=== PATIENT | female | born 1985 | race Caucasian/White ===

== ENCOUNTER 2018-09-11 16:56 | Emergency (ER) | payer SELFPAY ==
[2018-09-11] MEDS ORDERED: MORPHINE 4 MG/ML SYR ONE (17:25)
[2018-09-11] MEDS ORDERED: ONDANSETRON 4 MG/2 ML VIAL ONE (17:25)
[2018-09-11] MEDS ORDERED: NA CHLORIDE 0.9% 1,000 ML ONE (17:26)
[2018-09-11] MEDS ORDERED: MEPERIDINE HCL 50 MG/ML AMP ONE (17:51)
[2018-09-11] MEDS ORDERED: PROMETHAZINE 25 MG/ML VIAL ONE (17:52)
[2018-09-11 18:05] LABS: Absolute Lymphocytes (CBC) 0.9 K/uL (0.7-4.9); Absolute Monocytes 0.3 K/uL (0.1-1.3); Absolute Neutrophil 9.6 K/uL (1.8-8.0); Basophils % 0.1 % (0-1.3); Hematocrit 37.5 % (36.0-45.0); Lymphocytes % 8.5 % (15.3-44.8); MCH 30.1 pg (27.0-35.0); MCV 86.7 fL (80-100); MPV 9.5 fL (7.6-11.3); Monocytes % 2.7 % (3.3-12.3); RBC Red Blood Cell Count 4.32 M/uL (3.86-4.86)
[2018-09-11 18:06] LABS: Albumin 4.3 g/dL (3.4-5.0); Bilirubin Direct 0.1 mg/dL (0-0.2); Bilirubin Total 0.4 mg/dL (0.2-1.0); Potassium 3.2 mmol/L (3.5-5.1); Protein, Total 8.1 g/dL (6.4-8.2)
--- NOTE | 2018-09-11 19:09 | RAD REPORT ---
EXAM DESCRIPTION: CTAbdomen Pelvis W Contrast - 09/11/2018 6:56 pm CLINICAL HISTORY: Abdominal pain. iv only;Abd pain COMPARISON: No comparisons TECHNIQUE: Biphasic CT imaging of the abdomen and pelvis was performed with 100 ml non-ionic IV cont rast. All CT scans are performed using dose optimization technique as appropriate and may include automated exposure control or mA/KV adjustment according to patient size. FINDINGS: The lung bases are clear. The liver, spleen, pancreas, adrenal glands and kidneys are within normal limits. No bowel obstruction, free air, free fluid or abscess. The appendix is normal. The terminal ileum a ppears mildly thickened with a few surrounding right lower quadrant lymph nodes seen. The cervix appears bulky and there is trace pelvic free fluid. No suspicious bony findings. IMPRESSION: Terminal ileum thickening is seen with mild surrounding lymph nodes could indicate infla mmatory bowel disease/Crohn's disease. Bulky cervix is seen with trace pelvic free fluid. Advise correlation with Pap smear if not recently performed.
[2018-09-11 19:30] LABS: Urine White Blood Cell Casts OK
[2018-09-11 19:31] LABS: Blood Morphology Comment NOT SEEN (NOT SEEN); Platelet Estimate ADEQ
[2018-09-11] MEDS ORDERED: predniSONE 20 MG TAB ONE (20:10)
--- NOTE | 2018-09-11 20:31 | ER ---
Nurse's Notes [facility] Name: Shyanne Pardo Age: 33 yrs Sex: Female : 1985 Arrival Date: 09/11/2018 Time: 16:58 Bed 8 Private MD: Diagnosis: Abdominal and pelvic pain;Crohn's disease [regional enteritis] Presentation: 09/11 17:04 Presenting complaint: Patient states: She is suppose to have a colonoscopy in the aj1 morning, but she's having so much stomach pain she isn't able to hold any of the medications down. Reports vomiting for the past 2 days. Denies fever, diarrhea. Reports constipation. Patient is restless, reports abdominal pain in the umbilical area. Transition of care: patient was not received from another setting of care. Onset of symptoms was September 11, 2018. Risk Assessment: Do you want to hurt yourself or someone else? Patient reports no desire to harm self or others. 17:04 Method Of Arrival: [facility] 17:04 Acuity: [place] 3 aj1 17:12 Care prior to arrival: None. aj1 17:12 Note Unable to take patient's blood pressure at this time, patient is restless and aj1 unable to keep her arm still to get blood pressure. 19:29 Initial Sepsis Screen: Does the patient meet any 2 criteria? No. Patient's initial ao sepsis screen is negative. Does the patient have a suspected source of infection? No. Patient's initial sepsis screen is negative. Triage Assessment: 17:14 General: Appears uncomfortable, Behavior is crying, restless, uncooperative. Pain: aj1 Complains of pain in umbilical area Pain currently is 10 out of 10 on a pain scale. Neuro: Level of Consciousness is awake, alert. Cardiovascular: Denies chest pain. Respiratory: Airway is patent Respiratory effort is even, unlabored, Respiratory pattern is regular, symmetrical. GI: Reports upper abdominal pain, constipation, gaseousness, nausea, vomiting, Patient currently denies diarrhea. Historical: - Allergies: 17:07 PENICILLINS; aj1 17:07 azithromycin; aj1 - PMHx: 17:14 None; aj1 - PSHx: 17:14 "emergency surgery when her IUD went through her Cervix and started going to her bowel";aj1 - Immunization history:: Adult Immunizations unknown. - Social history:: Smoking status: Patient uses tobacco products. - Ebola Screening: : Patient negative for fever greater than or equal to 101.5 degrees Fahrenheit, and additional compatible Ebola Virus Disease symptoms Patient denies exposure to infectious person Patient denies travel to an Ebola-affected area in the 21 days before illness onset. Screenin:29 Abuse screen: Denies threats or abuse. Denies injuries from another. Nutritional la1 screening: No deficits noted. Tuberculosis screening: No symptoms or risk factors identified. Fall Risk None identified. Assessment: 17:20 General: Appears uncomfortable, ill, slender, well developed, well nourished, Behavior sg is agitated, anxious, restless. Pain: Complains of pain in umbilical area Quality of pain is described as aching, sharp, stabbing. Neuro: No deficits noted. Cardiovascular: Patient's skin is warm and dry. Chest pain is denied. Respiratory: Airway is patent Respiratory effort is even, unlabored, Respiratory pattern is regular, symmetrical. GI: Bowel sounds present X 4 quads. Abd is soft X 4 quads Abdomen is tender to palpation X 4 quads. : No signs and/or symptoms were reported regarding the genitourinary system. EENT: No signs and/or symptoms were reported regarding the EENT system. Derm: Skin is intact, is healthy with good turgor, Skin is clammy, Skin is pale, Skin temperature is cool. Musculoskeletal: No signs and/or symptoms reported regarding the musculoskeletal system. 19:22 General: Appears in no apparent distress. comfortable, Behavior is calm, cooperative, ao appropriate for age. Pain: Complains of pain in abdomen. Neuro: Level of Consciousness is awake, alert, obeys commands, Oriented to person, place, time, situation, Appropriate for age Moves all extremities. Full function Speech is normal, Facial symmetry appears normal. Cardiovascular: Capillary refill < 3 seconds Patient's skin is warm and dry. Respiratory: Airway is patent Respiratory effort is even, unlabored, Respiratory pattern is regular, symmetrical. GI: Abdomen is non-distended. : No signs and/or symptoms were reported regarding the genitourinary system. EENT: No signs and/or symptoms were reported regarding the EENT system. Derm: Skin is intact, is healthy with good turgor, Skin is clammy, Skin is pink, warm \\T\\ dry. normal, Skin temperature is warm. Musculoskeletal: Circulation, motion, and sensation intact. Range of motion:. 20:11 Reassessment: Patient appears in no apparent distress at this time. Patient and/or ao family updated on plan of care and expected duration. Pain level reassessed. 21:11 Reassessment: Patient is alert, oriented x 3, equal unlabored respirations, skin lp1 warm/dry/pink. Patient states feeling better. Vital Signs: 17:14 Pulse 92; Resp 24; Temp 97.7(O); Pulse Ox 100% on R/A; Pain 10/10; aj1 17:25 BP 142 / 88; sg 19:22 BP 125 / 75; Pulse 83; Resp 16; Pulse Ox 98% ; Pain 0/10; ao 20:11 BP 120 / 80; Pulse 78; Resp 14; Pulse Ox 99% ; ao 21:11 BP 111 / 82; Pulse 77; Resp 16; Pulse Ox 98% on R/A; lp1 ED Course: 16:58 Patient arrived in ED. as 17:06 Triage completed. aj1 17:07 Arm band placed on Patient placed in an exam room. aj1 17:28 Fito Rodrigues PA is PHCP. cp 17:28 Shar Prather MD is Attending Physician. cp 17:29 Inserted saline lock: 18 gauge in right antecubital area, using aseptic technique. la1 Blood collected. 17:35 Mariano Chakraborty PA is PHCP. jr8 17:35 Shar Prather MD is Attending Physician. jr8 17:59 Regulo Willis, ESTER is Primary Nurse. sg 18:56 CT Abd/Pelvis - W/Contrast In Process Unspecified. EDMS 19:29 Patient has correct armband on for positive identification. ao 20:30 Devan Gomes MD is Referral Physician. jr8 21:11 No provider procedures requiring assistance completed. IV discontinued, No lp1 redness/swelling at site. Pressure dressing applied. Administered Medications: 17:36 Drug: morphine 4 mg Route: IVP; Site: right antecubital; hb 18:00 Follow up: Response: No adverse reaction; No change in condition sg 17:36 Drug: Zofran 4 mg Route: IVP; Site: right antecubital; hb 18:00 Follow up: Response: No adverse reaction; No change in condition sg 17:37 Drug: NS 0.9% 1000 ml Route: IV; Rate: 1000 ml; Site: right antecubital; hb 21:12 Follow up: IV Status: Completed infusion; IV Intake: 1000ml lp1 18:04 Drug: Demerol 50 mg Route: IVP; Site: right antecubital; sg 18:30 Follow up: Response: No adverse reaction; Pain is decreased sg 18:04 Drug: Phenergan 25 mg Route: IVP; Site: right antecubital; sg 18:46 Follow up: Response: No adverse reaction; Nausea is decreased sg 20:11 Drug: predniSONE 40 mg Route: PO; ao 21:12 Follow up: Response: No adverse reaction lp1 Intake: 21:12 IV: 1000ml; Total: 1000ml. lp1 Outcome: 20:31 Discharge ordered by . rachel 21:11 Discharged to home ambulatory, with family. lp1 21:11 Condition: good 21:11 Discharge instructions given to patient, family, Instructed on discharge instructions, follow up and referral plans. medication usage, Demonstrated understanding of instructions, follow-up care, medications, Prescriptions given X x5 21:13 Patient left the ED. lp1 Signatures: Dispatcher [employer] EDMS Mariana Zuleta RN RN aj1 Regulo Willis RN RN sg Martinez, Amelia as Pena, Laura, RN RN lp1 Mariano Chakraborty PA PA jr8 Attema, Lee, RN RN la1 Fito Rodrigues PA PA cp Ortiz, Alex, RN RN ao Baxter, Heather, RN RN hb
--- NOTE | 2018-09-11 20:31 | EDPHYS ---
Physician Documentation [facility] Name: Shyanne Pardo Age: 33 yrs Sex: Female : 1985 Arrival Date: 09/11/2018 Time: 16:58 Bed 8 Private MD: ED Physician Shar Prather HPI: 09/11 18:44 This 33 yrs old Female presents to ER via Ambulatory with complaints of jr8 Abdominal Pain. 18:44 The patient presents with abdominal pain that is diffuse. Onset: The symptoms/episode jr8 began/occurred acutely, today. The symptoms do not radiate. Associated signs and symptoms: Pertinent positives: nausea and vomiting. The symptoms are described as stabbing. Modifying factors: The symptoms are alleviated by nothing, the symptoms are aggravated by nothing. Severity of pain: At its worst the pain was severe. The patient has not experienced similar symptoms in the past. The patient has been recently seen by a physician:. Patient's family stated that she has had abdominal pain for the past couple of years on/off. Thought it may be due to her endometriosis. Stated that over the past couple of months noted that it was not coinciding with her menstrual cycles any longer and getting more frequent. Had bad bout this past and saw [facility] ER. Had CT and US done showing mesenteric adenitis only. Came back today with even worse pain. Saw GI Dr. Gomes today and has colonoscopy and endoscopy scheduled . Historical: - Allergies: 17:07 PENICILLINS; aj1 17:07 azithromycin; aj1 - PMHx: 17:14 None; aj1 - PSHx: 17:14 "emergency surgery when her IUD went through her Cervix and started going to her bowel";aj1 - Immunization history:: Adult Immunizations unknown. - Social history:: Smoking status: Patient uses tobacco products. - Ebola Screening: : Patient negative for fever greater than or equal to 101.5 degrees Fahrenheit, and additional compatible Ebola Virus Disease symptoms Patient denies exposure to infectious person Patient denies travel to an Ebola-affected area in the 21 days before illness onset. ROS: 18:44 Eyes: Negative for injury, pain, redness, and discharge, ENT: Negative for injury, jr8 pain, and discharge, Neck: Negative for injury, pain, and swelling, Cardiovascular: Negative for chest pain, palpitations, and edema, Respiratory: Negative for shortness of breath, cough, wheezing, and pleuritic chest pain, Back: Negative for injury and pain, MS/Extremity: Negative for injury and deformity, Skin: Negative for injury, rash, and discoloration, Neuro: Negative for headache, weakness, numbness, tingling, and seizure. 18:44 Abdomen/GI: Positive for abdominal pain, nausea and vomiting, Negative for diarrhea, constipation, abdominal cramps, abdominal distension, anorexia, dysphagia, hematemesis, black/tarry stool, rectal pain, rectal bleeding, bowel incontinence, flatulence. Exam: 18:44 Eyes: Pupils equal round and reactive to light, extra-ocular motions intact. Lids and jr8 lashes normal. Conjunctiva and sclera are non-icteric and not injected. Cornea within normal limits. Periorbital areas with no swelling, redness, or edema. ENT: Nares patent. No nasal discharge, no septal abnormalities noted. Tympanic membranes are normal and external auditory canals are clear. Oropharynx with no redness, swelling, or masses, exudates, or evidence of obstruction, uvula midline. Mucous membranes moist. Neck: Trachea midline, no thyromegaly or masses palpated, and no cervical lymphadenopathy. Supple, full range of motion without nuchal rigidity, or vertebral point tenderness. No Meningismus. Cardiovascular: Regular rate and rhythm with a normal S1 and S2. No gallops, murmurs, or rubs. Normal PMI, no JVD. No pulse deficits. Respiratory: Lungs have equal breath sounds bilaterally, clear to auscultation and percussion. No rales, rhonchi or wheezes noted. No increased work of breathing, no retractions or nasal flaring. Back: No spinal tenderness. No costovertebral tenderness. Full range of motion. Skin: Warm, dry with normal turgor. Normal color with no rashes, no lesions, and no evidence of cellulitis. MS/ Extremity: Pulses equal, no cyanosis. Neurovascular intact. Full, normal range of motion. Neuro: Awake and alert, GCS 15, oriented to person, place, time, and situation. Cranial nerves II-XII grossly intact. Motor strength 5/5 in all extremities. Sensory grossly intact. Cerebellar exam normal. Normal gait. 18:44 Abdomen/GI: Inspection: abdomen appears normal, Bowel sounds: active, all quadrants, Palpation: soft, in all quadrants, moderate abdominal tenderness, in the abdomen diffusely, mass, is not appreciated, rebound tenderness, is not appreciated, voluntary guarding, is not appreciated, involuntary guarding, is not appreciated, no appreciated organomegaly, Indicators: McBurney's point is not tender, Palmer's sign is negative, Rovsing's sign is negative, Liver: no appreciated palpable abnormalities, tenderness. Vital Signs: 17:14 Pulse 92; Resp 24; Temp 97.7(O); Pulse Ox 100% on R/A; Pain 10/10; aj1 17:25 BP 142 / 88; sg 19:22 BP 125 / 75; Pulse 83; Resp 16; Pulse Ox 98% ; Pain 0/10; ao 20:11 BP 120 / 80; Pulse 78; Resp 14; Pulse Ox 99% ; ao 21:11 BP 111 / 82; Pulse 77; Resp 16; Pulse Ox 98% on R/A; lp1 MDM: 17:28 Patient medically screened. cp 20:29 Data reviewed: vital signs, nurses notes, lab test result(s), radiologic studies, CT jr8 scan. Data interpreted: Pulse oximetry: on room air is 99 %. Interpretation: normal. Counseling: I had a detailed discussion with the patient and/or guardian regarding: the historical points, exam findings, and any diagnostic results supporting the discharge/admit diagnosis, lab results, radiology results, the need for outpatient follow up, a facing grinder, to return to the emergency department if symptoms worsen or persist or if there are any questions or concerns that arise at home. ED course: Consulted Dr. Gomes. Patient was suppose to have endoscopy and colonoscopy tomorrow but will be postponed due to new findings. Patient is to call him in the AM if she were not to be admitted. Patient has been pain free for almost 4 hours now and without n/v. Feels good to go home and would come back if needed. Will send home on steroids and antibiotics . 09/11 17:36 Order name: Basic Metabolic Panel; Complete Time: 18:08 8 09/11 17:36 Order name: CBC with Diff; Complete Time: 19:34 jr8 09/11 17:36 Order name: Creatinine for Radiology; Complete Time: 18:8 09/11 17:36 Order name: Hepatic Function; Complete Time: 18:08 jr8 09/11 17:36 Order name: Lipase; Complete Time: 18:08 [facility] 09/11 19:31 Order name: CBC Smear Scan; Complete Time: 19:34 EDMS 09/11 18:32 Order name: CT Abd/Pelvis - W/Contrast; Complete Time: 19:15 [facility] 09/11 20:11 Order name: Urine Dipstick--Ancillary (enter results); Complete Time: 21:00 mt 09/11 20:11 Order name: Urine --Ancillary (enter results); Complete Time: 21:00 mt 09/11 17:36 Order name: IV Saline Lock; Complete Time: 17:37 [facility] 09/11 17:36 Order name: Labs collected and sent; Complete Time: 17:37 8 Administered Medications: 17:36 Drug: morphine 4 mg Route: IVP; Site: right antecubital; hb 18:00 Follow up: Response: No adverse reaction; No change in condition sg 17:36 Drug: Zofran 4 mg Route: IVP; Site: right antecubital; hb 18:00 Follow up: Response: No adverse reaction; No change in condition sg 17:37 Drug: NS 0.9% 1000 ml Route: IV; Rate: 1000 ml; Site: right antecubital; hb 21:12 Follow up: IV Status: Completed infusion; IV Intake: 1000ml lp1 18:04 Drug: Demerol 50 mg Route: IVP; Site: right antecubital; sg 18:30 Follow up: Response: No adverse reaction; Pain is decreased sg 18:04 Drug: Phenergan 25 mg Route: IVP; Site: right antecubital; sg 18:46 Follow up: Response: No adverse reaction; Nausea is decreased sg 20:11 Drug: predniSONE 40 mg Route: PO; ao 21:12 Follow up: Response: No adverse reaction lp1 Disposition: 09/11/18 20:31 Discharged to Home. Impression: Abdominal and pelvic pain, Crohn's disease [regional enteritis]. - Condition is Stable. - Discharge Instructions: Abdominal Pain, Adult. - Prescriptions for promethazine 25 mg Rectal suppository - insert 1 suppository by RECTAL route every 6 hours; 12 suppository. Cipro 500 mg Oral Tablet - take 1 tablet by ORAL route every 12 hours for 10 days; 20 tablet. Flagyl 500 mg Oral Tablet - take 1 tablet by ORAL route every 6 hours for 10 days; 40 tablet. Prednisone 20 mg Oral Tablet - take 1 tablet by ORAL route 2 times per day for 7 days; 14 tablet. Tramadol 50 mg Oral Tablet - take 1 tablet by ORAL route every 8 hours as needed; 12 tablet. - Medication Reconciliation Form, Thank You Letter, Antibiotic Education, Prescription Opioid Use form. - Follow up: Devan Gomes MD; When: Tomorrow; Reason: Recheck today's complaints, Continuance of care, Re-evaluation by your physician. - Problem is new. - Symptoms have improved. Signatures: Dispatcher [employer] EDMS Mariana Zuleta RN RN aj1 Regulo Willis RN RN sg Paulina Barrera RN RN lp1 Mariano Chakraborty PA PA jr8 Fito Rodrigues PA PA cp Ortiz, Alex, RN RN ao Aurea Bonilla RN RN Corrections: (The following items were deleted from the chart) 21:13 20:31 09/11/2018 20:31 Discharged to Home. Impression: Abdominal and pelvic pain; lp1 Crohn's disease [regional enteritis]. Condition is Stable. Forms are Medication Reconciliation Form, Thank You Letter, Antibiotic Education, Prescription Opioid Use. Follow up: Devan Gomes; When: Tomorrow; Reason: Recheck today's complaints, Continuance of care, Re-evaluation by your physician. Problem is new. Symptoms have improved. jr8
[2018-09-11 20:41] LABS: Urine Blood 1+ (NEG); Urine Glucose NEGATIVE (NEG); Urine Protein NEGATIVE (NEG)
== END 2018-09-11 21:13 | disposition home or self-care (01) ==
LOC: ER 16:56
DX: K50.919 Crohn's disease, unspecified, with unspecified complications (principal); Z72.0 Tobacco use; Z88.0 Allergy status to penicillin; Z88.1 Allergy status to other antibiotic agents
CPT/HCPCS: 36415; 74177; 80048; 80076; 81003; 81025; 83690; 85025; J2175; J2405; J2550; J7030; J7512; Q9967

== ENCOUNTER 2018-12-20 09:43 | Emergency (ER) | payer BC, SELFPAY ==
--- OUTSIDE RECORDS SUMMARY | 2018-12-20 09:48 | XMS REPORT | Continuity of Care Document ---
:1985 Author Organization [facility] Address [address] [place] [address] Phone Unavailable Care Team Providers Name Role Phone PHYSICIAN, NO Primary Care Physician Unavailable Insurance Providers Guarantor James Griffin Address [address] [place] [address] Email NONE Payer Self Pay Insurance Subscriber's Name James Griffin Relationship Self / Same As Patient Group Number NA Group Name NA Advance Directives Directive Response Recorded Date/Time Patient/Family Given Education Material R/T Y - 09/05/18..AW 09/05/18 2: 23pm Directives? Chief Complaint and Reason for Visit Chief Complaint Abdominal/GI/Nausea/Vomiting Reason for Visit Mesenteric adenitis [id number] Nausea Problems Active ProblemsNo active problem information available. Past Problems Medical Problem Onset Date Status Diverticula, intestine Unknown Acute Mesenteric adenitis Unknown Acute Nausea Unknown Acute Medications No medication information available. Social History Smoking Status Start Date Stop Date Never smoker Hospital Discharge Instructions No hospital discharge instruction information available. Plan of Care Discharge Date 09/05/18 6:47pm Instructions/Education Provided Mesenteric Adenitis, Adult Diverticulosis Forms Provided Portal Welcome Letter Prescriptions See Medication Section Referrals NO PHYSICIAN Additional Instructions/Education CIPRO 500MG TAB 1 BY MOUTH EVERY 12 HOURS X 7 DAYS. ZOFRAN 4MG TAB 1 BY MOUTH EVERY 4-6 HOURS NEEDED FOR NAUSEA #15. TRAMADOL 50MG TAB 1 [facility] MOUTH EVERY 4-6 HOURS NEEDED FOR PAIN#20. FOLLOW UP WITH YOUR GI SPECIALIST IN AM FOLLOW UP WITH YOUR PRIMARY CARE PROVIDER IN 2-3 DAY RETURN TO THE ER IF YOUR SYMPTOMS WORSEN Functional Status No functional status information available. Allergies, Adverse Reactions, Alerts Allergen Type Severity Reaction Status Last Updated Ampicillin ([id number]) Allergy Severe Active 09/05/18 Cefazolin Allergy Severe Active 09/05/18 Erythromycin ([id number]) Allergy Severe Active 09/12/11 Sulfacetamide ([id number]) Allergy Severe Active 09/05/18 Immunizations No immunization information available. Vital Signs Acute Vital Signs Vital Response Date/Time Blood Pressure 116/64 mm Hg 09/05/2018 6:47pm Pulse Pulse Rate (adult) 83 beats per minute (60 - 100) 09/05/2018 6:47pm Respiratory Rate 18 breaths per minute (10 - 24) 09/05/2018 6:47pm Temperature Source Oral 09/05/2018 6:47pm Height 5 ft 7 in 09/05/2018 2:23pm Weight 150 lb 09/05/2018 2:23pm Body Mass Index 23.5 kg/m^2 09/05/2018 2:23pm Results Laboratory Results Test Name Result Units Flags Reference Collection Result Comments Date/Time Date/Time White Blood Count 9.0 K/ul 4.0-11.5 09/05/2018 09/05/2018 2:31pm 2:56pm Red Blood Count 4.56 M/ul 3.80-5.20 09/05/2018 09/05/2018 2:31pm 2:56pm Hemoglobin 14.0 g/dl 10.5-15.7 09/05/2018 09/05/2018 2:31pm 2:56pm Hematocrit 40.1 % 34.0-50.0 09/05/2018 09/05/2018 2:31pm 2:56pm Mean Corpuscular 87.9 fl 78-98 09/05/2018 09/05/2018 Volume 2:31pm 2:56pm Mean Corpuscular 30.6 pg 26.2-33.4 09/05/2018 09/05/2018 Hemoglobin 2:31pm 2:56pm Mean Corpuscular 34.8 g/dl 31.5-36.2 09/05/2018 09/05/2018 Hemoglobin Concent 2:31pm 2:56pm Red Cell 11.6 % 11.5-15.5 09/05/2018 09/05/2018 Distribution Width 2:31pm 2:56pm Platelet Count 275 K/ul 137-338 09/05/2018 09/05/2018 2:31pm 2:56pm Mean Platelet 8.3 fl L 8.4-11.8 09/05/2018 09/05/2018 Volume 2:31pm 2:56pm Neutrophils (%) 77.9 % 44.4-80.1 09/05/2018 09/05/2018 (Auto) 2:31pm 2:56pm Lymphocytes (%) 16.8 % 10.0-50.0 09/05/2018 09/05/2018 (Auto) 2:31pm 2:56pm Monocytes (%) 4.3 % 3.6-12.04 09/05/2018 09/05/2018 (Auto) 2:31pm 2:56pm Eosinophils (%) 0.1 % 0.0-5.41 09/05/2018 09/05/2018 (Auto) 2:31pm 2:56pm Basophils (%) 0.9 % H 0.0-0.79 09/05/2018 09/05/2018 (Auto) 2:31pm 2:56pm Urine Color YELLOW 09/05/2018 09/05/2018 2:31pm 3:00pm Urine Appearance CLEAR CLEAR 09/05/2018 09/05/2018 2:31pm 3:00pm Urine Glucose NEGATIVE NEGATIVE 09/05/2018 09/05/2018 2:31pm 3:00pm Urine Bilirubin NEGATIVE NEGATIVE 09/05/2018 09/05/2018 2:31pm 3:00pm Urine Ketones NEGATIVE NEGATIVE 09/05/2018 09/05/2018 2:31pm 3:00pm Urine Specific 1.015 1.003-1.030 09/05/2018 09/05/2018 Carbon 2:31pm 3:00pm Urine Blood MODERATE H NEGATIVE 09/05/2018 09/05/2018 2:31pm 3:00pm Urine pH 8.500 5-9 09/05/2018 09/05/2018 2:31pm 3:00pm Urine Protein NEGATIVE NEGATIVE 09/05/2018 09/05/2018 2:31pm 3:00pm Urine Urobilinogen 0.2 E.U./dL 0.2-1.0 09/05/2018 09/05/2018 2:31pm 3:00pm Urine Nitrate NEGATIVE NEGATIVE 09/05/2018 09/05/2018 2:31pm 3:00pm Urine Leukocyte NEGATIVE NEGATIVE 09/05/2018 09/05/2018 Esterase 2:31pm 3:00pm Urine RBC 11-14 /hpf H 0-5 09/05/2018 09/05/2018 2:31pm 3:00pm Urine WBC <1 /hpf 0-5 09/05/2018 09/05/2018 2:31pm 3:00pm Urine Epithelial 1-5 /hpf 0-5 09/05/2018 09/05/2018 Cells 2:31pm 3:00pm Urine Bacteria TRACE /hpf None Detect 09/05/2018 09/05/2018 2:31pm 3:00pm Urine Casts 2-5 /lpf None Detect 09/05/2018 09/05/2018 2:31pm 3:00pm Urine Culture NO 09/05/2018 09/05/2018 Reflexed 2:31pm 3:00pm Random Glucose 118 mg/dL H 74-106 09/05/2018 09/05/2018 2:31pm 3:06pm Blood Urea 11 mg/dL 6-20 09/05/2018 09/05/2018 Nitrogen 2:31pm 3:06pm Serum Osmolality 282 280-300 09/05/2018 09/05/2018 2:31pm 3:06pm Creatinine 0.6 mg/dL 0.50-0.90 09/05/2018 09/05/2018 2:31pm 3:06pm Glomerular > 60.00 09/05/2018 09/05/2018 GFR RESULTS ARE REPORTED IN mL/min/1.73m2. Filtration Rate 2:31pm 3:06pm Calc Normal GFR: >60mL/min Moderately decreased GFR: 30-59 mL/min Severely decreased GFR: 15-29 mL/min Kidney Failure (or Dialysis): <15 mL/min The calculated eGFR is not valid for patients younger than 18 years or older than 75 years. BUN/Creatinine 18.3 12-20 09/05/2018 09/05/2018 Ratio 2:31pm 3:06pm Sodium Level 141 mmol/L 135-145 09/05/2018 09/05/2018 2:31pm 3:06pm Potassium Level 4.0 mmol/L 3.5-5.2 09/05/2018 09/05/2018 2:31pm 3:06pm Chloride Level 100 mmol/L 98-108 09/05/2018 09/05/2018 2:31pm 3:06pm Carbon Dioxide 25 mmol/L 21-32 09/05/2018 09/05/2018 Level 2:31pm 3:06pm Anion Gap 20.0 mEq/L 12-20 09/05/2018 09/05/2018 2:31pm 3:06pm Calcium Level 10.1 mg/dL H 8.6-10.0 09/05/2018 09/05/2018 2:31pm 3:06pm Magnesium Level 1.7 mg/dL 1.6-2.6 09/05/2018 09/05/2018 2:31pm 3:06pm Total Protein 8.0 g/dL 6.6-8.7 09/05/2018 09/05/2018 2:31pm 3:06pm Albumin 5.3 g/dL H 3.5-5.2 09/05/2018 09/05/2018 2:31pm 3:06pm Globulin 2.7 gm/dL 09/05/2018 09/05/2018 2:31pm 3:06pm Albumin/Globulin 2.0 >1.0 09/05/2018 09/05/2018 Ratio 2:31pm 3:06pm Total Bilirubin 0.4 mg/dL 0.0-1.2 09/05/2018 09/05/2018 2:31pm 3:06pm Aspartate Amino 18 U/L 15-32 09/05/2018 09/05/2018 TEST RESULT Transf (AST/SGOT) 2:31pm 3:06pm INTERFERENCE DUE TO HEMOLYSIS. Alanine 12 U/L 0-33 09/05/2018 09/05/2018 Aminotransferase 2:31pm 3:06pm (ALT/SGPT) Amylase Level 51 U/L 28-100 09/05/2018 09/05/2018 2:31pm 3:06pm Lipase 30 U/L 13-60 09/05/2018 09/05/2018 2:31pm 3:06pm Total Alkaline 97 U/L 35-105 09/05/2018 09/05/2018 Phosphatase 2:31pm 3:06pm Procedures Procedure Status Date Provider(s) Computed tomography of abdomen and pelvis with Completed 09/05/18 ODILIA BRUNO [employer]LECTRONIC CONTR[employer]S REPAIRER SUPERVISOR contrast Non-obstetrical transvaginal ultrasound of pelvis Completed 09/05/18 ODILIA BRUNO ELECTRONIC [employer]S REPAIRER SUPERVISOR Encounters Encounter Location Arrival/Admit Date Discharge/Depart Date Attending Provider Departed Jn 09/05/18 2:16pm 09/05/18 6:47pm BERTIN DAY MD Emergency Room [facility] Recent Diagnosis
[2018-12-20] MEDS ORDERED: MORPHINE 4 MG/ML SYR ONE (10:48)
[2018-12-20] MEDS ORDERED: NA CHLORIDE 0.9% 1,000 ML ONE (10:48)
[2018-12-20] MEDS ORDERED: ONDANSETRON 4 MG/2 ML VIAL ONE ×2 (10:48→13:39)
[2018-12-20 11:09] LABS: Absolute Lymphocytes (CBC) 1.1 K/uL (0.7-4.9); Absolute Monocytes 0.3 K/uL (0.1-1.3); Absolute Neutrophil 4.6 K/uL (1.8-8.0); Basophils % 0.2 % (0-1.3); Eosinophils % 0.1 % (0-4.4); Hematocrit 38.8 % (36.0-45.0); Lymphocytes % 18.9 % (15.3-44.8); MPV 9.8 fL (7.6-11.3); Monocytes % 4.2 % (3.3-12.3); RBC Red Blood Cell Count 4.37 M/uL (3.86-4.86)
[2018-12-20 11:17] LABS: BUN Blood Urea Nitrogen 11 mg/dL (7-18); Bicarbonate 26 mmol/L (21-32); Glucose Level 94 mg/dL (74-106); Potassium 3.8 mmol/L (3.5-5.1); Sodium Level 141 mmol/L (136-145)
--- NOTE | 2018-12-20 12:31 | RAD REPORT ---
EXAM DESCRIPTION: CTAbdomen Pelvis W Contrast - 12/20/2018 12:21 pm CLINICAL HISTORY: Abdominal pain. epigastric - possible hernia;Abd pain COMPARISON: Abdomen Pelvis W Contrast dated 09/11/2018 TECHNIQUE: Biphasic CT imaging of the abdomen and pelvis was performed with 100 ml non-ionic IV cont rast. All CT scans are performed using dose optimization technique as appropriate and may include automated exposure control or mA/KV adjustment according to patient size. FINDINGS: The lung bases are clear. The liver, spleen, pancreas, adrenal glands and kidneys are within normal limits. No bowel obstruction, free air, free fluid or abscess. The appendix is not identified as a discrete structure, however, no secondary findings of appendicitis are identified. No evidence of significan t lymphadenopathy. No suspicious bony findings. IMPRESSION: No acute intra-abdominal or pelvic finding.
--- NOTE | 2018-12-20 13:19 | ER ---
Nurse's Notes [facility] Name: Shyanne Pardo Age: 33 yrs Sex: Female : 1985 Arrival Date: 12/20/2018 Time: 09:46 Bed 19 Private MD: Diagnosis: Abdominal wall pain, epigastirc area. Xiphoid pain Presentation: 12/20 09:58 Presenting complaint: Patient states: "Since about 5 this morning I've been throwing aj1 up." Reports epigastric pain that she woke up with this morning. states that she has a sliding hernia, and they called Dr. Gomes and he advised them to come to the ER. Patient also reports a history of Crohns. Transition of care: patient was not received from another setting of care. Onset of symptoms was December 20, 2018 at 05:00. Risk Assessment: Do you want to hurt yourself or someone else? Patient reports no desire to harm self or others. Initial Sepsis Screen: Does the patient meet any 2 criteria? HR > 90 bpm. No. Patient's initial sepsis screen is negative. Does the patient have a suspected source of infection? Yes: Acute abdominal pain. Care prior to arrival: None. 09:58 Method Of Arrival: Ambulatory aj1 09:58 Acuity: [place] 3 aj1 Triage Assessment: 10:03 General: Appears uncomfortable, Behavior is cooperative, restless. Pain: Complains of aj1 pain in epigastric area Pain currently is 4 out of 10 on a pain scale. Neuro: Level of Consciousness is awake, alert, obeys commands. Cardiovascular: Patient's skin is warm and dry. Respiratory: Airway is patent Respiratory effort is even, unlabored, Respiratory pattern is regular, symmetrical. GI: Reports upper abdominal pain, nausea, vomiting. 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 - Social history:: Smoking status: Patient/guardian denies using tobacco. - Ebola Screening: : Patient denies travel to an Ebola-affected area in the 21 days before illness onset. Screenin:35 Abuse screen: Denies threats or abuse. Nutritional screening: No deficits noted. em Tuberculosis screening: No symptoms or risk factors identified. Fall Risk None identified. Assessment: 10:35 General: Appears in no apparent distress. uncomfortable, Behavior is calm, cooperative, em Denies fever. Pain: Complains of pain in abdomen and epigastric area Pain currently is 5 out of 10 on a pain scale. Neuro: Level of Consciousness is awake, alert, obeys commands, Oriented to person, place, time, situation. Cardiovascular: Capillary refill < 3 seconds Patient's skin is warm and dry. Respiratory: Airway is patent Respiratory effort is even, unlabored, Respiratory pattern is regular, symmetrical, Breath sounds are clear bilaterally. GI: Abdomen is flat, Bowel sounds present X 4 quads. Abd is soft X 4 quads Abdomen is tender to palpation X 4 quads. Reports nausea, vomiting, Patient currently denies diarrhea. Derm: Skin is intact, is healthy with good turgor, Skin is pink, warm \\T\\ dry. Musculoskeletal: Range of motion: intact in all extremities. 10:45 Reassessment: I agree with previous assessment. hb 11:39 Reassessment: Patient appears in no apparent distress at this time. Patient and/or em family updated on plan of care and expected duration. Pain level reassessed. Patient is alert, oriented x 3, equal unlabored respirations, skin warm/dry/pink. rates pain 3/10, pending CT Patient states feeling better. Patient states symptoms have improved. 13:00 Reassessment: Patient appears in no apparent distress at this time. Patient and/or em family updated on plan of care and expected duration. Pain level reassessed. Patient is alert, oriented x 3, equal unlabored respirations, skin warm/dry/pink. 14:00 Reassessment: Patient appears in no apparent distress at this time. Patient and/or em family updated on plan of care and expected duration. Pain level reassessed. Patient is alert, oriented x 3, equal unlabored respirations, skin warm/dry/pink. Vital Signs: 10:03 BP 122 / 90; Pulse 91; Resp 20; Temp 97.9; Pulse Ox 98% on R/A; Weight 63.5 kg (R); aj1 Height 5 ft. 7 in. (170.18 cm) (R); Pain 4/10; 10:35 BP 117 / 78; Pulse 97; Resp 18; Pulse Ox 99% on R/A; Pain 6/10; em 12:20 BP 126 / 76; Pulse 80; Resp 17; Temp 98.0(O); Pulse Ox 99% on R/A; mh5 13:00 BP 114 / 72; Pulse 76; Resp 18; Pulse Ox 99% on R/A; em 14:00 BP 118 / 74; Pulse 69; Resp 16; Pulse Ox 99% on R/A; Pain 2/10; em 10:03 Body Mass Index 21.93 (63.50 kg, 170.18 cm) aj1 ED Course: 09:46 Patient arrived in ED. rg4 10:00 Triage completed. aj1 10:03 Arm band placed on Patient placed in an exam room. aj1 10:06 Shar Prather MD is Attending Physician. kdr 10:08 Elio Solis LVN is Primary Nurse. em 10:35 Patient has correct armband on for positive identification. Placed in gown. Bed in low em position. Call light in reach. Side rails up X2. Adult w/ patient. Pulse ox on. NIBP on. 10:50 Radiology exam delayed due to lab results not completed at this time. (BUN/Creatinine). vm2 11:24 Initial lab(s) drawn, by me, sent to lab. Inserted saline lock: 22 gauge in left mh5 antecubital area, using aseptic technique. Blood collected. 12:22 CT Abd/Pelvis - W/Contrast In Process Unspecified. EDMS 14:02 No provider procedures requiring assistance completed. IV discontinued, intact, em bleeding controlled, No redness/swelling at site. Pressure dressing applied. Administered Medications: 10:59 Drug: morphine 4 mg Route: IVP; Site: left antecubital; hb 11:21 Follow up: Response: No adverse reaction; Pain is decreased em 10:59 Drug: Zofran 4 mg Route: IVP; Site: left antecubital; hb 11:21 Follow up: Response: No adverse reaction; Nausea is decreased em 10:59 Drug: NS 0.9% 1000 ml Route: IV; Rate: 1 bolus; Site: left antecubital; hb 11:33 Follow up: IV Status: Completed infusion; IV Intake: 1000ml em 13:50 Drug: Zofran 4 mg Route: IVP; Site: left forearm; em 14:01 Follow up: Response: No adverse reaction; Medication administered at discharge. em Intake: 11:33 IV: 1000ml; Total: 1000ml. em Outcome: 13:17 Discharge ordered by . kdr 14:02 Discharged to home ambulatory, with family. em 14:02 Condition: good 14:02 Discharge instructions given to patient, family, Instructed on discharge instructions, follow up and referral plans. medication usage, Demonstrated understanding of instructions, follow-up care, medications, Prescriptions given X 2. 14:12 Patient left the ED. em Signatures: Dispatcher [employer] EDMariana Au RN RN aj1 Sahr Prather MD MD kdr Munoz, Edgar, JAIRO MIG WELDER em Aurea Bonilla RN RN hb Garcia, Rubi rg4 Martinez, [facility] Angelita Lino 2 Corrections: (The following items were deleted from the chart) 11:22 11:00 BP 101 / 51; Pulse 73bpm; Resp 16bpm; Pulse Ox 99% RA; Pain 0/10; em em 11:44 11:39 Reassessment: Patient appears in no apparent distress at this time. Patient em and/or family updated on plan of care and expected duration. Pain level reassessed. Patient is alert, oriented x 3, equal unlabored respirations, skin warm/dry/pink. rates pain 3/10 Patient states feeling better. em 14:09 14:00 BP 118 / 74; Pulse 19bpm; Resp 16bpm; Pulse Ox 99% RA; Pain 3/10; em em
--- NOTE | 2018-12-20 13:19 | EDPHYS ---
Physician Documentation [facility] Name: Shyanne Pardo Age: 33 yrs Sex: Female : 1985 Arrival Date: 12/20/2018 Time: 09:46 Bed 19 Private MD: ED Physician Shar Prather HPI: 12/20 10:32 This 33 yrs old Female presents to ER via Ambulatory with complaints of kdr Hernia. 10:32 The patient presents with abdominal pain in the epigastric area. Onset: The kdr symptoms/episode began/occurred suddenly, at 05:00. The symptoms do not radiate. Associated signs and symptoms: Pertinent positives: nausea, Pertinent negatives: nausea and vomiting, anorexia, blood in stools, chest pain, constipation, diarrhea, dysuria, fever, headache, hematuria, nausea, palpitations, shortness of breath, vaginal discharge, vomiting. The symptoms are described as achy, crampy, dull. Severity of pain: At its worst the pain was moderate in the emergency department the pain is unchanged. The patient has experienced similar episodes in the past, a few times. The patient has not recently seen a physician. 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 - Social history:: Smoking status: Patient/guardian denies using tobacco. - Ebola Screening: : Patient denies travel to an Ebola-affected area in the 21 days before illness onset. ROS: 10:32 Constitutional: Negative for fever, chills, and weight loss, Eyes: Negative for injury, kdr pain, redness, and discharge, ENT: Negative for injury, pain, and discharge, Neck: Negative for injury, pain, and swelling, Cardiovascular: Negative for chest pain, palpitations, and edema, Respiratory: Negative for shortness of breath, cough, wheezing, and pleuritic chest pain, Back: Negative for injury and pain, : Negative for injury, bleeding, discharge, and swelling, MS/Extremity: Negative for injury and deformity, Skin: Negative for injury, rash, and discoloration, Neuro: Negative for headache, weakness, numbness, tingling, and seizure activity. Psych: Negative for depression, anxiety, suicide ideation, homicidal ideation, and hallucinations, Allergy/Immunology: Negative for hives, rash, and allergies, Endocrine: Negative for neck swelling, polydipsia, polyuria, polyphagia, and marked weight changes, Hematologic/Lymphatic: Negative for swollen nodes, abnormal bleeding, and unusual bruising. 10:32 Abdomen/GI: Positive for abdominal pain, nausea, abdominal cramps, Negative for vomiting, diarrhea, constipation. Exam: 10:32 Constitutional: This is a well developed, well nourished patient who is awake, alert, kdr and in no acute distress. Head/Face: Normocephalic, atraumatic. Eyes: Pupils equal round and reactive to light, extra-ocular motions intact. Lids and lashes normal. Conjunctiva and sclera are non-icteric and not injected. Cornea within normal limits. Periorbital areas with no swelling, redness, or edema. Neck: Trachea midline, no thyromegaly or masses palpated, and no cervical lymphadenopathy. Supple, full range of motion without nuchal rigidity, or vertebral point tenderness. No Meningismus. Chest/axilla: Normal chest wall appearance and motion. Nontender with no deformity. No lesions are appreciated. Cardiovascular: Regular rate and rhythm with a normal S1 and S2. No gallops, murmurs, or rubs. Normal PMI, no JVD. No pulse deficits. Respiratory: Lungs have equal breath sounds bilaterally, clear to auscultation and percussion. No rales, rhonchi or wheezes noted. No increased work of breathing, no retractions or nasal flaring. Back: No spinal tenderness. No costovertebral tenderness. Full range of motion. Skin: Warm, dry with normal turgor. Normal color with no rashes, no lesions, and no evidence of cellulitis. MS/ Extremity: Pulses equal, no cyanosis. Neurovascular intact. Full, normal range of motion. Neuro: Awake and alert, GCS 15, oriented to person, place, time, and situation. Cranial nerves II-XII grossly intact. Motor strength 5/5 in all extremities. Sensory grossly intact. Cerebellar exam normal. Normal gait. Psych: Awake, alert, with orientation to person, place and time. Behavior, mood, and affect are within normal limits. 10:32 Abdomen/GI: Inspection: abdomen appears normal, Bowel sounds: active, diminished, in all quadrants. Vital Signs: 10:03 BP 122 / 90; Pulse 91; Resp 20; Temp 97.9; Pulse Ox 98% on R/A; Weight 63.5 kg (R); aj1 Height 5 ft. 7 in. (170.18 cm) (R); Pain 4/10; 10:35 BP 117 / 78; Pulse 97; Resp 18; Pulse Ox 99% on R/A; Pain 6/10; em 12:20 BP 126 / 76; Pulse 80; Resp 17; Temp 98.0(O); Pulse Ox 99% on R/A; mh5 13:00 BP 114 / 72; Pulse 76; Resp 18; Pulse Ox 99% on R/A; em 14:00 BP 118 / 74; Pulse 69; Resp 16; Pulse Ox 99% on R/A; Pain 2/10; em 10:03 Body Mass Index 21.93 (63.50 kg, 170.18 cm) aj1 MDM: 10:32 Data reviewed: vital signs, nurses notes, lab test result(s), radiologic studies. kdr 13:17 Patient medically screened. kdr 12/20 10:32 Order name: CBC with Diff; Complete Time: 12:22 kdr 02 10:32 Order name: Chem 7; Complete Time: 12:22 kdr 12/20 10:32 Order name: CT Abd/Pelvis - W/Contrast; Complete Time: 13:12 kdr Administered Medications: 10:59 Drug: morphine 4 mg Route: IVP; Site: left antecubital; hb 11:21 Follow up: Response: No adverse reaction; Pain is decreased em 10:59 Drug: Zofran 4 mg Route: IVP; Site: left antecubital; hb 11:21 Follow up: Response: No adverse reaction; Nausea is decreased em 10:59 Drug: NS 0.9% 1000 ml Route: IV; Rate: 1 bolus; Site: left antecubital; hb 11:33 Follow up: IV Status: Completed infusion; IV Intake: 1000ml em 13:50 Drug: Zofran 4 mg Route: IVP; Site: left forearm; em 14:01 Follow up: Response: No adverse reaction; Medication administered at discharge. em Disposition: 12/20/18 13:17 Discharged to Home. Impression: Abdominal wall pain, epigastirc area. Xiphoid pain. - Condition is Stable. - Discharge Instructions: Abdominal Pain, Adult, [id number]. - Prescriptions for Tramadol 50 mg Oral Tablet - take 1 tablet by ORAL route every 8 hours as needed; 12 tablet. promethazine 25 mg Oral Tablet - take 1 tablet by ORAL route every 6 hours As needed; 20 tablet. - Medication Reconciliation Form, Thank You Letter, Prescription Opioid Use form. - Follow up: Private Physician; When: 2 - 3 days; Reason: If symptoms return, Further diagnostic work-up, Recheck today's complaints, Continuance of care, Re-evaluation by your physician. - Problem is new. - Symptoms have improved. Signatures: Dispatcher [employer] EDMariana Au RN RN aj1 Shar Prather MD MD kdr Elio Solis, EDUCATION FACULTY MEMBER EDUCATION FACULTY MEMBER em Aurea Bonilla RN RN Corrections: (The following items were deleted from the chart) 14:12 13:17 12/20/2018 13:17 Discharged to Home. Impression: Abdominal wall pain, epigastirc em area. Xiphoid pain. Condition is Stable. Forms are Medication Reconciliation Form, Thank You Letter, Antibiotic Education, Prescription Opioid Use. Follow up: Private Physician; When: 2 - 3 days; Reason: If symptoms return, Further diagnostic work-up, Recheck today's complaints, Continuance of care, Re-evaluation by your physician. Problem is new. Symptoms have improved. kdr
== END 2018-12-20 14:12 | disposition home or self-care (01) ==
LOC: ER 09:43
DX: R07.89 Other chest pain (principal); Z88.0 Allergy status to penicillin; Z88.1 Allergy status to other antibiotic agents; Z88.2 Allergy status to sulfonamides
CPT/HCPCS: 36415; 74177; 80048; 85025; 99284; J2405; J7030; Q9967

== ENCOUNTER 2018-12-28 06:44 | Emergency (ER) | payer BC ==
[2018-12-28] MEDS ORDERED: MORPHINE 4 MG/ML SYR ONE (07:27)
[2018-12-28] MEDS ORDERED: NA CHLORIDE 0.9% 1,000 ML ONE (07:27)
[2018-12-28] MEDS ORDERED: ONDANSETRON 4 MG/2 ML VIAL ONE (07:27)
[2018-12-28 07:47] LABS: Absolute Lymphocytes (CBC) 1.1 K/uL (0.7-4.9); Absolute Monocytes 0.3 K/uL (0.1-1.3); Absolute Neutrophil 6.8 K/uL (1.8-8.0); Basophils % 0.3 % (0-1.3); Eosinophils % 0.3 % (0-4.4); Hematocrit 41.8 % (36.0-45.0); Lymphocytes % 13.7 % (15.3-44.8); MPV 9.8 fL (7.6-11.3); RBC Red Blood Cell Count 4.69 M/uL (3.86-4.86)
[2018-12-28 07:59] LABS: Bilirubin Direct 0.1 mg/dL (0-0.2); Bilirubin Total 0.4 mg/dL (0.2-1.0); Potassium 4.2 mmol/L (3.5-5.1); Protein, Total 8.5 g/dL (6.4-8.2)
--- NOTE | 2018-12-28 09:13 | EDPHYS ---
Physician Documentation [facility] Name: Shyanne Pardo Age: 33 yrs Sex: Female : 1985 Arrival Date: 12/28/2018 Time: 06:48 Bed 15 Private MD: Devan Gomes H ED Physician César Villarreal HPI: 12/28 08:00 This 33 yrs old Female presents to ER via Ambulatory with complaints of pm1 Abdominal Pain. 08:00 The patient presents with abdominal pain in the left lower quadrant. The symptoms do pm1 not radiate. Associated signs and symptoms: Pertinent positives: nausea and vomiting, Pertinent negatives: chest pain, diarrhea, dysuria, fever, shortness of breath. The symptoms are described as crampy. Modifying factors: The symptoms are alleviated by nothing, the symptoms are aggravated by nothing. Severity of pain: in the emergency department the pain is actually worse. The patient has experienced similar episodes in the past, chronically. patient with complaints of abdominal pain for many years that presents with abdominal pain in the morning that improves throughout the day. She was seen on 12/20 and discharged to home. CT scan was negative at that time. Patient's pain in the same pain that she experiences from her chronic Crohn's disease. 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 - Social history:: Smoking status: Patient/guardian denies using tobacco. - Ebola Screening: : No symptoms or risks identified at this time. ROS: 08:00 Constitutional: Negative for fever, chills, and weight loss, Eyes: Negative for injury, pm1 pain, redness, and discharge, ENT: Negative for injury, pain, and discharge, Neck: Negative for injury, pain, and swelling, Cardiovascular: Negative for chest pain, palpitations, and edema, Respiratory: Negative for shortness of breath, cough, wheezing, and pleuritic chest pain. 08:00 Back: Negative for injury and pain, : Negative for injury, bleeding, discharge, and swelling, MS/Extremity: Negative for injury and deformity, Skin: Negative for injury, rash, and discoloration, Neuro: Negative for headache, weakness, numbness, tingling, and seizure. 08:00 Abdomen/GI: Positive for abdominal pain, nausea and vomiting, constipation, Negative for diarrhea. Exam: 08:00 Constitutional: This is a well developed, well nourished patient who is awake, alert, pm1 and in no acute distress. Head/Face: Normocephalic, atraumatic. Eyes: Pupils equal round and reactive to light, extra-ocular motions intact. Lids and lashes normal. Conjunctiva and sclera are non-icteric and not injected. Cornea within normal limits. Periorbital areas with no swelling, redness, or edema. ENT: Nares patent. No nasal discharge, no septal abnormalities noted. Tympanic membranes are normal and external auditory canals are clear. Oropharynx with no redness, swelling, or masses, exudates, or evidence of obstruction, uvula midline. Mucous membranes moist. Neck: Trachea midline, no thyromegaly or masses palpated, and no cervical lymphadenopathy. Supple, full range of motion without nuchal rigidity, or vertebral point tenderness. No Meningismus. Chest/axilla: Normal chest wall appearance and motion. Nontender with no deformity. No lesions are appreciated. Cardiovascular: Regular rate and rhythm with a normal S1 and S2. No gallops, murmurs, or rubs. Normal PMI, no JVD. No pulse deficits. Respiratory: Lungs have equal breath sounds bilaterally, clear to auscultation and percussion. No rales, rhonchi or wheezes noted. No increased work of breathing, no retractions or nasal flaring. Abdomen/GI: Soft, non-tender, with normal bowel sounds. No distension or tympany. No guarding or rebound. No evidence of tenderness throughout. Back: No spinal tenderness. No costovertebral tenderness. Full range of motion. Skin: Warm, dry with normal turgor. Normal color with no rashes, no lesions, and no evidence of cellulitis. MS/ Extremity: Pulses equal, no cyanosis. Neurovascular intact. Full, normal range of motion. 08:00 Neuro: Orientation: is normal, Motor: is normal, moves all fours. Vital Signs: 07:04 BP 136 / 76; Pulse 136; Resp 16; Temp 98.4; Pulse Ox 100% on R/A; Pain 10/10; hb 08:00 BP 120 / 86; Pulse 87; Resp 16; Pulse Ox 99% on R/A; Pain 8/10; rb1 08:30 BP 101 / 68; Pulse 74; Resp 15; Pulse Ox 98% on R/A; rb1 09:21 BP 122 / 72; Pulse 87; Resp 16; Pulse Ox 100% on R/A; rb1 MDM: 07:00 Patient medically screened. pm1 09:00 ED course: Patient without abdominal tenderness on examination. Patient with recent CT pm1 on 12/20/2018 that was negative. No need for CT exam today. Patient offered KUB to evaluate constipation but she refused. Will take Miralax at home. 09:09 Data reviewed: vital signs. Data interpreted: Pulse oximetry: on room air is 98 %. pm1 Interpretation: normal. 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 12/28 07:10 Order name: Basic Metabolic Panel; Complete Time: 08:01 pm12/28 07:10 Order name: CBC with Diff; Complete Time: 08: pm12/28 07:10 Order name: Hepatic Function; Complete Time: 08: pm12/28 07:10 Order name: Lipase; Complete Time: 08: pm12/28 07:59 Order name: Urine Dipstick--Ancillary (enter results) eb 12/28 07:59 Order name: Urine --Ancillary (enter results) eb 12/28 07:10 Order name: IV Saline Lock; Complete Time: 07:38 pm1 12/28 07:10 Order name: Labs collected and sent; Complete Time: 07:38 pm1 12/28 07:10 Order name: Urine Dipstick-Ancillary (obtain specimen); Complete Time: 07:48 pm1 12/28 07:10 Order name: Urine Test (obtain specimen); Complete Time: 07:47 pm1 Administered Medications: 07:35 Drug: NS 0.9% 1000 ml Route: IV; Rate: 1000 ml; Site: left antecubital; rb1 08:52 Follow up: IV Status: Completed infusion rb1 07:35 Drug: morphine 4 mg Route: IVP; Site: left antecubital; rb1 07:55 Follow up: Response: No adverse reaction; Pain is decreased rb1 07:35 Drug: Zofran 4 mg Route: IVP; Site: left antecubital; rb1 07:55 Follow up: Response: No adverse reaction; Nausea is decreased rb1 Disposition: 11:20 Co-signature as Attending Physician, César Villarreal MD. rn Disposition: 12/28/18 09:12 Discharged to Home. Impression: Unspecified abdominal pain, Crohn's disease [regional enteritis]. - Condition is Stable. - Discharge Instructions: Abdominal Pain, Adult, Crohn Disease. - Prescriptions for Bentyl 20 mg Oral Tablet - take 1 tablet by ORAL route every 6 hours As needed; 20 tablet. - Medication Reconciliation Form, Thank You Letter, Antibiotic Education, Prescription Opioid Use form. - Follow up: Emergency Department; When: As needed; Reason: Worsening of condition. Follow up: Devan Gomes MD; When: 2 - 3 days; Reason: Recheck today's complaints, Continuance of care, Re-evaluation by your physician. - Problem is new. - Symptoms have improved. Signatures: Dispatcher [employer] EDCésar Kaufman MD MD rn Barber, Rebecca, RN RN rb1 Jr Palacios, CISCO CONSULTANT CISCO CONSULTANT pm1 Aurea Bonilla RN RN Corrections: (The following items were deleted from the chart) 09:23 09:12 12/28/2018 09:12 Discharged to Home. Impression: Unspecified abdominal pain; rb1 Crohn's disease [regional enteritis]. Condition is Stable. Forms are Medication Reconciliation Form, Thank You Letter, Antibiotic Education, Prescription Opioid Use. Follow up: Emergency Department; When: As needed; Reason: Worsening of condition. Follow up: Devan Gomes; When: 2 - 3 days; Reason: Recheck today's complaints, Continuance of care, Re-evaluation by your physician. Problem is new. Symptoms have improved. pm1
--- NOTE | 2018-12-28 09:13 | ER ---
Nurse's Notes [facility] Name: Shyanne Pardo Age: 33 yrs Sex: Female : 1985 Arrival Date: 12/28/2018 Time: 06:48 Bed 15 Private MD: Devan Gomes H Diagnosis: Unspecified abdominal pain;Crohn's disease [regional enteritis] Presentation: 12/28 07:00 Initial Sepsis Screen: Does the patient meet any 2 criteria? No. Patient's initial rb1 sepsis screen is negative. Does the patient have a suspected source of infection? No. Patient's initial sepsis screen is negative. 07:04 Presenting complaint: Patient states: Upper abdominal pain and N/V since this morning. hb Hx Crohn's, stated "I usually have pain in the mornings but today is really bad and I keep vomiting.". Transition of care: patient was not received from another setting of care. Onset of symptoms was December 28, 2018. Risk Assessment: Do you want to hurt yourself or someone else? Patient reports no desire to harm self or others. Care prior to arrival: None. 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 - Social history:: Smoking status: Patient/guardian denies using tobacco. - Ebola Screening: : No symptoms or risks identified at this time. Screenin:10 Abuse screen: Denies threats or abuse. Denies injuries from another. Nutritional hb screening: No deficits noted. Tuberculosis screening: No symptoms or risk factors identified. Fall Risk None identified. Assessment: 07:00 General: Appears distressed, uncomfortable, Behavior is anxious, crying, Denies fever. rb1 Pain: Complains of pain in abdomen Pain currently is 10 out of 10 on a pain scale. Neuro: Level of Consciousness is awake, alert, obeys commands, Oriented to person, place, time, situation. Cardiovascular: Capillary refill < 3 seconds is brisk in bilateral fingers. Respiratory: Airway is patent Respiratory effort is even, unlabored, Respiratory pattern is regular, symmetrical. GI: Bowel sounds present X 4 quads. Abd is soft Reports nausea, vomiting, since this morning. : No signs and/or symptoms were reported regarding the genitourinary system. Derm: Skin is dry, Skin is normal, Skin temperature is warm. 08:00 Reassessment: Patient appears in no apparent distress at this time. Patient and/or rb1 family updated on plan of care and expected duration. Pain level reassessed. Patient is alert, oriented x 3, equal unlabored respirations, skin warm/dry/pink. Pain 8/10. 08:30 Reassessment: Pt. is resting with eyes closed, respirations even, unlabored. Call light rb1 within reach. Family at bedside. 09:21 Reassessment: Patient appears in no apparent distress at this time. No changes from rb1 previously documented assessment. Vital Signs: 07:04 BP 136 / 76; Pulse 136; Resp 16; Temp 98.4; Pulse Ox 100% on R/A; Pain 10/10; hb 08:00 BP 120 / 86; Pulse 87; Resp 16; Pulse Ox 99% on R/A; Pain 8/10; rb1 08:30 BP 101 / 68; Pulse 74; Resp 15; Pulse Ox 98% on R/A; rb1 09:21 BP 122 / 72; Pulse 87; Resp 16; Pulse Ox 100% on R/A; rb1 ED Course: 06:48 Patient arrived in ED. es 06:48 Devan Gomes MD is Private Physician. es 06:59 Jr [facility]acios [facility] pm1 07:00 Patient has correct armband on for positive identification. Bed in low position. Call rb1 light in reach. Side rails up X 1. Pulse ox on. NIBP on. Warm blanket given. 07:04 Arm band placed on. hb 07:06 Triage completed. hb 07:11 César Villarreal MD is Attending Physician. pm1 07:12 Adriane Lopez, RN is Primary Nurse. rb1 07:15 Missed attempt(s): 22 gauge in right antecubital area. rb1 07:32 Initial lab(s) drawn, by me, sent to lab. Inserted saline lock: 20 gauge in left dh3 antecubital area, using aseptic technique. Blood collected. 07:48 Urine collected: clean catch specimen, clear. 3 09:11 Devan Gomes MD is Referral Physician. pm1 09:22 No provider procedures requiring assistance completed. IV discontinued, intact, rb1 bleeding controlled, No redness/swelling at site. Pressure dressing applied. Administered Medications: 07:35 Drug: NS 0.9% 1000 ml Route: IV; Rate: 1000 ml; Site: left antecubital; rb1 08:52 Follow up: IV Status: Completed infusion rb1 07:35 Drug: morphine 4 mg Route: IVP; Site: left antecubital; rb1 07:55 Follow up: Response: No adverse reaction; Pain is decreased rb1 07:35 Drug: Zofran 4 mg Route: IVP; Site: left antecubital; rb1 07:55 Follow up: Response: No adverse reaction; Nausea is decreased rb1 Outcome: 09:12 Discharge ordered by MD. pm1 09:22 Discharged to home ambulatory, with family. rb1 09:22 Condition: stable 09:22 Discharge instructions given to patient, Instructed on discharge instructions, follow up and referral plans. medication usage, Demonstrated understanding of instructions, follow-up care, medications, Prescriptions given X 1. 09:23 Patient left the ED. rb1 Signatures: Nelsy Alves Rebecca, RN RN rb1 Jr Palacios NP BEHAVIORAL HEALTH ASSOCIATE pm1 Aurea Bonilla RN RN hb Herrera, Deanna 3
[2018-12-28 10:21] LABS: Urine Blood TRACE (NEG); Urine Glucose NEGATIVE (NEG); Urine Protein 1+ (NEG); Urine Specific Gravity 1.015 (1.005-1.030)
== END 2018-12-28 09:23 | disposition home or self-care (01) ==
LOC: ER 06:44
DX: K50.90 Crohn's disease, unspecified, without complications (principal); Z79.899 Other long term (current) drug therapy
CPT/HCPCS: 36415; 80048; 80076; 81003; 81025; 83690; 85025; 96361; 96374; 96375; 99284; J2405; J7030

== ENCOUNTER 2019-01-06 06:57 | Observation (INO) | payer BC ==
--- OUTSIDE RECORDS SUMMARY | 2019-01-06 06:59 | XMS REPORT ---
:1985 Author [facility] Address [address] [place] [address] Dr. Corrales. [address] [place] [id number] Care Team Providers Name Role Phone Unavailable Unavailable Unavailable Problems This patient has no known problems. Allergies, Adverse Reactions, Alerts This patient has no known allergies or adverse reactions. Medications This patient has no known medications.
[2019-01-06] MEDS ORDERED: NA CHLORIDE 0.9% 1,000 ML ONE (07:18)
[2019-01-06] MEDS ORDERED: MORPHINE 4 MG/ML SYR ONE (07:18)
[2019-01-06] MEDS ORDERED: ONDANSETRON 4 MG/2 ML VIAL ONE ×2 (07:18→07:35)
[2019-01-06] MEDS ORDERED: HYDROMORPHONE HCL 1 MG/ML INJ ONE ×2 (07:35→08:35)
[2019-01-06] MEDS ORDERED: FAMOTIDINE 20 MG/2 ML VIAL IV ONE (07:35)
[2019-01-06 07:40] LABS: Absolute Lymphocytes (CBC) 1.4 K/uL (0.7-4.9); Absolute Monocytes 0.3 K/uL (0.1-1.3); Absolute Neutrophil 3.4 K/uL (1.8-8.0); Basophils % 0.5 % (0-1.3); Hematocrit 34.4 % (36.0-45.0); Lymphocytes % 27.5 % (15.3-44.8); MPV 9.6 fL (7.6-11.3); Monocytes % 6.3 % (3.3-12.3)
[2019-01-06 07:46] LABS: Protime INR 1.11
[2019-01-06 07:59] LABS: ALT/SGPT 21 U/L (12-78); AST/SGOT 14 U/L (15-37); Albumin 4.4 g/dL (3.4-5.0); Alkaline Phosphatase 46 U/L (45-117); BUN Blood Urea Nitrogen 10 mg/dL (7-18); Bicarbonate 27 mmol/L (21-32); Bilirubin Direct 0.1 mg/dL (0-0.2); Bilirubin Total 0.5 mg/dL (0.2-1.0); Glucose Level 124 mg/dL (74-106); Lipase 161 U/L (73-393); Potassium 3.1 mmol/L (3.5-5.1); Protein, Total 7.1 g/dL (6.4-8.2); Sodium Level 141 mmol/L (136-145)
[2019-01-06] MEDS ORDERED: PANTOPRAZOLE 40 MG INJ ONE (08:06)
--- NOTE | 2019-01-06 08:22 | EDPHYS ---
Physician Documentation [facility] Name: Shyanne Pardo Age: 33 yrs Sex: Female : 1985 Arrival Date: 01/06/2019 Time: 06:58 Bed 14 Private MD: ED Physician Fito Rabago HPI: 01/06 07:49 This 33 yrs old Female presents to ER via Ambulatory with complaints of keyonna Abdominal Pain. 07:49 The patient presents with abdominal pain in the epigastric area, in the upper abdomen. keyonna Onset: The symptoms/episode began/occurred 1 day(s) ago. The patient presents to the emergency department with nausea, vomiting, abdominal pain, of the epigastric area, right upper quadrant and left upper quadrant. Onset: The symptoms/episode began/occurred 1 day(s) ago. Possible causes: unknown. The symptoms are aggravated by nothing. Associated signs and symptoms: Pertinent positives: abdominal pain, anorexia, nausea, vomiting. Modifying factors: The symptoms are alleviated by nothing, the symptoms are aggravated by nothing. 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 - Social history:: Smoking status: Patient/guardian denies using tobacco. - Ebola Screening: : Patient denies exposure to infectious person Patient denies travel to an Ebola-affected area in the 21 days before illness onset. - Family history:: not pertinent. ROS: 07:49 Constitutional: Negative for fever, chills, and weight loss, Eyes: Negative for injury, keyonna pain, redness, and discharge, ENT: Negative for injury, pain, and discharge, Neck: Negative for injury, pain, and swelling, Cardiovascular: Negative for chest pain, palpitations, and edema, Respiratory: Negative for shortness of breath, cough, wheezing, and pleuritic chest pain, Back: Negative for injury and pain, : Negative for injury, bleeding, discharge, and swelling, MS/Extremity: Negative for injury and deformity, Skin: Negative for injury, rash, and discoloration, Neuro: Negative for headache, weakness, numbness, tingling, and seizure, Psych: Negative for depression, anxiety, suicide ideation, homicidal ideation, and hallucinations, Allergy/Immunology: Negative for hives, rash, and allergies, Endocrine: Negative for neck swelling, polydipsia, polyuria, polyphagia, and marked weight changes, Hematologic/Lymphatic: Negative for swollen nodes, abnormal bleeding, and unusual bruising. 07:49 Abdomen/GI: Positive for abdominal pain, nausea and vomiting. Exam: 07:49 Head/Face: Normocephalic, atraumatic. Eyes: Pupils equal round and reactive to light, keyonna extra-ocular motions intact. Lids and lashes normal. Conjunctiva and sclera are non-icteric and not injected. Cornea within normal limits. Periorbital areas with no swelling, redness, or edema. ENT: Nares patent. No nasal discharge, no septal abnormalities noted. Tympanic membranes are normal and external auditory canals are clear. Oropharynx with no redness, swelling, or masses, exudates, or evidence of obstruction, uvula midline. Mucous membranes moist. Neck: Trachea midline, no thyromegaly or masses palpated, and no cervical lymphadenopathy. Supple, full range of motion without nuchal rigidity, or vertebral point tenderness. No Meningismus. Chest/axilla: Normal chest wall appearance and motion. Nontender with no deformity. No lesions are appreciated. Cardiovascular: Regular rate and rhythm with a normal S1 and S2. No gallops, murmurs, or rubs. Normal PMI, no JVD. No pulse deficits. Respiratory: Lungs have equal breath sounds bilaterally, clear to auscultation and percussion. No rales, rhonchi or wheezes noted. No increased work of breathing, no retractions or nasal flaring. Back: No spinal tenderness. No costovertebral tenderness. Full range of motion. Skin: Warm, dry with normal turgor. Normal color with no rashes, no lesions, and no evidence of cellulitis. MS/ Extremity: Pulses equal, no cyanosis. Neurovascular intact. Full, normal range of motion. Neuro: Awake and alert, GCS 15, oriented to person, place, time, and situation. Cranial nerves II-XII grossly intact. Motor strength 5/5 in all extremities. Sensory grossly intact. Cerebellar exam normal. Normal gait. Psych: Awake, alert, with orientation to person, place and time. Behavior, mood, and affect are within normal limits. 07:49 Abdomen/GI: Inspection: abdomen appears normal, Bowel sounds: normal, Palpation: moderate abdominal tenderness, voluntary guarding, is elicited in the epigastric area, right upper quadrant and left upper quadrant. Vital Signs: 07:09 BP 148 / 107; Pulse 81; Resp 26; Pulse Ox 100% on R/A; Weight 58.97 kg; Pain 10/10; ss 07:15 Temp 99.0(TE); aa5 07:30 BP 136 / 96; Pulse 85; Resp 20 S; Pulse Ox 99% on R/A; Pain 10/10; aa5 08:45 BP 139 / 95; Pulse 75; Resp 16 S; Temp 99.0(TE); Pulse Ox 98% on R/A; Pain 6/10; aa5 09:15 BP 127 / 80; Pulse 80; Resp 16 S; Pulse Ox 97% on R/A; Pain 6/10; aa5 MDM: 07:06 Patient medically screened. kb 07:51 Data reviewed: vital signs, nurses notes, lab test result(s), EKG, radiologic studies, [facility] CT scan, plain films, ultrasound. 01/06 07:17 Order name: Basic Metabolic Panel; Complete Time: 08:27 01/06 07:17 Order name: CBC with Diff; Complete Time: 07:48 01/06 07:17 Order name: Creatinine for Radiology; Complete Time: 08:27 01/06 07:17 Order name: Hepatic Function; Complete Time: 08:27 01/06 07:17 Order name: Lipase; Complete Time: 08:27 01/06 07:20 Order name: ETOH Level; Complete Time: 08:27 [facility] 01/06 07:20 Order name: PT-INR; Complete Time: 08:27 [facility] 01/06 07:20 Order name: Ptt, Activated; Complete Time: 08:27 [facility] 01/06 07:20 Order name: Salicylate [facility] 01/06 07:20 Order name: Urine Drug Screen [facility] 01/06 07:21 Order name: Abdomen Acute Series XRAY [facility] 01/06 07:21 Order name: Lactate; Complete Time: 08:27 [facility] 01/06 07:44 Order name: Acetaminophen Level; Complete Time: 08:27 EDMS 01/06 07:17 Order name: IV Saline Lock; Complete Time: 07:17 ss 01/06 07:17 Order name: Labs collected and sent; Complete Time: 07:17 ss 01/06 07:20 Order name: EKG; Complete Time: 07:21 keyonna 01/06 07:53 Order name: Abdomen Exam Limited EDMS 01/06 08:34 Order name: RAD EDMS 01/06 07:20 Order name: EKG - Nurse/Tech; Complete Time: 07:35 keyonna Administered Medications: 07:09 Drug: Zofran 4 mg Route: IVP; Site: right antecubital; aa5 07:20 Follow up: Response: No adverse reaction aa5 07:09 Drug: NS 0.9% 1000 ml Route: IV; Rate: 1000 ml; Site: right antecubital; aa5 08:48 Follow up: IV Status: Completed infusion; IV Intake: 1000ml aa5 07:12 Drug: morphine 4 mg Route: IVP; Site: right antecubital; aa5 07:20 Follow up: Response: No adverse reaction aa5 07:25 Drug: Pepcid 20 mg Route: IVP; Site: right antecubital; aa5 07:30 Follow up: Response: No adverse reaction aa5 07:25 Drug: Zofran 4 mg Route: IVP; Site: right antecubital; aa5 07:30 Follow up: Response: No adverse reaction aa5 07:27 Drug: Dilaudid 1 mg Route: IVP; Site: right antecubital; aa5 07:40 Follow up: Response: No adverse reaction; Pain is unchanged, physician notified aa5 07:55 Drug: ProTONIX 40 mg Route: IVP; Site: right antecubital; aa5 08:00 Follow up: Response: No adverse reaction aa5 08:28 Drug: Reglan 10 mg Route: IVP; Site: right antecubital; aa5 08:45 Follow up: Response: No adverse reaction aa5 08:30 Drug: Dilaudid 1 mg Route: IVP; Site: right antecubital; aa5 08:45 Follow up: Response: No adverse reaction; Pain is decreased aa5 08:47 Drug: Potassium Chloride 20 mEq Route: IV; Rate: per protocol; Site: right antecubital; aa5 09:15 Follow up: IV Status: Infusion continued upon admission aa5 08:49 Drug: NS 0.9% with KCl 20 mEq/L 1000 ml Route: IV; Rate: 125 ml/hr; Site: right aa5 antecubital; 09:15 Follow up: IV Status: Infusion continued upon admission aa5 Disposition: 01/06/19 08:21 Hospitalization ordered by Milton Merino for Observation. Preliminary diagnosis are Abdominal tenderness, Vomiting, Hypokalemia. - Bed requested for Telemetry/MedSurg (observation). - Status is Observation. aa5 - Condition is Fair. - Problem is new. - Symptoms have improved. UTI on Admission? No Signatures: Dispatcher [employer] EDWY Amada Sauceda, AS400 OPERATOR-C AS400 OPERATOR-Ckb Trice Diamond Corey, MD MD cha Calderon, Audri, RN RN aa5 Qing Su RN RN ss Corrections: (The following items were deleted from the chart) 07:44 07:21 ACETAMINOPHEN+C.LAB.BRZ ordered. [facility] ED[facility] 08:24 08:21 Hospitalization Ordered by Milton Merino MD for Observation. Preliminary diagnosis bd is Abdominal tenderness; Vomiting. Bed requested for Telemetry/MedSurg (observation). Status is Observation. Condition is Fair. Problem is new. Symptoms have improved. UTI on Admission? No. keyonna 08:29 08:24 01/06/2019 08:21 Hospitalization Ordered by Milton Merino MD for Observation. keyonna Preliminary diagnosis is Abdominal tenderness; Vomiting. Bed requested for Telemetry/MedSurg (observation). Status is Observation. Condition is Fair. Problem is new. Symptoms have improved. UTI on Admission? No. bd 09:08 07:20 Urine Dipstick-Ancillary ordered. [facility] aa5 09:18 08:29 01/06/2019 08:21 Hospitalization Ordered by Milton Merino MD for Observation. aa5 Preliminary diagnosis is Abdominal tenderness; Vomiting; Hypokalemia. Bed requested for Telemetry/MedSurg (observation). Status is Observation. Condition is Fair. Problem is new. Symptoms have improved. UTI on Admission? No. keyonna
--- NOTE | 2019-01-06 08:22 | ER ---
Nurse's Notes [facility] Name: Shyanne Pardo Age: 33 yrs Sex: Female : 1985 Arrival Date: 01/06/2019 Time: 06:58 Bed 14 Private MD: Diagnosis: Abdominal tenderness;Vomiting;Hypokalemia Presentation: 01/06 07:05 Presenting complaint: states: abd pain, N/V that began 6 months ago. Pt has ss been diagnosed with Crohns and gastritis at [facility] and [facility], but reports this was a misdiagnosis and they are waiting to follow up with GI outpatient. reports that patient is just wanting pain management until she is able to follow up. Transition of care: patient was not received from another setting of care. Onset of symptoms was July 2018. Risk Assessment: Do you want to hurt yourself or someone else? Patient reports no desire to harm self or others. Initial Sepsis Screen: Does the patient meet any 2 criteria? RR > 20 per min. Does the patient have a suspected source of infection? No. Patient's initial sepsis screen is negative. Care prior to arrival: None. 07:05 Method Of Arrival: Ambulatory 07:05 Acuity: [place] 3 ss VETERINARY PHARMACOLOGIST: 07:10 LMP 12/11/2017 aa5 Historical: - Allergies: 07:09 Azithromycin; ss 07:09 Erythromycin; ss 07:09 PENICILLINS; ss 07:09 Sulfa (Sulfonamide Antibiotics); ss - PMHx: 07:09 Crohn's; sliding heria; ss - PSHx: 07:09 Adenoids; Tonsillectomy; Tubal ligation; ss - Immunization history:: Adult Immunizations up to date. - Social history:: Smoking status: Patient/guardian denies using tobacco. - Ebola Screening: : Patient denies exposure to infectious person Patient denies travel to an Ebola-affected area in the 21 days before illness onset. - Family history:: not pertinent. Screenin:15 Abuse screen: Denies threats or abuse. Nutritional screening: Pt reports she has lost aa5 approximately 40 lbs over the last 6 months. . Tuberculosis screening: No symptoms or risk factors identified. Fall Risk None identified. Assessment: 07:07 General: Appears uncomfortable, Behavior is cooperative, restless. Pain: Complains of aa5 pain in epigastric area Pain does not radiate. Pain currently is 10 out of 10 on a pain scale. Quality of pain is described as burning, Pain began 6 months ago, pt reports pain has gotten worse over the last 2 weeks. Is continuous. Neuro: Level of Consciousness is awake, alert, obeys commands, Oriented to person, place, time, situation. Cardiovascular: Heart tones S1 S2 present Rhythm is regular. Respiratory: Airway is patent Respiratory effort is even, unlabored, Respiratory pattern is regular, symmetrical, Breath sounds are clear bilaterally. GI: Abdomen is flat, non-distended, Bowel sounds present X 4 quads. Abd is soft X 4 quads Abd is non tender in right upper quadrant, left upper quadrant, right lower quadrant and left lower quadrant Abdomen is tender to palpation in epigastric area Reports nausea. : No signs and/or symptoms were reported regarding the genitourinary system. EENT: No signs and/or symptoms were reported regarding the EENT system. Derm: Skin is pink, warm \\T\\ dry. Musculoskeletal: Range of motion: intact in all extremities. 07:20 Reassessment: Patient is alert, oriented x 3, equal unlabored respirations, skin aa5 warm/dry/pink. Pt reports symptoms have not improved. Dr. Rabago was notified. Pt rates pain 10/10. Pt crying, pt screaming "It hurts so bad, make it stop" . 07:40 Reassessment: Patient is alert, oriented x 3, equal unlabored respirations, skin aa5 warm/dry/pink. Patient states symptoms have not improved. Pt rates pain a 10/10 on a pain scale. . 08:00 Reassessment: Pt taken to x-ray via stretcher. aa5 08:27 Reassessment: Pt back from radiology. Pt dry heaving at this time. Rates pain 10/10 on aa5 a pain scale. Dr. Rabago notified. . 08:45 Reassessment: Patient is alert, oriented x 3, equal unlabored respirations, skin aa5 warm/dry/pink. Patient states symptoms have improved. Pt now resting in bed with eyes closed. Pt appears comfortable at this time. . Pain: Pain currently is 6 out of 10 on a pain scale. 09:15 Reassessment: Patient is alert, oriented x 3, equal unlabored respirations, skin aa5 warm/dry/pink. Vital Signs: 07:09 BP 148 / 107; Pulse 81; Resp 26; Pulse Ox 100% on R/A; Weight 58.97 kg; Pain 10/10; ss 07:15 Temp 99.0(TE); aa5 07:30 BP 136 / 96; Pulse 85; Resp 20 S; Pulse Ox 99% on R/A; Pain 10/10; aa5 08:45 BP 139 / 95; Pulse 75; Resp 16 S; Temp 99.0(TE); Pulse Ox 98% on R/A; Pain 6/10; aa5 09:15 BP 127 / 80; Pulse 80; Resp 16 S; Pulse Ox 97% on R/A; Pain 6/10; aa5 ED Course: 06:58 Patient arrived in ED. ds1 07:06 [facility] kb 07:06 Tolu Hilliard MD is Attending Physician. kb 07:06 Fito Rabago MD is Attending Physician. kb 07:07 Inserted saline lock: 20 gauge in right antecubital area, using aseptic technique. aa5 07:07 No provider procedures requiring assistance completed. aa5 07:09 Triage completed. ss 07:09 Arm band placed on right wrist. ss 07:09 Patient has correct armband on for positive identification. Bed in low position. Call aa5 light in reach. Side rails up X2. Adult w/ patient. 07:17 Fito Rabago MD is Attending Physician. keyonna 07:18 Radha Vergara, ESTER is Primary Nurse. aa5 07:27 EKG done, by software validation technician. reviewed by Fito Rabago MD. at1 07:52 Milton Merino MD is Hospitalizing Provider. keyonna 08:03 Patient moved to radiology via stretcher. sw 08:13 X-ray completed. Patient tolerated procedure well. Patient taken to ultrasound. via sw stretcher. 09:17 Patient admitted, IV remains in place. aa5 Administered Medications: 07:09 Drug: Zofran 4 mg Route: IVP; Site: right antecubital; aa5 07:20 Follow up: Response: No adverse reaction aa5 07:09 Drug: NS 0.9% 1000 ml Route: IV; Rate: 1000 ml; Site: right antecubital; aa5 08:48 Follow up: IV Status: Completed infusion; IV Intake: 1000ml aa5 07:12 Drug: morphine 4 mg Route: IVP; Site: right antecubital; aa5 07:20 Follow up: Response: No adverse reaction aa5 07:25 Drug: Pepcid 20 mg Route: IVP; Site: right antecubital; aa5 07:30 Follow up: Response: No adverse reaction aa5 07:25 Drug: Zofran 4 mg Route: IVP; Site: right antecubital; aa5 07:30 Follow up: Response: No adverse reaction aa5 07:27 Drug: Dilaudid 1 mg Route: IVP; Site: right antecubital; aa5 07:40 Follow up: Response: No adverse reaction; Pain is unchanged, physician notified aa5 07:55 Drug: ProTONIX 40 mg Route: IVP; Site: right antecubital; aa5 08:00 Follow up: Response: No adverse reaction aa5 08:28 Drug: Reglan 10 mg Route: IVP; Site: right antecubital; aa5 08:45 Follow up: Response: No adverse reaction aa5 08:30 Drug: Dilaudid 1 mg Route: IVP; Site: right antecubital; aa5 08:45 Follow up: Response: No adverse reaction; Pain is decreased aa5 08:47 Drug: Potassium Chloride 20 mEq Route: IV; Rate: per protocol; Site: right antecubital; aa5 09:15 Follow up: IV Status: Infusion continued upon admission aa5 08:49 Drug: NS 0.9% with KCl 20 mEq/L 1000 ml Route: IV; Rate: 125 ml/hr; Site: right aa5 antecubital; 09:15 Follow up: IV Status: Infusion continued upon admission aa5 Intake: 08:48 IV: 1000ml; Total: 1000ml. aa5 Outcome: 08:21 Decision to Hospitalize by Provider. keyonna 09:17 Admitted to Med/surg accompanied by tech, via wheelchair, with chart, Report called to chilo Driscoll RN 09:17 Condition: stable 09:17 Discharge instructions given to patient, Instructed on the need for admit, Demonstrated understanding of instructions. 09:18 Patient left the ED. aa5 Signatures: Amada Sauceda, UTILITY LOCATOR-C UTILITY LOCATOR-Fito Rdz MD MD cha [place], Demi ds1 Radha Vergara RN RN aa5 Qing Su, RN RN ss Kristine Reaves, php mysql web developer EKG Tat1 Iman Shane
--- NOTE | 2019-01-06 08:30 | RAD REPORT ---
EXAM DESCRIPTION: US - Abdomen Exam Limited - 01/06/2019 8:23 am CLINICAL HISTORY: Abdominal pain. COMPARISON: None. FINDINGS: The gallbladder wall is not thickened. A gallstone is not seen. The biliary tree is normal caliber. IMPRESSION: Unremarkable gallbladder ultrasound.
--- NOTE | 2019-01-06 08:32 | RAD REPORT ---
EXAM DESCRIPTION: RAD - Abdomen Acute Series - 01/06/2019 8:14 am CLINICAL HISTORY: Abdominal pain FINDINGS: The bowel gas pattern is unremarkable. Free air is not seen beneath the diaphragm. Lungs appear clear. Multiple calcifications are present the pelvis. These may all represent phleboliths.
[2019-01-06] MEDS ORDERED: METOCLOPRAMIDE 10 MG/2mL INJ ONE (08:35)
--- NOTE | 2019-01-06 08:51 | EKG ---
Test Date: 2019-01-06 Test Time: 07:26:52 Trestle Mechanic: DEIDRE MEASUREMENT RESULTS: Intervals: Rate: 81 NE: 146 QRSD: 86 QT: 378 QTc: 439 [place]: P: 75 NE: 146 QRS: 77 T: 57 INTERPRETIVE STATEMENTS: Normal sinus rhythm Normal ECG No previous ECG available for comparison Electronically Signed On 01-06-19 08:50:52 BOARD TURNER by John Walker
[2019-01-06] MEDS ORDERED: KCL 20 MEQ/100 mL IVPB 20 MEQ/100 ML BAG IV ONE (08:54)
[2019-01-06] MEDS ORDERED: NS KCL 20MEQ 1,000 ML IV ONE (08:54)
[2019-01-06 09:34] VITALS: BMI 20.2
[2019-01-06] MEDS ORDERED: ACETAMINOPHEN 500 MG TAB PO PRN (09:47)
[2019-01-06] MEDS ORDERED: ENOXAPARIN 40 MG/0.4 ML SQ SCH (09:47)
[2019-01-06] MEDS ORDERED: NA CHLORIDE 0.9% 1,000 ML IV SCH (09:47)
[2019-01-06 09:49] VITALS: O2SAT 97
[2019-01-06 09:50] VITALS: BP 123/67; TEMP 98.6
[2019-01-06 10:18] LABS: Urine Appearance CLEAR; Urine Bilirubin NEGATIVE (NEG); Urine Blood NEGATIVE (NEG); Urine Color YELLOW; Urine Glucose NEGATIVE (NEG); Urine Protein NEGATIVE (NEG); Urine Specific Gravity 1.015 (1.005-1.030); Urine Urobilinogen 0.2 mg/dL (0.2-1.0)
[2019-01-06 10:33] LABS: Urine Microscopic Reflex NO UMIC
[2019-01-06 11:40] LABS: Barbiturates NEGATIVE (NEGATIVE); Benzodiazepines NEGATIVE (NEGATIVE); Cocaine NEGATIVE (NEGATIVE); METHAMPHETAM NEGATIVE (NEGATIVE); Methadone NEGATIVE (NEGATIVE); Opiates POSITIVE (NEGATIVE); Phencyclidine NEGATIVE (NEGATIVE); THC Cannibis POSITIVE (NEGATIVE)
--- NOTE | 2019-01-06 11:43 | P.HP ---
Patient History Date of Service: 01/06/19 Reason for admission: Intractable abdominal pain History of Present Illness: This is a 33-year-old female with chronic abdominal pain. She sees Dr. nguyen in his clinic. She has been treated for Crohn's in the past. She was admitted for intractable abdominal pain for a possible EGD with Dr. nguyen today. Allergies azithromycin [From Zithromax] Adverse Reaction (Verified 12/20/18 12:25) Itching/Hives/Rash Cephalosporins Adverse Reaction (Verified 01/06/19 09:37) Itching/Hives/Rash erythromycin base Adverse Reaction (Verified 01/06/19 09:37) Itching/Hives/Rash Penicillins Adverse Reaction (Verified 01/06/19 09:37) Anaphylaxis Sulfa (Sulfonamide Antibiotics) Adverse Reaction (Verified 12/20/18 12:25) Itching/Hives/Rash Home Medications: Acetaminophen [Arthritis Pain Relief] 2 tab PO Q6HP PRN 01/06/19 Dicyclomine [Bentyl*] 20 mg PO QID 01/06/19 Docusate [Colace Cap*] 100 mg PO DAILY 01/06/19 Hydrocodone 5/APAP 325 [[place] 5/325*] 1 tab PO Q6H PRN 01/06/19 Lactulose 10 gm PO TIDP PRN 01/06/19 Lidocaine4% 5 ml PO QIDP PRN 01/06/19 Maalox:Diphenhydramine:Lidocaine2%Viscous1:1:1 Suspension 15 ml PO DAILYPRN PRN 01/06/19 Norgestimate-Ethinyl Estradiol [Estarylla 0.25-0.035 mg Tablet] 1 tab PO DAILY 01/06/19 Ondansetron HCl [Zofran] 4 mg PO Q6HP PRN 01/06/19 Pantoprazole [Protonix Tab*] 40 mg PO BID 01/06/19 Polyethylene Glycol 3350 17 gm PO BID 01/06/19 Promethazine HCl 12.5 mg PO Q6HP PRN 01/06/19 Sertraline [Zoloft*] 25 mg PO DAILY 01/06/19 Simethicone 80 mg PO TIDWMHS 01/06/19 Sucralfate [Carafate*] 1 gm PO ACHS 02/18/19 Tramadol HCl [Ultram] 50 mg PO Q6HP PRN 01/06/19 clonazePAM [Klonopin*] 1 mg PO TID 01/06/19 - Past Medical/Surgical History Diabetic: No -: HPV -: Tubal ligation -: tonsillectomy -: adenoids removal - Family History Mother -: Hypertension, GI disease Father -: Hypertension - Social History Smoking Status: Former smoker Alcohol use: Yes CD- Drugs: Yes Caffeine use: No Place of Residence: Home Review of Systems 10-point ROS is otherwise unremarkable Physical Examination - Vital Signs Temperature: 98.6 F Blood Pressure: 123/67 Pulse: 80 Respirations: 18 - Physical Exam General: Alert, Mild distress, Moderate distress HEENT: Atraumatic, PERRLA, Mucous membr. moist/pink, EOMI, Sclerae nonicteric Neck: Supple, 2+ carotid pulse no bruit, No LAD, Without JVD or thyroid abnormality Respiratory: Clear to auscultation bilaterally, Normal air movement Cardiovascular: Regular rate/rhythm, Normal S1 S2 Gastrointestinal: Normal bowel sounds, No tenderness Musculoskeletal: No tenderness Integumentary: No rashes Neurological: Normal gait, Normal speech, Normal strength at 5/5 x4 extr, Normal tone, Normal affect Lymphatics: No axilla or inguinal lymphadenopathy - Studies Laboratory Data (last 24 hrs) 01/06/19 07:15: PT 13.0 H, INR 1.11, APTT 28.1 01/06/19 07:15: Creatinine 0.70 01/06/19 07:15: WBC 5.3 D, Hgb 11.6 L D, Hct 34.4 L D, Plt Count 232 01/06/19 07:15: Sodium 141, Potassium 3.1 L, BUN 10, Creatinine 0.74, Glucose 124 H, Total Bilirubin 0.5, AST 14 L, ALT 21, Alkaline Phosphatase 46, Lipase 161 Assessment and Plan - Plan Chronic abdominal pain Keep NPO, GI consult for further evaluation Pain control IV fluids - Advance Directives Does patient have a Living Will: No Does patient have a Durable POA for Healthcare: No
--- NOTE | 2019-01-06 11:49 | P.SSS ---
Patient History Date of Service: 01/06/19 Reason for admission: Intractable abdominal pain History of Present Illness: This is a 33-year-old female with chronic abdominal pain. She sees Dr. nguyen in his clinic. She has been treated for Crohn's in the past. She was admitted for intractable abdominal pain for a possible EGD with Dr. nguyen today. Allergies azithromycin [From Zithromax] Adverse Reaction (Verified 12/20/18 12:25) Itching/Hives/Rash Cephalosporins Adverse Reaction (Verified 01/06/19 09:37) Itching/Hives/Rash erythromycin base Adverse Reaction (Verified 01/06/19 09:37) Itching/Hives/Rash Penicillins Adverse Reaction (Verified 01/06/19 09:37) Anaphylaxis Sulfa (Sulfonamide Antibiotics) Adverse Reaction (Verified 12/20/18 12:25) Itching/Hives/Rash Home Medications: Acetaminophen [Arthritis Pain Relief] 2 tab PO Q6HP PRN 01/06/19 Dicyclomine [Bentyl*] 20 mg PO QID 01/06/19 Docusate [Colace Cap*] 100 mg PO DAILY 01/06/19 Hydrocodone 5/APAP 325 [[place] 5/325*] 1 tab PO Q6H PRN 01/06/19 Lactulose 10 gm PO TIDP PRN 01/06/19 Lidocaine4% 5 ml PO QIDP PRN 01/06/19 Maalox:Diphenhydramine:Lidocaine2%Viscous1:1:1 Suspension 15 ml PO DAILYPRN PRN 01/06/19 Norgestimate-Ethinyl Estradiol [Estarylla 0.25-0.035 mg Tablet] 1 tab PO DAILY 01/06/19 Ondansetron HCl [Zofran] 4 mg PO Q6HP PRN 01/06/19 Pantoprazole [Protonix Tab*] 40 mg PO BID 01/06/19 Polyethylene Glycol 3350 17 gm PO BID 01/06/19 Promethazine HCl 12.5 mg PO Q6HP PRN 01/06/19 Sertraline [Zoloft*] 25 mg PO DAILY 01/06/19 Simethicone 80 mg PO TIDWMHS 01/06/19 Sucralfate [Carafate*] 1 gm PO ACHS 02/18/19 Tramadol HCl [Ultram] 50 mg PO Q6HP PRN 01/06/19 clonazePAM [Klonopin*] 1 mg PO TID 01/06/19 - Past Medical/Surgical History Diabetic: No -: HPV -: Tubal ligation -: tonsillectomy -: adenoids removal - Family History Mother -: Hypertension, GI disease Father -: Hypertension - Social History Smoking Status: Former smoker Alcohol use: Yes CD- Drugs: Yes Caffeine use: No Place of Residence: Home Review of Systems 10-point ROS is otherwise unremarkable Physical Examination - Vital Signs Temperature: 98.6 F Blood Pressure: 123/67 Pulse: 80 Respirations: 18 - Physical Exam General: Alert, Mild distress HEENT: Atraumatic, PERRLA, Mucous membr. moist/pink, EOMI, Sclerae nonicteric Neck: Supple, 2+ carotid pulse no bruit, No LAD, Without JVD or thyroid abnormality Respiratory: Clear to auscultation bilaterally, Normal air movement Cardiovascular: Regular rate/rhythm, Normal S1 S2 Gastrointestinal: Normal bowel sounds, No tenderness Musculoskeletal: No tenderness Integumentary: No rashes Neurological: Normal gait, Normal speech, Normal strength at 5/5 x4 extr, Normal tone, Normal affect Lymphatics: No axilla or inguinal lymphadenopathy - Studies Laboratory Data (last 24 hrs) 01/06/19 07:15: PT 13.0 H, INR 1.11, APTT 28.1 01/06/19 07:15: Creatinine 0.70 01/06/19 07:15: WBC 5.3 D, Hgb 11.6 L D, Hct 34.4 L D, Plt Count 232 01/06/19 07:15: Sodium 141, Potassium 3.1 L, BUN 10, Creatinine 0.74, Glucose 124 H, Total Bilirubin 0.5, AST 14 L, ALT 21, Alkaline Phosphatase 46, Lipase 161 Treatment Summary: Patient was admitted for short-term abdominal pain. She was kept NPO, GI was consulted. Per family and patient, she does not want to see Dr. Gomes. Explained to patient and family that that is he is the only GI we have here on-call today. Family stated that that is fine, they have another GI elsewhere that will see patient right away. They would like to be discharged from care so they can take patient to another GI. Patient is alert oriented x3, in mild distress secondary to pain, hemodynamically stable. She is okay to discharge so she could follow up with outpatient GI. - Disposition Disposition: ROUTINE DISCHARGE Condition: GOOD Patient Discharge Instructions: Please follow up with the primary care physician in 1 week. Please follow up with GI in the next 1 week. Activity: Ad hilary Time Spent Managing Pts Care (In Minutes): 35
== END 2019-01-06 12:03 | disposition home or self-care (01) ==
LOC: ER 06:57 → ERHOLD 07:55 → 2ND 09:11
PROVIDERS: ADMIT Family Medicine; ATTEND Family Medicine
DX: R10.9 Unspecified abdominal pain (principal); Z88.0 Allergy status to penicillin; Z88.2 Allergy status to sulfonamides
CPT/HCPCS: 36415; 74022; 76705; 80048; 80076; 80307; 80320; 80329; 81003; 83605; 83690; 85025; 85610; 85730; 93005; 96361; 96365; 96375; 99285; C9113; G0378; J1170; J1650; J2405; J2765; J7030

== ENCOUNTER 2019-05-07 19:16 | Emergency (ER) | payer BC, SELFPAY ==
--- OUTSIDE RECORDS SUMMARY | 2019-05-07 19:19 | XMS REPORT ---
:1985 [facility] Address [address] [place] [address] [address] Care Team Providers Name Role Phone SARY SINGH Unavailable Unavailable Problems This patient has no known problems. Allergies, Adverse Reactions, Alerts This patient has no known allergies or adverse reactions. Medications This patient has no known medications. Results Test Description Test Time Test Comments Text Results Atomic Results Result Comments HEPTOBILIARY 2019-01-09 [facility] 14:46:00 [place] [address] Patient Name: JAMES GRIFFIN MR #: [id number] : 1985 Age/Sex: 33/F Req #: [id number] Adm Physician: SARY SINGH MD Ordered by: DWAIN LOVING MD Report # : [id number] Location: MED/SURG3 Room/Bed: [facility] Procedure: [id number] NM/HEPTOBILIARY W PHARM Exam Date: 01/09/19 Exam Time: 1000 REPORT STATUS: Signed ADDENDUM #1 Addendum to original report of 01/09/2018 The original report states that the gallbladder ejection fraction of 33% is normal. It is in fact abnormal normal GBEF is >40%. Corrected impression should read: Impression: 1. Filling of the gallbladder excludes the diagnosis of acute cystic duct obstruction/acute cholecystitis. 2. Abnormal gallbladder ejection fraction of 33% supports the clinical diagnosis of chronic cholecystitis/gallbladder dyskinesia. Signed by: Dr. Jeovany Velazquez M.D. on 01/09/2019 5:10 PM ORIGINAL REPORT Hepatobiliary Scan with Gallbladder Ejection Fraction Clinical information: 33 F with abdominal pain and nausea x 2 weeks Report: Following intravenous administration of 6.4 millicuries of Tc-99m mebrofenin, dynamic images of the abdomen in the anterior projection were obtained through 55 minutes. Sincalide (CCK analog) 1.3 micrograms was administered intravenously over 30 minutes with additional imaging for determination of gallbladder ejection fraction. Perfusion to the liver is normal. Extraction of tracer from the blood pool by the liver parenchyma is normal. Tracer is seen promptly within the biliary tract. The gallbladder begins to fill by 20 minutes post- injection of tracer and fills adequately. Tracer is seen in the small bowel by 50 minutes. The gallbladder ejection fraction with administration of sincalide is 33% (normal greater than 40%). Impression: 1. Filling of the gallbladder excludes the diagnosis of acute cystic duct obstruction/acute cholecystitis. 2. Normal gallbladder ejection fraction of 33% does not support the clinical diagnosis of chronic cholecystitis/gallbladder dyskinesia. Signed by : Dr. Jeovany Velazquez M.D. on 01/09/2019 2:47 PM Dictated By: JEOVANY VELAZQUEZ MD [id number] Transcribed By: TANA on 01/09/19 1447 COPY TO: DWAIN LOVING MD MRI MRCP WO 2019-01-08 [facility] 16:52:00 [place] [address] Patient Name: JAMES GRIFFIN MR #: [id number] : 1985 Age/Sex: 33/F Req #: [id number] Adm Physician: SARY SINGH MD Ordered by: SARY SINGH MD Report #: [id number] Location: MED/SURG3 Room/Bed: [facility] Procedure: [id number] MRI/MRI MRCP WO Exam Date: 01/08/19 Exam Time: 1600 REPORT STATUS: Signed MRCP CPT code: 37187 History: Intractable nausea/vomiting, chronic epigastric pain Comparison: None. Technique: Multiplanar, multisequence images of the abdomen were obtained per MRCP protocol. 3D volume rendered reformation images of the biliary tree were performed. No intravenous gadolinium was administered. Findings: There is motion degradation on multiple pulse sequences. MRCP: The intra and extrahepatic biliary ducts are normal in morphology without beading or narrowing. The cystic duct is poorly visualized due to motion artifact. The common bile duct measures 4 mm in diameter without intraluminal filling defect. Pancreas duct: No dilatation Liver: Normal signal. No mass Spleen: Normal size and signal. No mass. Pancreas: Normal T1 and T2 signal. No mass Kidneys: No hydronephrosis. No mass Adrenal glands: No mass Lymph nodes: No enlarged abdominal or retroperitoneal lymph nodes. Bowel: There is fluid in the stomach and proximal small bowel without dilatation. Visualized large bowel is normal in diameter. Peritoneum/retroperitoneum: No free fluid or fluid collection. Lung bases: Clear. Bones: Normal marrow signal. No focal osseous lesions. IMPRESSION: 1. Motion degraded exam. No gross abnormalities of the biliary tree, gallbladder, or pancreas duct to explain nausea and vomiting. Consider reevaluation of the abdomen with CT which would overcome motion artifact. 2. No evidence of cholelithiasis or choledocholithiasis. Thank you for your referral. Signed by: Dr. Rakesh Gould MD on 01/08/2019 5:01 PM Dictated By: RAKESH GOULD MD 00 Transcribed By: TANA on 01/08/191700 COPY TO: SARY SINGH MD ABDOMEN ACUTE 2019-01-07 [facility] SERIES W/PA 01:41:[address] [place] [address] Patient Name: JAMES GRIFFIN MR #: [id number] : 1985 Age/Sex: 33/F Req #: [id number] Adm Physician: Ordered by: RACIEL CALVERT MD Report #: [id number] Location: ER Room/Bed: Procedure: [id number] DX/ABDOMEN ACUTE SERIES W/PA CXR Exam Date: 01/07 Exam Time: 47 REPORT STATUS: Signed EXAM: Abdomen 2 Views, chest 1 view INDICATION: abd pain [id number] Y COMPARISON: None FINDINGS: No focal lung consolidation. No pleural effusion or pneumothorax. Normal cardiac silhouette. Nonobstructive bowel gas pattern. No signs of pneumoperitoneum. Multiple pelvic fullness. No osseous abnormality. IMPRESSION: 1. Nonobstructive bowel gas pattern. 2. Clear lungs. Signed by: Dr. Zach Myers MD on 01/07/2019 1: 42 AM Dictated By: ZACH MYERS MD 1 Transcribed By: TANA on 01/07/19141 COPY TO: RACIEL CALVERT MD
--- OUTSIDE RECORDS SUMMARY | 2019-05-07 19:19 | XMS REPORT | Continuity of Care Document ---
:[address] [facility] Address [address] [place] [address] Phone Unavailable Care Team Providers Name Role Phone NONSTAFF Primary Care Physician Unavailable Insurance Providers Guarantor James Griffin Address [address] [place] [address] Email NONE [facility] Policy Number [id number] Subscriber's Name James Griffin Relationship 18 Self / Same As Patient Group Number [id number] Advance Directives Directive Response Recorded Date/Time Does the patient have an advance directive? No 01/07/19 4:36pm Do you have a Directive to Physician? No 01/06/19 11:11pm Do you have a Medical Power of District Traffic Chief? No 01/06/19 11:11pm Do you have an out of hospital Do Not Resuscitate Order? No 01/06/19 11:11pm Do you have any special needs we should be aware of? No 01/06/19 11:11pm Do you have a support person here with you today? Yes 01/06/19 11:11pm Did patient receive Notice of Privacy Practices? Yes 01/06/19 11:11pm Did patient receive patient rights and responsibilities? Yes 01/06/19 11:11pm Problems Medical Problem Onset Date Status Chronic abdominal pain Unknown Gastritis Unknown Intractable vomiting Unknown Medications Current Home Medications Medication Dose Units Route Directions Days Qty Instructions Start Date Dicyclomine Hcl 20 Mg Oral Every 6 Hours 20 Mg Tablet as needed for Abdominal Pain Hydrocodone 1 Tab Oral Every 6 Hours Bit/Acetaminophen as needed for (Hydrocodon-Aceta Pain minophen 5-325) 1 Each Tablet Norgestimate-Ethi 1 Tab Oral Daily nyl Estradiol (Sprintec) 1 Each Tablet Ondansetron Hcl 4 4 Mg Sublingual Every 4 Hours Mg Tablet as needed for Nausea Pantoprazole 40 Mg Oral Daily Sodium (Protonix) 40 Mg Tablet. Promethazine Hcl 25 Mg Oral As Needed 25 Mg Tablet Sertraline Hcl 25 25 Mg Oral Daily Mg Tablet Tramadol Hcl 50 Mg Oral Every 6 Hours (Ultram 50MG*) 50 as needed for Mg Tab Pain Social History Smoking Status Start Date Stop Date Never Smoker Hospital Discharge Instructions No hospital discharge instruction information available. Plan of Care Discharge Date 01/12/19 1:44pm Disposition HOME, SELF-CARE Instructions/Education Provided Abdominal Pain - Adult Prescriptions See Medication Section Additional Instructions/Education ACTIVITY TOLERATED GI SOFT DIET TOLERATED NO HEAVY LIFTING FOR MORE THAN 10 LBS FOLLOW UP WITH PRIMARY PHYSICIAN CARE IN 1 WEEK FOLLOW UP WITH DR Ana MYERS NEXT WEEK AT [phone] LOVING IN 1-2 WEEK AT [phone] Functional Status Query Response Date Recorded Assistive Devices None January 07, 2019 4:43pm Ambulation Ability Standby Assistance January 07, 2019 4:43pm Toileting Ability Independent January 11, 2019 9:52am Allergies, Adverse Reactions, Alerts Allergen Type Severity Reaction Status Last Updated Penicillin Allergy Severe Active 01/08/19 Sulfa (Sulfonamide Antibiotics) Allergy Severe Active 01/06/19 Erythromycin base Allergy Severe Active 01/06/19 Immunizations No immunization information available. Vital Signs Acute Vital Signs Vital Response Date/Time Temperature (Fahrenheit) 96.6 degrees F (97.6 - 99.5) 01/12/2019 11:53am Pulse Pulse Rate (adult) 76 bpm (60 - 90) 01/12/2019 11:53am Respiratory Rate 18 bpm (12 - 24) 01/12/2019 11:53am Blood Pressure 118/76 mm Hg 01/12/2019 11:53am Height 5 ft 7 in 01/06/2019 11:03pm Weight 133 lb 01/12/2019 1:05am Body Mass Index 20.8 kg/m^2 01/12/2019 1:05am Results Laboratory Results Test Name Result Units Flags Reference Collection Result Comments Date/Time Date/Time White Blood 5.63 x10e3/ 4.8-10.8 01/12/2019 01/12/2019 Count uL 4:56am 5:42am Red Blood Count 3.73 x10e6/ 3.6-5.1 01/12/2019 01/12/2019 uL 4:56am 5:42am Hemoglobin 11.2 g/dL L 12.0-16.0 01/12/2019 01/12/2019 4:56am 5:42am Hematocrit 32.5 % L 34.2-44.1 01/12/2019 01/12/2019 4:56am 5:42am Mean Corpuscular 87.1 fL 81-99 01/12/2019 01/12/2019 Volume 4:56am 5:42am Mean Corpuscular 30.0 pg 28-32 01/12/2019 01/12/2019 Hemoglobin 4:56am 5:42am Mean Corpuscular 34.5 g/dL 31-35 01/12/2019 01/12/2019 Hemoglobin 4:56am 5:42am Concent Red Cell 13.0 % 11.7-14.4 01/12/2019 01/12/2019 Distribution 4:56am 5:42am Width Platelet Count 233 x10e3/ 140-360 01/12/2019 01/12/2019 uL 4:56am 5:42am Neutrophils (%) 39.7 % 38.7-80.0 01/12/2019 01/12/2019 (Auto) 4:56am 5:42am Lymphocytes (%) 50.3 % H 18.0-39.1 01/12/2019 01/12/2019 (Auto) 4:56am 5:42am Monocytes (%) 9.1 % 4.4-11.3 01/12/2019 01/12/2019 (Auto) 4:56am 5:42am Eosinophils (%) 0.2 % 0.0-6.0 01/12/2019 01/12/2019 (Auto) 4:56am 5:42am Basophils (%) 0.5 % 0.0-1.0 01/12/2019 01/12/2019 (Auto) 4:56am 5:42am IM GRANULOCYTES 0.2 % 0.0-1.0 01/12/2019 01/12/2019 % 4:56am 5:42am Neutrophils # 2.2 2.1-6.9 01/12/2019 01/12/2019 (Auto) 4:56am 5:42am Lymphocytes # 2.8 1.0-3.2 01/12/2019 01/12/2019 (Auto) 4:56am 5:42am Monocytes # 0.5 0.2-0.8 01/12/2019 01/12/2019 (Auto) 4:56am 5:42am Eosinophils # 0.0 0.0-0.4 01/12/2019 01/12/2019 (Auto) 4:56am 5:42am Basophils # 0.0 0.0-0.1 01/12/2019 01/12/2019 (Auto) 4:56am 5:42am Absolute 0.01 x10e3/ 0-0.1 01/12/2019 01/12/2019 Immature uL 4:56am 5:42am Granulocyte (auto Erythrocyte 4 mm/hr 0-20 01/09/2019 01/09/2019 Sedimentation 5:20pm 6:07pm Rate Percent 2.1 % 0.8-2.2 01/09/2019 01/09/2019 Reticulocyte 5:20am 5:34pm Count Urine Color STRAW YELLOW 01/09/2019 01/09/2019 7:20pm 7:32pm Urine Clarity SL CLOUDY CLEAR 01/09/2019 01/09/2019 7:20pm 7:32pm Urine Specific 1.015 1.010-1.02 01/09/2019 01/09/2019 [place] 5 7:20pm 7:32pm Urine pH 6 5 - 7 01/09/2019 01/09/2019 7:20pm 7:32pm Urine Leukocyte NEGATIVE NEGATIVE 01/09/2019 01/09/2019 Esterase 7:20pm 7:32pm Urine Nitrite NEGATIVE NEGATIVE 01/09/2019 01/09/2019 7:20pm 7:32pm Urine Protein NEGATIVE NEGATIVE 01/09/2019 01/09/2019 7:20pm 7:32pm Urine Glucose NEGATIVE NEGATIVE 01/09/2019 01/09/2019 (UA) 7:20pm 7:32pm Urine Ketones 2+ H NEGATIVE 01/09/2019 01/09/2019 7:20pm 7:32pm Urine Opiates POSITIVE H NEGATIVE 01/06/2019 01/07/2019 ALL TESTS PERFORMED MANUALLY ON [employer] TOX/SEE TEST Screen 11:22pm 12:09am This test provides only a screen. Positive results should be repeated by a confirmatory test. Urine NEGATIVE NEGATIVE 01/06/2019 01/07/2019 Barbiturates 11:22pm 12:09am Screen Urine NEGATIVE NEGATIVE 01/06/2019 01/07/2019 Phencyclidine 11:22pm 12:09am Screen Urine NEGATIVE NEGATIVE 01/06/2019 01/07/2019 Amphetamines 11:22pm 12:09am Screen Urine NEGATIVE NEGATIVE 01/06/2019 01/07/2019 Methamphetamines 11:22pm 12:09am Screen Urine NEGATIVE NEGATIVE 01/06/2019 01/07/2019 Benzodiazepines 11:22pm 12:09am Screen Urine Cocaine NEGATIVE NEGATIVE 01/06/2019 01/07/2019 Screen 11:22pm 12:09am Urine POSITIVE H NEGATIVE 01/06/2019 01/07/2019 THESE RESULTS ARE FOR MEDICAL TREATMENT ONLY Cannabinoids 11:22pm 12:09am *THIS REPORT CONTAINS UNCONFIRMED SCREENING RESULTS* Screen POSITIVE RESULTS WILL BE CONFIRMED BY REFERENCE LAB UPON REQUEST CUT-OFF DRUG CLASS CONCENTRATION ng/mL Amphetamines 1000 Methamphetamines 1000 Cocaine 300 Opiate 300 Phencyclidine 25 Cannabinoid 50 Barbiturates 300 Benzodiazepine 300 Methadone 300 This test provides only a screen. Positive results should be repeated by a confirmatory test. Urine Methadone NEGATIVE NEGATIVE 01/06/2019 01/07/2019 THESE RESULTS ARE FOR MEDICAL TREATMENT ONLY Screen 11:22pm 12:09am *THIS REPORT CONTAINS UNCONFIRMED SCREENING RESULTS* POSITIVE RESULTS WILL BE CONFIRMED BY REFERENCE LAB UPON REQUEST CUT-OFF DRUG CLASS CONCENTRATION ng/mL Amphetamines 1000 Methamphetamines 1000 Cocaine Metabolite 300 Opiate 300 Phencyclidine 25 Cannabinoid 50 Barbiturates 300 Benzodiazepine 300 Methadone 300 Urine 0.2 mg/dL 0.2 - 1 01/09/2019 01/09/2019 Urobilinogen 7:20pm 7:32pm Urine Bilirubin NEGATIVE NEGATIVE 01/09/2019 01/09/2019 7:20pm 7:32pm Urine Blood 4+ H NEGATIVE 01/09/2019 01/09/2019 INFORMED THAT PT 7:20pm 7:32pm IS STARTED HER PERIOD Urine WBC NONE /HPF 0-5 01/09/2019 01/09/2019 7:20pm 7:42pm Urine RBC >50 /HPF H 0-5 01/09/2019 01/09/2019 7:20pm 7:42pm Urine Bacteria PRESENT /HPF NONE 01/09/2019 01/09/2019 7:20pm 7:42pm Urine Epithelial RARE /LPF NONE 01/09/2019 01/09/2019 Cells 7:20pm 7:42pm Urine Mucus MANY H RARE 01/06/2019 01/07/2019 11:22pm 12:18am Urine NEGATIVE NEGATIVE 01/08/2019 01/08/2019 Test 12:10pm 12:32pm Sodium Level 140 mmol/L # 136-145 01/12/2019 01/12/2019 4:56am 6:14am Potassium Level 3.2 mmol/L L 3.5-5.1 01/12/2019 01/12/2019 4:56am 6:14am Chloride Level 104 mmol/L 98-107 01/12/2019 01/12/2019 4:56am 6:14am Carbon Dioxide 28 mmol/L 22-29 01/12/2019 01/12/2019 Level 4:56am 6:14am Anion Gap 11.2 mmol/L 8-16 01/12/2019 01/12/2019 4:56am 6:14am Blood Urea < 5 mg/dL L 7-01/12/2019 01/12/2019 Nitrogen 4:56am 6:14am Creatinine 0.67 mg/dL 0.57-1.11 01/12/2019 01/12/2019 4:56am 6:14am BUN/Creatinine 7 6-01/12/2019 01/12/2019 Ratio 4:56am 6:14am Estimat > 60 ML/MIN 60- 01/12/2019 01/12/2019 Ranges were taken from the National Kidney Disease Education Glomerular 4:56am 6:14am Program and the National [employer] literature. Filtration Rate Reference ranges: 60 or greater: Normal 16-59 (for 3 consecutive months): Chronic kidney disease 15 or less: Kidney failure Glucose Level 129 mg/dL H 74-118 01/12/2019 01/12/2019 4:56am 6:14am Calcium Level 8.8 mg/dL 8.4-10.2 01/12/2019 01/12/2019 4:56am 6:14am Bedside Glucose 117 mg/dL 70-120 01/11/2019 01/11/2019 Meter ID: 7:22pm 7:46pm [id number] Phosphorus Level 3.7 MG/DL 2.3-4.7 01/10/2019 01/10/2019 5:44am 6:40am Magnesium Level 1.9 MG/DL 1.3-2.1 01/10/2019 01/10/2019 5:44am 6:40am Iron Level 40 ug/dL L 50-170 01/09/2019 01/09/2019 5:20am 5:46pm Total Iron 333 ug/dL 261-478 01/09/2019 01/09/2019 Binding Capacity 5:20am 5:46pm Percent Iron 12 % L 15-50 01/09/2019 01/09/2019 Saturation 5:20am 5:46pm Transferrin 238 mg/dL 180-382 01/09/2019 01/09/2019 5:20am 5:46pm Ferritin 29.07 ng/mL 4.63-204.0 01/09/2019 01/09/2019 0 5:20am 6:06pm Total Bilirubin 0.5 mg/dL 0.2-1.2 01/08/2019 01/08/2019 5:15am 5:55am Aspartate Amino 17 IU/L 5-34 01/08/2019 01/08/2019 Transf 5:15am 5:55am (AST/SGOT) Alanine 16 IU/L 0-55 01/08/2019 01/08/2019 Aminotransferase 5:15am 5:55am (ALT/SGPT) Total Protein 5.7 g/dL L 6.5-8.1 01/08/2019 01/08/2019 5:15am 5:55am Albumin 4.0 g/dL 3.5-5.0 01/08/2019 01/08/2019 5:15am 5:55am Globulin 1.7 g/dL L 2.3-3.5 01/08/2019 01/08/2019 5:15am 5:55am Albumin/Globulin 2.4 H 0.8-2.0 01/08/2019 01/08/2019 Ratio 5:15am 5:55am Alkaline 39 IU/L L 40-150 01/08/2019 01/08/2019 Phosphatase 5:15am 5:55am Amylase Level 31 U/L 25-125 01/08/2019 01/08/2019 5:15am 5:55am Lipase 22 U/L 8-78 01/08/2019 01/08/2019 5:15am 5:55am Vitamin B12 808 pg/mL 213-816 01/09/2019 01/09/2019 Level 5:20am 6:39pm Folate 18.6 ng/mL H 7.0-15.4 01/08/2019 01/08/2019 5:15am 6:55am Thyroid 0.964 uIU/mL 0.350-4.94 01/08/2019 01/08/2019 Stimulating 0 5:15am 6:33am Hormone (TSH) Anti-Nuclear Negative . 01/09/2019 01/10/2019 Negative <1:80 Antibody Screen 5:20pm 12:36pm Borderline 1:80 Positive >1:80 Performed at: [facility] Lab[address] [id number] Belt Back Operator: Oli Ghosh MD, Phone: [phone] C-Reactive 0.9 mg/L 0.0-4.9 01/09/2019 01/10/2019 Performed at: [facility] Protein 5:20pm 11:57am [address] [place] [id number] Belt Back Operator: Oli Ghosh MD, Phone: [phone] Procedures Procedure Status Date Provider(s) Colonoscopy with biopsy Completed 01/07/19 DWAIN LOVING MD EGD with biopsy Completed 01/07/19 DWAIN LOVING MD Laparoscopic cholecystectomy Completed 01/10/19 YURIY MYERS MD Magnetic resonance cholangiopancreatography (MRCP) Completed 01/08/19 SARY SINGH MD without contrast Encounters Encounter Location Arrival/Admit Date Discharge/Depart Date Attending Provider Discharged [facility] 01/08/19 8:41am 01/12/19 1:44pm SARY SINGH MD Inpatient Patients [facility]
[2019-05-07 19:54] LABS: Absolute Lymphocytes (CBC) 0.8 K/uL (0.7-4.9); Basophils % 0.2 % (0-1.3); Hematocrit 39.6 % (36.0-45.0); Lymphocytes % 5.8 % (15.3-44.8); MPV 9.9 fL (7.6-11.3); Monocytes % 2.4 % (3.3-12.3); RBC Red Blood Cell Count 4.49 M/uL (3.86-4.86)
[2019-05-07] MEDS ORDERED: NA CHLORIDE 0.9% 1,000 ML ONE (19:59)
[2019-05-07 20:11] LABS: Albumin 4.6 g/dL (3.4-5.0); Bilirubin Direct 0.1 mg/dL (0-0.2); Bilirubin Total 0.6 mg/dL (0.2-1.0); Potassium 3.5 mmol/L (3.5-5.1); Protein, Total 8.3 g/dL (6.4-8.2)
[2019-05-07] MEDS ORDERED: PANTOPRAZOLE 40 MG INJ ONE (20:28)
[2019-05-07] MEDS ORDERED: MORPHINE 4 MG/ML SYR ONE ×2 (20:28→21:02)
[2019-05-07] MEDS ORDERED: ONDANSETRON 4 MG/2 ML VIAL ONE ×2 (20:28→21:05)
[2019-05-07] MEDS ORDERED: HYDROMORPHONE HCL 1 MG/ML INJ ONE (21:30)
[2019-05-07] MEDS ORDERED: PROMETHAZINE 25 MG/ML VIAL ONE (22:05)
--- NOTE | 2019-05-07 23:19 | ER ---
Nurse's Notes [facility] Name: Shyanne Pardo Age: 33 yrs Sex: Female : 1985 Arrival Date: 05/07/2019 Time: 19:20 Bed 18 Private MD: Diagnosis: Abdominal tenderness;Functional dyspepsia;Gastritis, unspecified Presentation: 05/07 19:21 Presenting complaint: Patient states: Epigastric pain that started last night after aj eating. Reports N/V. Care prior to arrival: None. 19:21 Method Of Arrival: Ambulatory 19:21 Acuity: [place] 3 Triage Assessment: 19:21 General: Appears in no apparent distress. uncomfortable, Behavior is agitated. Pain: aj Complains of pain in epigastric area. Neuro: Level of Consciousness is awake, alert, obeys commands, Oriented to person, place, time, situation, Appropriate for age. Respiratory: Airway is patent Respiratory effort is even, unlabored, Respiratory pattern is regular, symmetrical. GI: Reports upper abdominal pain, nausea, vomiting. Derm: Skin is intact, is healthy with good turgor, Skin is pink, warm \\T\\ dry. normal. 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 - Social history:: Smoking status: Patient/guardian denies using tobacco. - Family history:: not pertinent. - Ebola Screening: : No symptoms or risks identified at this time. Screenin:13 Abuse screen: Denies threats or abuse. Denies injuries from another. Nutritional lp1 screening: No deficits noted. Tuberculosis screening: No symptoms or risk factors identified. Fall Risk None identified. Assessment: 19:35 General: Appears uncomfortable, Behavior is anxious, crying, fussy, restless. Pain: lp1 Complains of pain in abdomen Pain currently is 10 out of 10 on a pain scale. Quality of pain is described as sharp, stabbing. Neuro: No deficits noted. Cardiovascular: Patient's skin is warm and dry. Respiratory: No deficits noted. GI: Abdomen is flat, Bowel sounds present X 4 quads. Abdomen is tender to palpation X 4 quads. Reports intolerance of fluids, intolerance of food, nausea, vomiting. : No signs and/or symptoms were reported regarding the genitourinary system. EENT: No signs and/or symptoms were reported regarding the EENT system. Derm: Skin is pink, warm \\T\\ dry. Musculoskeletal: No deficits noted. 20:50 Reassessment: Pain and nausea unchanged at this time; Patient thrashing in bed, crying, lp1 actively vomiting; Provider notified. 21:10 Reassessment: Nausea decreased, patient states continued pain, moaning in pain; lp1 Provider notified. 21:41 Reassessment: Patient states nausea and pain relief at this time; attempting to drink lp1 oral contrast. 21:45 Reassessment: CT notified of patient completing oral contrast; Patient complaint of lp1 nausea beginning. 22:50 Reassessment: Patient returned from CT; Calm, smiling, appears comfortable. lp1 Vital Signs: 19:21 BP 150 / 69; Pulse 84; Resp 18; Temp 97.8; Pulse Ox 97% on R/A; Weight 63.5 kg; Height aj 5 ft. 8 in. (172.72 cm); 20:45 BP 135 / 71; Pulse 75; Resp 16; Pulse Ox 100% on R/A; Pain 10/10; lp1 21:30 BP 110 / 61; Pulse 82; Resp 16; Pulse Ox 100% on R/A; lp1 22:13 BP 124 / 89; Pulse 78; Resp 16; Pulse Ox 100% on R/A; Pain 1/10; lp1 23:30 BP 109 / 57; Pulse 82; Resp 16; Pulse Ox 100% on R/A; Pain 1/10; lp1 19:21 Body Mass Index 21.29 (63.50 kg, 172.72 cm) ED Course: 19:20 Patient arrived in ED. aj 19:21 Triage completed. aj 19:21 Arm band placed on right wrist. Patient placed in an exam room. aj 19:33 Fito Rabago MD is Attending Physician. keyonna 19:35 Missed attempt(s): 22 gauge in right antecubital area. Inserted saline lock: 22 gauge lp1 in left antecubital area, using aseptic technique. Blood collected. 19:43 Paulina Barrera, RN is Primary Nurse. lp1 20:30 Patient has correct armband on for positive identification. Placed in gown. Pulse ox lp1 on. NIBP on. 21:37 Radiology exam delayed due to test not completed at this time. nj 22:13 No provider procedures requiring assistance completed. lp1 22:18 Radiology exam delayed due to test not completed at this time. vm2 22:48 CT Abd/Pelvis - PO and IV Contrast In Process Unspecified. EDMS 23:40 IV discontinued, No redness/swelling at site. Pressure dressing applied. lp1 Administered Medications: 19:47 Drug: NS 0.9% 1000 ml Route: IV; Rate: 1 bolus; Site: left antecubital; lp1 22:09 Follow up: IV Status: Completed infusion; IV Intake: 1000ml lp1 20:20 Drug: ProTONIX 40 mg Route: IVP; Site: left antecubital; lp1 21:00 Follow up: Response: No adverse reaction lp1 20:21 Drug: morphine 4 mg Route: IVP; Site: left antecubital; lp1 20:50 Follow up: Response: Pain is unchanged, physician notified lp1 20:21 Drug: Zofran 4 mg Route: IVP; Site: left antecubital; lp1 20:50 Follow up: Response: Nausea unchanged lp1 20:54 Drug: morphine 4 mg Route: IVP; Site: left antecubital; lp1 21:10 Follow up: Response: Pain is unchanged, physician notified lp1 20:54 Drug: Zofran 4 mg Route: IVP; Site: left antecubital; lp1 21:15 Follow up: Response: Nausea is decreased lp1 21:17 Drug: Dilaudid 1 mg Route: IVP; Site: left antecubital; lp1 21:30 Follow up: Response: Marked relief of symptoms; Pain is decreased lp1 21:53 Drug: Phenergan 12.5 mg Route: IVP; Site: left antecubital; lp1 22:36 Follow up: Response: Nausea is decreased lp1 Intake: 22:09 IV: 1000ml; Total: 1000ml. lp1 Outcome: 23:19 Discharge ordered by . keyonna 23:39 Discharged to home ambulatory, with family. lp1 23:39 Condition: good 23:39 Discharge instructions given to patient, Instructed on discharge instructions, follow up and referral plans. medication usage, Demonstrated understanding of instructions, follow-up care, medications, Prescriptions given X 4. 23:41 Patient left the ED. lp1 Signatures: Dispatcher [employer] EDMS Kristine Grajeda, Fito Middleton RN, MD MD cha Pena, Laura, RN RN lp1 Alphonse Boyd [facility]
--- NOTE | 2019-05-07 23:20 | EDPHYS ---
Physician Documentation [facility] Name: Shyanne Pardo Age: 33 yrs Sex: Female : 1985 Arrival Date: 05/07/2019 Time: 19:20 Bed 18 Private MD: ED Physician Fito Rabago HPI: 05/07 20:40 This 33 yrs old Female presents to ER via Ambulatory with complaints of keyonna Abdominal Pain. 20:40 The patient presents with abdominal pain in the epigastric area, in the upper abdomen, keyonna abdominal distention in the epigastric area, in the upper abdomen. Onset: The symptoms/episode began/occurred 2 day(s) ago. The symptoms do not radiate. Associated signs and symptoms: Pertinent positives:. The symptoms are described as burning, constant, crampy. Severity of pain: At its worst the pain was moderate in the emergency department the pain is unchanged. The patient has experienced similar episodes in the past, multiple times. 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 - Social history:: Smoking status: Patient/guardian denies using tobacco. - Family history:: not pertinent. - Ebola Screening: : No symptoms or risks identified at this time. ROS: 20:40 Constitutional: Negative for fever, chills, and weight loss, Eyes: Negative for injury, keyonna pain, redness, and discharge, ENT: Negative for injury, pain, and discharge, Neck: Negative for injury, pain, and swelling, Cardiovascular: Negative for chest pain, palpitations, and edema, Respiratory: Negative for shortness of breath, cough, wheezing, and pleuritic chest pain, Back: Negative for injury and pain, : Negative for injury, bleeding, discharge, and swelling, MS/Extremity: Negative for injury and deformity, Skin: Negative for injury, rash, and discoloration, Neuro: Negative for headache, weakness, numbness, tingling, and seizure, Psych: Negative for depression, anxiety, suicide ideation, homicidal ideation, and hallucinations, Allergy/Immunology: Negative for hives, rash, and allergies, Endocrine: Negative for neck swelling, polydipsia, polyuria, polyphagia, and marked weight changes, Hematologic/Lymphatic: Negative for swollen nodes, abnormal bleeding, and unusual bruising. 20:40 Abdomen/GI: Positive for abdominal pain, nausea and vomiting, of the epigastric area, right upper quadrant and left upper quadrant. Exam: 20:40 Constitutional: This is a well developed, well nourished patient who is awake, alert, keyonna and in no acute distress. Head/Face: Normocephalic, atraumatic. Eyes: Pupils equal round and reactive to light, extra-ocular motions intact. Lids and lashes normal. Conjunctiva and sclera are non-icteric and not injected. Cornea within normal limits. Periorbital areas with no swelling, redness, or edema. ENT: Nares patent. No nasal discharge, no septal abnormalities noted. Tympanic membranes are normal and external auditory canals are clear. Oropharynx with no redness, swelling, or masses, exudates, or evidence of obstruction, uvula midline. Mucous membranes moist. Neck: Trachea midline, no thyromegaly or masses palpated, and no cervical lymphadenopathy. Supple, full range of motion without nuchal rigidity, or vertebral point tenderness. No Meningismus. Chest/axilla: Normal chest wall appearance and motion. Nontender with no deformity. No lesions are appreciated. Cardiovascular: Regular rate and rhythm with a normal S1 and S2. No gallops, murmurs, or rubs. Normal PMI, no JVD. No pulse deficits. Respiratory: Lungs have equal breath sounds bilaterally, clear to auscultation and percussion. No rales, rhonchi or wheezes noted. No increased work of breathing, no retractions or nasal flaring. Back: No spinal tenderness. No costovertebral tenderness. Full range of motion. Female : Normal external genitalia. Skin: Warm, dry with normal turgor. Normal color with no rashes, no lesions, and no evidence of cellulitis. MS/ Extremity: Pulses equal, no cyanosis. Neurovascular intact. Full, normal range of motion. Neuro: Awake and alert, GCS 15, oriented to person, place, time, and situation. Cranial nerves II-XII grossly intact. Motor strength 5/5 in all extremities. Sensory grossly intact. Cerebellar exam normal. Normal gait. Psych: Awake, alert, with orientation to person, place and time. Behavior, mood, and affect are within normal limits. 20:40 Abdomen/GI: Inspection: abdomen appears normal, Bowel sounds: normal, Palpation: mild abdominal tenderness, moderate abdominal tenderness, in the epigastric area, right upper quadrant and left upper quadrant, Liver: no appreciated palpable abnormalities, Hernia: not appreciated. Vital Signs: 19:21 BP 150 / 69; Pulse 84; Resp 18; Temp 97.8; Pulse Ox 97% on R/A; Weight 63.5 kg; Height aj 5 ft. 8 in. (172.72 cm); 20:45 BP 135 / 71; Pulse 75; Resp 16; Pulse Ox 100% on R/A; Pain 10/10; lp1 21:30 BP 110 / 61; Pulse 82; Resp 16; Pulse Ox 100% on R/A; lp1 22:13 BP 124 / 89; Pulse 78; Resp 16; Pulse Ox 100% on R/A; Pain 1/10; lp1 23:30 BP 109 / 57; Pulse 82; Resp 16; Pulse Ox 100% on R/A; Pain 1/10; lp1 19:21 Body Mass Index 21.29 (63.50 kg, 172.72 cm) MDM: 19:33 Patient medically screened. [facility] 20:43 Data reviewed: vital signs, nurses notes, lab test result(s), radiologic studies, CT keyonna scan. 05/07 19:34 Order name: Basic Metabolic Panel [facility] 05/07 19:34 Order name: CBC with Diff [facility] 05/07 19:34 Order name: Creatinine for Radiology; Complete Time: 20:39 [facility] 05/07 19:34 Order name: Hepatic Function; Complete Time: 20:39 keyonna 05/07 19:34 Order name: Lipase; Complete Time: 20:39 [facility] 05/07 19:34 Order name: Basic Metabolic Panel; Complete Time: 20:39 EDLA 05/07 19:35 Order name: CBC with Automated Diff; Complete Time: 20:10 EDMS 05/07 20:09 Order name: CT Abd/Pelvis - PO and IV Contrast [facility] 05/07 22:43 Order name: Urine Dipstick--Ancillary (enter results) 05/07 22:43 Order name: Urine --Ancillary (enter results) 05/07 19:34 Order name: IV Saline Lock; Complete Time: 20:21 [facility] 05/07 19:34 Order name: Labs collected and sent; Complete Time: 20:21 [facility] 05/07 19:34 Order name: Urine Dipstick-Ancillary (obtain specimen); Complete Time: 22:36 [facility] 05/07 19:34 Order name: Urine Test (obtain specimen); Complete Time: 22:36 [facility] Administered Medications: 19:47 Drug: NS 0.9% 1000 ml Route: IV; Rate: 1 bolus; Site: left antecubital; lp1 22:09 Follow up: IV Status: Completed infusion; IV Intake: 1000ml lp1 20:20 Drug: ProTONIX 40 mg Route: IVP; Site: left antecubital; lp1 21:00 Follow up: Response: No adverse reaction lp1 20:21 Drug: morphine 4 mg Route: IVP; Site: left antecubital; lp1 20:50 Follow up: Response: Pain is unchanged, physician notified lp1 20:21 Drug: Zofran 4 mg Route: IVP; Site: left antecubital; lp1 20:50 Follow up: Response: Nausea unchanged lp1 20:54 Drug: morphine 4 mg Route: IVP; Site: left antecubital; lp1 21:10 Follow up: Response: Pain is unchanged, physician notified lp1 20:54 Drug: Zofran 4 mg Route: IVP; Site: left antecubital; lp1 21:15 Follow up: Response: Nausea is decreased lp1 21:17 Drug: Dilaudid 1 mg Route: IVP; Site: left antecubital; lp1 21:30 Follow up: Response: Marked relief of symptoms; Pain is decreased lp1 21:53 Drug: Phenergan 12.5 mg Route: IVP; Site: left antecubital; lp1 22:36 Follow up: Response: Nausea is decreased lp1 Disposition: 05/07/19 23:19 Discharged to Home. Impression: Abdominal tenderness, Functional dyspepsia, Gastritis, unspecified. - Condition is Stable. - Discharge Instructions: Abdominal Pain, Adult, Gastritis, Adult, Nausea and Vomiting, Adult, Gastritis, Adult, [id number], Abdominal Pain, Adult, [id number]-[id number]. - Prescriptions for Bentyl 20 mg Oral Tablet - take 1 tablet by ORAL route every 6 hours As needed; 20 tablet. Protonix 40 mg Oral Tablet - take 1 tablet by ORAL route once daily; 30 tablet. Tylenol- Codeine #3 300-30 mg Oral Tablet - take 2 tablets by ORAL route every 6 hours As needed; 20 tablet. Zofran 4 mg Oral Tablet - take 1 tablet by ORAL route every 12 hours As needed; 20 tablet. - Medication Reconciliation Form, Thank You Letter, Antibiotic Education, Prescription Opioid Use form. - Follow up: Private Physician; When: Tomorrow; Reason: Recheck today's complaints, Continuance of care, Re-evaluation by your physician. - Problem is new. - Symptoms have improved. Signatures: Dispatcher [employer] Kristine Salas RN RN Fito Murphy MD MD cha Pena, Laura, RN RN lp1 Corrections: (The following items were deleted from the chart) 23:41 23:19 05/07/2019 23:19 Discharged to Home. Impression: Abdominal tenderness; Functional lp1 dyspepsia; Gastritis, unspecified. Condition is Stable. Forms are Medication Reconciliation Form, Thank You Letter, Antibiotic Education, Prescription Opioid Use. Follow up: Private Physician; When: Tomorrow; Reason: Recheck today's complaints, Continuance of care, Re-evaluation by your physician. Problem is new. Symptoms have improved. keyonna
[2019-05-07 23:41] LABS: Urine Blood 1+ (NEG); Urine Glucose NEGATIVE (NEG); Urine Protein 1+ (NEG); Urine Specific Gravity >1.030 (1.005-1.030); Urine pH 5.5 (5.0-7.0)
[2019-05-08 01:25] VITALS: TEMP 97.8
[2019-05-08 01:27] VITALS: O2SAT 100
[2019-05-08 01:31] VITALS: BP 109/57
--- NOTE | 2019-05-08 10:40 | RAD REPORT ---
EXAM DESCRIPTION: CT - Abdomen Pelvis W Contrast - 05/08/2019 6:34 am CLINICAL HISTORY: ABD PAIN COMPARISON: December 20, 2018. TECHNIQUE: CT ABDOMEN PELVIS WITH IV CONTRAST on 05/07/2019 8:09 PM CDT This exam was performed according to our departmental dose-optimization program, which includes autom ated exposure control, adjustment of the mA and/or kV according to patient size and/or use of iterati ve reconstruction technique. FINDINGS: Lower lungs are clear. Abdomen: There are several tiny hepatic cysts. There is no biliary dilatation. Cholecystectomy was pe rformed. The pancreas and spleen are normal in appearance. The adrenal glands and kidneys are unremar kable. Abdominal aorta is normal in course and caliber without aneurysm. There is no free air. There is no r etroperitoneal adenopathy. Pelvis: There is no bowel obstruction. Urinary bladder is unremarkable. There is small amount of free pelvic fluid. Uterus is normal in size. Appendix is normal. Skeleton: There are no acute osseous findings. No suspicious bony lesions. IMPRESSION: No acute inflammatory process. No renal or ureteral calculi Electronically signed by: Jose Kasper MD 05/07/2019 10:54 PM CDT Due to temporary technical issues with the PACS/Fluency reporting system, reports are being signed by the in house radiologist as a courtesy to ensure prompt reporting. The interpreting radiologist is f ully responsible for the content of the report.
== END 2019-05-07 23:41 | disposition home or self-care (01) ==
LOC: ER 19:16
DX: K30 Functional dyspepsia (principal); K29.70 Gastritis, unspecified, without bleeding; Z88.0 Allergy status to penicillin; Z88.3 Allergy status to other anti-infective agents; Z88.7 Allergy status to serum and vaccine
CPT/HCPCS: 36415; 74177; 80048; 80076; 81003; 81025; 83690; 85025; C9113; J1170; J2405; J2550; J7030; Q9967

== ENCOUNTER 2019-12-24 12:21 | Emergency (ER) | payer SELFPAY ==
--- OUTSIDE RECORDS SUMMARY | 2019-12-24 12:23 | XMS REPORT ---
:1985 [facility] Address [address] [place] [address] [address] Care Team Providers Name Role Phone SARY SINGH Unavailable Unavailable Problems This patient has no known problems. Allergies, Adverse Reactions, Alerts This patient has no known allergies or adverse reactions. Medications This patient has no known medications. Results Test Description Test Time Test Comments Text Results Atomic Results Result Comments HEPTOBILIARY 2019-01-09 [facility] 14:46:00 [place] [address] Patient Name: JAMES GRIFFIN MR #: [id number] : 1985 Age/Sex: 33/F Req #: [id number] Adm Physician: SARY SINGH MD Ordered by: DWAIN LOVING MD Report # : [id number] Location: MED/SURG3 Room/Bed: [facility] Procedure: [id number] NM/HEPTOBILIARY W PHARM Exam Date: 01/09/19 Exam [...] DWAIN LOVING MD MRI MRCP WO 2019-01-08 [facility] 16:52:00 [place] [address] Patient Name: JAMES GRIFFIN MR #: [id number] : 1985 Age/Sex: 33/F Req #: [id number] Adm Physician: SARY SINGH MD Ordered by: SARY SINGH MD Report #: [id number] Location: MED/SURG3 Room/Bed: [facility] Procedure: [id number] MRI/MRI MRCP WO Exam Date: 01/08/19 Exam Time: 1600 REPORT STATUS: Signed MRCP CPT code: 45226 History: Intractable nausea/vomiting, chronic epigastric pain Comparison: [...] ACUTE 2019-01-07 [facility] SER[facility] W/PA 01:41:[address] [place] [address] Patient Name: JAMES GRIFFIN MR #: [id number] : 1985 Age/Sex: 33/F Req #: [id number] Adm Physician: Ordered by: RACIEL CALVERT MD Report #: [id number] Location: ER Room/Bed: Procedure: [id number] DX/ABDOMEN ACUTE SERIES W/PA CXR Exam Date: 01/07 Exam Time: 47 REPORT STATUS: Signed EXAM: Abdomen 2 Views, chest 1 view INDICATION: abd pain [id number] Y COMPARISON: None FINDINGS: No focal [...]
[2019-12-24] MEDS ORDERED: NA CHLORIDE 0.9% 1,000 ML ONE (12:40)
[2019-12-24] MEDS ORDERED: PROMETHAZINE INJ 25 MG/ML AMP ONE ×2 (12:40→13:24)
[2019-12-24] MEDS ORDERED: MORPHINE 4 MG/ML SYR ONE (12:40)
[2019-12-24 13:01] LABS: Absolute Lymphocytes (CBC) 1.3 K/uL (0.7-4.9); Basophils % 0.2 % (0-1.3); Lymphocytes % 13.2 % (15.3-44.8); MPV 9.4 fL (7.6-11.3); RBC Red Blood Cell Count 4.64 M/uL (3.86-4.86)
[2019-12-24] MEDS ORDERED: MEPERIDINE HCL 50 MG/ML ONE (13:24)
[2019-12-24 13:25] LABS: Albumin 4.6 g/dL (3.4-5.0); Bilirubin Direct 0.1 mg/dL (0-0.2); Bilirubin Total 0.6 mg/dL (0.2-1.0); Potassium 3.5 mmol/L (3.5-5.1); Protein, Total 8.4 g/dL (6.4-8.2)
--- NOTE | 2019-12-24 14:43 | RAD REPORT ---
EXAM DESCRIPTION: CT - Abdomen Pelvis W Contrast - 12/24/2019 2:31 pm CLINICAL HISTORY: Abdominal pain COMPARISON: April 2018 TECHNIQUE: Computed axial tomography of the abdomen pelvis was obtained. 100 cc Isovue-300 was admin istered intravenously. Oral contrast was not requested which limits evaluation of bowel. All CT scans are performed using dose optimization technique as appropriate and may include automated exposure control or mA/KV adjustment according to patient size. FINDINGS: Cholecystectomy The liver, spleen, pancreas, adrenal and kidneys appear unremarkable. There is no evidence of diverticulitis. Portions of the wall of the descending, transverse and ascending colon are mildly to moderately thick ened. IMPRESSION: Mild to moderate thickening of the wall of portions of the descending, transverse and as cending colon compatible with a [id number]-bh-kpboigns colitis
--- NOTE | 2019-12-24 15:22 | ER ---
Nurse's Notes [facility] Name: Shyanne Pardo Age: 34 yrs Sex: Female : 1985 Arrival Date: 12/24/2019 Time: 12:23 Bed 24 Private MD: Diagnosis: Colitis;Nausea and vomiting Presentation: 12/24 12:30 Presenting complaint: Patient states: i have epigastric and been vomiting today. mg2 stomach bug has been going on with my family since last week. i was prescribed with flagyl, zofran and antidiarrheal. 12:30 Transition of care: patient was not received from another setting of care. Onset of mg2 symptoms was December 2019. Risk Assessment: Do you want to hurt yourself or someone else? Patient reports no desire to harm self or others. Initial Sepsis Screen: Does the patient meet any 2 criteria? No. Patient's initial sepsis screen is negative. Does the patient have a suspected source of infection? No. Patient's initial sepsis screen is negative. Care prior to arrival: None. 12:30 Method Of Arrival: Ambulatory mg2 12:30 Acuity: [place] 3 mg2 THERAPIST RESPIRATORY: 15:11 LMP 12/24/2019 mg2 Historical: - Allergies: 12:51 PENICILLINS; mg2 12:51 Azithromycin; mg2 12:51 Erythromycin; mg2 12:51 Sulfa (Sulfonamide Antibiotics); mg2 - PMHx: 12:51 Crohn's; gastritis; sliding heria; mg2 - PSHx: 12:51 Cholecystectomy; Tonsillectomy; Ear Tubes; Adenoids; iud removal-emergency procedure; mg2 - Immunization history:: Flu vaccine status is unknown. - Coronavirus screen:: The patient has NOT traveled to [place], [place], or [place] in the past 14 days. Proceed with normal triage process as indicated. - Social history:: Smoking status: unknown. - Ebola Screening: : No symptoms or risks identified at this time. Screenin:49 Abuse screen: Denies threats or abuse. Denies injuries from another. Nutritional mg2 screening: No deficits noted. Tuberculosis screening: No symptoms or risk factors identified. Fall Risk IV access (20 points). Assessment: 12:30 General: Appears in no apparent distress. uncomfortable, Behavior is cooperative, mg2 restless. Pain: Complains of pain in epigastric area Pain at worst was 10 out of 10 on a pain scale. Quality of pain is described as aching, Pain began gradually, 1 day ago. Is intermittent. Neuro: Level of Consciousness is awake, alert, obeys commands, Oriented to person, place, time, situation. Cardiovascular: Capillary refill < 3 seconds Patient's skin is warm and dry. Respiratory: Airway is patent Respiratory effort is even, unlabored, Respiratory pattern is regular, symmetrical. GI: Bowel sounds present X 4 quads. Abd is soft. GI: Abdomen is flat, non-distended, Pt is actively vomiting clear fluid. GI: Reports upper abdominal pain, nausea, vomiting. : No signs and/or symptoms were reported regarding the genitourinary system. EENT: No signs and/or symptoms were reported regarding the EENT system. Derm: Skin is intact, is healthy with good turgor, Skin is pink, warm \T\ dry. normal. Musculoskeletal: Circulation, motion, and sensation intact. Capillary refill < 3 seconds. 14:06 Reassessment: Patient states feeling better. Patient states symptoms have improved. mg2 15:12 Reassessment: po challenge tolerated. mg2 Vital Signs: 12:35 BP 134 / 64; Pulse 83; Resp 20; Temp 97.3(A); Pulse Ox 100% ; lt1 14:06 BP 120 / 79; Pulse 76; Resp 18; Pulse Ox 100% on R/A; mg2 15:11 BP 123 / 72; Pulse 74; Resp 18; Pulse Ox 100% ; mg2 ED Course: 12:23 Patient arrived in ED. mr 12:24 [facility] Quiroz [facility]C [facility]. la1 12:24 César Villarreal MD is Attending Physician. la1 12:35 Baldomero Pichardo RN is Primary Nurse. mg2 12:35 Inserted saline lock: 20 gauge in right antecubital area, using aseptic technique. mg2 Blood collected. 12:48 Triage completed. mg2 12:48 No provider procedures requiring assistance completed. mg2 12:49 Patient has correct armband on for positive identification. mg2 14:06 Pulse ox on. NIBP on. Door closed. Warm blanket given. mg2 14:07 Arm band placed on. mg2 15:33 IV discontinued, intact, bleeding controlled, No redness/swelling at site. Pressure mg2 dressing applied. Administered Medications: 12:42 Drug: morphine 4 mg Route: IVP; Site: right antecubital; mg2 12:42 Drug: NS 0.9% 1000 ml Route: IV; Rate: 1000 ml; Site: right antecubital; mg2 12:43 Drug: Phenergan 12.5 mg Route: IVP; Site: right antecubital; mg2 13:34 Drug: Phenergan 12.5 mg Route: IVP; Site: right antecubital; mg2 14:14 Follow up: Response: No adverse reaction mg2 13:34 Drug: Demerol 50 mg Route: IVP; Site: right antecubital; mg2 14:14 Follow up: Response: No adverse reaction; Marked relief of symptoms mg2 Outcome: 15:20 Discharge ordered by . laPaula 15:40 Discharged to home ambulatory, with family. mg2 15:40 Condition: stable 15:40 Discharge instructions given to patient, family, Instructed on discharge instructions, follow up and referral plans. medication usage, Demonstrated understanding of instructions, follow-up care, medications, Prescriptions given X 2. 15:41 Patient left the ED. mg2 Signatures: Johanna Julian Lee, CHEESE COOKER-C CHEESE COOKER-Cla1 Baldomero Pichardo, ESTER RN mg2 Vilma Walter 1
--- NOTE | 2019-12-24 15:23 | EDPHYS ---
Physician Documentation [facility] Name: Shyanne Pardo Age: 34 yrs Sex: Female : 1985 Arrival Date: 12/24/2019 Time: 12:23 Bed 24 Private MD: ED Physician César Villarreal HPI: 12/24 12:34 This 34 yrs old Female presents to ER via Unassigned with complaints of la1 Abdominal Pain, Vomiting. 12:34 The patient presents with abdominal pain in the epigastric area. Onset: The la1 symptoms/episode began/occurred 3 day(s) ago, and became worse today. The symptoms do not radiate. Associated signs and symptoms: Pertinent positives: nausea and vomiting. The symptoms are described as sharp. Modifying factors: the symptoms are aggravated by vomiting. Severity of pain: At its worst the pain was severe. The patient has not experienced similar symptoms in the past. 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 - Coronavirus screen:: The patient has NOT traveled to [place], [place], or [place] in the past 14 days. Proceed with normal triage process as indicated. - Social history:: Smoking status: unknown. - Ebola Screening: : No symptoms or risks identified at this time. ROS: 12:35 Constitutional: Negative for fever, chills, and weight loss, Eyes: Negative for injury, la1 pain, redness, and discharge, ENT: Negative for injury, pain, and discharge, Neck: Negative for injury, pain, and swelling, Cardiovascular: Negative for chest pain, palpitations, and edema, Respiratory: Negative for shortness of breath, cough, wheezing, and pleuritic chest pain. 12:35 Back: Negative for injury and pain, MS/Extremity: Negative for injury and deformity, Neuro: Negative for headache, weakness, numbness, tingling, and seizure, Endocrine: Negative for neck swelling, polydipsia, polyuria, polyphagia, and marked weight changes. 12:35 Abdomen/GI: Positive for abdominal pain, nausea and vomiting, Negative for black/tarry stool, rectal pain, rectal bleeding. Exam: 12:36 Constitutional: This is a well developed, well nourished patient who is awake, alert, la1 and in no acute distress. Head/Face: Normocephalic, atraumatic. Eyes: Pupils equal round and reactive to light, extra-ocular motions intact. Lids and lashes normal. Conjunctiva and sclera are non-icteric and not injected. Cornea within normal limits. Periorbital areas with no swelling, redness, or edema. ENT: Nares patent. No nasal discharge, no septal abnormalities noted. Tympanic membranes are normal and external auditory canals are clear. Oropharynx with no redness, swelling, or masses, exudates, or evidence of obstruction, uvula midline. Mucous membranes moist. Neck: Trachea midline, no thyromegaly or masses palpated, and no cervical lymphadenopathy. Supple, full range of motion without nuchal rigidity, or vertebral point tenderness. No Meningismus. Chest/axilla: Normal chest wall appearance and motion. Nontender with no deformity. No lesions are appreciated. Cardiovascular: Regular rate and rhythm with a normal S1 and S2. No gallops, murmurs, or rubs. Normal PMI, no JVD. No pulse deficits. Respiratory: Lungs have equal breath sounds bilaterally, clear to auscultation 12:36 Back: No spinal tenderness. No costovertebral tenderness. Full range of motion. MS/ Extremity: Pulses equal, no cyanosis. Neurovascular intact. Full, normal range of motion. Neuro: Awake and alert, GCS 15, oriented to person, place, time, and situation. Normal gait. 12:36 Abdomen/GI: Inspection: abdomen appears normal, Bowel sounds: normal, in all quadrants, Palpation: soft, in all quadrants, moderate abdominal tenderness, in the epigastric area and left upper quadrant, Indicators: McBurney's point is not tender, Palmer's sign is negative, Rovsing's sign is negative, Obturator sign is negative, Psoas sign is negative. Vital Signs: 12:35 BP 134 / 64; Pulse 83; Resp 20; Temp 97.3(A); Pulse Ox 100% ; lt1 14:06 BP 120 / 79; Pulse 76; Resp 18; Pulse Ox 100% on R/A; mg2 15:11 BP 123 / 72; Pulse 74; Resp 18; Pulse Ox 100% ; mg2 MDM: 12:24 Patient medically screened. la1 12:37 Differential diagnosis: bowel obstruction, diverticulitis, Endometriosis, non-specific la1 abd pain, pancreatitis, Peptic Ulcer Disease, Perf. Duodenal Ulcer, Perf. Gastric Ulcer. 15:18 Data reviewed: vital signs, nurses notes, lab test result(s), radiologic studies, I la1 have discussed the patient's presentation/case with the attending Emergency Department Physician; and as a result, I will discharge patient. Data interpreted: Pulse oximetry: on room air is 100 %. Interpretation: normal. 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 Medication response: Phenergan relieved the patient's nausea. Response to treatment: the patient's symptoms have markedly improved after treatment, patient is well hydrated. and as a result, I will discharge patient. Special discussion: Based on the patient's Hx, exam, and Dx evaluation, there is no indication for emergent surgery or inpatient Tx. It is understood by the patient/guardian that if the Sx's persist or worsen they need to return immediately for re-evaluation. ED course: pt tolerating fluids PO, pain is minimal, will add cipro to the flagyl that she is already taking. Recommend close FU with GI, strict return precautions given.. 12/24 12:34 Order name: Basic Metabolic Panel 12/24 12:34 Order name: CBC with Diff 12/24 12:34 Order name: Creatinine for Radiology 12/24 12:34 Order name: Hepatic Function 12/24 12:34 Order name: Lipase 12/24 13:04 Order name: CBC with Automated Diff; Complete Time: 13:10 EDMS 12/24 13:12 Order name: CT Abd/Pelvis - IV Contrast Only 12/24 13:25 Order name: Creatinine (Radiology Only); Complete Time: 14:50 EDMS 12/24 13:29 Order name: Basic Metabolic Panel; Complete Time: 14:50 [facility] 12/24 13:29 Order name: Liver (Hepatic) Function; Complete Time: 14:50 [facility] 12/24 13:29 Order name: Lipase; Complete Time: 14:50 [facility] 12/24 14:20 Order name: Urine Dipstick--Ancillary (enter results) bd 12/24 14:20 Order name: Urine --Ancillary (enter results) bd 12/24 15:41 Order name: CT [facility] 12/24 12:34 Order name: IV Saline Lock; Complete Time: 12:45 la1 12/24 12:34 Order name: Labs collected and sent; Complete Time: 12:45 la1 12/24 12:34 Order name: Urine Dipstick-Ancillary (obtain specimen); Complete Time: 14:20 la1 12/24 12:34 Order name: Urine Test (obtain specimen); Complete Time: 14:20 la1 12/24 14:54 Order name: PO challenge; Complete Time: 15:01 la1 Administered Medications: 12:42 Drug: morphine 4 mg Route: IVP; Site: right antecubital; mg2 12:42 Drug: NS 0.9% 1000 ml Route: IV; Rate: 1000 ml; Site: right antecubital; mg2 12:43 Drug: Phenergan 12.5 mg Route: IVP; Site: right antecubital; mg2 13:34 Drug: Phenergan 12.5 mg Route: IVP; Site: right antecubital; mg2 14:14 Follow up: Response: No adverse reaction mg2 13:34 Drug: Demerol 50 mg Route: IVP; Site: right antecubital; mg2 14:14 Follow up: Response: No adverse reaction; Marked relief of symptoms mg2 Disposition: 15:54 Co-signature as Attending Physician, César Villarreal MD. rn Disposition: 12/24/19 15:20 Discharged to Home. Impression: Colitis, Nausea and vomiting. - Condition is Stable. - Discharge Instructions: Nausea and Vomiting, Adult, Rehydration, Adult, Colitis. - Prescriptions for Cipro 500 mg Oral Tablet - take 1 tablet by ORAL route every 12 hours for 10 days; 20 tablet. promethazine 25 mg Oral Tablet - take 1 tablet by ORAL route every 6 hours As needed; 20 tablet. - Medication Reconciliation Form, Thank You Letter, Antibiotic Education form. - Follow up: Private Physician; When: 2 - 3 days; Reason: Recheck today's complaints, Re-evaluation by your physician. - Problem is new. - Symptoms have improved. Signatures: Dispatcher [employer] EDMS César Villarreal MD MD rn Huber Quiroz, SPECIAL EVENTS COORDINATOR-C SPECIAL EVENTS COORDINATOR-Cla1 Baldomero Pichardo, RN RN mg2 Corrections: (The following items were deleted from the chart) 15:41 15:20 12/24/2019 15:20 Discharged to Home. Impression: Colitis; Nausea and vomiting. mg2 Condition is Stable. Discharge Instructions: Nausea and Vomiting, Adult, Rehydration, Adult, Colitis. Prescriptions for Cipro 500 mg Oral Tablet - take 1 tablet by ORAL route every 12 hours for 10 days; 20 tablet, promethazine 25 mg Oral Tablet - take 1 tablet by ORAL route every 6 hours As needed; 20 tablet. and Forms are Medication Reconciliation Form, Thank You Letter, Antibiotic Education, Prescription Opioid Use. Follow up: Private Physician; When: 2 - 3 days; Reason: Recheck today's complaints, Re-evaluation by your physician. Problem is new. Symptoms have improved. la1
[2019-12-24 15:53] VITALS: TEMP 97.3; O2SAT 100
[2019-12-24 15:55] VITALS: BP 123/72
[2019-12-24 16:15] LABS: Urine Blood 1+ (NEG); Urine Glucose NEGATIVE (NEG); Urine Protein TRACE (NEG); Urine pH 8.5 (5.0-7.0)
== END 2019-12-24 15:41 | disposition home or self-care (01) ==
LOC: ER 12:21
DX: K52.9 Noninfective gastroenteritis and colitis, unspecified (principal); R11.2 Nausea with vomiting, unspecified; Z88.0 Allergy status to penicillin; Z88.1 Allergy status to other antibiotic agents; Z88.2 Allergy status to sulfonamides
CPT/HCPCS: 36415; 74177; 80048; 80076; 81003; 81025; 83690; 85025; 96374; 96375; 99284; J2175; J2550; J7030; Q9967

== ENCOUNTER 2020-03-03 17:11 | Emergency (ER) | payer SELFPAY ==
--- OUTSIDE RECORDS SUMMARY | 2020-03-03 17:15 | XMS REPORT ---
:1985 Author Organization [facility] t Address [address] [place] [address] Care Team Providers Name Role Phone NONSTAFF Primary Care Provider Unavailable SINGH Unavailable Unavailable Payers Payer Name Policy Type Policy Number Effective Date Expiration D ate [facility] [id number] Problems Condition Condition Condition Status Onset Resolution Last Treatin g Comments Name Details Category Date Date Treatment Clinician Date Chronic Chronic Problem Active abdominal abdominal pain pain Gastritis Gastritis Problem Active Intractable Intractable Problem Active vomiting vomiting Allergies, Adverse Reactions, Alerts Allergy Name Allergy Status Severity Reaction(s) Onset Inactive Treat ing Comments Type Date Date Clinician Penicillin Allergy to Active Severe 2019-0 Substance 2-20 00:00: 00 Sulfa Allergy to Active Severe 2019-0 (Sulfonamide Substance 2-18 Antibiotics) 00:00: 00 Erythromycin Allergy to Active Severe 2019-0 base Substance 2-18 00:00: 00 Medications Ordered Filled Start Stop Current Ordering Indication Dosage Frequency Signature Comments Components Medication Medication Date Date Medication? Clinician (SIG) Name Name Dicyclomine Dicyclomine Yes 20 Every 6 Hcl 20 Mg Hcl 20 Mg Hours as Tablet Tablet needed for Abdominal Pain Hydrocodone Hydrocodone Yes 1 Every 6 Bit/Acetami Bit/Acetami Hours as nophen nophen needed for (Hydrocodon (Hydrocodon Pain -Acetaminop -Acetaminop hen 5-325) hen 5-325) 1 Each 1 Each Tablet Tablet Norgestimat Norgestimat Yes 1 Daily e-Ethinyl e-Ethinyl Estradiol Estradiol (Sprintec) (Sprintec) 1 Each 1 Each Tablet Tablet Ondansetron Ondansetron Yes 4 Every 4 Hcl 4 Mg Hcl 4 Mg Hours as Tablet Tablet needed for Nausea Pantoprazol Pantoprazol Yes 40 Daily e Sodium e Sodium (Protonix) (Protonix) 40 Mg 40 Mg Tablet. Tablet. Promethazin Promethazin Yes 25 As Neede d e Hcl 25 Mg e Hcl 25 Mg Tablet Tablet Sertraline Sertraline Yes 25 Daily Hcl 25 Mg Hcl 25 Mg Tablet Tablet Tramadol Tramadol Yes 50 Every 6 Hcl (Ultram Hcl (Ultram Hours as 50MG*) 50 50MG*) 50 needed for Mg Tab Mg Tab Pain Procedures and Interventions Procedure Date / Time Performed Performing Clinici an Laparoscopic cholecystectomy 2019-01-10 00:00:00 YURIY MYERS Magnetic resonance 2019-01-08 00:00:00 SARY SINGH cholangiopancreatography (MRCP) without contrast Colonoscopy with biopsy 2019-01-07 00:00:00 DWAIN LOVING EGD with biopsy 2019-01-07 00:00:00 DWAIN LOVING Encounters Start End Encounter Admission Attending Care Care Encounter Date/Time Date/Time Type Type Clinicians Facility Department ID 2019-01-08 2019-01-12 Discharged 1 SARY SINGH [facility] A00 [id number] 08:41:00 13:44:00 Inpatient 54 Results Test Description Test Time Test Comments Text Results Atomic Results Result Comments Sodium Level 2019-01-12 06:14:00 Test Item Value Reference Range Comments Sodium Level (test code = 2951-2) 140 136-145 Potassium Uuxej0052-23-60 06:14:00 Test Item Value Reference Range Comments Potassium Level (test code = 2823-3) 3.2 3.5-5.1 Chloride Rvcdo4529-64-31 06:14:00 Test Item Value Reference Range Comments Chloride Level (test code = 2075-0) 104 98-107 Carbon Dioxide Xkxeb2218-05-99 06:14:00 Test Item Value Reference Range Comments Carbon Dioxide Level (test code = 2028-9) 28 22-29 Anion Jlo2827-39-81 06:14:00 Test Item Value Reference Range Comments Anion Gap (test code = 66426-4) 11.2 8-16 Blood Urea Eerjzbim0534-12-37 06:14:00 Test Item Value Reference Range Comments Blood Urea Nitrogen (test code = 3094-0) < 5 7-26 Mcltnrhwlp1046-45-69 06:14:00 Test Item Value Reference Range Comments Creatinine (test code = 2160-0) 0.67 0.57-1.11 BUN/Creatinine Piprh2735-13-89 06:14:00 Test Item Value Reference Range Comments BUN/Creatinine Ratio (test code = 3097-3) 7 6-25 Estimat Glomerular Filtration Ythx1189-63-58 06:14:00 Test Item Value Reference Range Comments Estimat Glomerular Filtration Rate (test code = > 60 >60 140009007) Ranges were taken from the National Kidney Disease Education Program and the National Kidney Foundation literature.Reference ranges:60 or greater: Iihjne10- 59 (for 3 consecutive months): Chronic kidneydisease 15 or less: Kidney failure Glucose Jcpze9889-46-92 06:14:00 Test Item Value Reference Range Comments Glucose Level (test code = HZD1402) 129 74-118 Calcium Lqdmd3249-71-59 06:14:00 Test Item Value Reference Range Comments Calcium Level (test code = 60075-2) 8.8 8.4-10.2 White Blood Jbaok1970-89-21 05:42:00 Test Item Value Reference Range Comments White Blood Count (test code = 6690-2) 5.63 4.8-10.8 Red Blood Cwsan4344-95-78 05:42:00 Test Item Value Reference Range Comments Red Blood Count (test code = 789-8) 3.73 3.6-5.1 Wodvredsxr7359-69-99 05:42:00 Test Item Value Reference Range Comments Hemoglobin (test code = 65506-9) 11.2 12.0-16.0 Wrwbislvno9673-10-43 05:42:00 Test Item Value Reference Range Comments Hematocrit (test code = 4544-3) 32.5 34.2-44.1 Mean Corpuscular Bkvknd2399-30-59 05:42:00 Test Item Value Reference Range Comments Mean Corpuscular Volume (test code = 787-2) 87.1 81-9 9 Mean Corpuscular Wbkychrknk5086-22-25 05:42:00 Test Item Value Reference Range Comments Mean Corpuscular Hemoglobin (test code = 785-6) 30.0 28-32 Mean Corpuscular Hemoglobin Lnpewwu3626-39-16 05:42:00 Test Item Value Reference Range Comments Mean Corpuscular Hemoglobin Concent (test code = 34.5 31-35 786-4) Red Cell Distribution Uhnfa3148-77-59 05:42:00 Test Item Value Reference Range Comments Red Cell Distribution Width (test code = 95971-4) 13.0 11.7-14.4 Platelet Plyof5523-75-43 05:42:00 Test Item Value Reference Range Comments Platelet Count (test code = 777-3) 233 140-360 Neutrophils (%) (Auto)2019-01-12 05:42:00 Test Item Value Reference Range Comments Neutrophils (%) (Auto) (test code = 98487-4) 39.7 38. 7-80.0 Lymphocytes (%) (Auto)2019-01-12 05:42:00 Test Item Value Reference Range Comments Lymphocytes (%) (Auto) (test code = 736-9) 50.3 18.0- 39.1 Monocytes (%) (Auto)2019-01-12 05:42:00 Test Item Value Reference Range Comments Monocytes (%) (Auto) (test code = 5905-5) 9.1 4.4-11 .3 Eosinophils (%) (Auto)2019-01-12 05:42:00 Test Item Value Reference Range Comments Eosinophils (%) (Auto) (test code = 713-8) 0.2 0.0-6 .0 Basophils (%) (Auto)2019-01-12 05:42:00 Test Item Value Reference Range Comments Basophils (%) (Auto) (test code = 706-2) 0.5 0.0-1.0 IM GRANULOCYTES %2019-01-12 05:42:00 Test Item Value Reference Range Comments IM GRANULOCYTES % (test code = IM GRANULOCYTES %) 0.2 0.0-1.0 Neutrophils # (Auto)2019-01-12 05:42:00 Test Item Value Reference Range Comments Neutrophils # (Auto) (test code = 751-8) 2.2 2.1-6.9 Lymphocytes # (Auto)2019-01-12 05:42:00 Test Item Value Reference Range Comments Lymphocytes # (Auto) (test code = 61845-1) 2.8 1.0-3 .2 Monocytes # (Auto)2019-01-12 05:42:00 Test Item Value Reference Range Comments Monocytes # (Auto) (test code = 742-7) 0.5 0.2-0.8 Eosinophils # (Auto)2019-01-12 05:42:00 Test Item Value Reference Range Comments Eosinophils # (Auto) (test code = 711-2) 0.0 0.0-0.4 Basophils # (Auto)2019-01-12 05:42:00 Test Item Value Reference Range Comments Basophils # (Auto) (test code = 704-7) 0.0 0.0-0.1 Absolute Immature Granulocyte (asop1933-60-66 05:42:00 Test Item Value Reference Range Comments Absolute Immature Granulocyte (auto (test code = 0.01 0-0.1 Absolute Immature Granulocyte (auto) Bedside Muexetj5717-70-41 19:46:00 Test Item Value Reference Range Comments Bedside Glucose (test code = 60962-0) 117 70-120 Meter ID: [id number]-Dxcvfoe Antibody Mxnnbf5566-17-94 12:36:00 Test Item Value Reference Range Comments Anti-Nuclear Antibody Screen (test code = 5048-4) Negative . Negative <1:80 Borderline 1:80 Positive >1:80Performed at: [address] [id number] Director: Oli Ghosh MD, Phone: [phone]-Wmcmyrvt Protein 2019-01-10 11:57:00 Test Item Value Reference Range Comments C-Reactive Protein (test code = 1988-5) 0.9 0.0-4.9 Performed at: [address] [id number] Director: Oli Ghosh MD, Phone: [phone] Gfvsv0431-68-81 06:40:00 Test Item Value Reference Range Comments Phosphorus Level (test code = QHK5311) 3.7 2.3-4.7 Magnesium Guugd2105-76-90 06:40:00 Test Item Value Reference Range Comments Magnesium Level (test code = 58627-6) 1.9 1.3-2.1 Urine KYW3920-26-20 19:42:00 Test Item Value Reference Range Comments Urine WBC (test code = 5821-4) NONE 0-5 Urine HJJ3720-41-01 19:42:00 Test Item Value Reference Range Comments Urine RBC (test code = 98793-0) >50 0-5 Urine Fxvwnjiv5743-00-97 19:42:00 Test Item Value Reference Range Comments Urine Bacteria (test code = 76810-1) PRESENT NONE Urine Epithelial Zctga0300-23-25 19:42:00 Test Item Value Reference Range Comments Urine Epithelial Cells (test code = 77623-2) RARE NON E Urine Kfbfd3092-14-40 19:32:00 Test Item Value Reference Range Comments Urine Color (test code = 5778-6) STRAW YELLOW Urine Yowdtfh6738-17-58 19:32:00 Test Item Value Reference Range Comments Urine Clarity (test code = 77404-9) SL CLOUDY CLEAR Urine Specific Nlcgkwa4054-62-88 19:32:00 Test Item Value Reference Range Comments Urine Specific [place] (test code = 5811-5) 1.015 1.01 0-1.025 Urine fO2050-59-73 19:32:00 Test Item Value Reference Range Comments Urine pH (test code = 05224-5) 6 5-7 Urine Leukocyte Jaerhhpv2174-98-59 19:32:00 Test Item Value Reference Range Comments Urine Leukocyte Esterase (test code = 5799-2) NEGATIVE NE GATIVE Urine Xysoipj4938-96-85 19:32:00 Test Item Value Reference Range Comments Urine Nitrite (test code = 46629-6) NEGATIVE NEGATIVE Urine Eoyweap4027-75-58 19:32:00 Test Item Value Reference Range Comments Urine Protein (test code = 5804-0) NEGATIVE NEGATIVE Urine Glucose (UA)2019-01-09 19:32:00 Test Item Value Reference Range Comments Urine Glucose (UA) (test code = 2349-9) NEGATIVE NEGATIVE Urine Nmlxuib3540-76-25 19:32:00 Test Item Value Reference Range Comments Urine Ketones (test code = 20784-9) 2+ NEGATIVE Urine Nbpumrdzdtgs3088-76-83 19:32:00 Test Item Value Reference Range Comments Urine Urobilinogen (test code = 66771-6) 0.2 0.2-1 Urine Npfpoknyt2928-83-76 19:32:00 Test Item Value Reference Range Comments Urine Bilirubin (test code = 1978-6) NEGATIVE NEGATIVE Urine Tydmf1957-25-46 19:32:00 Test Item Value Reference Range Comments Urine Blood (test code = 48365-9) 4+ NEGATIVE INFORMED THAT PT IS STARTED HER PERIODVitamin B12 Sjxfi9072-43-54 18:39:00 Test Item Value Reference Range Comments Vitamin B12 Level (test code = 55504-0) 808 213-816 Erythrocyte Sedimentation Oini1253-59-80 18:07:00 Test Item Value Reference Range Comments Erythrocyte Sedimentation Rate (test code = 4537-7) 4 0-20 Magwnooo3863-28-25 18:06:00 Test Item Value Reference Range Comments Ferritin (test code = 2276-4) 29.07 4.63-204.00 Iron Lhixo5198-15-99 17:46:00 Test Item Value Reference Range Comments Iron Level (test code = 2498-4) 40 50-170 Total Iron Binding Pkvykcnn3555-70-25 17:46:00 Test Item Value Reference Range Comments Total Iron Binding Capacity (test code = 2500-7) 333 261-478 Percent Iron Ydvijtoicc0792-78-30 17:46:00 Test Item Value Reference Range Comments Percent Iron Saturation (test code = 2502-3) 12 15- 50 Emwgrylfvzi1153-74-46 17:46:00 Test Item Value Reference Range Comments Transferrin (test code = 3034-6) 238 180-382 Percent Reticulocyte Nqqzc1675-37-60 17:34:00 Test Item Value Reference Range Comments Percent Reticulocyte Count (test code = 90334-6) 2.1 0.8-2.2 HEPTOBILIARY W PBHPA6620-96-36 14:46:00 [place] [address] Patient Name: JAMES GRIFFIN MR #: [id number] : 1985 Age/Sex: 33/F Req #: [id number] [facility] Physician: SARY SINGH MD Ordered by: DWAIN LOVING MD Report #: [id number] Location: [facility] Room/Bed: [facility] Procedure: [id number] NM/HEPTOBILIARY W PHARM Exam Date: 01/09/19 Exam [...] obtained through 55 minutes. Sincalide (CCK analog) 1.3micrograms was administered intravenously over 30 minutes with [...] not support the clinical diagnosis of chronic cholecystiti s/gallbladder dyskinesia. Signed by: Dr. Jeovany Velazquez M.D. on 01/09/2019 2:47 PM DictatedBy: JEOVANY VELAZQUEZ MD 1710 Transcribed By: TANA on 01/09/19 1793 COPY TO: DWAIN LOVING [facility] MRCP HR1210-99-66 16:52:00 [place] [address] Patient Name: JAMES GRIFFIN MR #: [id number] : 1985 Age/Sex: 33/F Req #: [id number] Adm Physician: SARY SINGH MD Ordered by: SARY SINGH MD Report #: [id number] Location: MED/SURG3 Room/Bed: [facility] Procedure: [id number] MRI/MRI MRCP WO Exam Date: 01/08/19 Exam Time: 1600 REPORT STATUS: Signed MRCP CPT code: 96896 History: Intractable nausea/vomiting, chronic epigastric pain Comparison: None. Technique: Multiplanar, multisequence images ofthe abdomen were obtained per MRCP protocol. 3D [...] signal. No mass Spleen: Normal size and signal.No mass. Pancreas: Normal T1 and T2 signal. [...] on 01/08/191700 COPY TO: SARY SINGH MD Urine Xwzr8989-47-52 12:32:00 Test Item Value Reference Range Comments Urine Test (test code = 2106-3) NEGATIVE NEGATI VE Qotnnr0070-03-52 06:55:00 Test Item Value Reference Range Comments Folate (test code = 2284-8) 18.6 7.0-15.4 Thyroid Stimulating Hormone (TSH)2019-01-08 06:33:00 Test Item Value Reference Range Comments Thyroid Stimulating Hormone (TSH) (test code = 0.964 0 .350-4.940 16447-0) Total Reljvgcqj3528-47-66 05:55:00 Test Item Value Reference Range Comments Total Bilirubin (test code = 1975-2) 0.5 0.2-1.2 Aspartate Amino Transf (AST/SGOT)2019-01-08 05:55:00 Test Item Value Reference Range Comments Aspartate Amino Transf (AST/SGOT) (test code = 17 5 -34 Aspartate Amino Transf (AST/SGOT)) Alanine Aminotransferase (ALT/SGPT)2019-01-08 05:55:00 Test Item Value Reference Range Comments Alanine Aminotransferase (ALT/SGPT) (test code = 16 0-55 1742-6) Total Inrcrsy7211-03-03 05:55:00 Test Item Value Reference Range Comments Total Protein (test code = 2885-2) 5.7 6.5-8.1 Xddkxgk7772-84-31 05:55:00 Test Item Value Reference Range Comments Albumin (test code = 1751-7) 4.0 3.5-5.0 Ivitduol7017-46-66 05:55:00 Test Item Value Reference Range Comments Globulin (test code = 13904-8) 1.7 2.3-3.5 Albumin/Globulin Pxnae5788-99-78 05:55:00 Test Item Value Reference Range Comments Albumin/Globulin Ratio (test code = 1759-0) 2.4 0.8- 2.0 Alkaline Vebsiyilhdl9910-49-57 05:55:00 Test Item Value Reference Range Comments Alkaline Phosphatase (test code = 6768-6) 39 40-150 Amylase Qnobm4501-64-29 05:55:00 Test Item Value Reference Range Comments Amylase Level (test code = 1798-8) 31 25-125 Lnuxav1762-64-20 05:55:00 Test Item Value Reference Range Comments Lipase (test code = 3040-3) 22 8-78 ABDOMEN ACUTE SERIES W/PA OGK5756-69-58 01:41:00 [place] [address] Patient Name: JAMES GRIFFIN MR #: [id number] : 1985 Age/Sex: 33/F Req #: [id number] Adm Physician: Ordered by: RACIEL CALVERT MD Report #: [id number] Location: ER Room/Bed: Procedure: [id number] DX/ABDOMEN ACUTE SERIES W/PA CXR Exam Date: 01/07/19 Exam Time: 0048 REPORT STATUS: Signed EXAM: Abdomen 2 Views, chest 1 view INDICATION: abd pain [id number] 0048 Y COMPARISON: None FINDINGS: No focal lung consolidation. No pleural effusion or pneumothorax. Normal cardiac silhouette. Nonobstructive bowel gas pattern. No signs of pneumoperitoneum. Multiple pelvic fullness. No osseous abnormality. IMPRESSION: 1. Nonobstructive bowel gas pattern. 2. Clear lungs. Signed by: Dr. Zach Myers MD on 01/07/2019 1:42 AM Dictated By: ZACH MYERS MD 1 Transcribed By: TANA on 01/07/19141 COPY TO: RACIEL CALVERT MDUrine Uxsxq5976-21-85 00:18:00 Test Item Value Reference Range Comments Urine Mucus (test code = 8247-9) MANY RARE Urine Opiates Oryuiz9998-59-75 00:09:00 Test Item Value Reference Range Comments Urine Opiates Screen (test code = 68360-8) POSITIVE NEGAT REVA ALL TESTS PERFORMED MANUALLY ON [facility] TOX/SEE TEST This test provides only a screen. Positive results should be repeated by a confirmatory test.Urine Barbiturates Utdjtk9074-53-65 00:09:00 Test Item Value Reference Range Comments Urine Barbiturates Screen (test code = 221682659) NEGATIVE NEGATIVE Urine Phencyclidine Fcyxiz3443-06-50 00:09:00 Test Item Value Reference Range Comments Urine Phencyclidine Screen (test code = 86031-7) NEGATIVE NEGATIVE Urine Amphetamines Zcxuka2679-12-21 00:09:00 Test Item Value Reference Range Comments Urine Amphetamines Screen (test code = 34603-6) NEGATIVE NEGATIVE Urine Methamphetamines Zqpven6008-13-14 00:09:00 Test Item Value Reference Range Comments Urine Methamphetamines Screen (test code = Urine NEGATIVE NEGATIVE Methamphetamines Screen) Urine Benzodiazepines Chixkb2267-64-42 00:09:00 Test Item Value Reference Range Comments Urine Benzodiazepines Screen (test code = 03153-5) NEGATIVE NEGATIVE Urine Cocaine Aaoksq2345-15-20 00:09:00 Test Item Value Reference Range Comments Urine Cocaine Screen (test code = 3398-5) NEGATIVE NEGATI VE Urine Cannabinoids Wtajxg5905-39-54 00:09:00 Test Item Value Reference Range Comments Urine Cannabinoids Screen (test code = 83792-2) POSITIVE NEGATIVE THESE RESULTS ARE FOR MEDICAL TREATMENT ONLYTHIS REPORT CONTAINS UNCONFIRMED SCREENING RESULTS*POSITIVE RESULTS WILL BE CONFIRMED BY REFERENCE LAB UPON REQUEST CUT-OFFDRUG CLASS CONCENTRATION ng/mLAmphetamines 1000Met hamphetamines 1000Cocaine 300Opiate 300Phencyclidine 25Cannabinoid 50Barbiturates 300Benzodiazepine 300Methadone 300 This test provides only a screen. Positive results should be repeated by a confirmatory test.Urine Methadone Hlnbyb8834-91-69 00:09:00 Test Item Value Reference Range Comments Urine Methadone Screen (test code = 58676-3) NEGATIVE NEG ATIVE THESE RESULTS ARE FOR MEDICAL TREATMENT ONLYTHIS REPORT CONTAINS UNCONFIRMED SCREENING RESULTS*POSITIVE RESULTS WILL BE CONFIRMED BY REFERENCE LAB UPON REQUEST CUT-OFFDRUG CLASS CONCENTRATION ng/mLAmphetamines 1000Met hamphetamines 1000Cocaine Metabolite 300Opiate 300Phencyclidine 25Cannabinoid 50Barbiturates 300Benzodiazepine 300Methadone 300
[2020-03-03 17:36] LABS: Absolute Lymphocytes (CBC) 0.7 K/uL (0.7-4.9); Basophils % 0.2 % (0-1.3); Hematocrit 40.2 % (36.0-45.0); Lymphocytes % 6.1 % (15.3-44.8); MPV 8.9 fL (7.6-11.3); RBC Red Blood Cell Count 4.51 M/uL (3.86-4.86)
[2020-03-03] MEDS ORDERED: PROMETHAZINE INJ 25 MG/ML AMP ONE (17:51)
[2020-03-03] MEDS ORDERED: ONDANSETRON 4 MG/2 ML VIAL ONE (17:52)
[2020-03-03] MEDS ORDERED: NA CHLORIDE 0.9% 1,000 ML ONE (17:52)
[2020-03-03] MEDS ORDERED: FAMOTIDINE 20 MG/2 ML VIAL IV ONE (17:52)
[2020-03-03] MEDS ORDERED: FENTANYL CITR 100 MCG/2 ML ONE (17:52)
[2020-03-03 17:57] LABS: Albumin 4.8 g/dL (3.4-5.0); Bilirubin Direct 0.1 mg/dL (0-0.2); Bilirubin Total 0.6 mg/dL (0.2-1.0); Potassium 3.7 mmol/L (3.5-5.1); Protein, Total 8.7 g/dL (6.4-8.2)
[2020-03-03] MEDS ORDERED: HALOPERIDOL LACT 5 MG/ML INJ ONE (18:09)
[2020-03-03 18:27] LABS: Blood Morphology Comment NOT SEEN (NOT SEEN); Platelet Estimate ADEQ; Urine White Blood Cell Casts OK
[2020-03-03] MEDS ORDERED: MAGNESIUM SULFATE 1 gm IVPB 1 GM/100 ML BAG IV ONE (19:03)
--- NOTE | 2020-03-03 19:13 | RAD REPORT ---
EXAM DESCRIPTION: CTAbdomen Pelvis W Contrast - 03/03/2020 6:56 pm CLINICAL HISTORY: Abdominal pain. ABD PAIN COMPARISON: Abdomen Pelvis W Contrast dated 12/24/2019; Abdomen Pelvis W Contrast dated 05/07/2019; Abdomen Pelvis W Contrast dated 12/20/2018; Abdomen Pelvis W Contrast dated 09/11/2018 TECHNIQUE: Biphasic CT imaging of the abdomen and pelvis was performed with 100 ml non-ionic IV cont rast. All CT scans are performed using dose optimization technique as appropriate and may include automated exposure control or mA/KV adjustment according to patient size. FINDINGS: The lung bases are clear.Cholecystectomy clips. The liver, spleen, pancreas, adrenal glands and kidneys are within normal limits. No bowel obstruction, free air, free fluid or abscess. Mild colonic inflammation is seen particularly in the region of the ascending and transverse colon could indicate mild colitis. The appendix is nor mal. No evidence of significant lymphadenopathy. No suspicious bony findings. IMPRESSION: A mild right-sided colitis is possible.
[2020-03-03] MEDS ORDERED: CIPROFLOXACIN HCL 500 MG TAB ONE (19:44)
[2020-03-03] MEDS ORDERED: metroNIDAZOLE 500 MG TABLET ONE (19:44)
[2020-03-03 19:49] LABS: Barbiturates NEGATIVE (NEGATIVE); Benzodiazepines NEGATIVE (NEGATIVE); Cocaine NEGATIVE (NEGATIVE); METHAMPHETAM NEGATIVE (NEGATIVE); Methadone NEGATIVE (NEGATIVE); Opiates NEGATIVE (NEGATIVE); Phencyclidine NEGATIVE (NEGATIVE); THC Cannibis POSITIVE (NEGATIVE)
[2020-03-03 20:16] LABS: Urine Blood 1+ (NEG); Urine Glucose NEGATIVE (NEG); Urine Protein 1+ (NEG)
--- NOTE | 2020-03-03 20:17 | EDPHYS ---
Physician Documentation [facility] Name: Shyanne Pardo Age: 34 yrs Sex: Female : 1985 Arrival Date: 03/03/2020 Time: 17:13 Bed 6 Private MD: ED Physician Terrell Dobbs HPI: 03/03 17:25 This 34 yrs old Female presents to ER via Ambulatory with complaints of cp Abdominal Pain, Vomiting. 17:25 The patient presents with abdominal pain that is diffuse. cp 17:25 Onset: The symptoms/episode began/occurred today. Associated signs and symptoms: cp Pertinent positives: nausea and vomiting, Pertinent negatives: constipation, diarrhea, fever, vomiting blood. The patient has experienced similar episodes in the past, today's symptoms are similar, to when the patient was apparently diagnosed with colitis. Historical: - Allergies: 17:24 Azithromycin; ll1 17:24 PENICILLINS; ll1 17:24 Sulfa (Sulfonamide Antibiotics); ll1 17:24 Erythromycin; ll1 - PMHx: 17:24 gastritis; Ulcers; ll1 - PSHx: 17:28 Cholecystectomy; ll1 - Social history:: Smoking status: Patient denies any tobacco usage or history of. Patient uses street drugs, marijuana, Patient/guardian denies using alcohol, tobacco products. ROS: 17:30 Constitutional: Negative for fever. cp 17:30 ENT: Negative for ear pain, sore throat, difficulty swallowing, difficulty handling cp secretions. 17:30 Cardiovascular: Negative for chest pain. 17:30 Respiratory: Negative for cough, wheezing. 17:30 Abdomen/GI: Positive for abdominal pain, nausea and vomiting, Negative for diarrhea, constipation, hematemesis, black/tarry stool, rectal bleeding. 17:30 Neuro: Negative for altered mental status. 17:30 All other systems are negative. Exam: 17:35 Constitutional: The patient appears in no acute distress, alert, awake, non-toxic, well cp developed, well nourished, uncomfortable. 17:35 Head/Face: Normocephalic, atraumatic. cp 17:35 Eyes: Periorbital structures: appear normal, Conjunctiva: normal, no exudate, no injection, Sclera: no appreciated abnormality, Lids and lashes: appear normal, bilaterally. 17:35 ENT: External ear(s): are unremarkable, Nose: is normal, Mouth: Lips: moist, Oral mucosa: moist, Posterior pharynx: Airway: no evidence of obstruction, patent. 17:35 Chest/axilla: Inspection: normal. 17:35 Cardiovascular: Rate: normal, Rhythm: regular. 17:35 Respiratory: the patient does not display signs of respiratory distress, Respirations: normal, no use of accessory muscles, labored breathing, is not present, Breath sounds: are clear throughout, no decreased breath sounds, no stridor, no wheezing. 17:35 Abdomen/GI: Inspection: abdomen appears normal, Bowel sounds: active, all quadrants, Palpation: soft, in all quadrants, severe abdominal tenderness, in all quadrants, voluntary guarding, is elicited in all quadrants. 17:35 Neuro: Orientation: to person, place \T\ time. Mentation: is normal, Motor: moves all fours, strength is normal. 18:13 ECG was reviewed by the Attending Physician. cp Vital Signs: 17:20 BP 134 / 80; Pulse 80; Resp 20; Temp 97.7; Pulse Ox 96% ; Pain 10/10; ll1 19:26 BP 106 / 65; Pulse 89; Resp 18; Pulse Ox 97% on R/A; sg MDM: 17:17 Patient medically screened. cp 17:30 Differential diagnosis: appendicitis, bowel obstruction, gastritis, Peptic Ulcer cp Disease, Perf. Duodenal Ulcer, Perf. Gastric Ulcer, Pyelonephritis, Ureterolithiasis, urinary tract infection. 20:15 Data reviewed: vital signs, nurses notes, lab test result(s), radiologic studies, CT cp scan. 20:15 Counseling: I had a detailed discussion with the patient and/or guardian regarding: the cp historical points, exam findings, and any diagnostic results supporting the discharge/admit diagnosis, lab results, radiology results, to return to the emergency department if symptoms worsen or persist or if there are any questions or concerns that arise at home. Response to treatment: the patient's symptoms have markedly improved after treatment, VSS. Nausea and pain improved and vomiting resolved. Patient observed tolerating po fluids, and as a result, I will discharge patient. Special discussion: Based on the patient's Hx, exam, and Dx evaluation, there is no indication for emergent surgery or inpatient Tx. It is understood by the patient/guardian that if the Sx's persist or worsen they need to return immediately for re-evaluation. 03/03 17:20 Order name: Basic Metabolic Panel; Complete Time: 18:09 cp 03/03 18:09 Interpretation: Normal except: GLUC 162; GFR 77. cp 03/03 17:20 Order name: CBC with Diff; Complete Time: 18:54 cp 03/03 18:09 Interpretation: Normal except: GIDEON% 92.0; LYM% 6.1; MN% 1.7; NEUT A 9.8. cp 03/03 17:20 Order name: Creatinine for Radiology; Complete Time: 18:54 cp 03/03 17:20 Order name: Hepatic Function; Complete Time: 18:09 cp 03/03 18:10 Interpretation: Normal except: AST 12; TP 8.7; GLOB 3.9. cp 03/03 17:20 Order name: Lipase; Complete Time: 18:09 cp 03/03 18:10 Interpretation: Reviewed. cp 03/03 17:20 Order name: UDS; Complete Time: 20:13 cp 03/03 20:14 Interpretation: Normal except: THC POSITIVE. cp 03/03 17:21 Order name: CT Abd/Pelvis - IV Contrast Only; Complete Time: 19:19 cp 03/03 17:23 Order name: Magnesium; Complete Time: 18:54 cp 03/03 18:54 Interpretation: Abnormal: MG 1.7. cp 03/03 18:27 Order name: CBC Smear Scan; Complete Time: 18:54 EDMS 03/03 19:12 Order name: Urine Dipstick--Ancillary (enter results); Complete Time: 20:21 mt 03/03 20:21 Interpretation: Normal except: UKET 4+; UBLD 1+; UPROT 1+. cp 03/03 19:12 Order name: Urine --Ancillary (enter results); Complete Time: 20:21 mt 03/03 20:21 Interpretation: Reviewed. cp 03/03 17:20 Order name: IV Saline Lock; Complete Time: 17:34 cp 03/03 17:20 Order name: Labs collected and sent; Complete Time: 17:34 cp 03/03 17:20 Order name: Urine Dipstick-Ancillary (obtain specimen); Complete Time: 19:09 cp 03/03 17:20 Order name: Urine Test (obtain specimen); Complete Time: 19:09 cp 03/03 17:23 Order name: EKG; Complete Time: 17:24 cp 03/03 17:23 Order name: EKG - Nurse/Tech; Complete Time: 18:33 cp 03/03 19:34 Order name: PO challenge; Complete Time: 20:46 cp EC:13 Rate is 74 beats/min. Rhythm is regular. CA interval is normal. QRS interval is normal. cp QT interval is normal. Interpreted by me. Reviewed by me. Administered Medications: 17:49 Drug: Zofran (Ondansetron) 4 mg Route: IVP; Site: right antecubital; em 18:30 Follow up: Response: No adverse reaction em 17:49 Drug: NS 0.9% 1000 ml Route: IV; Rate: 1 bolus; Site: right antecubital; em 17:51 Drug: Pepcid 20 mg Route: IVP; Site: right antecubital; em 18:32 Follow up: Response: No adverse reaction em 17:52 Drug: fentaNYL (PF) 25 mcg Route: IVP; Site: right antecubital; em 18:32 Follow up: Response: No adverse reaction; Marked relief of symptoms; Pain is decreased em 17:57 Drug: Phenergan 25 mg {Note: placed in IV fluids.} Route: IVP; Site: right antecubital; em 20:07 Follow up: Response: No adverse reaction; Nausea unchanged sg 18:14 Drug: HALdol 2.5 mg Route: IVP; Site: right antecubital; em 18:52 Follow up: Response: No adverse reaction; Marked relief of symptoms em 19:17 Drug: Magnesium Sulfate 1 grams Route: IVPB; Infused Over: 1 hrs; Site: right sg antecubital; 20:07 Drug: Cipro 500 mg Route: PO; sg 20:07 Drug: metroNIDAZOLE 500 mg Route: PO; sg 20:33 Drug: Reglan 5 mg Route: IVP; Site: right antecubital; mg2 20:46 Drug: Bentyl 20 mg Route: PO; mg2 Disposition: 20:20 Chart complete. 03/04 07:19 Co-signature as Attending Physician, Terrell Dobbs MD Available for consultation . ps1 Disposition: 03/03/20 20:16 Discharged to Home. Impression: Nausea and vomiting, Colitis. - Condition is Stable. - Discharge Instructions: Dehydration, Adult, Nausea and Vomiting, Adult, Colitis. - Prescriptions for Bentyl 20 mg Oral Tablet - take 1 tablet by ORAL route every 6 hours As needed; 20 tablet. Cipro 500 mg Oral Tablet - take 1 tablet by ORAL route every 12 hours for 10 days; 20 tablet. Metronidazole 500 mg Oral Tablet - take 1 tablet by ORAL route every 8 hours; 30 tablet. Phenergan 25 mg Rectal Suppository - insert 1 suppository by RECTAL route every 6 hours As needed; 12 suppository. promethazine 25 mg Oral Tablet - take 1 tablet by ORAL route every 6 hours As needed; 20 tablet. - Medication Reconciliation Form, Thank You Letter, Antibiotic Education, Prescription Opioid Use form. - Follow up: Devan Gomes MD; When: 2 - 3 days; Reason: Recheck today's complaints. - Problem is new. - Symptoms have improved. Signatures: Dispatcher [employer] EDMS Regulo Willis RN RN sg Elio Solis RN RN em Fito Rodrigues PA PA cp Terrell Dobbs MD MD ps1 Baldomero Pichardo RN RN mg2 Grace Vázquez RN RN ll1 Corrections: (The following items were deleted from the chart) 03/03 20:49 20:16 03/03/2020 20:16 Discharged to Home. Impression: Nausea and vomiting; Colitis. mg2 Condition is Stable. Forms are Medication Reconciliation Form, Thank You Letter, Antibiotic Education, Prescription Opioid Use. Follow up: Devan Gomes; When: 2 - 3 days; Reason: Recheck today's complaints. Problem is new. Symptoms have improved. cp
--- NOTE | 2020-03-03 20:17 | ER ---
Nurse's Notes [facility] Name: Shyanne Pardo Age: 34 yrs Sex: Female : 1985 Arrival Date: 03/03/2020 Time: 17:13 Bed 6 Private MD: Diagnosis: Nausea and vomiting;Colitis Presentation: 03/03 17:20 Chief complaint: Patient states: Upper abdominal pain with N/V/D for 1 day. History of ll1 gastritis, states this is what she thinks is going on today. States she cannot hold down her nausea or pain medication. "Morphine didn't work for me last time, just that D medicine.". Coronavirus screen: Proceed with normal triage. Patient denies a cough. Patient denies shortness of breath or difficulty breathing. Patient denies measured and/or subjective temperature greater than 100.4F prior to today's visit. Patient denies travel on a cruise ship or to a country the [facility] currently lists as an affected area. Patient denies contact with known and/or suspected case of COVID-19. Ebola Screen: Patient denies travel to an Ebola-affected area in the 21 days before illness onset. Initial Sepsis Screen: Does the patient meet any 2 criteria? No. Patient's initial sepsis screen is negative. Risk Assessment: Do you want to hurt yourself or someone else? Patient reports no desire to harm self or others. Onset of symptoms was March 03, 2020. 17:20 Method Of Arrival: Ambulatory ll1 17:20 Acuity: [place] 3 ll1 Historical: - Allergies: 17:24 Azithromycin; ll1 17:24 PENICILLINS; ll1 17:24 Sulfa (Sulfonamide Antibiotics); ll1 17:24 Erythromycin; ll1 - PMHx: 17:24 gastritis; Ulcers; ll1 - PSHx: 17:28 Cholecystectomy; ll1 - Social history:: Smoking status: Patient denies any tobacco usage or history of. Patient uses street drugs, marijuana, Patient/guardian denies using alcohol, tobacco products. Screenin:45 Abuse screen: Denies threats or abuse. Nutritional screening: No deficits noted. em Tuberculosis screening: No symptoms or risk factors identified. Fall Risk None identified. Assessment: 17:45 General: Appears uncomfortable, Behavior is crying, restless. Pain: Complains of pain em in abdomen Pain currently is 10 out of 10 on a pain scale. Neuro: Level of Consciousness is awake, alert, obeys commands, Oriented to person, place, time, situation, Appropriate for age. Cardiovascular: Capillary refill < 3 seconds Patient's skin is warm and dry. Respiratory: Airway is patent Respiratory effort is even, unlabored, Respiratory pattern is regular, symmetrical. GI: Abdomen is flat, Bowel sounds present X 4 quads. Abd is soft X 4 quads Abdomen is tender to palpation in epigastric area, right upper quadrant and left upper quadrant Reports nausea, vomiting. Derm: Skin is intact, is healthy with good turgor, Skin is pink, warm \\T\\ dry. Musculoskeletal: Capillary refill < 3 seconds, Range of motion: intact in all extremities. 18:30 Reassessment: Patient and/or family updated on plan of care and expected duration. Pain em level reassessed. Patient states feeling better. Patient states symptoms have improved. 19:15 Reassessment: Patient appears in no apparent distress at this time. Patient and/or sg family updated on plan of care and expected duration. Pain level reassessed. Patient states symptoms have not improved. 20:11 Reassessment: Patient appears in no apparent distress at this time. pt complaining of sg pain and nausea at this time, ERP notified, pt took PO medications at this time with 16 oz of water, will continue to monitor. Vital Signs: 17:20 BP 134 / 80; Pulse 80; Resp 20; Temp 97.7; Pulse Ox 96% ; Pain 10/10; ll1 19:26 BP 106 / 65; Pulse 89; Resp 18; Pulse Ox 97% on R/A; sg ED Course: 17:13 Patient arrived in ED. mr 17:16 Fito Rodrigues PA is PHCP. cp 17:16 Terrell Dobbs MD is Attending Physician. cp 17:22 Triage completed. ll1 17:24 Arm band placed on Patient placed in an exam room, on a stretcher. ll1 17:30 Initial lab(s) drawn, by me, sent to lab. Inserted saline lock: 20 gauge in right jp3 antecubital area, using aseptic technique. Blood collected. 17:45 Patient has correct armband on for positive identification. Bed in low position. Call em light in reach. 18:10 EKG done, by ED staff, reviewed by Fito EDEN. jp3 18:17 Radiology exam delayed due to test not completed at this time. vm2 18:20 Summer Telles RN is Primary Nurse. ph 18:56 CT Abd/Pelvis - IV Contrast Only In Process Unspecified. EDMS 19:05 Urine collected: clean catch specimen, clear, amita colored, Legal drug screen obtained jp3 per protocol. 19:43 Primary Nurse role handed off by Summer Telles RN sg 19:43 Regulo Willis RN is Primary Nurse. sg 20:15 Devan Gomes MD is Referral Physician. cp 20:49 No provider procedures requiring assistance completed. IV discontinued, intact, mg2 bleeding controlled, No redness/swelling at site. Pressure dressing applied. Administered Medications: 17:49 Drug: Zofran (Ondansetron) 4 mg Route: IVP; Site: right antecubital; em 18:30 Follow up: Response: No adverse reaction em 17:49 Drug: NS 0.9% 1000 ml Route: IV; Rate: 1 bolus; Site: right antecubital; em 17:51 Drug: Pepcid 20 mg Route: IVP; Site: right antecubital; em 18:32 Follow up: Response: No adverse reaction em 17:52 Drug: fentaNYL (PF) 25 mcg Route: IVP; Site: right antecubital; em 18:32 Follow up: Response: No adverse reaction; Marked relief of symptoms; Pain is decreased em 17:57 Drug: Phenergan 25 mg {Note: placed in IV fluids.} Route: IVP; Site: right antecubital; em 20:07 Follow up: Response: No adverse reaction; Nausea unchanged sg 18:14 Drug: HALdol 2.5 mg Route: IVP; Site: right antecubital; em 18:52 Follow up: Response: No adverse reaction; Marked relief of symptoms em 19:17 Drug: Magnesium Sulfate 1 grams Route: IVPB; Infused Over: 1 hrs; Site: right sg antecubital; 20:07 Drug: Cipro 500 mg Route: PO; sg 20:07 Drug: metroNIDAZOLE 500 mg Route: PO; sg 20:33 Drug: Reglan 5 mg Route: IVP; Site: right antecubital; mg2 20:46 Drug: Bentyl 20 mg Route: PO; mg2 Outcome: 20:16 Discharge ordered by . cp 20:49 Discharged to home ambulatory. mg2 20:49 Condition: good 20:49 Discharge instructions given to patient, Instructed on discharge instructions, follow up and referral plans. medication usage, Demonstrated understanding of instructions, follow-up care, medications, Prescriptions given X 5 20:49 Patient left the ED. mg2 Signatures: Dispatcher [employer] EDMS Regulo Willis RN RN JulianJohanna mr SolisElio ferrara RN RN em Summer Telles RN RN Fito Cota PA PA Angelita Nam 2 Baldomero Pichardo RN RN mg2 Sanjay Gregory jp3 Grace Vázquez RN RN ll1
[2020-03-03] MEDS ORDERED: METOCLOPRAMIDE 10 MG/2mL INJ ONE (20:36)
[2020-03-03] MEDS ORDERED: DICYCLOMINE HCL 10 MG CAP ONE (20:36)
[2020-03-03] MEDS ORDERED: NA CHLORIDE 0.9% 100 ML IV ONE ×2 (20:36→20:42)
[2020-03-03 20:58] VITALS: TEMP 97.7
[2020-03-03 20:59] VITALS: BP 106/65; O2SAT 97
--- NOTE | 2020-03-04 07:04 | EKG ---
Test Date: 2020-03-03 Test Time: 18:03:59 [place] Finisher: JCARLOS MEASUREMENT RESULTS: Intervals: Rate: 74 [place]: 146 QRSD: 84 QT: 374 QTc: [address]: P: 76 [place]: 146 QRS: 84 T: 57 INTERPRETIVE STATEMENTS: Normal sinus rhythm Minimal voltage criteria for LVH, may be normal variant Borderline ECG Compared to ECG 01/06/2019 07:26:52 Left ventricular hypertrophy now present Electronically Signed On 03-04-20 07:04:30 CDT by Victorino Campbell
== END 2020-03-03 20:49 | disposition home or self-care (01) ==
LOC: ER 17:11
DX: K52.9 Noninfective gastroenteritis and colitis, unspecified (principal)
CPT/HCPCS: 36415; 74177; 80048; 80076; 80307; 81003; 81025; 83690; 83735; 85025; 93005; 96374; 96375; 99284; J1630; J2405; J2550; J2765; J3010; J3475; J7030; Q9967

== ENCOUNTER 2020-04-10 11:16 | Emergency (ER) | payer SELFPAY ==
--- OUTSIDE RECORDS SUMMARY | 2020-04-10 11:19 | XMS REPORT ---
:1985 Author Organization [facility] t Address [address] [place] [address] Care Team Providers Name Role Phone NONSTAFF Primary Care Physician Unavailable SINGH Attending Clinician Unavailable SINGH Admitting Clinician Unavailable Payers Payer Name Policy Type Policy Number Effective Date Expiration Date S joie [employer] Of [id number] [facility] Patients Medical Center Problems Condition Condition Condition Status Onset Resolution Last Treating Co mments Source Name Details Category Date Date Treatment Clinician Date Chronic Chronic Problem Active [facility] abdominal [facility] s - pain pain Patient s Medical [facility] Gastritis Gastritis Problem [facility] Intractabl Intractabl Problem Active [facility] vomiting e vomiting Carol Ann kes - Patient [facility] Center Allergies, Adverse Reactions, Alerts Allergy Allergy Status Severity Reaction(s) Onset Inactive Treating Comm ents Source Name Type Date Date Clinician Penicill Allergy Active Severe 2019-[address] [facility] [address] [facility] to 2[facility]20 [facility] - Sub[facility]anc 00[facility]: Patient e [facility] s [facility] Sulfa Allergy Active Severe [facility] (Sulfona to 2-18 [facility] - mide Substanc 00:00: Patient Antibiot e 00 s ics) Medical Center Erythrom Allergy Active Severe [facility] ycin to 2-18 [facility] - base Substanc 00:00: Patient e 00 s Medical Center Medications Ordered Filled Start Stop Current Ordering Indication Dosage Frequency Signature Comments Components Source Medication Medication Date Date Medication? Clinician (SIG) Name Name Dicyclomine Dicyclomine Yes [address] [facility] [address] Hcl 20 Mg Hcl 20 Mg Hours as L ukes - Tablet Tablet needed for Patie nt Abdominal [facility] Hydrocodone Hydrocodone Yes [address] [facility] [address] Bit/Acetami Bit/Acetami Hours as [facility] - nophen nophen needed for Patie nt (Hydrocodon (Hydrocodon Pain s -Acetaminop -Acetaminop M edical hen 5-325) hen 5-325) Julien ter 1 Each 1 Each Tablet Tablet Norgestimat Norgestimat Yes [address] e-Ethinyl e-Ethinyl [facility] - Estradiol Estradiol Patie nt (Sprintec) (Sprintec) s 1 Each 1 Each Medical Tablet Tablet Center Ondansetron Ondansetron Yes [address] [facility] [address] Hcl 4 Mg Hcl 4 Mg Hours as Daniele es - Tablet Tablet needed for Patie nt Nausea s Medical Center Pantoprazol Pantoprazol Yes [address] e Sodium e Sodium [facility]ukes - (Protonix) (Protonix) Pat ient 40 Mg 40 Mg s Tablet. Tablet. Medic al Center Promethazin Promethazin Yes [address] e Hcl 25 Mg e Hcl 25 Mg L ukes - Tablet Tablet Patient s Medical Center Sertraline Sertraline Yes [address] Hcl 25 Mg Hcl 25 Mg [facility] - Tablet Tablet Patient s Medical Center Tramadol Tramadol Yes [address] [facility] [address] Hcl (Ultram Hcl (Ultram Hours as [facility]ukes - 50MG*) 50 50MG*) 50 needed for Patient Mg Tab Mg Tab Pain s Medical Center Procedures Procedure Date / Time Performing Source Performed Clinician Laparoscopic cholecystectomy 2019-01-[address] [facility] - 00:00:00 Patients Medical Center Magnetic resonance 2019-01-[address] [facility] - cholangiopancreatography (MRCP) 00:00:00 Patients Medical without contrast Center Colonoscopy with biopsy 2019-01-[address] [facility] - 00:00:00 Patients [facility] Center EGD with biopsy 2019-01-[address] [facility] - 00:00:00 Patients Medical Center Encounters Start End Encounter Admission Attending Care Care Encounter Source Date/Time Date/Time Type Type Clinicians Facility Department ID 2019-01-08 2019-01-12 Discharged 1 SARY SINGH [facility] A00 [id number] [facility] 08:41:00 13:44:00 Inpatient 54 [place] s - Patient s [facility] Results Test Description Test Time Test Comments Results Result Comments Source Sodium Level 2019-01-12 06:14:00 Test Item Value Reference Range Interpretation Comme nts Sodium Level (test code = 2951-2) 140 136-145 [facility] [id number] 06:14:00 Test Item Value Reference Range Interpretation Comments Potassium Level (test code = 2823-3) 3.2 3.5-5.1 [facility] HospitalChloride Iifft7433-08-95 06:14:00 Test Item Value Reference Range Interpretation Comments Chloride Level (test code = 2075-0) 104 98-107 [facility] HospitalCarbon Dioxide Frimr3644-53-14 06:14:00 Test Item Value Reference Range Interpretation Comments Carbon Dioxide Level (test code = 28 22-29 8-9) [facility] HospitalAnion Amh9622-44-20 06:14:00 Test Item Value Reference Range Interpretation Comments Anion Gap (test code = 98961-7) 11.2 8-16 [facility] HospitalBlood Urea Ssvijbye9482-54-15 06:14:00 Test Item Value Reference Range Interpretation Comments Blood Urea Nitrogen (test code = < 5 7-26 3094-0) [facility] HospitalCreatinine2019-02-24 06:14:00 Test Item Value Reference Range Interpretation Comments Creatinine (test code = 2160-0) 0.67 0.57-1.11 [facility] HospitalBUN/Creatinine Gbzju6195-65-41 06:14:00 Test Item Value Reference Range Interpretation Comments BUN/Creatinine Ratio (test code = 7 625 3097-3) [facility] HospitalEstimat Glomerular Filtration Rate 2019-01-12 06:14:00 Test Item Value Reference Range Interpretation Comments Estimat Glomerular Filtration Rate > 60 >60 (test code = 540109274) Ranges were taken from the National Kidney Disease Education Program and the National Kidney Foundation literature.Reference ranges:60 or greater: Pggmbt67- 59 (for 3 consecutive months): Chronic kidneydisease 15 or less: Kidney failure [facility] HospitalGlucose Iyfae0333-43-81 06:14:00 Test Item Value Reference Range Interpretation Comments Glucose Level (test code = FIU1911) 129 74-118 [facility] HospitalCalcium Vdgao8426-71-39 06:14:00 Test Item Value Reference Range Interpretation Comments Calcium Level (test code = 67035-9) 8.8 8.4-10.2 [facility] HospitalWhite Blood Vklwv5748-63-31 05:42:00 Test Item Value Reference Range Interpretation Comments White Blood Count (test code = 6690-2) 5.63 4.8-10.8 [facility] HospitalRed Blood Dvuub6845-87-13 05:42:00 Test Item Value Reference Range Interpretation Comments Red Blood Count (test code = 789-8) 3.73 3.6-5.1 [facility] HospitalHemoglobin2019-02-24 05:42:00 Test Item Value Reference Range Interpretation Comments Hemoglobin (test code = 23298-1) 11.2 12.0-16.0 [facility] HospitalHematocrit2019-02-24 05:42:00 Test Item Value Reference Range Interpretation Comments Hematocrit (test code = 4544-3) 32.5 34.2-44.1 [facility] HospitalMean Corpuscular Qvwfkf7719-62-68 05:42:00 Test Item Value Reference Range Interpretation Comments Mean Corpuscular Volume (test code = 87.1 81-99 787-2) [facility] HospitalMean Corpuscular Dupphdlbma4859-37-12 05:42:00 Test Item Value Reference Range Interpretation Comments Mean Corpuscular Hemoglobin (test code 30.0 28-32 = 785-6) [facility] HospitalMean Corpuscular Hemoglobin Concent 2019-01-12 05:42:00 Test Item Value Reference Range Interpretation Comments Mean Corpuscular Hemoglobin Concent 34.5 31-35 (test code = 786-4) [facility] HospitalRed Cell Distribution Gbfcl3398-46-96 05:42:00 Test Item Value Reference Range Interpretation Comments Red Cell Distribution Width (test code 13.0 11.7-14.4 = 79491-4) [facility] HospitalPlatelet Astaw5808-03-71 05:42:00 Test Item Value Reference Range Interpretation Comments Platelet Count (test code = 777-3) 233 140-360 [facility] HospitalNeutrophils (%) (Auto)2019-01-12 05:42:00 Test Item Value Reference Range Interpretation Comments Neutrophils (%) (Auto) (test code = 39.7 38.7-80.0 73587-4) [facility] HospitalLymphocytes (%) (Auto)2019-01-12 05:42:00 Test Item Value Reference Range Interpretation Comments Lymphocytes (%) (Auto) (test code = 50.3 18.0-39.1 736-9) [facility] HospitalMonocytes (%) (Auto)2019-01-12 05:42:00 Test Item Value Reference Range Interpretation Comments Monocytes (%) (Auto) (test code = 9.1 4.4-11.3 5905-5) [facility] HospitalEosinophils (%) (Auto)2019-01-12 05:42:00 Test Item Value Reference Range Interpretation Comments Eosinophils (%) (Auto) (test code = 0.2 0.0-6.0 713-8) [facility] HospitalBasophils (%) (Auto)2019-01-12 05:42:00 Test Item Value Reference Range Interpretation Comments Basophils (%) (Auto) (test code = 0.5 0.0-1.0 706-2) [facility] HospitalIM GRANULOCYTES %2019-01-12 05:42:00 Test Item Value Reference Range Interpretation Comments IM GRANULOCYTES % (test code = IM 0.2 0.0-1.0 GRANULOCYTES %) [facility] HospitalNeutrophils # (Auto)2019-01-12 05:42:00 Test Item Value Reference Range Interpretation Comments Neutrophils # (Auto) (test code = 2.2 2.1-6.9 751-8) [facility] HospitalLymphocytes # (Auto)2019-01-12 05:42:00 Test Item Value Reference Range Interpretation Comments Lymphocytes # (Auto) (test code = 2.8 1.0-3.2 60625-7) [facility] HospitalMonocytes # (Auto)2019-01-12 05:42:00 Test Item Value Reference Range Interpretation Comments Monocytes # (Auto) (test code = 742-7) 0.5 0.2-0.8 [facility] HospitalEosinophils # (Auto)2019-01-12 05:42:00 Test Item Value Reference Range Interpretation Comments Eosinophils # (Auto) (test code = 0.0 0.0-0.4 711-2) [facility] HospitalBasophils # (Auto)2019-01-12 05:42:00 Test Item Value Reference Range Interpretation Comments Basophils # (Auto) (test code = 704-7) 0.0 0.0-0.1 [facility] HospitalAbsolute Immature Granulocyte (auto 2019-01-12 05:42:00 Test Item Value Reference Range Interpretation Comments Absolute Immature Granulocyte (auto 0.01 0-0.1 (test code = Absolute Immature Granulocyte (auto) [facility] HospitalBedside Wlzlqvw5502-69-73 19:46:00 Test Item Value Reference Range Interpretation Comments Bedside Glucose (test code = 99845-1) 117 70-120 Meter ID: [id number] [facility] CenterAnti-Nuclear Antibody Uzezof4425-97-32 12:36:00 Test Item Value Reference Range Interpretation Comments Anti-Nuclear Antibody Screen (test Negative . code = 5048-4) Negative <1:80 Borderline 1:80 Positive >1:80Performed at: - Lab[address] [id number] Director: Oli Ghosh MD, Phone: [phone] Health [facility] Ta[facility] HospitalC-Reactive Xokxckz1532-75-25 11:57:00 Test Item Value Reference Range Interpretation Comments C-Reactive Protein (test code = 1988-5) 0.9 0.0-4.9 Performed at: [facility] [id number] Director: Oli Ghosh MD, Phone: [phone] Health System Ben Taub HospitalPhosphorus Tcolx5563-65-89 06:40:00 Test Item Value Reference Range Interpretation Comments Phosphorus Level (test code = WOK3961) 3.7 2.3-4.7 [facility] HospitalMagnesium Mefah2292-05-85 06:40:00 Test Item Value Reference Range Interpretation Comments Magnesium Level (test code = 38945-9) 1.9 1.3-2.1 [facility] HospitalUrine JGG9124-72-15 19:42:00 Test Item Value Reference Range Interpretation Comments Urine WBC (test code = 5821-4) NONE 0-5 [facility] HospitalUrine [id number] 19:42:00 Test Item Value Reference Range Interpretation Comments Urine RBC (test code = 79083-5) >50 0-5 [facility] HospitalUrine Dlcnhbmu8988-99-36 19:42:00 Test Item Value Reference Range Interpretation Comments Urine Bacteria (test code = 73290-7) PRESENT NONE [facility] HospitalUrine Epithelial Vxnaw7390-61-04 19:42:00 Test Item Value Reference Range Interpretation Comments Urine Epithelial Cells (test code = RARE NONE 73986-6) [facility] HospitalUrine Uvjmu6958-23-99 19:32:00 Test Item Value Reference Range Interpretation Comments Urine Color (test code = 5778-6) STRAW YELLOW [facility] HospitalUrine Tyownpv4641-35-15 19:32:00 Test Item Value Reference Range Interpretation Comments Urine Clarity (test code = 15512-0) SL CLOUDY CLEAR [facility] HospitalUrine Specific Jqzdfpm1927-23-78 19:32:00 Test Item Value Reference Range Interpretation Comments Urine Specific [place] (test code = 1.015 1.010-1.025 5811-5) [facility] HospitalUrine uE8386-01-67 19:32:00 Test Item Value Reference Range Interpretation Comments Urine pH (test code = 88278-0) 6 5-7 [facility] HospitalUrine Leukocyte Mrbxssng4360-57-93 19:32:00 Test Item Value Reference Range Interpretation Comments Urine Leukocyte Esterase (test code NEGATIVE NEGATIVE = 5799-2) [facility] Oleszis8506-90-37 19:32:00 Test Item Value Reference Range Interpretation Comments Urine Nitrite (test code = 83410-7) NEGATIVE NEGATIVE [facility] HospitalUrine Kskygna1334-27-85 19:32:00 Test Item Value Reference Range Interpretation Comments Urine Protein (test code = 5804-0) NEGATIVE NEGATIVE [facility] HospitalUrine Glucose (UA)2019-01-09 19:32:00 Test Item Value Reference Range Interpretation Comments Urine Glucose (UA) (test code = NEGATIVE NEGATIVE 2349-9) [facility] HospitalUrine Grcehyj3708-33-66 19:32:00 Test Item Value Reference Range Interpretation Comments Urine Ketones (test code = 58512-0) 2+ NEGATIVE [facility] Hpkmsjznphen6586-34-76 19:32:00 Test Item Value Reference Range Interpretation Comments Urine Urobilinogen (test code = 0.2 0.2-1 30487-7) [facility] HospitalUrine Pwycyyufu4008-58-81 19:32:00 Test Item Value Reference Range Interpretation Comments Urine Bilirubin (test code = 1978-6) NEGATIVE NEGATIVE [facility] HospitalUrine Qpijd5682-70-96 19:32:00 Test Item Value Reference Range Interpretation Comments Urine Blood (test code = 61087-2) 4+ NEGATIVE INFORMED THAT PT IS STARTED HER PERIODHarris Health System [facility] Hospital Vitamin B12 Wrvaq6761-78-69 18:39:00 Test Item Value Reference Range Interpretation Comments Vitamin B12 Level (test code = 19832-6) 808 213-816 [facility] HospitalErythrocyte Sedimentation Ddhx7330-14-75 18:07:00 Test Item Value Reference Range Interpretation Comments Erythrocyte Sedimentation Rate (test 4 0-20 code = 4537-7) [facility] HospitalFerritin2019-02-21 18:06:00 Test Item Value Reference Range Interpretation Comments Ferritin (test code = 2276-4) 29.07 4.63-204.00 [facility] HospitalIron Edwnw9569-96-40 17:46:00 Test Item Value Reference Range Interpretation Comments Iron Level (test code = 2498-4) 40 50-170 [facility] HospitalTotal Iron Binding Kjhonqwu6029-91-11 17:46:00 Test Item Value Reference Range Interpretation Comments Total Iron Binding Capacity (test code 333 059-427 = 2500-7) [facility] HospitalPercent Iron Ntvsvugcfl0495-26-61 17:46:00 Test Item Value Reference Range Interpretation Comments Percent Iron Saturation (test code = 12 15-50 2502-3) [facility] HospitalTransferrin2019-02-21 17:46:00 Test Item Value Reference Range Interpretation Comments Transferrin (test code = 3034-6) 238 180-382 [facility] HospitalPercent Reticulocyte Ymcet6672-59-34 17:34:00 Test Item Value Reference Range Interpretation Comments Percent Reticulocyte Count (test code = 2.1 0.8-2.2 85514-1) [facility] HospitalHEPTOBILIARY W JEZOL5077-22-69 14:46:00 [place] [address] Patient Name: JAMES GRIFFIN MR #: [id number] : 1985 Age/Sex: 33/F Req #: [id number] Adm Physician: SARY SINGH MD Ordered by: DWAIN LOVING MD Report #: [id number] Location: MED/SURG3 Room/Bed: 288-1 Procedure: [id number] NM/HEPTOBILIARY W PHARM Exam Date: 01/09/19 Exam [...] 01/09/2019 2:47 PM DictatedBy: JEOVANY VELAZQUEZ MD [id number] Transcribed By: TANA on 01/09/19 8339 COPY TO: DWAIN LOVING GONZALOAR MRCP RD3971-63-27 16:52:00 [place] [address] Patient Name: JAMES GRIFFIN MR #: [id number] : 1985 Age/Sex: 33/F Req #: [id number] Adm Physician: SARY SINGH MD Ordered by: SARY SINGH MD Report #: [id number] Location[facility] Room/Bed: [facility] Procedure: [id number] MRI/MRI MRCP WO Exam Date: 01/08/19 Exam Time: 1600 REPORT STATUS: Signed MRCP CPT code: 46004 History: Intractable nausea/vomiting, chronic epigastric pain Comparison: [...] 01/08/191700 COPY TO: SARY SINGH MD Urine Ztye5860-85-02 12:32:00 Test Item Value Reference Range Interpretation Comments Urine Test (test code = NEGATIVE NEGATIVE 2106-3) [facility] HospitalFolate2019-02-20 06:55:00 Test Item Value Reference Range Interpretation Comments Folate (test code = 2284-8) 18.6 7.0-15.4 [facility] HospitalThyroid Stimulating Hormone (TSH) 2019-01-08 06:33:00 Test Item Value Reference Range Interpretation Comments Thyroid Stimulating Hormone (TSH) (test 0.964 0.350-4.940 code = 70736-2) [facility] HospitalTotal Nsfuxltkm2137-11-99 05:55:00 Test Item Value Reference Range Interpretation Comments Total Bilirubin (test code = 1975-2) 0.5 0.2-1.2 [facility] HospitalAspartate Amino Transf (AST/SGOT) 2019-01-08 05:55:00 Test Item Value Reference Range Interpretation Comments Aspartate Amino Transf (AST/SGOT) (test 17 5-34 code = Aspartate Amino Transf (AST/SGOT)) [facility] HospitalAlanine Aminotransferase (ALT/SGPT) 2019-01-08 05:55:00 Test Item Value Reference Range Interpretation Comments Alanine Aminotransferase (ALT/SGPT) 16 0-55 (test code = 1742-6) [facility] HospitalTotal Qclqqfr2116-90-19 05:55:00 Test Item Value Reference Range Interpretation Comments Total Protein (test code = 2885-2) 5.7 6.5-8.1 [facility] HospitalAlbumin2019-02-20 05:55:00 Test Item Value Reference Range Interpretation Comments Albumin (test code = 1751-7) 4.0 3.5-5.0 [facility] HospitalGlobulin2019-02-20 05:55:00 Test Item Value Reference Range Interpretation Comments Globulin (test code = 39331-0) 1.7 2.3-3.5 [facility] HospitalAlbumin/Globulin Pdbsw0300-13-96 05:55:00 Test Item Value Reference Range Interpretation Comments Albumin/Globulin Ratio (test code = 2.4 0.8-2.0 1759-0) [facility] HospitalAlkaline Xtctlsyuock2556-44-24 05:55:00 Test Item Value Reference Range Interpretation Comments Alkaline Phosphatase (test code = 39 40-150 6768-6) [facility] HospitalAmylase Kpdak9130-91-72 05:55:00 Test Item Value Reference Range Interpretation Comments Amylase Level (test code = 1798-8) 31 25-125 [facility] HospitalLipase2019-02-20 05:55:00 Test Item Value Reference Range Interpretation Comments Lipase (test code = 3040-3) 22 8-78 [facility] HospitalABDOMEN ACUTE SERIES W/PA [id number] 01:41:00 [facility] [address] [place] [address] Patient Name: JAMES GRIFFIN MR #: [id number] : 1985 Age/Sex: 33/F Req #: [id number] Adm Physician: Ordered by: RACIEL CALVERT MD Report #: [id number] Location: ER Room/Bed: Procedure: [id number] DX/ABDOMEN ACUTE SERIES W/PA CXR Exam Date: 01/07/19 Exam Time: 47 REPORT STATUS: Signed EXAM: Abdomen 2 Views, chest 1 view INDICATION: abd pain 20190107 Y COMPARISON: None FINDINGS: No focal lung [...] on 01/07/19141 COPY TO: RACIEL CALVERT MDUrine Jxhoe7669-72-17 00:18:00 Test Item Value Reference Range Interpretation Comments Urine Mucus (test code = 8247-9) M[place] [facility] HospitalUrine Opiates Whwbxq1948-38-98 00:09:00 Test Item Value Reference Range Interpretation Comments Urine Opiates Screen (test code = POSITIVE NEGATIVE 17871-0) ALL TESTS PERFORMED MANUALLY ON [employer] TOX/SEE TEST This test provides only a screen. Positive results should be repeated by a confirmatory test.[facility] HospitalUrine Barbiturates Yntpgt2057-77-36 00:09:00 Test Item Value Reference Range Interpretation Comments Urine Barbiturates Screen (test code NEGATIVE NEGATIVE = 566670823) [facility] HospitalUrine Phencyclidine Omgwlo2595-37-90 00:09:00 Test Item Value Reference Range Interpretation Comments Urine Phencyclidine Screen (test NEGATIVE NEGATIVE code = 14047-4) [facility] HospitalUrine Amphetamines Gromzm1819-69-83 00:09:00 Test Item Value Reference Range Interpretation Comments Urine Amphetamines Screen (test code NEGATIVE NEGATIVE = 53828-7) [facility] HospitalUrine Methamphetamines Hhpnou7738-66-02 00:09:00 Test Item Value Reference Range Interpretation Comments Urine Methamphetamines Screen (test NEGATIVE NEGATIVE code = Urine Methamphetamines Screen) [facility] HospitalUrine Benzodiazepines Ztnlza4430-21-25 00:09:00 Test Item Value Reference Range Interpretation Comments Urine Benzodiazepines Screen (test NEGATIVE NEGATIVE code = 81119-7) [facility] HospitalUrine Cocaine Ienatu1002-62-88 00:09:00 Test Item Value Reference Range Interpretation Comments Urine Cocaine Screen (test code = NEGATIVE NEGATIVE 3398-5) [facility] HospitalUrine Cannabinoids Sppicl4087-52-80 00:09:00 Test Item Value Reference Range Interpretation Comments Urine Cannabinoids Screen (test code POSITIVE NEGATIVE = 06760-5) THESE RESULTS ARE FOR MEDICAL TREATMENT ONLYTHIS REPORT CONTAINS UNCONFIRMED SCREENING RESULTS*POSITIVE RESULTS WILL BE CONFIRMED BY REFERENCE LAB UPON REQUEST CUT-OFFDRUG CLASS CONCENTRATION ng/mLAmphetamines 1000Met hamphetamines 1000Cocaine 300Opiate 300Phencyclidine 25Cannabinoid 50Barbiturates 300Benzodiazepine 300Methadone 300 This test provides only a screen. Positive results should be repeated by a confirmatory test.[facility] HospitalUrine Methadone Ygagzt9256-89-35 00:09:00 Test Item Value Reference Range Interpretation Comments Urine Methadone Screen (test code = NEGATIVE NEGATIVE 71567-7) THESE RESULTS ARE FOR MEDICAL TREATMENT ONLYTHIS REPORT CONTAINS UNCONFIRMED SCREENING RESULTS*POSITIVE RESULTS WILL BE CONFIRMED BY REFERENCE LAB UPON REQUEST CUT-OFFDRUG CLASS CONCENTRATION ng/mLAmphetamines 1000Met hamphetamines 1000Cocaine Metabolite 300Opiate 300Phencyclidine 25Cannabinoid 50Barbiturates 300Benzodiazepine 300Methadone 300[facility]
[2020-04-10 12:14] LABS: Absolute Lymphocytes (CBC) 1.1 K/uL (0.7-4.9); Basophils % 0.3 % (0-1.3); Lymphocytes % 16.5 % (15.3-44.8); MPV 9.3 fL (7.6-11.3)
[2020-04-10] MEDS ORDERED: NA CHLORIDE 0.9% 1,000 ML ONE (12:15)
[2020-04-10] MEDS ORDERED: MORPHINE 4 MG/ML SYR ONE ×2 (12:15→13:15)
[2020-04-10] MEDS ORDERED: ONDANSETRON 4 MG/2 ML VIAL ONE (12:15)
[2020-04-10 12:33] LABS: ALT/SGPT 18 U/L (12-78); AST/SGOT 10 U/L (15-37); Albumin 4.3 g/dL (3.4-5.0); Alkaline Phosphatase 69 U/L (45-117); BUN Blood Urea Nitrogen 14 mg/dL (7-18); Bicarbonate 24 mmol/L (21-32); Bilirubin Direct 0.1 mg/dL (0-0.2); Bilirubin Total 0.5 mg/dL (0.2-1.0); Glucose Level 104 mg/dL (74-106); Lipase 119 U/L (73-393); Potassium 3.7 mmol/L (3.5-5.1); Protein, Total 7.9 g/dL (6.4-8.2); Sodium Level 141 mmol/L (136-145)
--- NOTE | 2020-04-10 13:01 | RAD REPORT ---
EXAM DESCRIPTION: CTAbdomen Pelvis W Contrast - 04/10/2020 12:49 pm CLINICAL HISTORY: Abdominal pain. abd pain COMPARISON: Abdomen Pelvis W Contrast dated 03/03/2020; Abdomen Pelvis W Contrast dated 12/24/2019; Abdomen Pelvis W Contrast dated 05/07/2019; Abdomen Pelvis W Contrast dated 12/20/2018 TECHNIQUE: Biphasic CT imaging of the abdomen and pelvis was performed with 100 ml non-ionic IV cont rast. All CT scans are performed using dose optimization technique as appropriate and may include automated exposure control or mA/KV adjustment according to patient size. FINDINGS: The lung bases are clear.Cholecystectomy clips. The liver, spleen, pancreas, adrenal glands and kidneys are within normal limits. No bowel obstruction, free air, free fluid or abscess. The appendix is normal. No evidence of signi ficant lymphadenopathy. No suspicious bony findings. IMPRESSION: No acute intra-abdominal or pelvic finding.
[2020-04-10] MEDS ORDERED: DICYCLOMINE HCL 10 MG CAP ONE (14:37)
[2020-04-10] MEDS ORDERED: predniSONE 20 MG TAB ONE (15:06)
--- NOTE | 2020-04-10 16:53 | ER ---
Nurse's Notes [facility] Name: Shyanne Pardo Age: 34 yrs Sex: Female : 1985 Arrival Date: 04/10/2020 Time: 11:18 Bed 13 Private MD: Diagnosis: Unspecified abdominal pain Presentation: 04/10 11:27 Chief complaint: Upper abdominal pain and N/V/D x 2 days. Hx of colitis. Coronavirus hb screen: Proceed with normal triage. Ebola Screen: No symptoms or risks identified at this time. Initial Sepsis Screen: Does the patient meet any 2 criteria? No. Patient's initial sepsis screen is negative. Does the patient have a suspected source of infection? No. Patient's initial sepsis screen is negative. Risk Assessment: Do you want to hurt yourself or someone else? Patient reports no desire to harm self or others. Onset of symptoms was April 09, 2020. 11:27 Method Of Arrival: Ambulatory hb 11:27 Acuity: WOODROW 3 hb Triage Assessment: 11:55 General: Appears. 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 - Social history:: Smoking status: Patient denies any tobacco usage or history of. Screenin:55 Abuse screen: Denies threats or abuse. Nutritional screening: No deficits noted. ll1 Tuberculosis screening: No symptoms or risk factors identified. Fall Risk None identified. IV access (20 points). Total Saba Fall Scale indicates No Risk (0-24 pts). Assessment: 12:20 General: Appears uncomfortable, Behavior is calm, cooperative, appropriate for age. ll1 Pain: Complains of pain in right upper quadrant and right lower quadrant Pain currently is 4 out of 10 on a pain scale. Quality of pain is described as aching, Pain began 2-3 days ago. Is intermittent. Neuro: No deficits noted. Cardiovascular: No deficits noted. Respiratory: No deficits noted. GI: Abdomen is flat, Bowel sounds present X 4 quads. Abd is soft Abdomen is tender to palpation in right upper quadrant and right lower quadrant Reports lower abdominal pain, upper abdominal pain, intolerance of food, nausea, vomiting. : No deficits noted. Denies burning with urination. 13:48 Reassessment: Patient appears in no apparent distress at this time. Patient and/or vc family updated on plan of care and expected duration. Pain level reassessed. 14:30 Reassessment: Patient appears in no apparent distress at this time. Patient and/or vc family updated on plan of care and expected duration. Pain level reassessed. Patient is alert, oriented x 3, equal unlabored respirations, skin warm/dry/pink. Patient states feeling better. Patient states symptoms have improved. Vital Signs: 11:27 BP 134 / 97; Pulse 79; Resp 16; Temp 100.1(TE); Pulse Ox 100% on R/A; Weight 65.77 kg; hb Height 5 ft. 8 in. (172.72 cm); Pain 3/10; 12:15 BP 114 / 83; Pulse 80; Resp 16; Pulse Ox 100% ; Pain 4/10; ll1 12:30 BP 124 / 87; Pulse 80; Resp 17; ll1 14:30 BP 109 / 66 LA (auto/reg); Pulse 77; Resp 16; Temp 98.8(O); Pulse Ox 100% on R/A; Pain jp3 0/10; 11:27 Body Mass Index 22.05 (65.77 kg, 172.72 cm) hb ED Course: 11:18 Patient arrived in ED. ag5 11:29 Triage completed. hb 11:30 Arm band placed on. hb 11:44 Julia Jewell is Primary Nurse. 11:44 Primary Nurse role handed off by Julia Jewell ll1 11:44 Grace Vázquez, ESTER is Primary Nurse. ll1 11:47 Jr Palacios NP is PHCP. pm1 11:47 Triston Wood MD is Attending Physician. pm1 12:00 Inserted saline lock: 20 gauge in right antecubital area, using aseptic technique. ll1 Blood collected. 12:20 Patient has correct armband on for positive identification. Bed in low position. Call ll1 light in reach. Side rails up X 1. Pulse ox on. NIBP on. 12:50 Abdomen In Process Unspecified. EDMS 13:45 Report received from Grace Vázquez RN. vc 15:17 No provider procedures requiring assistance completed. IV discontinued, intact, vc bleeding controlled, No redness/swelling at site. Pressure dressing applied. Administered Medications: 12:19 Drug: morphine 4 mg {Note: RASS 0.} Route: IVP; Site: right antecubital; ll1 13:13 Follow up: Response: No adverse reaction; Pain is increased; Pain is unchanged, ll1 physician notified; RASS: Restless (+1) 12:19 Drug: NS 0.9% 1000 ml Route: IV; Rate: 1000 ml; Site: right antecubital; ll1 12:20 Drug: Zofran (Ondansetron) 4 mg Route: IVP; Site: right antecubital; ll1 13:13 Follow up: Response: No adverse reaction; Nausea unchanged; RASS: Restless (+1) ll1 13:18 Drug: morphine 4 mg {Note: RASS 1.} Route: IVP; Site: right antecubital; ll1 14:30 Drug: Bentyl 20 mg Route: PO; vc 15:04 Drug: predniSONE 60 mg Route: PO; vc Outcome: 14:48 Discharge ordered by MD. pm1 15:17 Discharged to home ambulatory. vc 15:17 Condition: improved 15:17 Discharge instructions given to patient, Instructed on discharge instructions, follow up and referral plans. medication usage, Demonstrated understanding of instructions, follow-up care, medications, Prescriptions given X 3. 15:18 Patient left the ED. vc Signatures: Dispatcher [employer] EDMS Jr Palacios, LAINEY DRILLER'S OFFSIDER pm1 Aurea Bonilla RN RN hb Habalo, Winsy wh Pisarski, Jacob jp3 Godwin Jacobsen ag5 Grisel Goff RN RN vc Grace Vázquez RN RN ll1 Corrections: (The following items were deleted from the chart) 11:31 11:30 Home Meds: Imuran Oral; hb hb 11:31 11:30 Home Meds: Humira subcutaneous; hb hb 11:31 11:30 PMHx: Crohn's; hb hb
--- NOTE | 2020-04-10 16:53 | EDPHYS ---
Physician Documentation [facility] Name: Shyanne Pardo Age: 34 yrs Sex: Female : 1985 Arrival Date: 04/10/2020 Time: 11:18 Bed 13 Private MD: ED Physician Triston Wood HPI: 04/10 12:11 This 34 yrs old Female presents to ER via Ambulatory with complaints of pm1 Nausea, Abdominal Problem. 12:11 The patient presents with abdominal pain in the upper abdomen. Onset: The pm1 symptoms/episode began/occurred 2 day(s) ago. The symptoms do not radiate. Associated signs and symptoms: Pertinent positives: nausea, vomiting, and diarrhea, 3 times vomiting. Multiple episodes of diarrhea. The symptoms are described as achy, crampy. Modifying factors: The symptoms are alleviated by nothing, the symptoms are aggravated by nothing. Severity of pain: in the emergency department the pain is actually worse. The patient has experienced similar episodes in the past, multiple times, today's symptoms are similar, to previous colitis flare up. Reports mucoid stool without blood. 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 - Social history:: Smoking status: Patient denies any tobacco usage or history of. ROS: 12:11 Constitutional: Negative for fever, chills, and weight loss, Cardiovascular: Negative pm1 for chest pain, palpitations, and edema, Respiratory: Negative for shortness of breath, cough, wheezing, and pleuritic chest pain. 12:11 Back: Negative for injury and pain, : Negative for injury, bleeding, discharge, and swelling, MS/Extremity: Negative for injury and deformity, Skin: Negative for injury, rash, and discoloration, Neuro: Negative for headache, weakness, numbness, tingling, and seizure. 12:11 Abdomen/GI: Positive for abdominal pain, nausea, vomiting, and diarrhea, Negative for constipation. Exam: 12:11 Constitutional: This is a well developed, well nourished patient who is awake, alert, pm1 and in no acute distress. Head/Face: Normocephalic, atraumatic. Neck: Trachea midline, no thyromegaly or masses palpated, and no cervical lymphadenopathy. Supple, full range of motion without nuchal rigidity, or vertebral point tenderness. No Meningismus. Chest/axilla: Normal chest wall appearance and motion. Nontender with no deformity. No lesions are appreciated. 12:11 Back: No spinal tenderness. No costovertebral tenderness. Full range of motion. Skin: Warm, dry with normal turgor. Normal color with no rashes, no lesions, and no evidence of cellulitis. MS/ Extremity: Pulses equal, no cyanosis. Neurovascular intact. Full, normal range of motion. 12:11 Cardiovascular: Exam negative for acute changes, Rate: normal, Rhythm: regular, Pulses: no pulse deficits are appreciated. 12:11 Respiratory: Exam negative for acute changes, respiratory distress, shortness of breath. 12:11 Abdomen/GI: Inspection: abdomen appears normal, Palpation: soft, in all quadrants, mild abdominal tenderness, in the right upper quadrant and left upper quadrant, mass, is not appreciated, rebound tenderness, is not appreciated. 12:11 Neuro: Exam negative for acute changes, Orientation: is normal, Mentation: is normal, Motor: is normal, moves all fours. Vital Signs: 11:27 BP 134 / 97; Pulse 79; Resp 16; Temp 100.1(TE); Pulse Ox 100% on R/A; Weight 65.77 kg; hb Height 5 ft. 8 in. (172.72 cm); Pain 3/10; 12:15 BP 114 / 83; Pulse 80; Resp 16; Pulse Ox 100% ; Pain 4/10; ll1 12:30 BP 124 / 87; Pulse 80; Resp 17; ll1 14:30 BP 109 / 66 LA (auto/reg); Pulse 77; Resp 16; Temp 98.8(O); Pulse Ox 100% on R/A; Pain jp3 0/10; 11:27 Body Mass Index 22.05 (65.77 kg, 172.72 cm) hb MDM: 12:06 Patient medically screened. pm1 14:16 Data reviewed: vital signs. Data interpreted: Pulse oximetry: on room air is 100 %. pm1 Interpretation: normal. 14:33 Counseling: I had a detailed discussion with the patient and/or guardian regarding: the pm1 historical points, exam findings, and any diagnostic results supporting the discharge/admit diagnosis. Counseling: I had a detailed discussion with the patient and/or guardian regarding: lab results, radiology results, the need for outpatient follow up, a manager configuration, to return to the emergency department if symptoms worsen or persist or if there are any questions or concerns that arise at home. 04/10 11:56 Order name: Urine Dipstick--Ancillary (enter results); Complete Time: 06:30 em1 04/10 12:11 Order name: Basic Metabolic Panel; Complete Time: 12:50 EDMS 04/10 12:11 Order name: Liver (Hepatic) Function; Complete Time: 12:50 EDSC 04/10 12:11 Order name: Lipase; Complete Time: 12:50 EDMS 04/10 12:12 Order name: CBC with Automated Diff; Complete Time: 12:28 EDMS 04/10 12:25 Order name: Abdomen ; Complete Time: 14:07 EDSC 04/10 11:52 Order name: IV Saline Lock; Complete Time: 12:03 pm1 04/10 11:52 Order name: Labs collected and sent; Complete Time: 12:03 pm1 04/10 11:52 Order name: Urine Dipstick-Ancillary (obtain specimen); Complete Time: 11:55 pm1 04/10 11:52 Order name: Urine Test (obtain specimen); Complete Time: 11:54 pm1 Administered Medications: 12:19 Drug: morphine 4 mg {Note: RASS 0.} Route: IVP; Site: right antecubital; ll1 13:13 Follow up: Response: No adverse reaction; Pain is increased; Pain is unchanged, ll1 physician notified; RASS: Restless (+1) 12:19 Drug: NS 0.9% 1000 ml Route: IV; Rate: 1000 ml; Site: right antecubital; ll1 12:20 Drug: Zofran (Ondansetron) 4 mg Route: IVP; Site: right antecubital; ll1 13:13 Follow up: Response: No adverse reaction; Nausea unchanged; RASS: Restless (+1) ll1 13:18 Drug: morphine 4 mg {Note: RASS 1.} Route: IVP; Site: right antecubital; ll1 14:30 Drug: Bentyl 20 mg Route: PO; vc 15:04 Drug: predniSONE 60 mg Route: PO; vc Disposition: 19:45 Co-signature as Attending Physician, Triston Wood MD. 7 Disposition: 04/10/20 14:48 Discharged to Home. Impression: Unspecified abdominal pain. - Condition is Stable. - Discharge Instructions: Abdominal Pain, Adult, Diarrhea, Adult, Nausea and Vomiting, Adult. - Prescriptions for Bentyl 20 mg Oral Tablet - take 1 tablet by ORAL route every 6 hours As needed; 20 tablet. Zofran ODT 4 mg Oral tablet,disintegrating - place 1 tablet by TRANSLINGUAL route every 8 hours As needed; 10 tablet. Medrol (Ramesh) 4 mg Oral Tablets, Dose Pack - take 1 tablet by ORAL route as directed - follow package instructions; 1 packet. - Medication Reconciliation Form, Thank You Letter, Antibiotic Education, Prescription Opioid Use form. - Follow up: Emergency Department; When: As needed; Reason: Worsening of condition. Follow up: Private Physician; When: 2 - 3 days; Reason: Recheck today's complaints, Continuance of care, Re-evaluation by your physician. - Problem is new. - Symptoms have improved. Signatures: Dispatcher [employer] EDSC Jr Palacios NP [employer] SUPERINTENDENT pm1 Aurea Bonilla RN RN hb Calcote, Vanessa, RN RN Grace Vázquez RN RN [facility] Triston Wood MD MD [facility] Corrections: (The following items were deleted from the chart) 11:31 11:30 Home Meds: Imuran Oral; hb hb 11:31 11:30 Home Meds: Humira subcutaneous; hb hb 11:31 11:30 PMHx: Crohn's; hb hb 12:25 11:59 Abdomen ordered. EDSC EDSC 14:48 14:48 04/10/2020 14:48 Discharged to Home. Impression: Unspecified abdominal pain. pm1 Condition is Stable. Forms are Medication Reconciliation Form, Thank You Letter, Antibiotic Education, Prescription Opioid Use. pm1 15:18 14:48 04/10/2020 14:48 Discharged to Home. Impression: Unspecified abdominal pain. vc Condition is Stable. Forms are Medication Reconciliation Form, Thank You Letter, Antibiotic Education, Prescription Opioid Use. Follow up: Emergency Department; When: As needed; Reason: Worsening of condition. Follow up: Private Physician; When: 2 - 3 days; Reason: Recheck today's complaints, Continuance of care, Re-evaluation by your physician. Problem is new. Symptoms have improved. pm1
[2020-04-10 17:12] VITALS: O2SAT 100
[2020-04-10 17:17] VITALS: BP 109/66; TEMP 98.8
[2020-04-10 18:18] LABS: Urine Blood 2+ (NEG); Urine Glucose NEGATIVE (NEG); Urine Specific Gravity >1.030 (1.005-1.030); Urine pH 5.5 (5.0-7.0)
[2020-04-10 18:19] LABS: Urine Protein NEGATIVE (NEG)
== END 2020-04-10 15:18 | disposition home or self-care (01) ==
LOC: ER 11:16
DX: R10.10 Upper abdominal pain, unspecified (principal); R11.2 Nausea with vomiting, unspecified; Z88.0 Allergy status to penicillin; Z88.1 Allergy status to other antibiotic agents; Z88.2 Allergy status to sulfonamides; Z88.3 Allergy status to other anti-infective agents
CPT/HCPCS: 36415; 74177; 80048; 80076; 81003; 83690; 85025; 96374; 96375; 99284; J2405; J7030; J7512; Q9967

== ENCOUNTER 2020-05-26 19:25 | Emergency (ER) | payer SELFPAY ==
--- OUTSIDE RECORDS SUMMARY | 2020-05-26 19:28 | XMS REPORT | Continuity of Care Document ---
:1985 Author Organization [facility] t Address [address] [place] [address] Care Team Providers Name Role Phone NONSTAFF Primary Care Physician Unavailable SINGH Attending Clinician Unavailable ISNGH Admitting Clinician Unavailable Payers Payer Name Policy Type Policy Number Effective Date Expiration Date S rex [facility] [id number] [facility] Patients Medical Center Problems Condition Condition Condition Status Onset Resolution Last Treating Co mments Source Name Details Category Date Date Treatment Clinician Date Chronic Chronic Problem Active [facility] abdominal [facility] - pain pain Patient [facility] Gastritis Gastritis Problem [facility] Intractabl Intractabl Problem Active [facility] vomiting e vomiting Carol Ann kes - Patient Medical [facility] Allergies, Adverse Reactions, Alerts Allergy Allergy Status Severity Reaction(s) Onset Inactive Treating Comm ents Source Name Type Date Date Clinician Penicill Allergy Active Severe 2018-[address] [facility] [address] [facility] 2[facility]20 [facility] e [facility] s [facility] Sulfa Allergy Active Severe 2019-[address] [facility] (Sulfona to 2-18 [facility] - mide Substanc 00:00: Patient Antibiot e 00 s ics) Medical Center Erythrom Allergy Active Severe 2019-[address] [facility] ycin to 2-18 [facility] - [...] Performed Clinician Laparoscopic cholecystectomy 2019-01-10 YURIY MYERS [facility] - 00:00:00 Patients Medical Center Magnetic resonance 2019-01-08 [address] [facility] - cholangiopancreatography (MRCP) 00:00:00 Patients Medical without contrast Center Colonoscopy with biopsy 2019-01-07 DWAIN LOVING [facility] - 00:[facility]:00 Patients Medical Center EGD with biopsy 2019-01-07 DWAIN LOVING [facility] - 00:[facility]:00 Patients Medical Center Encounters Start End Encounter Admission Attending Care Care Encounter Source Date/Time Date/Time Type Type Clinicians Facility Department ID 2019-01-08 2019-01-12 Discharged 1 SARY SINGH [facility] A00 [id number] [facility] 08:41:00 13:44:00 Inpatient [facility] [place] [facility] Results Test Description Test Time Test Comments Results Result Comments Source Sodium Level 2019-01-12 06:14:00 Test Item Value Reference Range Interpretation Comme nts Sodium Level (test code = 2951-2) 140 136-145 [facility] Yjzqn2441-37-35 06:14:00 Test Item Value Reference Range Interpretation Comments Potassium Level (test code = 2823-3) 3.2 3.5-5.1 L [facility] CampusChloride Tfedi6949-21-23 06:14:00 Test Item Value Reference Range Interpretation Comments Chloride Level (test code = 2075-0) 104 98-107 [facility] CampusCarbon Dioxide Qiocx2302-02-30 06:14:00 Test Item Value Reference Range Interpretation Comments Carbon Dioxide Level (test code = 28 -29 2027-9) [facility] CampusAnion Rjy8664-34-15 06:14:00 Test Item Value Reference Range Interpretation Comments Anion Gap (test code = 96442-5) 11.2 8-16 [facility] CampusBlood Urea Uvsohflz2581-40-29 06:14:00 Test Item Value Reference Range Interpretation Comments Blood Urea Nitrogen (test code = < 5 7-26 L 3094-0) [facility] CampusCreatinine2019-02-24 06:14:00 Test Item Value Reference Range Interpretation Comments Creatinine (test code = 2160-0) 0.67 0.57-1.11 [facility]BUN/Creatinine Pcobx3633-73-81 06:14:00 Test Item Value Reference Range Interpretation Comments BUN/Creatinine Ratio (test code = 7 6-25 3097-3) [facility] CampusEstimat Glomerular Filtration Rate 2019-01-12 06:14:00 Test Item Value Reference Range Interpretation Comments Estimat Glomerular Filtration Rate > 60 >60 (test code = 277318135) Ranges were taken from the National Kidney Disease Education Program and the National Kidney Foundation literature.Reference ranges:60 or greater: Ntjkco95- 59 (for 3 consecutive months): Chronic kidneydisease 15 or less: Kidney failure [facility] CampusGlucose Fzokm7671-17-79 06:14:00 Test Item Value Reference Range Interpretation Comments Glucose Level (test code = CMR2892) 129 74-118 H [facility] CampusCalcium Emcxh1871-05-88 06:14:00 Test Item Value Reference Range Interpretation Comments Calcium Level (test code = 02028-9) 8.8 8.4-10.2 [facility] CampusWhite Blood Pmona3907-11-13 05:42:00 Test Item Value Reference Range Interpretation Comments White Blood Count (test code = 6690-2) 5.63 4.8-10.8 [facility] CampusRed Blood Lfkcf6343-94-12 05:42:00 Test Item Value Reference Range Interpretation Comments Red Blood Count (test code = 789-8) 3.73 3.6-5.1 [facility] CampusHemoglobin2019-02-24 05:42:00 Test Item Value Reference Range Interpretation Comments Hemoglobin (test code = 03604-8) 11.2 12.0-16.0 L [facility] CampusHematocrit2019-02-24 05:42:00 Test Item Value Reference Range Interpretation Comments Hematocrit (test code = 4544-3) 32.5 34.2-44.1 L [facility] CampusMean Corpuscular Nuhjqw8121-09-13 05:42:00 Test Item Value Reference Range Interpretation Comments Mean Corpuscular Volume (test code = 87.1 81-99 787-2) [facility] CampusMean Corpuscular Rclxdsrwal5977-87-99 05:42:00 Test Item Value Reference Range Interpretation Comments Mean Corpuscular Hemoglobin (test code 30.0 28-32 = 785-6) [facility] CampusMean Corpuscular Hemoglobin Concent 2019-01-12 05:42:00 Test Item Value Reference Range Interpretation Comments Mean Corpuscular Hemoglobin Concent 34.5 31-35 (test code = 786-4) [facility] CampusRed Cell Distribution Zijws4987-35-05 05:42:00 Test Item Value Reference Range Interpretation Comments Red Cell Distribution Width (test code 13.0 11.7-14.4 = 76773-0) [facility] CampusPlatelet Dfueu5318-20-42 05:42:00 Test Item Value Reference Range Interpretation Comments Platelet Count (test code = 777-3) 233 140-360 [facility] CampusNeutrophils (%) (Auto)2019-01-12 05:42:00 Test Item Value Reference Range Interpretation Comments Neutrophils (%) (Auto) (test code = 39.7 38.7-80.0 16312-6) [facility] CampusLymphocytes (%) (Auto)2019-01-12 05:42:00 Test Item Value Reference Range Interpretation Comments Lymphocytes (%) (Auto) (test code = 50.3 18.0-39.1 H 736-9) [facility] CampusMonocytes (%) (Auto)2019-01-12 05:42:00 Test Item Value Reference Range Interpretation Comments Monocytes (%) (Auto) (test code = 9.1 4.4-11.3 5905-5) [facility] CampusEosinophils (%) (Auto)2019-01-12 05:42:00 Test Item Value Reference Range Interpretation Comments Eosinophils (%) (Auto) (test code = 0.2 0.0-6.0 713-8) [facility] CampusBasophils (%) (Auto)2019-01-12 05:42:00 Test Item Value Reference Range Interpretation Comments Basophils (%) (Auto) (test code = 0.5 0.0-1.0 706-2) [facility] CampusIM GRANULOCYTES %2019-01-12 05:42:00 Test Item Value Reference Range Interpretation Comments IM GRANULOCYTES % (test code = IM 0.2 0.0-1.0 GRANULOCYTES %) [facility] CampusNeutrophils # (Auto)2019-01-12 05:42:00 Test Item Value Reference Range Interpretation Comments Neutrophils # (Auto) (test code = 2.2 2.1-6.9 751-8) [facility] CampusLymphocytes # (Auto)2019-01-12 05:42:00 Test Item Value Reference Range Interpretation Comments Lymphocytes # (Auto) (test code = 2.8 1.0-3.2 49062-5) [facility] CampusMonocytes # (Auto)2019-01-12 05:42:00 Test Item Value Reference Range Interpretation Comments Monocytes # (Auto) (test code = 742-7) 0.5 0.2-0.8 [facility] CampusEosinophils # (Auto)2019-01-12 05:42:00 Test Item Value Reference Range Interpretation Comments Eosinophils # (Auto) (test code = 0.0 0.0-0.4 711-2) [facility] CampusBasophils # (Auto)2019-01-12 05:42:00 Test Item Value Reference Range Interpretation Comments Basophils # (Auto) (test code = 704-7) 0.0 0.0-0.1 [facility] CampusAbsolute Immature Granulocyte (auto 2019-01-12 05:42:00 Test Item Value Reference Range Interpretation Comments Absolute Immature Granulocyte (auto 0.01 0-0.1 (test code = Absolute Immature Granulocyte (auto) [facility] CampusBedside Qymukbw1251-89-88 19:46:00 Test Item Value Reference Range Interpretation Comments Bedside Glucose (test code = 29287-9) 117 70-120 Meter ID: [id number] [facility] Center[facility] Antibody Zvvulc1849-26-91 12:36:00 Test Item Value Reference Range Interpretation Comments Anti-Nuclear Antibody Screen (test Negative . code = 5048-4) Negative <1:80 Borderline 1:80 Positive >1:80Performed at: [facility] Lab[address] [id number] Director: Oli Ghosh MD, Phone: [phone] Hospitals of Providence Sierra CampusC-Reactive Rzhraed4566-60-27 11:57:00 Test Item Value Reference Range Interpretation Comments C-Reactive Protein (test code = 1988-5) 0.9 0.0-4.9 Performed at: [facility] [address] [place], [place] [id number] Director: Oli Ghosh MD, Phone: [phone] [facility] CampusPhosphorus Qsoke9787-17-99 06:40:00 Test Item Value Reference Range Interpretation Comments Phosphorus Level (test code = OVH7736) 3.7 2.3-4.7 [facility] CampusMagnesium Xjsng2291-37-55 06:40:00 Test Item Value Reference Range Interpretation Comments Magnesium Level (test code = 12047-8) 1.9 1.3-2.1 [facility] CampusUrine EZY4490-44-21 19:42:00 Test Item Value Reference Range Interpretation Comments Urine WBC (test code = 5821-4) NONE 0-5 [facility] CampusUrine EZP3253-11-74 19:42:00 Test Item Value Reference Range Interpretation Comments Urine RBC (test code = 63217-5) >50 0-5 H [facility] CampusUrine Qqhrpnit4538-61-37 19:42:00 Test Item Value Reference Range Interpretation Comments Urine Bacteria (test code = 43958-1) PRESENT NONE [facility] CampusUrine Epithelial Laldb5578-40-76 19:42:00 Test Item Value Reference Range Interpretation Comments Urine Epithelial Cells (test code = RARE NONE 83244-5) [facility] CampusUrine Mvuzw6879-90-04 19:32:00 Test Item Value Reference Range Interpretation Comments Urine Color (test code = 5778-6) STRAW YELLOW [facility] CampusUrine Xwgowyo6197-93-72 19:32:00 Test Item Value Reference Range Interpretation Comments Urine Clarity (test code = 27191-7) SL CLOUDY CLEAR [facility] CampusUrine Specific Zjtkjwr5127-52-06 19:32:00 Test Item Value Reference Range Interpretation Comments Urine Specific [place] (test code = 1.015 1.010-1.025 5811-5) [facility] CampusUrine kM5822-96-30 19:32:00 Test Item Value Reference Range Interpretation Comments Urine pH (test code = 67829-0) 6 5-7 [facility] CampusUrine Leukocyte Eeazkrrr3593-14-40 19:32:00 Test Item Value Reference Range Interpretation Comments Urine Leukocyte Esterase (test code NEGATIVE NEGATIVE = 5799-2) [facility] CampusUrine Zqlclgf3377-71-73 19:32:00 Test Item Value Reference Range Interpretation Comments Urine Nitrite (test code = 56856-3) NEGATIVE NEGATIVE [facility] CampusUrine Uigxdyw0870-09-09 19:32:00 Test Item Value Reference Range Interpretation Comments Urine Protein (test code = 5804-0) NEGATIVE NEGATIVE [facility] CampusUrine Glucose (UA)2019-01-09 19:32:00 Test Item Value Reference Range Interpretation Comments Urine Glucose (UA) (test code = NEGATIVE NEGATIVE 2349-9) [facility] CampusUrine Siukmgn6093-05-57 19:32:00 Test Item Value Reference Range Interpretation Comments Urine Ketones (test code = 11140-8) 2+ NEGATIVE H [facility] CampusUrine Uoengprldmwj8180-79-93 19:32:00 Test Item Value Reference Range Interpretation Comments Urine Urobilinogen (test code = 0.2 0.2-1 73270-3) [facility] CampusUrine Fscufzsit4862-88-12 19:32:00 Test Item Value Reference Range Interpretation Comments Urine Bilirubin (test code = 1978-6) NEGATIVE NEGATIVE [facility] CampusUrine Ijbxk7346-29-65 19:32:00 Test Item Value Reference Range Interpretation Comments Urine Blood (test code = 50314-3) 4+ NEGATIVE H INFORMED THAT PT IS STARTED HER PERIODThe Hospitals of [facility] Campus Vitamin B12 Fngqo9890-46-78 18:39:00 Test Item Value Reference Range Interpretation Comments Vitamin B12 Level (test code = 78570-1) 805 213-816 [facility] CampusErythrocyte Sedimentation Wgrs4099-39-84 18:07:00 Test Item Value Reference Range Interpretation Comments Erythrocyte Sedimentation Rate (test 4 0-20 code = 4537-7) [facility] CampusFerritin2019-02-21 18:06:00 Test Item Value Reference Range Interpretation Comments Ferritin (test code = 2276-4) 29.07 4.63-204.00 [facility] CampusIron Pzqtl7893-51-27 17:46:00 Test Item Value Reference Range Interpretation Comments Iron Level (test code = 2498-4) 40 50-170 L [facility] CampusTotal Iron Binding Tlbywtor6494-36-46 17:46:00 Test Item Value Reference Range Interpretation Comments Total Iron Binding Capacity (test code 333 261-228 = 2500-7) [facility] CampusPercent Iron Hbbsetsraq2294-15-56 17:46:00 Test Item Value Reference Range Interpretation Comments Percent Iron Saturation (test code = 12 15-50 L 2502-3) [facility] CampusTransferrin2019-02-21 17:46:00 Test Item Value Reference Range Interpretation Comments Transferrin (test code = 3034-6) 238 180-382 [facility] CampusPercent Reticulocyte Ovnsv5073-05-94 17:34:00 Test Item Value Reference Range Interpretation Comments Percent Reticulocyte Count (test code = 2.1 0.8-2.2 41637-9) [facility] CampusHEPTOBILIARY W DGVYN3961-83-12 14:46:00 [facility] [address] [place] [address] Patient Name: JAMES GRIFFIN MR #: [id number] : 1985 Age/Sex: 33/F Req #: [id number] Adm Physician: SARY SINGH MD Ordered by: DWAIN LOVING MD Report #: [id number] Location: MED/SURG3 Room/Bed: [facility] Procedure: [id number] NM/HEPTOBILIARY W PHARM Exam Date: 01/09/19 Exam [...] 01/09/2019 2:47 PM DictatedBy: JEOVANY VELAZQUEZ MD [id number] Transcribed By: TANA on 01/09/19 8848 COPY TO: DWAIN LOVING [facility] KP6826-27-47 16:52:00 [place] [id number] Patient Name: JAMES GRIFFIN MR #: [id number] : 1985 Age/Sex: 33[id number] Req #: [id number] [facility] Physician: SARY SINGH MD Ordered by: SARY SINGH MD Report #: [id number] Location: [facility] Room/Bed: [facility] Procedure: [id number] MRI/MRI MRCP WO Exam Date: 01/08/19 Exam Time: 1600 REPORT STATUS: Signed MRCP CPT code: 55383 History: Intractable nausea/vomiting, chronic epigastric pain Comparison: [...] 01/08/191700 COPY TO: SARY SINGH MD Urine Glze8683-59-74 12:32:00 Test Item Value Reference Range Interpretation Comments Urine Test (test code = NEGATIVE NEGATIVE 2106-3) [facility] CampusFolate2019-02-20 06:55:00 Test Item Value Reference Range Interpretation Comments Folate (test code = 2284-8) 18.6 7.0-15.4 H [facility] CampusThyroid Stimulating Hormone (TSH) 2019-01-08 06:33:00 Test Item Value Reference Range Interpretation Comments Thyroid Stimulating Hormone (TSH) (test 0.964 0.350-4.940 code = 47032-4) [facility] CampusTotal Zxefvdbjp3492-98-34 05:55:00 Test Item Value Reference Range Interpretation Comments Total Bilirubin (test code = 1975-2) 0.5 0.2-1.2 [facility] CampusAspartate Amino Transf (AST/SGOT) 2019-01-08 05:55:00 Test Item Value Reference Range Interpretation Comments Aspartate Amino Transf (AST/SGOT) (test 17 5-34 code = Aspartate Amino Transf (AST/SGOT)) [facility] CampusAlanine Aminotransferase (ALT/SGPT) 2019-01-08 05:55:00 Test Item Value Reference Range Interpretation Comments Alanine Aminotransferase (ALT/SGPT) 16 0-55 (test code = 1742-6) [facility] CampusTotal Akmbmuk5426-34-02 05:55:00 Test Item Value Reference Range Interpretation Comments Total Protein (test code = 2885-2) 5.7 6.5-8.1 L [facility] CampusAlbumin2019-02-20 05:55:00 Test Item Value Reference Range Interpretation Comments Albumin (test code = 1751-7) 4.0 3.5-5.0 [facility] CampusGlobulin2019-02-20 05:55:00 Test Item Value Reference Range Interpretation Comments Globulin (test code = 92026-9) 1.7 2.3-3.5 L [facility] CampusAlbumin/Globulin Hkpbj8475-11-24 05:55:00 Test Item Value Reference Range Interpretation Comments Albumin/Globulin Ratio (test code = 2.4 0.8-2.0 H 1759-0) [facility] CampusAlkaline Jclbvyydcsc2680-58-15 05:55:00 Test Item Value Reference Range Interpretation Comments Alkaline Phosphatase (test code = 39 40-150 L 6768-6) [facility] CampusAmylase Dalip5275-70-31 05:55:00 Test Item Value Reference Range Interpretation Comments Amylase Level (test code = 1798-8) 31 25-125 [facility] CampusLipase2019-02-20 05:55:00 Test Item Value Reference Range Interpretation Comments Lipase (test code = 3040-3) 22 8-78 [facility] CampusABDOMEN ACUTE SERIES W/PA OVV8723-06-23 01:41:00 [facility] [address] [place] [address] Patient Name: JAMES GRIFFIN MR #: [id number] : 1985 Age/Sex: 33/F Req #: [id number] Adm Physician: Ordered by: RACIEL CALVERT MD Report #: [id number] Location: ER Room/Bed: Procedure: [id number] DX/ABDOMEN ACUTE SERIES W/PA CXR Exam Date: 01/07/19 Exam Time: 0048 REPORT STATUS: Signed EXAM: Abdomen 2 Views, chest 1 view INDICATION: abd pain [id number] Y COMPARISON: None FINDINGS: No focal lung consolidation. No pleural effusion or pneumothorax. Normal cardiac silhouette. Nonobstructive bowel gas pattern. No signs of pneumoperitoneum. Multiple pelvic fullness. No osseous abnormality. IMPRESSION: 1. Nonobstructive bowel gas pattern. 2. Clear lungs. Signed by: Dr. Zach Myers MD on 01/07/2019 1:42 AM Dictated By: ZAHC MYERS MD 1 Transcribed By: TANA on 01/07/19141 COPY TO: RACIEL CALVERT MDUrine Krekr8870-10-41 00:18:00 Test Item Value Reference Range Interpretation Comments Urine Mucus (test code = 8247-9) MANY RARE H [facility] CampusUrine Opiates Nerpby3028-61-75 00:09:00 Test Item Value Reference Range Interpretation Comments Urine Opiates Screen (test code = POSITIVE NEGATIVE H 29741-0) ALL TESTS PERFORMED MANUALLY ON Apruve TOX/SEE TEST This test provides only a screen. Positive results should be repeated by a confirmatory test.[facility] CampusUrine Barbiturates Amiyjx1278-22-98 00:09:00 Test Item Value Reference Range Interpretation Comments Urine Barbiturates Screen (test code NEGATIVE NEGATIVE = 793919053) [facility] CampusUrine Phencyclidine Tmfajd1281-23-72 00:09:00 Test Item Value Reference Range Interpretation Comments Urine Phencyclidine Screen (test NEGATIVE NEGATIVE code = 59654-5) [facility] CampusUrine Amphetamines Gmsfqa3431-86-85 00:09:00 Test Item Value Reference Range Interpretation Comments Urine Amphetamines Screen (test code NEGATIVE NEGATIVE = 90419-5) [facility] CampusUrine Methamphetamines Qxqrvn6062-21-68 00:09:00 Test Item Value Reference Range Interpretation Comments Urine Methamphetamines Screen (test NEGATIVE NEGATIVE code = Urine Methamphetamines Screen) [facility] CampusUrine Benzodiazepines Aycnry8963-86-20 00:09:00 Test Item Value Reference Range Interpretation Comments Urine Benzodiazepines Screen (test NEGATIVE NEGATIVE code = 18857-7) [facility] CampusUrine Cocaine Jxcdrq9129-83-93 00:09:00 Test Item Value Reference Range Interpretation Comments Urine Cocaine Screen (test code = NEGATIVE NEGATIVE 3398-5) [facility] CampusUrine Cannabinoids Mxqgjx5379-05-75 00:09:00 Test Item Value Reference Range Interpretation Comments Urine Cannabinoids Screen (test code POSITIVE NEGATIVE H = 83630-6) THESE RESULTS ARE FOR MEDICAL TREATMENT ONLYTHIS REPORT CONTAINS UNCONFIRMED SCREENING RESULTS*POSITIVE RESULTS WILL BE CONFIRMED BY REFERENCE LAB UPON REQUEST CUT-OFFDRUG CLASS CONCENTRATION ng/mLAmphetamines 1000Met hamphetamines 1000Cocaine 300Opiate 300Phencyclidine 25Cannabinoid 50Barbiturates 300Benzodiazepine 300Methadone 300 This test provides only a screen. Positive results should be repeated by a confirmatory test.[facility] CampusUrine Methadone Kttneg2671-77-91 00:09:00 Test Item Value Reference Range Interpretation Comments Urine Methadone Screen (test code = NEGATIVE NEGATIVE 11649-8) THESE RESULTS ARE FOR MEDICAL TREATMENT ONLYTHIS REPORT CONTAINS UNCONFIRMED SCREENING RESULTS*POSITIVE RESULTS WILL BE CONFIRMED BY REFERENCE LAB UPON REQUEST CUT-OFFDRUG CLASS CONCENTRATION ng/mLAmphetamines 1000Met hamphetamines 1000Cocaine Metabolite 300Opiate 300Phencyclidine 25Cannabinoid 50Barbiturates 300Benzodiazepine 300Methadone 300[facility]
[2020-05-26] MEDS ORDERED: NA CHLORIDE 0.9% 1,000 ML ONE (21:08)
[2020-05-26] MEDS ORDERED: ONDANSETRON 4 MG/2 ML VIAL ONE ×2 (21:08→22:25)
[2020-05-26 21:14] LABS: Absolute Lymphocytes (CBC) 0.4 K/uL (0.7-4.9); Basophils % 0.1 % (0-1.3); Hematocrit 39.1 % (36.0-45.0); Lymphocytes % 3.6 % (15.3-44.8); MPV 9.9 fL (7.6-11.3); RBC Red Blood Cell Count 4.44 M/uL (3.86-4.86)
[2020-05-26] MEDS ORDERED: MORPHINE 4 MG/ML SYR ONE ×2 (21:15→22:22)
[2020-05-26 21:29] LABS: Albumin 4.7 g/dL (3.4-5.0); Bilirubin Direct 0.2 mg/dL (0-0.2); Bilirubin Total 0.7 mg/dL (0.2-1.0); Potassium 3.5 mmol/L (3.5-5.1); Protein, Total 8.4 g/dL (6.4-8.2)
[2020-05-26] MEDS ORDERED: PROMETHAZINE INJ 25 MG/ML AMP ONE (21:48)
[2020-05-26] MEDS ORDERED: FLUCONAZOLE 100 MG TAB ONE (22:34)
[2020-05-27] MEDS ORDERED: HYDROMORPHONE HCL 0.5 MG/0.5 ML INJ ONE (00:33)
[2020-05-27] MEDS ORDERED: ONDANSETRON 4 MG/2 ML VIAL ONE (00:33)
[2020-05-27] MEDS ORDERED: Levofloxacin500mg IV 500 MG/100 ML BAG IV ONE (00:34)
[2020-05-27] MEDS ORDERED: NA CHLORIDE 0.9% 1,000 ML ONE (00:34)
[2020-05-27] MEDS ORDERED: METRONIDAZOLE 500mg IVPB 500 MG/100 ML BAG IV ONE (00:34)
[2020-05-27 00:59] LABS: Blood Morphology Comment NOT SEEN (NOT SEEN); Platelet Estimate ADEQ
--- NOTE | 2020-05-27 01:03 | EDPHYS ---
Physician Documentation [facility] Name: Shyanne Pardo Age: 34 yrs Sex: Female : 1985 Arrival Date: 05/26/2020 Time: 19:27 Bed 2 Private MD: CHRISTY Physician Fito Rabago HPI: 05/26 21:05 This 34 yrs old Female presents to ER via Ambulatory with complaints of keyonna Vomiting, Abdominal Pain. 21:05 The patient presents to the emergency department with nausea, vomiting, abdominal pain, keyonna of the umbilical area, right upper quadrant, left upper quadrant, right lower quadrant and left lower quadrant. Onset: The symptoms/episode began/occurred 2 day(s) ago. Possible causes: unknown. The symptoms are aggravated by nothing. The symptoms are alleviated by nothing. Associated signs and symptoms: Pertinent positives: nausea, vomiting. Severity of symptoms: At their worst the symptoms were mild moderate in the emergency department the symptoms are unchanged. The patient has experienced similar episodes in the past, several times. 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 - Social history:: Smoking status: . ROS: 21:06 Constitutional: Negative for fever, chills, and weight loss, Eyes: Negative for injury, keyonna pain, redness, and discharge, ENT: Negative for injury, pain, and discharge, Neck: Negative for injury, pain, and swelling, Cardiovascular: Negative for chest pain, palpitations, and edema, Respiratory: Negative for shortness of breath, cough, wheezing, and pleuritic chest pain, Back: Negative for injury and pain, : Negative for injury, bleeding, discharge, and swelling, MS/Extremity: Negative for injury and deformity, Skin: Negative for injury, rash, and discoloration, Neuro: Negative for headache, weakness, numbness, tingling, and seizure, Psych: Negative for depression, anxiety, suicide ideation, homicidal ideation, and hallucinations, Allergy/Immunology: Negative for hives, rash, and allergies, Endocrine: Negative for neck swelling, polydipsia, polyuria, polyphagia, and marked weight changes, Hematologic/Lymphatic: Negative for swollen nodes, abnormal bleeding, and unusual bruising. 21:06 Abdomen/GI: Positive for abdominal pain, nausea and vomiting, of the right upper quadrant, left upper quadrant, right lower quadrant and left lower quadrant. Exam: 21:06 Head/Face: Normocephalic, atraumatic. Eyes: Pupils equal round and reactive to light, kyeonna extra-ocular motions intact. Lids and lashes normal. Conjunctiva and sclera are non-icteric and not injected. Cornea within normal limits. Periorbital areas with no swelling, redness, or edema. ENT: Nares patent. No nasal discharge, no septal abnormalities noted. Tympanic membranes are normal and external auditory canals are clear. Oropharynx with no redness, swelling, or masses, exudates, or evidence of obstruction, uvula midline. Mucous membranes moist. Neck: Trachea midline, no thyromegaly or masses palpated, and no cervical lymphadenopathy. Supple, full range of motion without nuchal rigidity, or vertebral point tenderness. No Meningismus. Chest/axilla: Normal chest wall appearance and motion. Nontender with no deformity. No lesions are appreciated. Cardiovascular: Regular rate and rhythm with a normal S1 and S2. No gallops, murmurs, or rubs. Normal PMI, no JVD. No pulse deficits. Respiratory: Lungs have equal breath sounds bilaterally, clear to auscultation and percussion. No rales, rhonchi or wheezes noted. No increased work of breathing, no retractions or nasal flaring. Back: No spinal tenderness. No costovertebral tenderness. Full range of motion. Female : Normal external genitalia. Skin: Warm, dry with normal turgor. Normal color with no rashes, no lesions, and no evidence of cellulitis. MS/ Extremity: Pulses equal, no cyanosis. Neurovascular intact. Full, normal range of motion. Neuro: Awake and alert, GCS 15, oriented to person, place, time, and situation. Cranial nerves II-XII grossly intact. Motor strength 5/5 in all extremities. Sensory grossly intact. Cerebellar exam normal. Normal gait. Psych: Awake, alert, with orientation to person, place and time. Behavior, mood, and affect are within normal limits. 21:06 Constitutional: The patient appears in obvious distress, moderately distressed. 21:06 Abdomen/GI: Inspection: abdomen appears normal, Bowel sounds: normal, Palpation: mild abdominal tenderness, in all quadrants, moderate abdominal tenderness, Liver: no appreciated palpable abnormalities, Hernia: not appreciated. Vital Signs: 21:04 Weight 68.04 kg; Height 5 ft. 8 in. (172.72 cm); wh 21:11 BP 129 / 93; Pulse 75; Resp 18; Temp 98.3(TE); Pulse Ox 100% on R/A; oe 22:00 BP 119 / 82; Pulse 63; Resp 18; Pulse Ox 100% on R/A; wh 23:15 BP 141 / 82; Pulse 75; Resp 18; Pulse Ox 99% on R/A; wh 05/27 00:00 BP 132 / 84; Pulse 75; Resp 18; Pulse Ox 99% on R/A; wh 01:30 BP 123 / 88; Pulse 91; Resp 18; Pulse Ox 99% ; 05/26 21:04 Body Mass Index 22.81 (68.04 kg, 172.72 cm) wh MDM: 05/26 20:24 Patient medically screened. [facility] 21:07 Data reviewed: vital signs, nurses notes, lab test result(s), radiologic studies, CT keyonna scan. 21:07 Differential diagnosis: Nonspecific abd pain, gastritis, pancreatitis, diverticulitis, keyonna viral gastroenteritis, gastroenteritis. 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 Test interpretation: by ED physician or midlevel provider:. Counseling: I had a detailed discussion with the patient and/or guardian regarding: the historical points, exam findings, and any diagnostic results supporting the discharge/admit diagnosis, lab results, radiology results, the need for outpatient follow up. Medication response: Zofran partially relieved the patient's nausea. 05/27 00:50 ED course: patient much improved, dilaudid helps. [facility] 05/26 20:46 Order name: Basic Metabolic Panel 05/26 20:46 Order name: CBC with Diff 05/26 20:46 Order name: Hepatic Function 05/26 20:46 Order name: Lipase 05/26 21:34 Order name: Basic Metabolic Panel; Complete Time: 21:39 EDMS 05/26 21:36 Order name: Liver (Hepatic) Function; Complete Time: 00:16 [facility] 05/26 21:05 Order name: CT Abd/Pelvis - IV Contrast Only [facility] 05/26 21:54 Order name: Lipase; Complete Time: 00:16 [facility] 05/26 21:57 Order name: CBC with Automated Diff; Complete Time: 01:01 [facility] 05/27 00:59 Order name: Manual Differential; Complete Time: 01:01 [facility] 05/26 20:46 Order name: IV Saline Lock; Complete Time: 21:03 05/26 20:46 Order name: Labs collected and sent; Complete Time: 21:03 05/26 21:05 Order name: Urine Dipstick-Ancillary (obtain specimen); Complete Time: 22:09 [facility] 05/26 21:05 Order name: Urine Test (obtain specimen); Complete Time: 22:08 [facility] Administered Medications: 05/26 21:05 Drug: Zofran (Ondansetron) 4 mg Route: IVP; Site: right antecubital; 05/27 01:05 Follow up: Response: No adverse reaction; Nausea unchanged 05/26 21:05 Drug: NS 0.9% 1000 ml Route: IV; Rate: 1 bolus; Site: right antecubital; 05/27 01:05 Follow up: Response: No adverse reaction; IV Status: Completed infusion 05/26 21:05 CANCELLED (Duplicate Order): NS 0.9% 1000 ml IV at 1 bolus Per protocol; 1000 mL bolus 21:05 CANCELLED (Duplicate Order): Zofran (Ondansetron) 4 mg IVP once; over 2 minutes 21:09 Drug: morphine 4 mg Route: IVP; Site: right antecubital; 05/27 01:06 Follow up: Response: No adverse reaction; Pain is decreased; RASS: Alert and Calm (0) 05/26 21:45 Drug: Phenergan 12.5 mg Route: IVP; Site: right forearm; rr5 05/27 01:07 Follow up: Response: No adverse reaction; Nausea unchanged 05/26 22:15 Drug: morphine 4 mg {Note: RASS 0.} Route: IVP; Site: right antecubital; 05/27 01:05 Follow up: Response: No adverse reaction; Pain is unchanged, physician notified; RASS: Alert and Calm (0) 05/26 22:18 Drug: Zofran (Ondansetron) 4 mg Route: IVP; Site: right antecubital; 05/27 01:07 Follow up: Response: No adverse reaction; Nausea is decreased 00:30 Drug: NS 0.9% 1000 ml Route: IV; Rate: 1 bolus; Site: right forearm; rr5 01:06 Follow up: Response: No adverse reaction; IV Status: Completed infusion 00:31 Drug: Zofran (Ondansetron) 4 mg Route: IVP; Site: right forearm; rr5 01:07 Follow up: Response: No adverse reaction; Nausea is decreased 00:33 Drug: Dilaudid 0.5 mg {Note: rass 0.} Route: IVP; Site: right forearm; rr5 01:06 Follow up: Response: No adverse reaction; Pain is decreased; RASS: Alert and Calm (0) 01:07 Follow up: Response: No adverse reaction; Pain is decreased; RASS: Alert and Calm (0) 00:35 Drug: Flagyl 500 mg Volume: 100 ml; Route: IVPB; Rate: 200 ml/hr; Infused Over: 30 rr5 mins; Site: right forearm; 01:06 Follow up: Response: No adverse reaction; IV Status: Completed infusion 01:03 Drug: levofloxacin 500 mg Volume: 100 ml; Route: IVPB; Infused Over: 60 mins; Site: right antecubital; 01:45 Follow up: Response: No adverse reaction; IV Status: Completed infusion 01:22 Drug: predniSONE 20 mg Route: PO; 01:45 Follow up: Response: No adverse reaction 01:23 Drug: SOLU-Medrol 125 mg Route: IVP; Site: right antecubital; 01:45 Follow up: Response: No adverse reaction Disposition: 05/27/20 01:02 Discharged to Home. Impression: Abdominal tenderness, Left sided colitis, Bandemia. - Condition is Stable. - Discharge Instructions: Abdominal Pain, Adult, Nausea and Vomiting, Adult, Abdominal Pain, Adult, [id number], Colitis. - Prescriptions for Bentyl 20 mg Oral Tablet - take 1 tablet by ORAL route every 6 hours As needed; 20 tablet. Flagyl 500 mg Oral Tablet - take 1 tablet by ORAL route every 8 hours for 10 days; 30 tablet. Levaquin 500 mg Oral Tablet - take 1 tablet by ORAL route once daily for 7 days; 7 tablet. Tylenol- Codeine #3 300-30 mg Oral Tablet - take 2 tablets by ORAL route every 6 hours As needed; 24 tablet. promethazine 25 mg Oral Tablet - take 1 tablet by ORAL route every 6 hours As needed; 20 tablet. Prednisone 20 mg Oral Tablet - take 2 tablets by ORAL route once daily for 3 days; 6 tablet. - Medication Reconciliation Form, Thank You Letter, Antibiotic Education, Prescription Opioid Use form. - Follow up: Private Physician; When: 2 - 3 days; Reason: Recheck today's complaints, Re-evaluation by your physician. Follow up: Gus Tripathi MD; When: 2 - 3 days; Reason: Recheck today's complaints, Re-evaluation by your physician. - Problem is new. - Symptoms have improved. Signatures: Dispatcher [employer] EDFito Eng MD MD cha Smirch, Shelby, RN RN Julia Jewell Diony Jung, RN RN rr5 Corrections: (The following items were deleted from the chart) 05/26 21:05 21:05 NS 0.9% 1000 ml IV at 1 bolus Per protocol; 1000 mL bolus ordered. [facility] 21:05 21:05 Zofran (Ondansetron) 4 mg IVP once; over 2 minutes ordered. [facility] 05/27 01:48 01:02 05/27/2020 01:02 Discharged to Home. Impression: Abdominal tenderness; Left sided wh colitis; Bandemia. Condition is Stable. Forms are Medication Reconciliation Form, Thank You Letter, Antibiotic Education, Prescription Opioid Use. Follow up: Private Physician; When: 2 - 3 days; Reason: Recheck today's complaints, Re-evaluation by your physician. Follow up: Gus Tripathi; When: 2 - 3 days; Reason: Recheck today's complaints, Re-evaluation by your physician. Problem is new. Symptoms have improved. keyonna
--- NOTE | 2020-05-27 01:03 | ER ---
Nurse's Notes [facility] Name: Shyanne Pardo Age: 34 yrs Sex: Female : 1985 Arrival Date: 05/26/2020 Time: 19:27 Bed 2 Private MD: Diagnosis: Abdominal tenderness;Left sided colitis;Bandemia Presentation: 05/26 19:28 Acuity: [place] 3 sg 19:35 Chief complaint: Patient states: pt c/o severe abdominal pain and cramping, reports ss vomiting yellow/green fluid, states has history of GI problems. Coronavirus screen: Proceed with normal triage. Ebola Screen: Patient negative for fever greater than or equal to 101.5 degrees Fahrenheit, and additional compatible Ebola Virus Disease symptoms Patient denies exposure to infectious person. Patient denies travel to an Ebola-affected area in the 21 days before illness onset. No symptoms or risks identified at this time. Initial Sepsis Screen: Does the patient meet any 2 criteria? HR > 90 bpm. Does the patient have a suspected source of infection? Yes: Acute abdominal pain. Risk Assessment: Do you want to hurt yourself or someone else? Patient reports no desire to harm self or others. Onset of symptoms was May 26, 2020. Care prior to arrival: None. Transition of care: patient was not received from another setting of care. 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 - Social history:: Smoking status: . Screenin:00 Abuse screen: Denies threats or abuse. Denies injuries from another. Nutritional wh screening: No deficits noted. Tuberculosis screening: No symptoms or risk factors identified. Fall Risk None identified. Assessment: 20:30 General: Appears in no apparent distress. Behavior is calm, cooperative, appropriate wh for age. Pain: Complains of pain in left lower quadrant and right lower quadrant and left upper quadrant and right upper quadrant Pain does not radiate. Pain currently is 9 out of 10 on a pain scale. Quality of pain is described as crampy, Pain began 2-3 days ago. Neuro: Level of Consciousness is awake, alert, obeys commands, Oriented to person, place, time, situation, Appropriate for age. Cardiovascular: Heart tones S1 S2. Respiratory: Airway is patent Respiratory effort is even, unlabored, Respiratory pattern is regular, symmetrical, Breath sounds are clear bilaterally. GI: Abdomen is flat, non-distended, Bowel sounds present X 4 quads. Abd is soft Abdomen is tender to palpation X 4 quads. Reports nausea, vomiting. : No signs and/or symptoms were reported regarding the genitourinary system. EENT: No signs and/or symptoms were reported regarding the EENT system. Derm: Skin is intact, is healthy with good turgor, Skin is pink, warm \T\ dry. normal. Musculoskeletal: Circulation, motion, and sensation intact. 22:00 Reassessment: Patient appears in no apparent distress at this time. No changes from previously documented assessment. Patient and/or family updated on plan of care and expected duration. Pain level reassessed. Patient is alert, oriented x 3, equal unlabored respirations, skin warm/dry/pink. Pt still in pain notified MD with additional orders made and carried out. 22:30 Reassessment: Followed up with CT scan regarding order for imaging. 23:15 Reassessment: Patient appears in no apparent distress at this time. No changes from previously documented assessment. Patient and/or family updated on plan of care and expected duration. Pain level reassessed. Patient is alert, oriented x 3, equal unlabored respirations, skin warm/dry/pink. 05/27 01:00 Reassessment: No changes from previously documented assessment. Patient and/or family wh updated on plan of care and expected duration. Pain level reassessed. Patient is alert, oriented x 3, equal unlabored respirations, skin warm/dry/pink. MD at bedside explaining POC. 01:46 Reassessment: Patient appears in no apparent distress at this time. No changes from previously documented assessment. Patient and/or family updated on plan of care and expected duration. Pain level reassessed. Patient is alert, oriented x 3, equal unlabored respirations, skin warm/dry/pink. Patient states feeling better. Patient states symptoms have improved. Vital Signs: 05/26 21:04 Weight 68.04 kg; Height 5 ft. 8 in. (172.72 cm); wh 21:11 BP 129 / 93; Pulse 75; Resp 18; Temp 98.3(TE); Pulse Ox 100% on R/A; oe 22:00 BP 119 / 82; Pulse 63; Resp 18; Pulse Ox 100% on R/A; wh 23:15 BP 141 / 82; Pulse 75; Resp 18; Pulse Ox 99% on R/A; wh 07 00:00 BP 132 / 84; Pulse 75; Resp 18; Pulse Ox 99% on R/A; wh 01:30 BP 123 / 88; Pulse 91; Resp 18; Pulse Ox 99% ; wh 07 21:04 Body Mass Index 22.81 (68.04 kg, 172.72 cm) ED Course: 05/26 19:27 Patient arrived in ED. cl3 19:28 Triage completed. sg 19:28 Arm band placed on. ss 20:24 Fito Rabago MD is Attending Physician. keyonna 20:41 Julia Jewell is Primary Nurse. 21:00 Patient has correct armband on for positive identification. Bed in low position. Call light in reach. Side rails up X 1. Pulse ox on. NIBP on. 21:05 Inserted saline lock: 20 gauge in right forearm, using aseptic technique. Blood oe collected. 05/27 01:02 Gus Tripathi MD is Referral Physician. keyonna 01:49 No provider procedures requiring assistance completed. IV discontinued, intact, bleeding controlled, No redness/swelling at site. Administered Medications: 05/26 21:05 Drug: Zofran (Ondansetron) 4 mg Route: IVP; Site: right antecubital; 05/27 01:05 Follow up: Response: No adverse reaction; Nausea unchanged 05/26 21:05 Drug: NS 0.9% 1000 ml Route: IV; Rate: 1 bolus; Site: right antecubital; 05/27 01:05 Follow up: Response: No adverse reaction; IV Status: Completed infusion 05/26 21:05 CANCELLED (Duplicate Order): NS 0.9% 1000 ml IV at 1 bolus Per protocol; 1000 mL bolus 21: CANCELLED (Duplicate Order): Zofran (Ondansetron) 4 mg IVP once; over 2 minutes 21:09 Drug: morphine 4 mg Route: IVP; Site: right antecubital; 05/27 01:06 Follow up: Response: No adverse reaction; Pain is decreased; RASS: Alert and Calm (0) 05/26 21:45 Drug: Phenergan 12.5 mg Route: IVP; Site: right forearm; rr5 05/27 01:07 Follow up: Response: No adverse reaction; Nausea unchanged 05/26 22:15 Drug: morphine 4 mg {Note: RASS 0.} Route: IVP; Site: right antecubital; 05/27 01:05 Follow up: Response: No adverse reaction; Pain is unchanged, physician notified; RASS: Alert and Calm (0) 05/26 22:18 Drug: Zofran (Ondansetron) 4 mg Route: IVP; Site: right antecubital; 05/27 01:07 Follow up: Response: No adverse reaction; Nausea is decreased 00:30 Drug: NS 0.9% 1000 ml Route: IV; Rate: 1 bolus; Site: right forearm; rr5 01:06 Follow up: Response: No adverse reaction; IV Status: Completed infusion 00:31 Drug: Zofran (Ondansetron) 4 mg Route: IVP; Site: right forearm; rr5 01:07 Follow up: Response: No adverse reaction; Nausea is decreased 00:33 Drug: Dilaudid 0.5 mg {Note: rass 0.} Route: IVP; Site: right forearm; rr5 01:06 Follow up: Response: No adverse reaction; Pain is decreased; RASS: Alert and Calm (0) 01:07 Follow up: Response: No adverse reaction; Pain is decreased; RASS: Alert and Calm (0) 00:35 Drug: Flagyl 500 mg Volume: 100 ml; Route: IVPB; Rate: 200 ml/hr; Infused Over: 30 rr5 mins; Site: right forearm; 01:06 Follow up: Response: No adverse reaction; IV Status: Completed infusion 01:03 Drug: levofloxacin 500 mg Volume: 100 ml; Route: IVPB; Infused Over: 60 mins; Site: right antecubital; 01:45 Follow up: Response: No adverse reaction; IV Status: Completed infusion 01:22 Drug: predniSONE 20 mg Route: PO; 01:45 Follow up: Response: No adverse reaction 01:23 Drug: SOLU-Medrol 125 mg Route: IVP; Site: right antecubital; 01:45 Follow up: Response: No adverse reaction Outcome: 01:02 Discharge ordered by MD. newby 01:48 Patient left the ED. 01:49 Discharged to home ambulatory, with family. 01:49 Condition: stable 01:49 Discharge instructions given to patient, Instructed on discharge instructions, follow up and referral plans. no drinking with medication, no driving heavy equipment, medication usage, POC Demonstrated understanding of instructions, follow-up care, medications, POC Prescriptions given X x6 Signatures: Regulo Willis RN Fito Hassan MD MD cha Smirch, Shelby, RN RN Aidan Chahal Winsy Diony Jung RN RN rr5 Angel Vázquez cl3
[2020-05-27] MEDS ORDERED: METHYLPREDNISOLONE 125 MG INJ ONE (01:25)
[2020-05-27] MEDS ORDERED: predniSONE 10 MG TAB ONE (01:25)
[2020-05-27 02:34] VITALS: TEMP 98.3
[2020-05-27 02:37] VITALS: O2SAT 99
[2020-05-27 02:40] VITALS: BP 123/88
--- NOTE | 2020-05-27 16:47 | RAD REPORT ---
EXAM DESCRIPTION: CT - Chest Abdomen Pelvis W Cont - 05/27/2020 6:16 am CLINICAL HISTORY: Abdominal pain COMPARISON: 04/10/2020 TECHNIQUE: CT of the chest, abdomen and pelvis performed following IV administration of iodinated co ntrast FINDINGS: Chest: Thyroid: No abnormalities of the visualized thyroid. Great Vessels: Great vessels have normal anatomic configuration. Thoracic Aorta: No abnormalities of the thoracic aorta identified. Pulmonary arteries: No central filling defects. Heart: No cardiomegaly, significant pericardial effusion, or coronary artery atherosclerosis Lymph Nodes: No enlarged mediastinal lymph nodes identified. Esophagus: No abnormalities of the esophagus identified Other: No additional findings. Lungs: No airspace opacities identified. Pleura: No pleural effusion or pneumothorax. Trachea/Airways: No abnormalities of the visualized trachea or airways. Abdomen: Liver: Hepatomegaly Gallbladder: Prior cholecystectomy. Spleen, Pancreas, and Adrenal Glands: Splenomegaly. The pancreas and adrenal glands are not enlarge d. Kidneys: The kidneys have normal size and contour without evidence of solid mass or hydronephrosis. Vasculature: Aortoiliac atherosclerosis. IVC is unremarkable. The portal vein is patent. The proxim al visceral and renal arteries are patent. Stomach: The stomach and duodenum have normal course. Other: No free intraperitoneal air. No free fluid or lymphadenopathy. Pelvis: Bladder: Urinary bladder is unremarkable. Bowel: No dilated loops of large or small bowel. Mild wall thickening of the transverse, descending , and sigmoid colon. Appendix: Normal appendix. Pelvis: Uterus is not enlarged. Bones: Minimal multilevel endplate spondylosis. IMPRESSION: 1. Long segment wall thickening of the transverse, descending, and sigmoid colon concern ing for mild acute nonspecific colitis. 2. Hepatomegaly and splenomegaly. 3. No acute abnormalities identified in the chest. This exam was performed according to our departmental dose-optimization program, which includes autom ated exposure control, adjustment of the mA and/or kV according to patient size and/or use of iterati ve reconstruction technique. Electronically signed by: Ayush Myrick 05/26/2020 11:59 PM CDT Due to temporary technical issues with the PACS/Fluency reporting system, reports are being signed by the in house radiologist without review as a courtesy to ensure prompt reporting. The interpreting r adiologist is fully responsible for the content of the report.
== END 2020-05-27 01:48 | disposition home or self-care (01) ==
LOC: ER 19:25
DX: K51.50 Left sided colitis without complications (principal); D72.825 Bandemia; Z88.0 Allergy status to penicillin; Z88.1 Allergy status to other antibiotic agents; Z88.2 Allergy status to sulfonamides
CPT/HCPCS: 36415; 71260; 74177; 80048; 80076; 83690; 85025; 99284; J1170; J2405; J2550; J2930; J7030; J7512; Q9967

== ENCOUNTER 2020-10-31 21:52 | Inpatient (IN) | payer OTHER, SELFPAY ==
--- OUTSIDE RECORDS SUMMARY | 2020-10-31 21:55 | XMS REPORT | Summary of Care ---
:1985 Author Organization [facility] Address [address] [place] [address] Care Team Providers Name Role Phone Vic Singh Shanna Primary Care Provider Reason for Visit Reason Comments Rx Concern/Question Encounter Details Date Type Department Care Team Description 08/18/2020 Telephone [facility] Women's HilliardMichelle MD Rx Concern/Question Healthcare- [address] 146 [facility] [address] [facility], [address] [place] [address] [place] [address] [phone] Allergies Active Allergy Reactions Severity Noted Date Comments Cephalosporins Hives 12/30/2018 Erythromycin Hives 12/30/2018 Penicillins Anaphylaxis 12/30/2018 Sulfa (Sulfonamide Antibiotics) Hives 9 documented as of this encounter (statuses as of 08/19/2020) Medications Medication Sig Dispensed Refills Start Date End Date Status dicyclomine (BENTYL) Take 20 mg by 0 Active 20 mg tablet mouth 4 (four) times daily. docusate 100 mg Take 1 capsule by 60 capsule 5 01/03/2019 Active capsuleIndications: mouth every 24 Abdominal pain, (twenty-four) unspecified abdominal hours. location norgestimate-ethinyl Take 1 tablet by 1 Package 10 01/04/2019 Active estradiol 0.25-35 mouth daily. mg-mcg per tabletIndications: Abdominal pain, unspecified abdominal location ondansetron 4 mg Take 1 tablet by 30 tablet 2 01/03/2019 Active tabletIndications: mouth every 6 Abdominal pain, (six) hours as unspecified abdominal needed for Nausea location and Vomiting (N/V). Polyethylene Glycol Take 1 Packet by 60 Packet 10 01/03/2019 Active 3350 17 gram mouth 2 (two) powderIndications: times daily. Abdominal pain, unspecified abdominal location SERTraline 25 mg Take 1 tablet by 60 tablet 3 01/04/2019 Active tabletIndications: mouth daily. Abdominal pain, unspecified abdominal location simethicone 80 mg Take 1 tablet by 120 tablet 5 01/03/2019 Active chewable mouth after meals tabletIndications: and at bedtime. Abdominal pain, unspecified abdominal location traMADOL 50 mg Take 1 tablet by 30 tablet 0 01/03/2019 Active tabletIndications: mouth every 6 Abdominal pain, (six) hours as unspecified abdominal needed for Pain location (scale 7-10). pantoprazole 40 mg EC Take 1 tablet by 60 tablet 5 01/03/2019 Active tabletIndications: mouth 2 (two) Abdominal pain, times daily. unspecified abdominal location HYDROcodone-acetaminop Take 1 tablet by 30 tablet 0 01/04/2019 Active hen 5-325 mg mouth every 6 tabletIndications: (six) hours as Abdominal pain, needed for Pain unspecified abdominal (scale 7-10). location lactulose 10 gram/15 Take 15 mL by 946 mL 3 01/04/2019 Active mL mouth 3 (three) solutionIndications: times daily as Abdominal pain, needed for unspecified abdominal Constipation. location documented as of this encounter (statuses as of 08/19/2020) Active Problems Problem Noted Date Intractable vomiting with nausea 12/31/2018 documented as of this encounter (statuses as of 08/19/2020) Social History Tobacco Use Types Packs/Day Years Used Date Former Smoker Smokeless Tobacco: Never Used Comments: 10 year tobacco use 1/2 ppd Alcohol Use Drinks/Week oz/Week Comments Not Asked Occasional Sex Assigned at Date Recorded Not on file documented as of this encounter Last Filed Vital Signs Not on filedocumented in this encounter Miscellaneous Notes Telephone Encounter - Angelita Ramirez RN - 08/19/2020 10:13 AM CDTSee encounter for account [id number], accounts pending merge. Angelita Ramirez RN 08/19/2020 10:14 AM Telephone Encounter - Florinda Matos - 08/18/2020 7:49 AM CDTPt would like to know if the nuvaring medication can be changed to sprintec due to patient no longerhaving insurance. documented in this encounter Plan of Treatment Health Maintenance Due Date Last Done Comments VARICELLA VACCINES (1 of 2 - 1985 2-dose childhood series) Depression Screening 1996 DTaP,Tdap,and Td Vaccines (1 - 2003 Tdap) PAP SMEAR 2005 INFLUENZA VACCINE (#1) 2020 PNEUMOCOCCAL 0-64 YEARS COMBINED Aged Out No longer eligible based on SERIES patient's age to complete this topic documented as of this encounter Results Not on filedocumented in this encounter Insurance Payer Benefit Plan / Subscriber ID Effective Dates Phone Addre ss Type Group BCBS OF HIM BCBS BLUE [id number] 2018-Jerry [phone] [address] HMO [facility] [id number] [place] [address] documented as of this encounter
--- OUTSIDE RECORDS SUMMARY | 2020-10-31 21:55 | XMS REPORT | Summary of Care ---
:1985 Author Organization [facility] Address [address] [place] [address] Care Team Providers Name Role Phone Vic Singh Primary Care Provider Reason for Visit Reason Comments Rx Concern/Question change from nuvaring to spri ntec Encounter Details Date Type Department Care Team Description 08/19/2020 Telephone [facility] Women's Adum, Kenyetta Dorsey MD Rx Concern/Question Healthcare- [address]change [address] [place] [phone] Allergies Active Allergy Reactions Severity Noted Date Comments Cephalosporins Hives Low 07/09/2020 Erythromycin Hives Low 07/09/2020 Penicillin Anaphylaxis High 07/09/2020 Sulfa (Sulfonamide Antibiotics) Hives Low 0 documented as of this encounter (statuses as of 08/19/2020) Medications Medication Sig Dispensed Refills Start End Date Status Date predniSONE 5 mg Take by mouth. 0 Active TbEC tramadol HCl Take by mouth. 0 A ctive (TRAMADOL ORAL) acetaminophen with Take by mouth. 0 Active codeine (ACETAMINOPHEN-COD EINE) 120 mg-12 mg /5 mL (5 mL) Soln ONDANSETRON ORAL Take by mouth. 0 Active dicyclomine HCl Take by mouth. 0 Active (BENTYL ORAL) promazine HCl Take by mouth. 0 Active (PROMAZINE ORAL) norgestimate-ethin Take 1 tablet by 1 Package 12 Active yl estradioL mouth daily. 0 0.25-35 mg-mcg per tablet NUVARING Insert 1 Each 1 Each 2 08/19/20 Discon tinued 0.12-0.015 mg/24 into vagina once 0 20 (Cost of hr vaginal every month. medica tion) insertIndications: Insert vaginally Dysmenorrhea, and leave in History of place for 3 endometriosis consecutive weeks, then remove for 1 week. documented as of this encounter (statuses as of 08/19/2020) Active Problems Not on filedocumented as of this encounter (statuses as of 08/19/2020) Social History Tobacco Use Types Packs/Day Years Used Date Never Smoker Smokeless Tobacco: Never Used Alcohol Use Drinks/Week oz/Week Comments Not Currently Alcohol Habits Answer Date Recorded How often do you have a drink containing alcohol? Never 07/09/2020 How many drinks containing alcohol do you have on a typical Not asked day when you are drinking? How often do you have six or more drinks on one occasion? No t asked Sex Assigned at Date Recorded Not on file documented as of this encounter Last Filed Vital Signs Not on filedocumented in this encounter Miscellaneous Notes Telephone Encounter - Angelita Ramirez RN - 08/19/2020 10:01 AM CDTPatient has 2 accounts, one with maiden name and one with name. Original encounter was created under patient's maiden name account, Shyanne Pardo, [id number], Name and verified. Pt would like to know if the nuvaring medication can be changed to sprintec due to patient no longerhaving insurance. Encounter created under this account ([id number], Shyanne Beltran) due to this being the account the patient was recently seen under. Per Dr. Cates, ok to change to Sprintec per patient request, and that nuvaring consent should suffice for OCP consent. Angelita Ramirez RN 08/19/2020 10:[address] Cates request, RN called patient back, no answer. RN left message stating that patient neededto change her f/u appointment from September to November, and to be sure to keep her [facility] appointment in October. RN advised patient to call back with any further questions or concerns. Angelita Ramirez RN 08/19/2020 11:21 AM documented in this encounter Plan of Treatment Date Type Specialty Care Team Description 10/11/2020 Office Visit Obstetrics & Gynecology Blessing Cates MD [address] [place] [address] Dr. Guzman [place] [phone] 10/22/2020 Nurse Visit Obstetrics & Gynecology Nurse, [facility] Health Maintenance Due Date Last Done Comments [...]
--- OUTSIDE RECORDS SUMMARY | 2020-10-31 21:55 | XMS REPORT | Summary of Care ---
:1985 Author Organization [facility] Address [address] [place] [address] Care Team Providers Name Role Phone iVc Singh Primary Care Provider Reason for Visit Reason Comments Rx Concern/Question change from nuvaring to spri ntec Encounter Details Date Type Department Care Team Description 08/19/2020 Telephone [facility] Women's Adum, Kenyetta Dorsey MD Rx Concern/Question Healthcare- [address] [address] [facility] [address], [address] [place] [phone] Allergies Active Allergy Reactions [...] under patient's maiden name account, Shyanne Pardo, [id number], Name and verified. Pt would like to know if the nuvaring medication can be changed to sprintec due to patient no longerhaving insurance. Encounter created under this account ([id number], Shyanne Beltran) due to this being the account the patient was recently seen under. Per tabitha Manzano to change to Sprintec per patient request. Angelita Ramirez RN 08/19/2020 10:05 AM documented in this encounter Plan of Treatment Date Type Specialty Care Team Description 10/11/2020 Office Visit Obstetrics & Gynecology Blessing Cates MD [address] [place] [address] Dr. Ann, [place] [phone] 10/22/2020 Nurse Visit Obstetrics & Gynecology Nurse, [facility] Women' s Health Health Maintenance Due Date [...]
--- OUTSIDE RECORDS SUMMARY | 2020-10-31 21:56 | XMS REPORT | Continuity of Care Document ---
:[address] [facility] t Address [address] [place] [place] [address] Care Team Providers Name Role Phone NONSTAFF Primary Care Physician Unavailable Loan CUEVAS, L Attending Clinician Moustapha Myers MD Attending Clinician SINGH Attending Clinician Unavailable SINGH Admitting Clinician Unavailable Payers Payer Name Policy Type Policy Number Effective Date Expiration Date S rex [facility] [id number] [facility] Problems Condition Condition Condition Status Onset Resolution Last Treating Co mments Source Name Details Category Date Date Treatment Clinician Date Chronic Chronic Problem Active [facility] Gastritis Gastritis Problem [facility] Intractabl Intractabl Problem Active [facility] vomiting e vomiting Carol Ann kes - [facility] Allergies, Adverse Reactions, Alerts Allergy Allergy Status Severity Reaction(s) Onset Inactive Treating Comm ents Source Name Type Date Date Clinician Penicill Allergy Active Severe 2018- [facility] [...] Performed Clinician Laparoscopic cholecystectomy 2019-01-10 YURIY MYERS [facility] Magnetic resonance 2019-01-08 SARY SINGH [facility] - cholangiopancreatography (MRCP) 00:00:00 Patients Medical without contrast Center Colonoscopy with biopsy 2019-01-07 DWAIN LOVING [facility] EGD with biopsy 2019-01-07 DWAIN LOVING [facility] - 00:00:00 Patients [facility] Encounters Start End Encounter Admission Attending Care Care Encounter Source Date/Time Date/Time Type Type Clinicians Facility Department ID 2020-08-19 2020-08-19 Telephone Loan, [facility] [id number] 00:00:00 00:00:00 Kenyetta Dorsey Shaggy [id number] [place] [id number] Professio [phone] nal 134 [facility] 2020-08-18 2020-08-18 Telephone Michelle Myers [facility] [id number] 00:00:00 00:00:00 Moustapha Coon [id number] [place] [id number] Professio [id number] nal 134 [facility] 2019-01-08 2019-01-12 Discharged 1 SARY SINGH [facility] A00 [id number] [facility] 08:41:00 13:44:[address] [place] [address] Results Test Description Test Time Test Comments Results Result Comments Source Sodium Level 2019-01-12 06:14:00 Test Item Value Reference Range Interpretation Comme nts Sodium Level (test code = 2951-2) 140 136-145 [facility] Hyikr9689-84-76 06:14:00 Test Item Value Reference Range Interpretation Comments Potassium Level (test code = 2823-3) 3.2 3.5-5.1 L [facility] CenterChloride Jkrbk9270-40-42 06:14:00 Test Item Value Reference Range Interpretation Comments Chloride Level (test code = 2075-0) 104 98-107 [facility] CenterCarbon Dioxide Yfcpm3614-94-70 06:14:00 Test Item Value Reference Range Interpretation Comments Carbon Dioxide Level (test code = 28 22-29 2027-9) [facility] CenterAnion Rml2753-26-35 06:14:00 Test Item Value Reference Range Interpretation Comments Anion Gap (test code = 07603-3) 11.2 8-16 [facility] CenterBlood Urea Gwmdexie8862-62-46 06:14:00 Test Item Value Reference Range Interpretation Comments Blood Urea Nitrogen (test code = < 5 7-26 L 3094-0) [facility] CenterCreatinine2019-02-24 06:14:00 Test Item Value Reference Range Interpretation Comments Creatinine (test code = 2160-0) 0.67 0.57-1.11 [facility] CenterBUN/Creatinine Gqyfg1886-11-28 06:14:00 Test Item Value Reference Range Interpretation Comments BUN/Creatinine Ratio (test code = 7 6-25 3097-3) [facility] CenterEstimat Glomerular Filtration Rate 2019-01-12 06:14:00 Test Item Value Reference Range Interpretation Comments Estimat Glomerular Filtration Rate > 60 >60 (test code = 225933283) Ranges were taken from the National Kidney Disease Education Program and the National Kidney Foundation literature.Reference ranges:60 or greater: Olvkwk96- 59 (for 3 consecutive months): Chronic kidneydisease 15 or less: Kidney failure [facility] CenterGlucose Kotcl0657-17-58 06:14:00 Test Item Value Reference Range Interpretation Comments Glucose Level (test code = TKO0468) 129 74-118 H [facility] CenterCalcium Knklz2170-39-74 06:14:00 Test Item Value Reference Range Interpretation Comments Calcium Level (test code = 87144-1) 8.8 8.4-10.2 [facility] CenterWhite Blood Ygtij1646-74-25 05:42:00 Test Item Value Reference Range Interpretation Comments White Blood Count (test code = 6690-2) 5.63 4.8-10.8 [facility] CenterRed Blood Vsqae5368-48-87 05:42:00 Test Item Value Reference Range Interpretation Comments Red Blood Count (test code = 789-8) 3.73 3.6-5.1 [facility] CenterHemoglobin2019-02-24 05:42:00 Test Item Value Reference Range Interpretation Comments Hemoglobin (test code = 00420-0) 11.2 12.0-16.0 L [facility] CenterHematocrit2019-02-24 05:42:00 Test Item Value Reference Range Interpretation Comments Hematocrit (test code = 4544-3) 32.5 34.2-44.1 L [facility] CenterMean Corpuscular Xljofs9330-66-26 05:42:00 Test Item Value Reference Range Interpretation Comments Mean Corpuscular Volume (test code = 87.1 81-99 787-2) [facility] CenterMean Corpuscular Sndrduvvki0192-21-81 05:42:00 Test Item Value Reference Range Interpretation Comments Mean Corpuscular Hemoglobin (test code 30.0 28-32 = 785-6) [facility] CenterMean Corpuscular Hemoglobin Concent 2019-01-12 05:42:00 Test Item Value Reference Range Interpretation Comments Mean Corpuscular Hemoglobin Concent 34.5 31-35 (test code = 786-4) [facility] CenterRed Cell Distribution Fiqen9838-49-85 05:42:00 Test Item Value Reference Range Interpretation Comments Red Cell Distribution Width (test code 13.0 11.7-14.4 = 23552-2) [facility] CenterPlatelet Wbrta4869-65-81 05:42:00 Test Item Value Reference Range Interpretation Comments Platelet Count (test code = 777-3) 233 140-360 [facility] CenterNeutrophils (%) (Auto)2019-01-12 05:42:00 Test Item Value Reference Range Interpretation Comments Neutrophils (%) (Auto) (test code = 39.7 38.7-80.0 84941-0) [facility] CenterLymphocytes (%) (Auto)2019-01-12 05:42:00 Test Item Value Reference Range Interpretation Comments Lymphocytes (%) (Auto) (test code = 50.3 18.0-39.1 H 736-9) [facility] CenterMonocytes (%) (Auto)2019-01-12 05:42:00 Test Item Value Reference Range Interpretation Comments Monocytes (%) (Auto) (test code = 9.1 4.4-11.3 5905-5) [facility] CenterEosinophils (%) (Auto)2019-01-12 05:42:00 Test Item Value Reference Range Interpretation Comments Eosinophils (%) (Auto) (test code = 0.2 0.0-6.0 713-8) [facility] CenterBasophils (%) (Auto)2019-01-12 05:42:00 Test Item Value Reference Range Interpretation Comments Basophils (%) (Auto) (test code = 0.5 0.0-1.0 706-2) [facility] CenterIM GRANULOCYTES %2019-01-12 05:42:00 Test Item Value Reference Range Interpretation Comments IM GRANULOCYTES % (test code = IM 0.2 0.0-1.0 GRANULOCYTES %) [facility] CenterNeutrophils # (Auto)2019-01-12 05:42:00 Test Item Value Reference Range Interpretation Comments Neutrophils # (Auto) (test code = 2.2 2.1-6.9 751-8) [facility] CenterLymphocytes # (Auto)2019-01-12 05:42:00 Test Item Value Reference Range Interpretation Comments Lymphocytes # (Auto) (test code = 2.8 1.0-3.2 92297-7) [facility] CenterMonocytes # (Auto)2019-01-12 05:42:00 Test Item Value Reference Range Interpretation Comments Monocytes # (Auto) (test code = 742-7) 0.5 0.2-0.8 [facility] CenterEosinophils # (Auto)2019-01-12 05:42:00 Test Item Value Reference Range Interpretation Comments Eosinophils # (Auto) (test code = 0.0 0.0-0.4 711-2) [facility] CenterBasophils # (Auto)2019-01-12 05:42:00 Test Item Value Reference Range Interpretation Comments Basophils # (Auto) (test code = 704-7) 0.0 0.0-0.1 [facility] CenterAbsolute Immature Granulocyte (auto 2019-01-12 05:42:00 Test Item Value Reference Range Interpretation Comments Absolute Immature Granulocyte (auto 0.01 0-0.1 (test code = Absolute Immature Granulocyte (auto) [facility] CenterBedside Sdbntkc8037-72-02 19:46:00 Test Item Value Reference Range Interpretation Comments Bedside Glucose (test code = 73813-8) 117 70-120 Meter ID: [id number] Health Arlington Memorial HospitalAnti-Nuclear Antibody Rqvfcj5005-49-42 12:36:00 Test Item Value Reference Range Interpretation Comments Anti-Nuclear Antibody Screen (test Negative . code = 5048-4) Negative <1:80 Borderline 1:80 Positive >1:80Performed at: [facility] [address] [id number] Director: Oli Ghosh MD, Phone: [phone] Memorial Medical CenterC-Reactive Zjssaqx2541-85-58 11:57:00 Test Item Value Reference Range Interpretation Comments C-Reactive Protein (test code = 1988-5) 0.9 0.0-4.9 Performed at: [facility] [address] [id number] Director: Oli Ghosh MD, Phone: [phone] Memorial Medical CenterPhosphorus Rrrte9268-29-31 06:40:00 Test Item Value Reference Range Interpretation Comments Phosphorus Level (test code = KVS8548) 3.7 2.3-4.7 [facility] CenterMagnesium Jcffw8776-99-58 06:40:00 Test Item Value Reference Range Interpretation Comments Magnesium Level (test code = 92878-8) 1.9 1.3-2.1 [facility] CenterUrine LDV1998-40-25 19:42:00 Test Item Value Reference Range Interpretation Comments Urine WBC (test code = 5821-4) NONE 0-5 [facility] CenterUrine PVR2798-78-58 19:42:00 Test Item Value Reference Range Interpretation Comments Urine RBC (test code = 26838-7) >50 0-5 H [facility] CenterUrine Gxkfndea4803-90-08 19:42:00 Test Item Value Reference Range Interpretation Comments Urine Bacteria (test code = 10559-8) PRESENT NONE [facility] CenterUrine Epithelial Hhnzn5282-07-45 19:42:00 Test Item Value Reference Range Interpretation Comments Urine Epithelial Cells (test code = RARE NONE 76087-2) [facility] CenterUrine Pfvsa9159-47-17 19:32:00 Test Item Value Reference Range Interpretation Comments Urine Color (test code = 5778-6) STRAW YELLOW [facility] CenterUrine Uwmbibe6093-17-22 19:32:00 Test Item Value Reference Range Interpretation Comments Urine Clarity (test code = 94368-7) SL CLOUDY CLEAR [facility] CenterUrine Specific Ghqvfgn1964-73-08 19:32:00 Test Item Value Reference Range Interpretation Comments Urine Specific [place] (test code = 1.015 1.010-1.025 5811-5) [facility] CenterUrine gN8392-58-49 19:32:00 Test Item Value Reference Range Interpretation Comments Urine pH (test code = 19138-9) 6 5-7 [facility] Leukocyte Wbgwwzry7290-27-29 19:32:00 Test Item Value Reference Range Interpretation Comments Urine Leukocyte Esterase (test code NEGATIVE NEGATIVE = 5799-2) [facility] Ayrwmfr9997-61-85 19:32:00 Test Item Value Reference Range Interpretation Comments Urine Nitrite (test code = 25984-4) NEGATIVE NEGATIVE [facility] Byilxbm6043-51-10 19:32:00 Test Item Value Reference Range Interpretation Comments Urine Protein (test code = 5804-0) NEGATIVE NEGATIVE [facility] CenterUrine Glucose (UA)2019-01-09 19:32:00 Test Item Value Reference Range Interpretation Comments Urine Glucose (UA) (test code = NEGATIVE NEGATIVE 2349-9) [facility] Uscipuh2159-71-24 19:32:00 Test Item Value Reference Range Interpretation Comments Urine Ketones (test code = 88611-0) 2+ NEGATIVE H [facility] Rjotnosvbemj1657-59-90 19:32:00 Test Item Value Reference Range Interpretation Comments Urine Urobilinogen (test code = 0.2 0.2-1 38894-2) [facility] Nmvkstsmy7191-31-64 19:32:00 Test Item Value Reference Range Interpretation Comments Urine Bilirubin (test code = 1978-6) NEGATIVE NEGATIVE [facility] CenterUrine Bncrf6157-64-13 19:32:00 Test Item Value Reference Range Interpretation Comments Urine Blood (test code = 69403-6) 4+ NEGATIVE H INFORMED THAT PT IS STARTED HER PERIODUnited [facility] Medical Center Vitamin B12 Hdajt6240-31-25 18:39:00 Test Item Value Reference Range Interpretation Comments Vitamin B12 Level (test code = 70605-1) 808 213-816 [facility] CenterErythrocyte Sedimentation Ahgn8717-39-74 18:07:00 Test Item Value Reference Range Interpretation Comments Erythrocyte Sedimentation Rate (test 4 0-20 code = 4537-7) [facility] CenterFerritin2019-02-21 18:06:00 Test Item Value Reference Range Interpretation Comments Ferritin (test code = 2276-4) 29.07 4.63-204.00 [facility] CenterIron Fjcpg7452-70-08 17:46:00 Test Item Value Reference Range Interpretation Comments Iron Level (test code = 2498-4) 40 50-170 L [facility] CenterTotal Iron Binding Svcfiuau9378-91-96 17:46:00 Test Item Value Reference Range Interpretation Comments Total Iron Binding Capacity (test code 333 039-468 = 2500-7) [facility] CenterPercent Iron Qpsjcxdotl7877-28-32 17:46:00 Test Item Value Reference Range Interpretation Comments Percent Iron Saturation (test code = 12 15-50 L 2502-3) [facility] CenterTransferrin2019-02-21 17:46:00 Test Item Value Reference Range Interpretation Comments Transferrin (test code = 3034-6) 238 180-382 [facility] CenterPercent Reticulocyte Funti3120-82-63 17:34:00 Test Item Value Reference Range Interpretation Comments Percent Reticulocyte Count (test code = 2.1 0.8-2.2 47268-0) [facility] CenterHEPTOBILIARY W IAUUF8002-91-00 14:46:00 [facility] [address] [address] Patient Name: JAMES GRIFFIN MR #: [id number] : 1985 Age/Sex: 33/F Req #: [id number] Adm Physician: SARY SINGH MD Ordered by: DWAIN LOVING MD Report #: [id number] Location: MED/SURG3 Room/Bed: [facility] Procedure: [id number] NM/HEPTOBILIARY W PHARM Exam Date: 01/09/19 Exam [...] 01/09/2019 2:47 PM DictatedBy: JEOVANY VELAZQUEZ MD 0460 Transcribed By: TANA on 01/09/19 7845 COPY TO: DWAIN LOVING [facility] MRCP HG6988-75-72 16:52:00 [place] [address] Patient Name: JAMES GRIFFIN MR #: [id number] : 1985 Age/Sex: 33/F Req #: [id number] Adm Physician: SARY SINGH MD Ordered by: SARY SINGH MD Report #: [id number] Location: MED/SURG3 Room/Bed: [facility] Procedure: [id number] MRI/MRI MRCP WO Exam Date: 01/08/19 Exam Time: 1600 REPORT STATUS: Signed MRCP CPT code: 69801 History: Intractable nausea/vomiting, chronic epigastric pain Comparison: [...] 01/08/191700 COPY TO: SARY SINGH MD Urine Sopd0415-32-54 12:32:00 Test Item Value Reference Range Interpretation Comments Urine Test (test code = NEGATIVE NEGATIVE 2106-3) [facility] CenterFolate2019-02-20 06:55:00 Test Item Value Reference Range Interpretation Comments Folate (test code = 2284-8) 18.6 7.0-15.4 H [facility] CenterThyroid Stimulating Hormone (TSH) 2019-01-08 06:33:00 Test Item Value Reference Range Interpretation Comments Thyroid Stimulating Hormone (TSH) (test 0.964 0.350-4.940 code = 38210-6) [facility] CenterTotal Pwndbevla4063-96-67 05:55:00 Test Item Value Reference Range Interpretation Comments Total Bilirubin (test code = 1975-2) 0.5 0.2-1.2 [facility] CenterAspartate Amino Transf (AST/SGOT) 2019-01-08 05:55:00 Test Item Value Reference Range Interpretation Comments Aspartate Amino Transf (AST/SGOT) (test 17 5-34 code = Aspartate Amino Transf (AST/SGOT)) [facility] CenterAlanine Aminotransferase (ALT/SGPT) 2019-01-08 05:55:00 Test Item Value Reference Range Interpretation Comments Alanine Aminotransferase (ALT/SGPT) 16 0-55 (test code = 1742-6) [facility] CenterTotal Dhpkmll1676-48-51 05:55:00 Test Item Value Reference Range Interpretation Comments Total Protein (test code = 2885-2) 5.7 6.5-8.1 L [facility] CenterAlbumin2019-02-20 05:55:00 Test Item Value Reference Range Interpretation Comments Albumin (test code = 1751-7) 4.0 3.5-5.0 [facility] CenterGlobulin2019-02-20 05:55:00 Test Item Value Reference Range Interpretation Comments Globulin (test code = 54591-1) 1.7 2.3-3.5 L [facility] CenterAlbumin/Globulin Cxmjv4997-29-95 05:55:00 Test Item Value Reference Range Interpretation Comments Albumin/Globulin Ratio (test code = 2.4 0.8-2.0 H 1759-0) [facility] CenterAlkaline Rvbfhtgvgsx7102-90-45 05:55:00 Test Item Value Reference Range Interpretation Comments Alkaline Phosphatase (test code = 39 40-150 L 6768-6) [facility] CenterAmylase Dxtja8149-17-16 05:55:00 Test Item Value Reference Range Interpretation Comments Amylase Level (test code = 1798-8) 31 25-125 [facility] CenterLipase2019-02-20 05:55:00 Test Item Value Reference Range Interpretation Comments Lipase (test code = 3040-3) 22 8-78 [facility] CenterABDOMEN ACUTE SERIES W/PA [id number] 01:41:00 [facility] [address] [place] [address] Patient Name: JAMES GRIFFIN MR #: [id number] : 1985 Age/Sex: 33/F Req #: [id number] Adm Physician: Ordered by: RACIEL CALVERT MD Report #: [id number] Location: ER Room/Bed: Procedure: [id number] DX/ABDOMEN ACUTE SERIES W/PA CXR Exam Date: 01/07/19 Exam Time: 47 REPORT STATUS: Signed EXAM: Abdomen 2 Views, chest 1 view INDICATION: abd pain [id number] Y COMPARISON: None FINDINGS: No focal [...] on 01/07/19141 COPY TO: RACIEL CALVERT MDUrine Ndalf9821-80-71 00:18:00 Test Item Value Reference Range Interpretation Comments Urine Mucus (test code = 8247-9) MANY RARE H [facility] CenterUrine Opiates Muszgg3571-16-26 00:09:00 Test Item Value Reference Range Interpretation Comments Urine Opiates Screen (test code = POSITIVE NEGATIVE H 98652-5) ALL TESTS PERFORMED MANUALLY ON [employer] TOX/SEE TEST This test provides only a screen. Positive results should be repeated by a confirmatory test.[facility] CenterUrine Barbiturates Xpgxrq6919-74-01 00:09:00 Test Item Value Reference Range Interpretation Comments Urine Barbiturates Screen (test code NEGATIVE NEGATIVE = 038109304) [facility] CenterUrine Phencyclidine Bchygn6138-03-42 00:09:00 Test Item Value Reference Range Interpretation Comments Urine Phencyclidine Screen (test NEGATIVE NEGATIVE code = 34868-4) [facility] CenterUrine Amphetamines Lhafoo3638-91-15 00:09:00 Test Item Value Reference Range Interpretation Comments Urine Amphetamines Screen (test code NEGATIVE NEGATIVE = 93499-6) [facility] CenterUrine Methamphetamines Otewva3083-09-91 00:09:00 Test Item Value Reference Range Interpretation Comments Urine Methamphetamines Screen (test NEGATIVE NEGATIVE code = Urine Methamphetamines Screen) [facility] CenterUrine Benzodiazepines Ogjqmz1562-56-07 00:09:00 Test Item Value Reference Range Interpretation Comments Urine Benzodiazepines Screen (test NEGATIVE NEGATIVE code = 20839-9) [facility] CenterUrine Cocaine Qhfjsg3480-39-17 00:09:00 Test Item Value Reference Range Interpretation Comments Urine Cocaine Screen (test code = NEGATIVE NEGATIVE 3398-5) [facility] CenterUrine Cannabinoids Mwoodc6174-71-57 00:09:00 Test Item Value Reference Range Interpretation Comments Urine Cannabinoids Screen (test code POSITIVE NEGATIVE H = 99941-0) THESE RESULTS ARE FOR MEDICAL TREATMENT ONLYTHIS REPORT CONTAINS UNCONFIRMED SCREENING RESULTS*POSITIVE RESULTS WILL BE CONFIRMED BY REFERENCE LAB UPON REQUEST CUT-OFFDRUG CLASS CONCENTRATION ng/mLAmphetamines 1000Met hamphetamines 1000Cocaine 300Opiate 300Phencyclidine 25Cannabinoid 50Barbiturates 300Benzodiazepine 300Methadone 300 This test provides only a screen. Positive results should be repeated by a confirmatory test.[facility] CenterUrine Methadone Cxotck1750-34-99 00:09:00 Test Item Value Reference Range Interpretation Comments Urine Methadone Screen (test code = NEGATIVE NEGATIVE 92761-8) THESE RESULTS ARE FOR MEDICAL TREATMENT ONLYTHIS REPORT CONTAINS UNCONFIRMED SCREENING RESULTS*POSITIVE RESULTS WILL BE CONFIRMED BY REFERENCE LAB UPON REQUEST CUT-OFFDRUG CLASS CONCENTRATION ng/mLAmphetamines 1000Met hamphetamines 1000Cocaine Metabolite 300Opiate 300Phencyclidine 25Cannabinoid 50Barbiturates 300Benzodiazepine 300Methadone 300[facility]
[2020-10-31] MEDS ORDERED: ONDANSETRON 4 MG/2 ML VIAL ONE (22:21)
[2020-10-31] MEDS ORDERED: FAMOTIDINE 20 MG/2 ML VIAL IV ONE (22:21)
[2020-10-31] MEDS ORDERED: NA CHLORIDE 0.9% 1,000 ML ONE (22:21)
[2020-10-31] MEDS ORDERED: MORPHINE 4 MG/ML SYR ONE ×2 (22:21→23:10)
[2020-10-31 22:33] LABS: Absolute Lymphocytes (CBC) 1.1 K/uL (0.7-4.9); Basophils % 0.4 % (0-1.3); Hematocrit 39.6 % (36.0-45.0); Lymphocytes % 8.1 % (15.3-44.8); MPV 9.6 fL (7.6-11.3); RBC Red Blood Cell Count 4.44 M/uL (3.86-4.86)
[2020-10-31 22:45] LABS: Albumin 4.6 g/dL (3.4-5.0); Bilirubin Direct 0.1 mg/dL (0-0.2); Bilirubin Total 0.5 mg/dL (0.2-1.0); Potassium 3.5 mmol/L (3.5-5.1); Protein, Total 8.6 g/dL (6.4-8.2)
[2020-10-31 23:21] LABS: Blood Morphology Comment NOT SEEN (NOT SEEN); Platelet Estimate ADEQ
[2020-10-31 23:57] LABS: Barbiturates NEGATIVE (NEGATIVE); Benzodiazepines NEGATIVE (NEGATIVE); Cocaine NEGATIVE (NEGATIVE); METHAMPHETAM NEGATIVE (NEGATIVE); Methadone NEGATIVE (NEGATIVE); Opiates POSITIVE (NEGATIVE); Phencyclidine NEGATIVE (NEGATIVE); THC Cannibis POSITIVE (NEGATIVE)
[2020-11-01 00:04] LABS: Urine Bacteria 20-50 /HPF (<20); Urine Mucus 1+ /HPF (NONE SEEN)
[2020-11-01 00:05] LABS: Urine Blood 1+ (NEG); Urine Glucose TRACE (NEG); Urine Protein 1+ (NEG); Urine Specific Gravity 1.025 (1.005-1.030); Urine pH 6.5 (5.0-7.0)
[2020-11-01] MEDS ORDERED: NA CHLORIDE 0.9% 1,000 ML ONE (00:20)
[2020-11-01] MEDS ORDERED: PROMETHAZINE INJ 25 MG/ML AMP ONE ×2 (00:25→02:14)
[2020-11-01] MEDS ORDERED: HYDROMORPHONE HCL 0.5 MG/0.5 ML INJ ONE ×2 (00:32→02:15)
[2020-11-01] MEDS ORDERED: Levofloxacin500mg IV 500 MG/100 ML BAG IV ONE (00:32)
--- NOTE | 2020-11-01 01:51 | EDPHYS ---
Physician Documentation [facility] Name: Shyanne Pardo Age: 35 yrs Sex: Female : 1985 Arrival Date: 10/31/2020 Time: 21:53 Bed 5 Private MD: ED Physician Triston Wood HPI: 10/31 22:13 This 35 yrs old Female presents to ER via Ambulatory with complaints of mh7 Abdominal Pain, Nausea/Vomiting. 22:13 The patient presents to the emergency department with nausea, that is moderate, mh7 vomiting, that is intermittent, described as clear fluid, abdominal pain, of the abdomen diffusely, described as intermittent, vague,\E\ waxing and waning, and does not radiate. Onset: The symptoms/episode began/occurred 2 day(s) ago. Possible causes: unknown. The symptoms are aggravated by nothing. The symptoms are alleviated by nothing. Associated signs and symptoms: Pertinent positives: abdominal pain, nausea, vomiting, Pertinent negatives: anorexia, belching, constipation, diarrhea, dysuria, fever, flatulence, GI bleeding, hematuria, vaginal discharge. Severity of symptoms: At their worst the symptoms were moderate yesterday, in the emergency department the symptoms are unchanged. The patient has experienced similar episodes in the past, multiple times. 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 - Social history:: Smoking status: Patient denies any tobacco usage or history of. Patient uses street drugs, marijuana. ROS: 22:13 Constitutional: Negative for fever, chills, and weight loss, Eyes: Negative for injury, mh7 pain, redness, and discharge, ENT: Negative for injury, pain, and discharge, Neck: Negative for injury, pain, and swelling, Cardiovascular: Negative for chest pain, palpitations, and edema, Respiratory: Negative for shortness of breath, cough, wheezing, and pleuritic chest pain, Back: Negative for injury and pain, : Negative for injury, bleeding, discharge, and swelling, MS/Extremity: Negative for injury and deformity, Skin: Negative for injury, rash, and discoloration, Neuro: Negative for headache, weakness, numbness, tingling, and seizure, Psych: Negative for depression, anxiety, suicide ideation, homicidal ideation, and hallucinations, Allergy/Immunology: Negative for hives, rash, and allergies, Endocrine: Negative for neck swelling, polydipsia, polyuria, polyphagia, and marked weight changes, Hematologic/Lymphatic: Negative for swollen nodes, abnormal bleeding, and unusual bruising. Exam: 22:13 Head/Face: Normocephalic, atraumatic. Eyes: Pupils equal round and reactive to light, mh7 extra-ocular motions intact. Lids and lashes normal. Conjunctiva and sclera are non-icteric and not injected. Cornea within normal limits. Periorbital areas with no swelling, redness, or edema. Neck: Trachea midline, no thyromegaly or masses palpated, and no cervical lymphadenopathy. Supple, full range of motion without nuchal rigidity, or vertebral point tenderness. No Meningismus. Chest/axilla: Normal chest wall appearance and motion. Nontender with no deformity. No lesions are appreciated. Cardiovascular: Regular rate and rhythm with a normal S1 and S2. No gallops, murmurs, or rubs. Normal PMI, no JVD. No pulse deficits. Respiratory: Lungs have equal breath sounds bilaterally, clear to auscultation and percussion. No rales, rhonchi or wheezes noted. No increased work of breathing, no retractions or nasal flaring. 22:13 Back: No spinal tenderness. No costovertebral tenderness. Full range of motion. Skin: Warm, dry with normal turgor. Normal color with no rashes, no lesions, and no evidence of cellulitis. MS/ Extremity: Pulses equal, no cyanosis. Neurovascular intact. Full, normal range of motion. Neuro: Awake and alert, GCS 15, oriented to person, place, time, and situation. Cranial nerves II-XII grossly intact. Motor strength 5/5 in all extremities. Sensory grossly intact. Cerebellar exam normal. Normal gait. Psych: Awake, alert, with orientation to person, place and time. Behavior, mood, and affect are within normal limits. 22:13 Constitutional: The patient appears in no acute distress, alert, awake, uncomfortable. 22:13 Abdomen/GI: Inspection: abdomen appears normal, Bowel sounds: normal, in all quadrants, Palpation: moderate abdominal tenderness, in all quadrants, Rectal exam: the exam is deferred, because of patient request, Indicators: McBurney's point is not tender, Palmer's sign is negative, Rovsing's sign is negative, Obturator sign is negative, Psoas sign is negative, Liver: no appreciated palpable abnormalities, Hernia: not appreciated. Vital Signs: 22:00 BP 133 / 57; Pulse 80; Resp 17 S; Temp 97.9(TE); Pulse Ox 99% on R/A; Weight 63.5 kg ca1 (R); Height 5 ft. 8 in. (172.72 cm) (R); Pain 10/10; 22:44 BP 161 / 72; Pulse 78; Resp 20; Pulse Ox 100% ; ea 11/01 03:19 BP 130 / 87; Pulse 89; Resp 19; Pulse Ox 99% ; ea 10/31 22:00 Body Mass Index 21.29 (63.50 kg, 172.72 cm) ca1 MDM: 01:48 Differential diagnosis: Nonspecific abd pain, gastritis, pancreatitis, appendicitis, mh7 diverticulitis. Data reviewed: vital signs, nurses notes, old medical records, lab test result(s), CBC, electrolytes, urinalysis, urine drug screen, UPT: EKG, radiologic studies, CT scan. Data interpreted: Pulse oximetry: on room air is 100 %. Interpretation: normal. Counseling: I had a detailed discussion with the patient and/or guardian regarding: the historical points, exam findings, and any diagnostic results supporting the discharge/admit diagnosis, the presence of at least one elevated blood pressure reading (>120/80) during this emergency department visit, lab results, radiology results, the need for further work-up and treatment in the hospital. Response to treatment: the patient's symptoms have mildly improved after treatment. 01:50 Patient medically screened. [facility] 10/31 22:02 Order name: Basic Metabolic Panel; Complete Time: 22:49 10/31 22:02 Order name: CBC with Diff; Complete Time: 23:23 10/31 22:02 Order name: Hepatic Function; Complete Time: 22:49 10/31 22:02 Order name: Lipase; Complete Time: 22:49 10/31 22:12 Order name: UDS; Complete Time: 00:08 [facility] 10/31 22:36 Order name: Manual Differential; Complete Time: 23:23 [facility] 10/31 22:24 Order name: CT Abd/Pelvis - IV Contrast Only [facility] 10/31 23:29 Order name: Urine --Ancillary (enter results); Complete Time: 00:08 [facility] 10/31 23:29 Order name: Urine Dipstick--Ancillary (enter results); Complete Time: 00:08 [facility] 10/31 23:33 Order name: Urine Microscopic Only; Complete Time: 00:08 11/01 00:16 Order name: Urine Culture [facility] 11/01 01:38 Order name: Lactate [facility] 10/31 22:02 Order name: IV Saline Lock; Complete Time: 22:12 10/31 22:02 Order name: Labs collected and sent; Complete Time: 22:12 10/31 22:12 Order name: EKG - Nurse/Tech; Complete Time: 22:32 [facility] 10/31 22:12 Order name: Urine Dipstick-Ancillary (obtain specimen); Complete Time: 23:16 [facility] 10/31 22:12 Order name: Urine Test (obtain specimen); Complete Time: 23:16 [facility] Administered Medications: 10/31 22:10 Drug: Zofran (Ondansetron) 4 mg Route: IVP; Site: right antecubital; ea 23:17 Follow up: Response: No adverse reaction 22:13 Drug: morphine 4 mg {Note: rass 1.} Route: IVP; Site: right antecubital; ea 23:16 Follow up: Response: No adverse reaction; Pain is unchanged, physician notified ea 22:13 Drug: Pepcid 20 mg Route: IVP; Site: right antecubital; ea 23:17 Follow up: Response: No adverse reaction 22:13 Drug: NS 0.9% 1000 ml Route: IV; Rate: 1000 ml; Site: right antecubital; ea 23:30 Follow up: Response: No adverse reaction; IV Status: Completed infusion; IV Intake: ea 1000ml 22:57 Drug: morphine 4 mg {Note: rass 1.} Route: IVP; Site: right antecubital; ea 11/01 00:23 Follow up: Response: No adverse reaction; Pain is unchanged, physician notified ea 00:13 Drug: NS 0.9% 1000 ml Route: IV; Rate: 1000 ml; Site: right antecubital; ea 01:00 Follow up: Response: No adverse reaction; IV Status: Completed infusion; IV Intake: ea 1000ml 00:13 Drug: Phenergan 12.5 mg Route: IVP; Site: right antecubital; ea 00:36 Follow up: Response: No adverse reaction ea 00:20 Drug: Dilaudid 0.5 mg {Note: rass 0.} Route: IVP; Site: right antecubital; ea 00:37 Follow up: Response: No adverse reaction; Pain is decreased; RASS: Alert and Calm (0) ea 00:23 Drug: LevaQUIN 500 mg Volume: 100 ml; Route: IVPB; Infused Over: 60 mins; Site: right ea antecubital; 01:24 Follow up: Response: No adverse reaction; IV Status: Completed infusion ea 02:03 Drug: Phenergan 12.5 mg Route: IVP; Site: right antecubital; ea 02:36 Follow up: Response: No adverse reaction ea 02:04 Drug: Dilaudid 0.5 mg {Note: rass 1.} Route: IVP; Site: right antecubital; ea 02:36 Follow up: Response: No adverse reaction; RASS: Restless (+1) ea Disposition: 11/01/20 01:50 Hospitalization ordered by Diony Villarreal for Observation. Preliminary diagnosis are Abdominal Pain, Vomiting, UTI, Dehydration. - Bed requested for Telemetry/MedSurg (observation). - Status is Observation. ea - Condition is Stable. - Problem is an acute exacerbation. - Symptoms have improved. Signatures: Dispatcher [employer] Mechelle Khan RN RN cg Antunez, Elena, RN RN ea Acob, Cheryl, RN RN ca1 Holmes, Maurice, MD MD mh7 Corrections: (The following items were deleted from the chart) 03:17 01:50 Hospitalization Ordered by Diony Villarreal MD for Observation. Preliminary cg diagnosis is Abdominal Pain; Vomiting; UTI; Dehydration. Bed requested for Telemetry/MedSurg (observation). Status is Observation. Condition is Stable. Problem is an acute exacerbation. Symptoms have improved. mh7 03:42 03:17 11/01/2020 01:50 Hospitalization Ordered by Diony Villarreal MD for Observation. ea Preliminary diagnosis is Abdominal Pain; Vomiting; UTI; Dehydration. Bed requested for Telemetry/MedSurg (observation). Status is Observation. Condition is Stable. Problem is an acute exacerbation. Symptoms have improved. cg
--- NOTE | 2020-11-01 01:51 | ER ---
Nurse's Notes [facility] Name: Shyanne Pardo Age: 35 yrs Sex: Female : 1985 Arrival Date: 10/31/2020 Time: 21:53 Bed 5 Private MD: Diagnosis: Abdominal Pain;Vomiting;UTI;Dehydration Presentation: 10/31 22:00 Chief complaint: Patient states: Lower abdominal pain, N/V started at 1300 today. ca1 Coronavirus screen: Client denies travel out of the [place] in the last 14 days. nausea, vomiting. Client presents with at least one sign or symptom that may indicate coronavirus-19. Standard/surgical mask placed on the client. Provider contacted for isolation considerations. Ebola Screen: Patient negative for fever greater than or equal to 101.5 degrees Fahrenheit, and additional compatible Ebola Virus Disease symptoms Patient denies exposure to infectious person. Patient denies travel to an Ebola-affected area in the 21 days before illness onset. No symptoms or risks identified at this time. Initial Sepsis Screen: Does the patient meet any 2 criteria? No. Patient's initial sepsis screen is negative. Does the patient have a suspected source of infection? No. Patient's initial sepsis screen is negative. Risk Assessment: Do you want to hurt yourself or someone else? Patient reports no desire to harm self or others. Onset of symptoms was October 31, 2020 at 13:00. 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 - Social history:: Smoking status: Patient denies any tobacco usage or history of. Patient uses street drugs, marijuana. Screenin:03 Abuse screen: Denies threats or abuse. Nutritional screening: No deficits noted. ea Tuberculosis screening: No symptoms or risk factors identified. Fall Risk IV access (20 points). Assessment: 22:03 General: Appears uncomfortable, Behavior is crying, restless. Pain: Complains of pain ea in right lower quadrant. Neuro: Level of Consciousness is awake, alert, obeys commands, Oriented to person, place, time, situation. Respiratory: Airway is patent Respiratory effort is even, unlabored, Respiratory pattern is regular, symmetrical. GI: Abdomen is non-distended, Abdomen is tender to palpation in right lower quadrant. GI: Reports nausea, vomiting. Derm: Skin is pink, warm \T\ dry. 23:15 Reassessment: Patient and/or family updated on plan of care and expected duration. Pain ea level reassessed. Patient is alert, oriented x 3, equal unlabored respirations, skin warm/dry/pink. 23:44 Reassessment: Patient and/or family updated on plan of care and expected duration. Pain ea level reassessed. Patient is alert, oriented x 3, equal unlabored respirations, skin warm/dry/pink. Returned form CT. 11/01 00:30 Reassessment: Patient and/or family updated on plan of care and expected duration. Pain ea level reassessed. Patient is alert, oriented x 3, equal unlabored respirations, skin warm/dry/pink. 02:15 Reassessment: Patient and/or family updated on plan of care and expected duration. Pain ea level reassessed. Patient is alert, oriented x 3, equal unlabored respirations, skin warm/dry/pink. Hospitalist at bedside updating pt on plan of care. 03:19 Reassessment: Patient and/or family updated on plan of care and expected duration. Pain ea level reassessed. Patient is alert, oriented x 3, equal unlabored respirations, skin warm/dry/pink. 03:41 Reassessment: Patient and/or family updated on plan of care and expected duration. Pain ea level reassessed. Pt admitted to second floor, pt left ED vias stretcher per tech. Pt tolerating well. Vital Signs: 10/31 22:00 BP 133 / 57; Pulse 80; Resp 17 S; Temp 97.9(TE); Pulse Ox 99% on R/A; Weight 63.5 kg ca1 (R); Height 5 ft. 8 in. (172.72 cm) (R); Pain 10/10; 22:44 BP 161 / 72; Pulse 78; Resp 20; Pulse Ox 100% ; ea 11/01 03:19 BP 130 / 87; Pulse 89; Resp 19; Pulse Ox 99% ; ea 10/31 22:00 Body Mass Index 21.29 (63.50 kg, 172.72 cm) ca1 ED Course: 10/31 21:53 Patient arrived in ED. bp1 21:54 Triston Wood MD is Attending Physician. mh7 22:01 Triage completed. ca1 22:02 Arm band placed on right wrist. ca1 22:03 Patient has correct armband on for positive identification. Bed in low position. Call ea light in reach. Side rails up X2. 22:03 Inserted saline lock: 20 gauge in right antecubital area, using aseptic technique. ea Blood collected. 22:12 Regla Jaeger, ESTER is Primary Nurse. ea 23:44 CT Abd/Pelvis - IV Contrast Only In Process Unspecified. EDMS 11/01 01:49 Diony Villarreal MD is Hospitalizing Provider. [facility] 02:34 No provider procedures requiring assistance completed. Patient admitted, IV remains in ea place. Administered Medications: 10/31 22:10 Drug: Zofran (Ondansetron) 4 mg Route: IVP; Site: right antecubital; ea 23:17 Follow up: Response: No adverse reaction ea 22:13 Drug: morphine 4 mg {Note: rass 1.} Route: IVP; Site: right antecubital; ea 23:16 Follow up: Response: No adverse reaction; Pain is unchanged, physician notified ea 22:13 Drug: Pepcid 20 mg Route: IVP; Site: right antecubital; ea 23:17 Follow up: Response: No adverse reaction ea 22:13 Drug: NS 0.9% 1000 ml Route: IV; Rate: 1000 ml; Site: right antecubital; ea 23:30 Follow up: Response: No adverse reaction; IV Status: Completed infusion; IV Intake: ea 1000ml 22:57 Drug: morphine 4 mg {Note: rass 1.} Route: IVP; Site: right antecubital; ea 11/01 00:23 Follow up: Response: No adverse reaction; Pain is unchanged, physician notified ea 00:13 Drug: NS 0.9% 1000 ml Route: IV; Rate: 1000 ml; Site: right antecubital; ea 01:00 Follow up: Response: No adverse reaction; IV Status: Completed infusion; IV Intake: ea 1000ml 00:13 Drug: Phenergan 12.5 mg Route: IVP; Site: right antecubital; ea 00:36 Follow up: Response: No adverse reaction ea 00:20 Drug: Dilaudid 0.5 mg {Note: rass 0.} Route: IVP; Site: right antecubital; ea 00:37 Follow up: Response: No adverse reaction; Pain is decreased; RASS: Alert and Calm (0) ea 00:23 Drug: LevaQUIN 500 mg Volume: 100 ml; Route: IVPB; Infused Over: 60 mins; Site: right ea antecubital; 01:24 Follow up: Response: No adverse reaction; IV Status: Completed infusion ea 02:03 Drug: Phenergan 12.5 mg Route: IVP; Site: right antecubital; ea 02:36 Follow up: Response: No adverse reaction ea 02:04 Drug: Dilaudid 0.5 mg {Note: rass 1.} Route: IVP; Site: right antecubital; ea 02:36 Follow up: Response: No adverse reaction; RASS: Restless (+1) ea Intake: 10/31 23:30 IV: 1000ml; Total: 1000ml. ea 11/01 01:00 IV: 1000ml; Total: 2000ml. ea Outcome: 01:50 Decision to Hospitalize by Provider. [facility] 02:34 Instructed on the need for admit, Demonstrated understanding of instructions. ea 03:41 Admitted to Med/surg accompanied by tech, via stretcher, room 204, Report called to Receiving nurse on second floor 03:41 Condition: stable 03:42 Patient left the ED. ea Addendum: 11/03/2020 16:45 Addendum: COVID-19 Result: Negative result given to RN to notify pt. Notified pt of a a5 negative COVID 19 swab results. Pt advised that even with a negative test result they should remain in isolation until symptom free for 3 days without medication. Pt also advised to return to the ED for worsening symptoms. Signatures: Dispatcher [facility] EDNV Radha Vergara RN RN [id number] Regla Jaeger RN RN ea Acob, Cheryl, RN RN ca1 [place]ia[place], Brittany bp1 Holmes, Maurice, MD MD mh7 Corrections: (The following items were deleted from the chart) 11/01 00:37 00:36 Response: No adverse reaction; Pain is decreased ea ea
[2020-11-01] MEDS ORDERED: PROMETHAZINE INJ 25 MG/ML AMP IV PRN (03:34)
[2020-11-01] MEDS ORDERED: ACETAMINOPHEN 500 MG TAB PO PRN (03:34)
[2020-11-01] MEDS ORDERED: ONDANSETRON 4 MG/2 ML VIAL IV PRN (03:34)
[2020-11-01] MEDS ORDERED: MORPHINE 2 MG/ML SYR IV PRN (03:34)
[2020-11-01] MEDS ORDERED: NA CHLORIDE 0.9% 1,000 ML IV SCH (03:34)
--- NOTE | 2020-11-01 03:59 | P.HP ---
Certification for Inpatient Patient admitted to: Observation With expected LOS: <2 Midnights Patient will require the following post-hospital care: None Practitioner: I am a practitioner with admitting privileges, knowledge of patient current condition, hospital course, and medical plan of care. Services: Services provided to patient in accordance with Admission requirements found in Title 42 Section 412.3 of the Code of Federal Regulations <[email or web address] diaz - Last Filed: 11/01/20 03:55> Patient History Date of Service: 11/01/20 Primary Care Provider: Dr. Singh Reason for admission: Intractable vomiting History of Present Illness: 35-year-old female with history of colitis presents emergency department for abdominal pain, nausea, vomiting. Patient reports that she has been having these symptoms over the course of the last couple days but the pain became much worse during the day today. Patient required 4 rounds of opioid pain medications in 3 separate nausea medications and still could not pass p.o. challenge. Patient still having some abdominal pain. Workup in the emergency department revealed mildly elevated white blood cell count 13.4 with left shift urine micro shows 20-50 bacteria with no squamous cells positive for ketones and blood. Patient positive for opiates which were administered in the ED prior to urine specimen collection and THC was patient admits to using on a daily basis. Patient test is negative. CT abdomen pelvis with IV contrast performed which was negative for any acute findings. Since patient is unable to tolerate even clear liquids p.o. at this time ED provider wishes to admit patient for observation. When I saw the patient in the ER she was very drowsy after receiving multiple rounds of narcotic pain medication and IV Phenergan, pain was under control at time of evaluation but she is still unable to tolerate clear liquids just prior to my arrival. Patient with some very mild tenderness in the periumbilical region. No CVA tenderness noted, could be cannabis hyperemesis. - Past Medical/Surgical History Diabetic: No -: HPV -: Tubal ligation -: tonsillectomy -: adenoids removal -: Cholecystectomy Psychosocial/ Personal History: Patient lives with her significant other - Family History Mother -: Hypertension, GI disease Father -: Hypertension - Social History Smoking Status: Current every day smoker Alcohol use: Yes CD- Drugs: Yes Caffeine use: No Place of Residence: Home <Huber Quiroz - Last Filed: 11/01/20 03:55> Date of Service: 11/01/20 <Diony Villarreal - Last Filed: 11/03/20 13:13> Allergies azithromycin [From Zithromax] Adverse Reaction (Verified 11/01/20 03:56) Itching/Hives/Rash Cephalosporins Adverse Reaction (Verified 11/01/20 03:56) Itching/Hives/Rash erythromycin base Adverse Reaction (Verified 11/01/20 03:56) Itching/Hives/Rash Penicillins Adverse Reaction (Verified 11/01/20 03:56) Anaphylaxis Sulfa (Sulfonamide Antibiotics) Adverse Reaction (Verified 11/01/20 03:56) Itching/Hives/Rash Home Medications: Ondansetron [Zofran] 4 mg PO Q6H PRN #15 tab 11/01/20 Promethazine HCl 12.5 mg PO Q6H PRN 11/01/20 levoFLOXacin [Levaquin] 750 mg PO DAILY 6 Days #6 tab 11/01/20 Review of Systems 10-point ROS is otherwise unremarkable Gastrointestinal: Nausea, Vomiting, Abdominal Pain Genitourinary: Dysuria <Huber Quiroz - Last Filed: 11/01/20 03:55> Physical Examination - Physical Exam General: Alert, In no apparent distress HEENT: Atraumatic, PERRLA, Other (Mucous membranes dry) Neck: Supple, 2+ carotid pulse no bruit, No LAD, Without JVD or thyroid a bnormality Respiratory: Clear to auscultation bilaterally, Normal air movement Cardiovascular: Normal S1 S2, Irregular heart rate/rhythm (The mildly t achycardic 105) Capillary refill: <2 Seconds Gastrointestinal: Normal bowel sounds, No tenderness Musculoskeletal: No tenderness Integumentary: No rashes Neurological: Normal speech, Normal strength at 5/5 x4 extr, Normal tone, Normal affect Lymphatics: No axilla or inguinal lymphadenopathy - Studies Laboratory Data (last 24 hrs) 10/31/20 22:07: WBC 13.4 H, Hgb 13.4, Hct 39.6, Plt Count 332 10/31/20 22:07: Sodium 139, Potassium 3.5, BUN 15, Creatinine 1.06, Glucose 194 H, Total Bilirubin 0.5, AST 13 L, ALT 21, Alkaline Phosphatase 96, Lipase 70 L <Huber Quiroz - Last Filed: 11/01/20 03:55> - Studies Microbiology Data (last 24 hrs): 10/31/20 23:15 Clean Catch Urine [place] Count - Final >100,000 CFU/ML. 10/31/20 23:15 Clean Catch Urine - Final Staphylococcus Saprophyticus <Diony Villarreal - Last Filed: 11/03/20 13:13> Assessment and Plan - Plan Assessment Dehydration secondary to intractable vomiting suspect cannabinoid hyperemesis syndrome Intractable abdominal pain Urinary tract infection Plan Dehydration secondary to intractable vomiting suspect cannabinoid hyperemesis syndrome: NPO at this time, continue with aggressive IV hydration. P.r.n. pain and nausea medications. If patient is feeling better around lunchtime will increase to full liquids. No acute findings on CT. Can likely be discharged this afternoon or evening. DVT prophylaxis Lovenox 40 mg subcutaneous once daily. Intractable abdominal pain: NPO, advance diet as tolerated. Pain and nausea medications p.r.n.. Urinary tract infection: Patient with many antibiotic allergies, okay to take Levaquin. Continue with Levaquin at this time. Discharge Plan: Home Plan to discharge in: 24 Hours - Advance Directives Does patient have a Living Will: No Does patient have a Durable POA for Healthcare: No - Code Status/Comfort Care Code Status Assessed: Yes (Full code) Critical Care: No Time Spent Managing Pts Care (In Minutes): 55 <Huber Quiroz - Last Filed: 11/01/20 03:55> - Plan Plan of care reviewed and agree as noted above by Huber Quiroz. Symptoms likely secondary to UTI. ADAT. Does not appear septic. <Diony Villarreal - Last Filed: 11/03/20 13:13>
[2020-11-01 04:01] VITALS: BMI 20.2
[2020-11-01 04:13] VITALS: O2SAT 99
[2020-11-01 05:57] LABS: ALT/SGPT 19 U/L (12-78); AST/SGOT 14 U/L (15-37); Albumin 3.5 g/dL (3.4-5.0); Alkaline Phosphatase 74 U/L (45-117); BUN Blood Urea Nitrogen 10 mg/dL (7-18); Bicarbonate 26 mmol/L (21-32); Bilirubin Total 0.4 mg/dL (0.2-1.0); Glucose Level 121 mg/dL (74-106); Magnesium 1.8 mg/dL (1.8-2.4); Potassium 3.8 mmol/L (3.5-5.1); Protein, Total 6.6 g/dL (6.4-8.2); Sodium Level 142 mmol/L (136-145)
[2020-11-01] MEDS ORDERED: MAGNESIUM SULFATE 1 gm IVPB 1 GM/100 ML BAG IV ONE (06:25)
[2020-11-01 06:42] LABS: Absolute Lymphocytes (CBC) 0.9 K/uL (0.7-4.9); Basophils % 0.2 % (0-1.3); Hematocrit 32.7 % (36.0-45.0); Lymphocytes % 8.3 % (15.3-44.8); MPV 9.1 fL (7.6-11.3); RBC Red Blood Cell Count 3.67 M/uL (3.86-4.86)
[2020-11-01 07:44] LABS: Blood Morphology Comment NOT SEEN (NOT SEEN); Platelet Estimate ADEQ; White Blood Cell Scan OK (OK)
[2020-11-01] MEDS ORDERED: ENOXAPARIN 40 MG/0.4 ML SQ SCH (09:00)
[2020-11-01] MEDS ORDERED: KCL 20 MEQ/100 mL IVPB 20 MEQ/100 ML BAG IV SCH (09:00)
[2020-11-01 09:58] VITALS: BP 101/57; TEMP 99.2
[2020-11-01] MEDS ORDERED: Levofloxacin500mg IV 500 MG/100 ML BAG IV SCH (19:00)
--- NOTE | 2020-11-02 10:11 | RAD REPORT ---
EXAM DESCRIPTION: CT - Abdomen Pelvis W Contrast - 11/01/2020 4:09 am CLINICAL HISTORY: 35 years Female Vomiting; Abd pain TECHNIQUE: Contiguous axial images obtained through the abdomen and pelvis following intravenous con trast administration. Coronal and sagittal reformatted images provided. This CT exam was performed according to our departmental dose-optimization program, which includes on e or more of the following dose reduction techniques: automated exposure control, adjustment of the m A and/or kV according to patient size, and/or use of iterative reconstruction technique. COMPARISON: 05/26/2020 FINDINGS: Prior cholecystectomy likely accounts for mild stable intrahepatic biliary prominence. No biliary stone. The lung bases, liver, pancreas, spleen, adrenal glands, kidneys, uterus, ovaries urinary bladder, an d osseous structures are normal. Trace free fluid in the cul-de-sac is physiologic in appearance. There is no bowel inflammation, obstruction, free intraperitoneal air, or abdominal ascites. Normal a ppendix. IMPRESSION: No acute abdominal or pelvic abnormalities. Electronically signed by: Jen Dixon MD 10/31/2020 11:54 PM ACQUISITIONS EDITOR Due to temporary technical issues with the PACS/Fluency reporting system, reports are being signed by the in house radiologist without review as a courtesy to ensure prompt reporting. The interpreting r adiologist is fully responsible for the content of the report.
== END 2020-11-01 11:56 | disposition home or self-care (01) | DRG 392 ==
LOC: ER 21:52 → ERHOLD 11-01 02:29 → 2ND 11-01 03:32 → OBSVTOIN 11-01 08:03
PROVIDERS: ADMIT Hospitalist; ATTEND Hospitalist
DX: R11.2 Nausea with vomiting, unspecified (principal); N39.0 Urinary tract infection, site not specified; E86.0 Dehydration; F17.200 Nicotine dependence, unspecified, uncomplicated; R10.9 Unspecified abdominal pain; Z88.1 Allergy status to other antibiotic agents; Z88.0 Allergy status to penicillin; Z88.5 Allergy status to narcotic agent; Z90.49 Acquired absence of other specified parts of digestive tract; Z79.899 Other long term (current) drug therapy; Z98.51 Tubal ligation status; Z20.828 Contact with and (suspected) exposure to other viral communicable diseases
CPT/HCPCS: 36415; 74177; 80048; 80053; 80076; 80307; 81003; 81015; 81025; 83605; 83690; 83735; 85025; 87077; 87086; 87088; 87186; 93005; 96361; 96365; 96375; 99285; J1170; J1650; J2405; J2550; J3475; J3480; J7030; Q9967; U0002

== ENCOUNTER 2020-11-02 08:06 | Emergency (ER) | payer OTHER, SELFPAY ==
--- OUTSIDE RECORDS SUMMARY | 2020-11-02 08:09 | XMS REPORT | Continuity of Care Document ---
:1985 Author Organization [facility] t Address [address] [place] [place] [address] Care Team Providers Name Role Phone NONSTAFF Primary Care Physician Unavailable Loan CUEVAS, L Attending Clinician Moustapha Myers MD Attending Clinician SINGH Attending Clinician Unavailable SINGH Admitting Clinician Unavailable Payers Payer Name Policy Type Policy Number Effective Date Expiration Date S rex [facility] [id number] [facility] Problems Condition Condition Condition Status Onset Resolution Last Treating Co mments Source Name Details Category Date Date Treatment Clinician Date Chronic Chronic Problem [facility] Gastritis Gastritis Problem [facility] Intractabl Intractabl Problem Active C [...] Performed Clinician Laparoscopic cholecystectomy 2019-01-10 YURIY MYERS [facility] Center Magnetic resonance 2019-01-08 SRAY SINGH [facility] - cholangiopancreatography (MRCP) 00:00:00 Patients Medical without contrast Center Colonoscopy with biopsy 2019-01-07 DWAIN LOVING [facility] Patients Medical Center EGD with biopsy 2019-01-[address] [facility] - 00:00:00 Patients [facility] Encounters Start End Encounter Admission Attending Care Care Encounter Source Date/Time Date/Time Type Type Clinicians Facility Department ID 2020-08-19 2020-08-19 Telephone Loan, [facility] [id number] 00:00:00 00:00:00 Kenyetta Dorsey Shag[place] [id number] [place] [id number] Professio [phone] nal 134 [facility] 2020-08-18 2020-08-18 Telephone Michelle Myers [facility] [id number] 00:00:00 00:00:00 Moustapha Coon [id number] [place] [id number] Professio [phone] nal 134 [facility] 2019-01-08 2019-01-12 Discharged 1 SARY SINGH [facility] [id number] [facility] 08:41:00 13:44:[address] [place] [address] Results Test Description Test Time Test Comments Results Result Comments Source Sodium Level 2019-01-12 06:14:00 Test Item Value Reference Range Interpretation Comme nts Sodium Level (test code = 2951-2) 140 136-145 [facility] Knqrc5438-93-84 06:14:00 Test Item Value Reference Range Interpretation Comments Potassium Level (test code = 2823-3) 3.2 3.5-5.1 L [facility] CenterChloride Bzvre1974-33-54 06:14:00 Test Item Value Reference Range Interpretation Comments Chloride Level (test code = 2075-0) 104 98-107 [facility] CenterCarbon Dioxide Ydryh2830-62-30 06:14:00 Test Item Value Reference Range Interpretation Comments Carbon Dioxide Level (test code = 28 22-29 2027-9) [facility] CenterAnion Wkw8646-03-28 06:14:00 Test Item Value Reference Range Interpretation Comments Anion Gap (test code = 20746-4) 11.2 8-16 [facility] CenterBlood Urea Wikpebbz3427-20-34 06:14:00 Test Item Value Reference Range Interpretation Comments Blood Urea Nitrogen (test code = < 5 7-26 L 3094-0) [facility] CenterCreatinine2019-02-24 06:14:00 Test Item Value Reference Range Interpretation Comments Creatinine (test code = 2160-0) 0.67 0.57-1.11 [facility] CenterBUN/Creatinine Ewfet9364-43-62 06:14:00 Test Item Value Reference Range Interpretation Comments BUN/Creatinine Ratio (test code = 7 6-25 3097-3) [facility] CenterEstimat Glomerular Filtration Rate 2019-01-12 06:14:00 Test Item Value Reference Range Interpretation Comments Estimat Glomerular Filtration Rate > 60 >60 (test code = 622453520) Ranges were taken from the National Kidney Disease Education Program and the National Kidney Foundation literature.Reference ranges:60 or greater: Bmdpaw94- 59 (for 3 consecutive months): Chronic kidneydisease 15 or less: Kidney failure [facility] CenterGlucose Uixsv4313-29-12 06:14:00 Test Item Value Reference Range Interpretation Comments Glucose Level (test code = RVC1832) 129 74-118 H [facility] CenterCalcium Piqri0638-08-29 06:14:00 Test Item Value Reference Range Interpretation Comments Calcium Level (test code = 69849-2) 8.8 8.4-10.2 [facility] CenterWhite Blood Lywpp4026-70-26 05:42:00 Test Item Value Reference Range Interpretation Comments White Blood Count (test code = 6690-2) 5.63 4.8-10.8 [facility] CenterRed Blood Bgdyn1309-32-25 05:42:00 Test Item Value Reference Range Interpretation Comments Red Blood Count (test code = 789-8) 3.73 3.6-5.1 [facility] CenterHemoglobin2019-02-24 05:42:00 Test Item Value Reference Range Interpretation Comments Hemoglobin (test code = 22505-1) 11.2 12.0-16.0 L [facility] CenterHematocrit2019-02-24 05:42:00 Test Item Value Reference Range Interpretation Comments Hematocrit (test code = 4544-3) 32.5 34.2-44.1 L [facility] CenterMean Corpuscular Edinln2591-33-16 05:42:00 Test Item Value Reference Range Interpretation Comments Mean Corpuscular Volume (test code = 87.1 81-99 787-2) [facility] CenterMean Corpuscular Imebsqinru1471-32-28 05:42:00 Test Item Value Reference Range Interpretation Comments Mean Corpuscular Hemoglobin (test code 30.0 28-32 = 785-6) [facility] CenterMean Corpuscular Hemoglobin Concent 2019-01-12 05:42:00 Test Item Value Reference Range Interpretation Comments Mean Corpuscular Hemoglobin Concent 34.5 31-35 (test code = 786-4) [facility] CenterRed Cell Distribution Mvdjw0914-27-13 05:42:00 Test Item Value Reference Range Interpretation Comments Red Cell Distribution Width (test code 13.0 11.7-14.4 = 29535-4) [facility] CenterPlatelet Wztss7118-61-88 05:42:00 Test Item Value Reference Range Interpretation Comments Platelet Count (test code = 777-3) 233 140-360 [facility] CenterNeutrophils (%) (Auto)2019-01-12 05:42:00 Test Item Value Reference Range Interpretation Comments Neutrophils (%) (Auto) (test code = 39.7 38.7-80.0 08120-4) [facility] CenterLymphocytes (%) (Auto)2019-01-12 05:42:00 Test Item Value Reference Range Interpretation Comments Lymphocytes (%) (Auto) (test code = 50.3 18.0-39.1 H 736-9) [facility] CenterMonocytes (%) (Auto)2019-01-12 05:42:00 Test Item Value Reference Range Interpretation Comments Monocytes (%) (Auto) (test code = 9.1 4.4-11.3 5905-5) [facility] CenterEosinophils (%) (Auto)2019-01-12 05:42:00 Test Item Value Reference Range Interpretation Comments Eosinophils (%) (Auto) (test code = 0.2 0.0-6.0 713-8) [facility] CenterBasophils (%) (Auto)2019-01-12 05:42:00 Test Item Value Reference Range Interpretation Comments Basophils (%) (Auto) (test code = 0.5 0.0-1.0 706-2) [facility] CenterIM GRANULOCYTES %2019-01-12 05:42:00 Test Item Value Reference Range Interpretation Comments IM GRANULOCYTES % (test code = IM 0.2 0.0-1.0 GRANULOCYTES %) [facility] CenterNeutrophils # (Auto)2019-01-12 05:42:00 Test Item Value Reference Range Interpretation Comments Neutrophils # (Auto) (test code = 2.2 2.1-6.9 751-8) [facility] CenterLymphocytes # (Auto)2019-01-12 05:42:00 Test Item Value Reference Range Interpretation Comments Lymphocytes # (Auto) (test code = 2.8 1.0-3.2 69077-8) [facility] CenterMonocytes # (Auto)2019-01-12 05:42:00 Test Item Value Reference Range Interpretation Comments Monocytes # (Auto) (test code = 742-7) 0.5 0.2-0.8 [facility] CenterEosinophils # (Auto)2019-01-12 05:42:00 Test Item Value Reference Range Interpretation Comments Eosinophils # (Auto) (test code = 0.0 0.0-0.4 711-2) [facility] CenterBasophils # (Auto)2019-01-12 05:42:00 Test Item Value Reference Range Interpretation Comments Basophils # (Auto) (test code = 704-7) 0.0 0.0-0.1 [facility] CenterAbsolute Immature Granulocyte (auto 2019-01-12 05:42:00 Test Item Value Reference Range Interpretation Comments Absolute Immature Granulocyte (auto 0.01 0-0.1 (test code = Absolute Immature Granulocyte (auto) [facility] CenterBedside Cwijung2709-08-99 19:46:00 Test Item Value Reference Range Interpretation Comments Bedside Glucose (test code = 83375-4) 117 70-120 Meter ID: [id number] Pinto General HospitalAnti-Nuclear Antibody Tchpdu0242-56-61 12:36:00 Test Item Value Reference Range Interpretation Comments Anti-Nuclear Antibody Screen (test Negative . code = 5048-4) Negative <1:80 Borderline 1:80 Positive >1:80Performed at: [facility] [address] [id number] Director: Oli Ghosh MD, Phone: [phone] Regional Medical CenterC-Reactive Bpdgeld7408-87-47 11:57:00 Test Item Value Reference Range Interpretation Comments C-Reactive Protein (test code = 1988-5) 0.9 0.0-4.9 Performed at: [facility] [address] [id number] Director: Oli Ghosh MD, Phone: [phone] Regional Medical CenterPhosphorus Lhgfu3098-34-38 06:40:00 Test Item Value Reference Range Interpretation Comments Phosphorus Level (test code = VVD2178) 3.7 2.3-4.7 [facility] CenterMagnesium Cqlmr6193-30-68 06:40:00 Test Item Value Reference Range Interpretation Comments Magnesium Level (test code = 11911-2) 1.9 1.3-2.1 [facility] CenterUrine BAM7110-84-88 19:42:00 Test Item Value Reference Range Interpretation Comments Urine WBC (test code = 5821-4) NONE 0-5 [facility] CenterUrine RPO7024-95-19 19:42:00 Test Item Value Reference Range Interpretation Comments Urine RBC (test code = 34366-8) >50 0-5 H [facility] CenterUrine Oazanrkw3011-31-38 19:42:00 Test Item Value Reference Range Interpretation Comments Urine Bacteria (test code = 88692-6) PRESENT NONE [facility] CenterUrine Epithelial Njcbi2521-72-67 19:42:00 Test Item Value Reference Range Interpretation Comments Urine Epithelial Cells (test code = RARE NONE 94838-8) [facility] CenterUrine Mpjdj8860-44-52 19:32:00 Test Item Value Reference Range Interpretation Comments Urine Color (test code = 5778-6) STRAW YELLOW [facility] CenterUrine Ahklbsz0964-65-86 19:32:00 Test Item Value Reference Range Interpretation Comments Urine Clarity (test code = 18642-4) SL CLOUDY CLEAR [facility] CenterUrine Specific Uyhfqhn1180-39-63 19:32:00 Test Item Value Reference Range Interpretation Comments Urine Specific [place] (test code = 1.015 1.010-1.025 5811-5) [facility] CenterUrine jL2028-43-56 19:32:00 Test Item Value Reference Range Interpretation Comments Urine pH (test code = 75950-8) 6 5-7 [facility] Leukocyte Gyhuteqr7478-44-27 19:32:00 Test Item Value Reference Range Interpretation Comments Urine Leukocyte Esterase (test code NEGATIVE NEGATIVE = 5799-2) [facility] Wzbfrpz2044-94-01 19:32:00 Test Item Value Reference Range Interpretation Comments Urine Nitrite (test code = 19975-2) NEGATIVE NEGATIVE [facility] Hogwivd6227-35-77 19:32:00 Test Item Value Reference Range Interpretation Comments Urine Protein (test code = 5804-0) NEGATIVE NEGATIVE [facility] CenterUrine Glucose (UA)2019-01-09 19:32:00 Test Item Value Reference Range Interpretation Comments Urine Glucose (UA) (test code = NEGATIVE NEGATIVE 2349-9) [facility] Gfquulu0188-07-64 19:32:00 Test Item Value Reference Range Interpretation Comments Urine Ketones (test code = 86211-3) 2+ NEGATIVE H [facility] Fhyvooudsybv3429-79-35 19:32:00 Test Item Value Reference Range Interpretation Comments Urine Urobilinogen (test code = 0.2 0.2-1 53128-2) [facility] Xjkwwuocq7890-76-57 19:32:00 Test Item Value Reference Range Interpretation Comments Urine Bilirubin (test code = 1978-6) NEGATIVE NEGATIVE [facility] CenterUrine Fpzpb3077-23-71 19:32:00 Test Item Value Reference Range Interpretation Comments Urine Blood (test code = 15798-7) 4+ NEGATIVE H INFORMED THAT PT IS STARTED HER PERIODValley Regional Medical Center Vitamin B12 Pqxkz0439-56-62 18:39:00 Test Item Value Reference Range Interpretation Comments Vitamin B12 Level (test code = 57759-0) 808 213-816 [facility] CenterErythrocyte Sedimentation Gufs9782-55-82 18:07:00 Test Item Value Reference Range Interpretation Comments Erythrocyte Sedimentation Rate (test 4 0-20 code = 4537-7) [facility] CenterFerritin2019-02-21 18:06:00 Test Item Value Reference Range Interpretation Comments Ferritin (test code = 2276-4) 29.07 4.63-204.00 [facility] CenterIron Jnuwj4389-15-82 17:46:00 Test Item Value Reference Range Interpretation Comments Iron Level (test code = 2498-4) 40 50-170 L [facility] CenterTotal Iron Binding Jnkthkub2798-38-86 17:46:00 Test Item Value Reference Range Interpretation Comments Total Iron Binding Capacity (test code 333 400-128 = 2500-7) [facility] CenterPercent Iron Bnkfqztjhb9372-05-93 17:46:00 Test Item Value Reference Range Interpretation Comments Percent Iron Saturation (test code = 12 15-50 L 2502-3) [facility] CenterTransferrin2019-02-21 17:46:00 Test Item Value Reference Range Interpretation Comments Transferrin (test code = 3034-6) 238 180-382 [facility] CenterPercent Reticulocyte Scwgp2508-49-69 17:34:00 Test Item Value Reference Range Interpretation Comments Percent Reticulocyte Count (test code = 2.1 0.8-2.2 07826-3) [facility] CenterHEPTOBILIARY W SCCGF8307-82-08 14:46:00 [facility] [address] [address] Patient Name: JAMES GRIFFIN MR #: [id number] : 1985 Age/Sex: 33/F Req #: [id number] Adm Physician: SARY SINGH MD Ordered by: DWAIN LOVING MD Report #: [id number] Location: MED/SURG3 Room/Bed: [facility] Procedure: [id number] NM/HEPTOBILIARY W PHARM Exam Date: 01/09/19 Exam [...] 01/09/2019 2:47 PM DictatedBy: JEOVANY VELAZQUEZ MD [id number] Transcribed By: TANA on 01/09/19 1242 COPY TO: DWAIN LOVING [facility] MRCP VV7854-81-22 16:52:[address] [place] [address] Patient Name: JAMES GRIFFIN MR #: [id number] : 1985 Age/Sex: 33/F Req #: [id number] Adm Physician: SARY SINGH MD Ordered by: SARY SINGH MD Report #: [id number] Location: MED/SURG3 Room/Bed: [facility] Procedure: [id number] MRI/MRI MRCP WO Exam Date: 01/08/19 Exam Time: 1600 REPORT STATUS: Signed MRCP CPT code: 86748 History: Intractable nausea/vomiting, chronic epigastric pain Comparison: [...] for your referral. Signed by: Dr. Rakesh Abbott MD on 01/08/2019 5:01 PM Dictated By: RAKESH ABBOTT MD 00 Transcribed By: TANA on 01/08/191700 COPY TO: SARY SINGH MD Urine Zsbx6370-19-77 12:32:00 Test Item Value Reference Range Interpretation Comments Urine Test (test code = NEGATIVE NEGATIVE 2106-3) [facility] CenterFolate2019-02-20 06:55:00 Test Item Value Reference Range Interpretation Comments Folate (test code = 2284-8) 18.6 7.0-15.4 H [facility] CenterThyroid Stimulating Hormone (TSH) 2019-01-08 06:33:00 Test Item Value Reference Range Interpretation Comments Thyroid Stimulating Hormone (TSH) (test 0.964 0.350-4.940 code = 75185-9) [facility] CenterTotal Mqhqkmwtx5954-90-61 05:55:00 Test Item Value Reference Range Interpretation Comments Total Bilirubin (test code = 1975-2) 0.5 0.2-1.2 [facility] CenterAspartate Amino Transf (AST/SGOT) 2019-01-08 05:55:00 Test Item Value Reference Range Interpretation Comments Aspartate Amino Transf (AST/SGOT) (test 17 5-34 code = Aspartate Amino Transf (AST/SGOT)) [facility] CenterAlanine Aminotransferase (ALT/SGPT) 2019-01-08 05:55:00 Test Item Value Reference Range Interpretation Comments Alanine Aminotransferase (ALT/SGPT) 16 0-55 (test code = 1742-6) [facility] CenterTotal Iktnuyv3955-31-62 05:55:00 Test Item Value Reference Range Interpretation Comments Total Protein (test code = 2885-2) 5.7 6.5-8.1 L [facility] CenterAlbumin2019-02-20 05:55:00 Test Item Value Reference Range Interpretation Comments Albumin (test code = 1751-7) 4.0 3.5-5.0 [facility] CenterGlobulin2019-02-20 05:55:00 Test Item Value Reference Range Interpretation Comments Globulin (test code = 85638-8) 1.7 2.3-3.5 L [facility] CenterAlbumin/Globulin Maziz8914-24-72 05:55:00 Test Item Value Reference Range Interpretation Comments Albumin/Globulin Ratio (test code = 2.4 0.8-2.0 H 1759-0) [facility] CenterAlkaline Zqcpxvbmbxa6460-12-51 05:55:00 Test Item Value Reference Range Interpretation Comments Alkaline Phosphatase (test code = 39 40-150 L 6768-6) [facility] CenterAmylase Rbwse7388-27-28 05:55:00 Test Item Value Reference Range Interpretation Comments Amylase Level (test code = 1798-8) 31 25-125 [facility] CenterLipase2019-02-20 05:55:00 Test Item Value Reference Range Interpretation Comments Lipase (test code = 3040-3) 22 8-78 [facility] CenterABDOMEN ACUTE SERIES W/PA UBQ1546-91-96 01:41:00 [facility] [address] [place] [address] Patient Name: JAMES GRIFFIN MR #: [id number] : 1985 Age/Sex: 33/F Req #: [id number] Adm Physician: Ordered by: RACIEL CALVERT MD Report #: [id number] Location: ER Room/Bed: Procedure: [id number] DX/ABDOMEN ACUTE SERIES W/PA CXR Exam Date: 01/07/19 Exam Time: 47 REPORT STATUS: Signed EXAM: Abdomen 2 Views, chest 1 view INDICATION: abd pain [id number] Y COMPARISON: None FINDINGS: No focal [...] on 01/07/19141 COPY TO: RACIEL CALVERT MDUrine Oqraa3101-46-79 00:18:00 Test Item Value Reference Range Interpretation Comments Urine Mucus (test code = 8247-9) MANY RARE H [facility] CenterUrine Opiates Wipogo9219-38-07 00:09:00 Test Item Value Reference Range Interpretation Comments Urine Opiates Screen (test code = POSITIVE NEGATIVE H 97970-3) ALL TESTS PERFORMED MANUALLY ON [employer] TOX/SEE TEST This test provides only a screen. Positive results should be repeated by a confirmatory test.[facility] CenterUrine Barbiturates Tuvhhu8392-10-89 00:09:00 Test Item Value Reference Range Interpretation Comments Urine Barbiturates Screen (test code NEGATIVE NEGATIVE = 949844110) [facility] CenterUrine Phencyclidine Tuzdqy4566-28-76 00:09:00 Test Item Value Reference Range Interpretation Comments Urine Phencyclidine Screen (test NEGATIVE NEGATIVE code = 34438-4) [facility] CenterUrine Amphetamines Tlvqqg7196-68-64 00:09:00 Test Item Value Reference Range Interpretation Comments Urine Amphetamines Screen (test code NEGATIVE NEGATIVE = 54912-7) [facility] CenterUrine Methamphetamines Xkosth6647-96-20 00:09:00 Test Item Value Reference Range Interpretation Comments Urine Methamphetamines Screen (test NEGATIVE NEGATIVE code = Urine Methamphetamines Screen) [facility] CenterUrine Benzodiazepines Gjgosd0378-96-54 00:09:00 Test Item Value Reference Range Interpretation Comments Urine Benzodiazepines Screen (test NEGATIVE NEGATIVE code = 08060-5) [facility] CenterUrine Cocaine Phhcxi4922-29-12 00:09:00 Test Item Value Reference Range Interpretation Comments Urine Cocaine Screen (test code = NEGATIVE NEGATIVE 3398-5) [facility] CenterUrine Cannabinoids Iptpub2695-81-18 00:09:00 Test Item Value Reference Range Interpretation Comments Urine Cannabinoids Screen (test code POSITIVE NEGATIVE H = 68742-2) THESE RESULTS ARE FOR MEDICAL TREATMENT ONLYTHIS REPORT CONTAINS UNCONFIRMED SCREENING RESULTS*POSITIVE RESULTS WILL BE CONFIRMED BY REFERENCE LAB UPON REQUEST CUT-OFFDRUG CLASS CONCENTRATION ng/mLAmphetamines 1000Met hamphetamines 1000Cocaine 300Opiate 300Phencyclidine 25Cannabinoid 50Barbiturates 300Benzodiazepine 300Methadone 300 This test provides only a screen. Positive results should be repeated by a confirmatory test.[facility] CenterUrine Methadone Dscfcf0690-53-01 00:09:00 Test Item Value Reference Range Interpretation Comments Urine Methadone Screen (test code = NEGATIVE NEGATIVE 64865-3) THESE RESULTS ARE FOR MEDICAL TREATMENT ONLYTHIS REPORT CONTAINS UNCONFIRMED SCREENING RESULTS*POSITIVE RESULTS WILL BE CONFIRMED BY REFERENCE LAB UPON REQUEST CUT-OFFDRUG CLASS CONCENTRATION ng/mLAmphetamines 1000Met hamphetamines 1000Cocaine Metabolite 300Opiate 300Phencyclidine 25Cannabinoid 50Barbiturates 300Benzodiazepine 300Methadone 300[facility]
[2020-11-02] MEDS ORDERED: PANTOPRAZOLE 40 MG INJ ONE (08:52)
[2020-11-02] MEDS ORDERED: ONDANSETRON 4 MG/2 ML VIAL ONE ×2 (08:52→09:15)
[2020-11-02] MEDS ORDERED: MORPHINE 4 MG/ML SYR ONE (08:52)
[2020-11-02] MEDS ORDERED: NA CHLORIDE 0.9% 1,000 ML ONE (08:52)
[2020-11-02 09:19] LABS: Absolute Lymphocytes (CBC) 1.2 K/uL (0.7-4.9); Basophils % 0.2 % (0-1.3); Hematocrit 35.5 % (36.0-45.0); Lymphocytes % 14.8 % (15.3-44.8); MPV 9.7 fL (7.6-11.3); RBC Red Blood Cell Count 4.02 M/uL (3.86-4.86)
[2020-11-02 09:23] LABS: Albumin 3.9 g/dL (3.4-5.0); Bilirubin Direct 0.1 mg/dL (0-0.2); Bilirubin Total 0.5 mg/dL (0.2-1.0); Potassium 3.3 mmol/L (3.5-5.1); Protein, Total 7.2 g/dL (6.4-8.2)
[2020-11-02] MEDS ORDERED: PROMETHAZINE INJ 25 MG/ML AMP ONE (09:29)
[2020-11-02] MEDS ORDERED: HYDROMORPHONE HCL 1 MG/ML INJ ONE (09:30)
[2020-11-02 09:56] LABS: Urine Blood 2+ (NEG); Urine Glucose NEGATIVE (NEG); Urine Protein NEGATIVE (NEG); Urine Specific Gravity >1.030 (1.005-1.030)
[2020-11-02] MEDS ORDERED: NS KCL 20MEQ 1,000 ML IV ONE (10:33)
--- NOTE | 2020-11-02 11:28 | EDPHYS ---
Physician Documentation [facility] Name: Shyanne Pardo Age: 35 yrs Sex: Female : 1985 Arrival Date: 11/02/2020 Time: 08:08 Bed 6 Private MD: CHRISTY Physician Fito Rabago HPI: 11/02 08:44 This 35 yrs old Female presents to ER via Wheelchair with complaints of keyonna Vomiting, Abdominal Pain. 08:44 The patient presents to the emergency department with nausea, vomiting, abdominal pain, keyonna of the right upper quadrant and left upper quadrant. Onset: The symptoms/episode began/occurred 3 day(s) ago. Possible causes: unknown. The symptoms are aggravated by nothing. The symptoms are alleviated by nothing. Associated signs and symptoms: The patient has no apparent associated signs or symptoms. Severity of symptoms: At their worst the symptoms were moderate in the emergency department the symptoms are unchanged. The patient has not experienced similar symptoms in the past. Historical: - Allergies: 08:16 Azithromycin; sv 08:16 CEPHALOSPORINS; sv 08:16 Demerol; sv 08:16 Erythromycin; sv 08:16 PENICILLINS; sv 08:16 Sulfa (Sulfonamide Antibiotics); sv - PMHx: 08:16 Colitis; gastritis; sliding heria; Ulcers; sv - PSHx: 08:16 Cholecystectomy; sv - Immunization history:: Adult Immunizations unknown. - Social history:: Smoking status: . ROS: 08:46 Eyes: Negative for injury, pain, redness, and discharge, ENT: Negative for injury, keyonna pain, and discharge, Neck: Negative for injury, pain, and swelling, Cardiovascular: Negative for chest pain, palpitations, and edema, Respiratory: Negative for shortness of breath, cough, wheezing, and pleuritic chest pain, Back: Negative for injury and pain, : Negative for injury, bleeding, discharge, and swelling, MS/Extremity: Negative for injury and deformity, Skin: Negative for injury, rash, and discoloration, Neuro: Negative for headache, weakness, numbness, tingling, and seizure, Psych: Negative for depression, anxiety, suicide ideation, homicidal ideation, and hallucinations, Allergy/Immunology: Negative for hives, rash, and allergies, Endocrine: Negative for neck swelling, polydipsia, polyuria, polyphagia, and marked weight changes, Hematologic/Lymphatic: Negative for swollen nodes, abnormal bleeding, and unusual bruising. 08:46 Constitutional: Positive for poor PO intake. 08:46 Abdomen/GI: Positive for abdominal pain, nausea and vomiting, of the epigastric area, right upper quadrant and left upper quadrant. Exam: 08:46 Head/Face: Normocephalic, atraumatic. Eyes: Pupils equal round and reactive to light, keyonna extra-ocular motions intact. Lids and lashes normal. Conjunctiva and sclera are non-icteric and not injected. Cornea within normal limits. Periorbital areas with no swelling, redness, or edema. ENT: Nares patent. No nasal discharge, no septal abnormalities noted. Tympanic membranes are normal and external auditory canals are clear. Oropharynx with no redness, swelling, or masses, exudates, or evidence of obstruction, uvula midline. Mucous membranes moist. Neck: Trachea midline, no thyromegaly or masses palpated, and no cervical lymphadenopathy. Supple, full range of motion without nuchal rigidity, or vertebral point tenderness. No Meningismus. Chest/axilla: Normal chest wall appearance and motion. Nontender with no deformity. No lesions are appreciated. Cardiovascular: Regular rate and rhythm with a normal S1 and S2. No gallops, murmurs, or rubs. Normal PMI, no JVD. No pulse deficits. Respiratory: Lungs have equal breath sounds bilaterally, clear to auscultation and percussion. No rales, rhonchi or wheezes noted. No increased work of breathing, no retractions or nasal flaring. Back: No spinal tenderness. No costovertebral tenderness. Full range of motion. Skin: Warm, dry with normal turgor. Normal color with no rashes, no lesions, and no evidence of cellulitis. MS/ Extremity: Pulses equal, no cyanosis. Neurovascular intact. Full, normal range of motion. Neuro: Awake and alert, GCS 15, oriented to person, place, time, and situation. Cranial nerves II-XII grossly intact. Motor strength 5/5 in all extremities. Sensory grossly intact. Cerebellar exam normal. Normal gait. 08:46 Constitutional: The patient appears in obvious distress, moderately distressed. 08:46 Abdomen/GI: Inspection: abdomen appears normal, Bowel sounds: normal, Palpation: mild abdominal tenderness, moderate abdominal tenderness, in the epigastric area, right upper quadrant and left upper quadrant, Liver: no appreciated palpable abnormalities, Hernia: not appreciated. Vital Signs: 08:19 BP 140 / 60; Pulse 80; Resp 20; Temp 96.8; Pulse Ox 100% on R/A; Weight 62.14 kg; ph Height 5 ft. 8 in. (172.72 cm); Pain 10/10; 09:19 BP 119 / 96; Pulse 84; Resp 18; Pulse Ox 100% on R/A; Pain 10/10; ph 10:13 BP 132 / 80; Pulse 76; Resp 16; Pulse Ox 95% on R/A; ph 11:33 BP 109 / 79; Pulse 65; Resp 17; Pulse Ox 100% on R/A; tw2 08:19 Body Mass Index 20.83 (62.14 kg, 172.72 cm) ph MDM: 08:18 Patient medically screened. keyonna 08:47 Differential diagnosis: Nonspecific abd pain, gastritis, pancreatitis, diverticulitis, keyonna viral gastroenteritis, gastroenteritis. Data reviewed: vital signs, nurses notes, lab test result(s), EKG, radiologic studies, CT scan, plain films, ultrasound. Data interpreted: equipment monitor phototypesetting: rate is 80 beats/min, rhythm is regular, Pulse oximetry: is not applicable for this patient encounter. Test interpretation: by ED physician or midlevel provider:. Counseling: I had a detailed discussion with the patient and/or guardian regarding: the historical points, exam findings, and any diagnostic results supporting the discharge/admit diagnosis, lab results, radiology results. 11/02 08:44 Order name: Basic Metabolic Panel; Complete Time: 10:06 [facility] 11/02 08:44 Order name: CBC with Diff; Complete Time: 10:06 [facility] 11/02 08:44 Order name: Hepatic Function; Complete Time: 10:06 [facility] 11/02 08:44 Order name: Lipase; Complete Time: 10:06 [facility] 11/02 08:57 Order name: Urine Dipstick--Ancillary (enter results) [facility] 11/02 08:57 Order name: Urine --Ancillary (enter results) 1 11/02 08:58 Order name: Urine Dipstick-Ancillary; Complete Time: 10:06 [facility] 11/02 08:58 Order name: Urine --Ancillary; Complete Time: 10:06 [facility] 11/02 08:44 Order name: IV Saline Lock; Complete Time: 08:57 [facility] 11/02 08:44 Order name: Labs collected and sent; Complete Time: 08:57 [facility] 11/02 08:44 Order name: Urine Dipstick-Ancillary (obtain specimen); Complete Time: 08:57 [facility] 11/02 08:44 Order name: Urine Test (obtain specimen); Complete Time: 08:57 [facility] Administered Medications: 08:45 Drug: NS 0.9% 1000 ml Route: IV; Rate: 1 bolus; Site: right antecubital; ph 10:15 Follow up: Response: No adverse reaction; IV Status: Completed infusion; IV Intake: ph 1000ml 08:46 Drug: ProTONIX 40 mg Route: IVP; Site: right antecubital; ph 11:39 Follow up: Response: No adverse reaction ph 08:46 Drug: Zofran (Ondansetron) 4 mg Route: IVP; Site: right antecubital; ph 09:15 Follow up: Response: No adverse reaction; Nausea unchanged; Vomiting unchanged ph 08:48 Drug: morphine 4 mg Route: IVP; Site: right antecubital; ph 09:15 Follow up: Response: No adverse reaction; Pain is unchanged, physician notified ph 09:08 Drug: Phenergan 12.5 mg Route: IVP; Site: right antecubital; ph 09:40 Follow up: Response: No adverse reaction; Nausea is decreased; Vomiting decreased ph 09:11 Drug: Zofran (Ondansetron) 4 mg Route: IVP; Site: right antecubital; ph 09:20 Follow up: Response: No adverse reaction; Nausea unchanged ph 09:21 Drug: Dilaudid 1 mg {Note: initial RASS 1.} Route: IVP; Site: right antecubital; ph 09:40 Follow up: Response: No adverse reaction; Pain is decreased; RASS: Drowsy (-1) ph 10:25 Drug: NS 0.9% with KCl 20 mEq/L 1000 ml Route: IV; Rate: 500 ml/hr; Site: right antecubital; Disposition: 11/02/20 11:27 Discharged to Home. Impression: Vomiting, Functional dyspepsia, Gastritis, unspecified, Congenital hiatus hernia. - Condition is Stable. - Discharge Instructions: Hernia, Adult, Hiatal Hernia, Indigestion, Nausea and Vomiting, Adult, Nausea and Vomiting, Adult, [id number], Indigestion, [id number]. - Prescriptions for Bentyl 20 mg Oral Tablet - take 2 tablet by ORAL route every 6 hours As needed; 40 tablet. Protonix 40 mg Oral Tablet, Delayed Release (E.C.) - take 1 tablet by ORAL route once daily; 20 tablet. Zofran 4 mg Oral Tablet - take 1 tablet by ORAL route every 12 hours As needed; 20 tablet. Phenergan 25 mg Rectal Suppository - insert 1 suppository by RECTAL route every 6 hours As needed; 12 suppository. - Medication Reconciliation Form, Thank You Letter, Antibiotic Education, Prescription Opioid Use form. - Follow up: Private Physician; When: 2 - 3 days; Reason: Recheck today's complaints, Continuance of care, Re-evaluation by your physician. Follow up: Bhavik Stevens MD; When: 2 - 3 days; Reason: Recheck today's complaints, Continuance of care, Re-evaluation by your physician. - Problem is new. - Symptoms have improved. Signatures: Dispatcher [employer] Carolina Schilling RN RN Fito Solis MD MD cha Hall, Patricia RN RN ph Corrections: (The following items were deleted from the chart) 12:41 11:27 11/02/2020 11:27 Discharged to Home. Impression: Vomiting; Functional dyspepsia; sv Gastritis, unspecified; Congenital hiatus hernia. Condition is Stable. Forms are Medication Reconciliation Form, Thank You Letter, Antibiotic Education, Prescription Opioid Use. Follow up: Private Physician; When: 2 - 3 days; Reason: Recheck today's complaints, Continuance of care, Re-evaluation by your physician. Follow up: Bhavik Stevens; When: 2 - 3 days; Reason: Recheck today's complaints, Continuance of care, Re-evaluation by your physician. Problem is new. Symptoms have improved. keyonna
--- NOTE | 2020-11-02 11:28 | ER ---
Nurse's Notes [facility] Name: Shyanne Pardo Age: 35 yrs Sex: Female : 1985 Arrival Date: 11/02/2020 Time: 08:08 Bed 6 Private MD: Diagnosis: Vomiting;Functional dyspepsia;Gastritis, unspecified;Congenital hiatus hernia Presentation: 11/02 08:14 Chief complaint: Patient states: epigastric pain, n/v x 3 days. Was admitted yesterday sv and pt left AMA because she felt better. Coronavirus screen: Client denies travel out of the [place] in the last 14 days. At this time, the client does not indicate any symptoms associated with coronavirus-19. Ebola Screen: No symptoms or risks identified at this time. Risk Assessment: Do you want to hurt yourself or someone else? Patient reports no desire to harm self or others. Onset of symptoms was October 2020. 08:14 Method Of Arrival: Wheelchair sv 08:14 Acuity: [place] 3 sv 08:19 Initial Sepsis Screen: Does the patient meet any 2 criteria? No. Patient's initial ph sepsis screen is negative. Does the patient have a suspected source of infection? No. Patient's initial sepsis screen is negative. Triage Assessment: 08:16 General: Appears in no apparent distress. uncomfortable, Behavior is cooperative, sv appropriate for age, restless. Pain: Complains of pain in epigastric area. Neuro: Level of Consciousness is awake, alert, obeys commands, Oriented to person, place, time, situation, Gait is steady. Respiratory: Respiratory effort is even, unlabored. GI: Pt is actively vomiting clear fluid. Historical: - Allergies: 08:16 Azithromycin; sv 08:16 CEPHALOSPORINS; sv 08:16 Demerol; sv 08:16 Erythromycin; sv 08:16 PENICILLINS; sv 08:16 Sulfa (Sulfonamide Antibiotics); sv - PMHx: 08:16 Colitis; gastritis; sliding heria; Ulcers; sv - PSHx: 08:16 Cholecystectomy; sv - Immunization history:: Adult Immunizations unknown. - Social history:: Smoking status: . Screenin:21 Abuse screen: Denies threats or abuse. Denies injuries from another. Nutritional ph screening: No deficits noted. Tuberculosis screening: No symptoms or risk factors identified. Fall Risk None identified. Assessment: 08:21 General: Appears in no apparent distress. uncomfortable, slender, well groomed, ph Behavior is cooperative, anxious, crying, restless, Denies fever. Pain: Complains of pain in abdomen. Neuro: Level of Consciousness is awake, alert, obeys commands, Oriented to person, place, time, situation. Cardiovascular: Capillary refill < 3 seconds in bilateral fingers Patient's skin is warm and dry. Respiratory: Airway is patent Respiratory effort is even, unlabored. GI: Abdomen is flat, non-distended, Pt is actively vomiting bile, Reports upper abdominal pain, epigastric pain, nausea, vomiting. Derm: Skin is intact, is healthy with good turgor, Skin is pink, warm \\T\\ dry. Musculoskeletal: Circulation, motion, and sensation intact. Range of motion: intact in all extremities. 09:15 Reassessment: Patient appears in no apparent distress at this time. Patient and/or ph family updated on plan of care and expected duration. Pain level reassessed. Pt crying and moaning loudly, restless and pacing around room, belching and dry heaving, additional Zofran given, pt continues to c/o abdominal pain 08/28 states, " The only thing that worked for me last time was Dilaudid or something like that." ERP notified, verbal order given for dilaudid 1 mg, see MAR. 10:48 Reassessment: Patient appears in no apparent distress at this time. Patient and/or ph family updated on plan of care and expected duration. Pain level reassessed. Pt asleep w/ equal and unlabored respirations, awakens easily, reports that pain and nausea have improved. 11:33 Reassessment: Patient appears in no apparent distress at this time. Patient and/or tw2 family updated on plan of care and expected duration. Pain level reassessed. Patient is alert, oriented x 3, equal unlabored respirations, skin warm/dry/pink. 12:15 Reassessment: Patient appears in no apparent distress at this time. Patient and/or ph family updated on plan of care and expected duration. Pain level reassessed. Patient is alert, oriented x 3, equal unlabored respirations, skin warm/dry/pink. D/C pending completion of IV fluids Patient states feeling better. Patient states symptoms have improved. Vital Signs: 08:19 BP 140 / 60; Pulse 80; Resp 20; Temp 96.8; Pulse Ox 100% on R/A; Weight 62.14 kg; ph Height 5 ft. 8 in. (172.72 cm); Pain 10/10; 09:19 BP 119 / 96; Pulse 84; Resp 18; Pulse Ox 100% on R/A; Pain 10/10; ph 10:13 BP 132 / 80; Pulse 76; Resp 16; Pulse Ox 95% on R/A; ph 11:33 BP 109 / 79; Pulse 65; Resp 17; Pulse Ox 100% on R/A; tw2 08:19 Body Mass Index 20.83 (62.14 kg, 172.72 cm) ph ED Course: 08:08 Patient arrived in ED. ds1 08:13 Summer Telles, RN is Primary Nurse. ph 08:15 Triage completed. sv 08:16 Arm band placed on. sv 08:18 Fito Rabago MD is Attending Physician. keyonna 08:22 Patient has correct armband on for positive identification. Bed in low position. Call ph light in reach. Side rails up X 1. Pulse ox on. NIBP on. Door closed. Noise minimized. Warm blanket given. 08:40 Initial lab(s) drawn, by me, sent to lab. Urine collected: clean catch specimen, amita ph colored. Inserted saline lock: 20 gauge in right antecubital area, using aseptic technique. Blood collected. 09:20 Urine --Ancillary (enter results) Sent. sv 09:20 Urine Dipstick--Ancillary (enter results) Sent. sv 11:25 Bhavik Stevens MD is Referral Physician. keyonna 11:37 Awaiting transportation, Awaiting: pt calling for a ride at this time and states it tw2 will be about 30 minutes before they arrive. 11:41 No provider procedures requiring assistance completed. ph 12:40 IV discontinued, intact, bleeding controlled, No redness/swelling at site. Pressure ph dressing applied. Administered Medications: 08:45 Drug: NS 0.9% 1000 ml Route: IV; Rate: 1 bolus; Site: right antecubital; ph 10:15 Follow up: Response: No adverse reaction; IV Status: Completed infusion; IV Intake: ph 1000ml 08:46 Drug: ProTONIX 40 mg Route: IVP; Site: right antecubital; ph 11:39 Follow up: Response: No adverse reaction ph 08:46 Drug: Zofran (Ondansetron) 4 mg Route: IVP; Site: right antecubital; ph 09:15 Follow up: Response: No adverse reaction; Nausea unchanged; Vomiting unchanged ph 08:48 Drug: morphine 4 mg Route: IVP; Site: right antecubital; ph 09:15 Follow up: Response: No adverse reaction; Pain is unchanged, physician notified ph 09:08 Drug: Phenergan 12.5 mg Route: IVP; Site: right antecubital; ph 09:40 Follow up: Response: No adverse reaction; Nausea is decreased; Vomiting decreased ph 09:11 Drug: Zofran (Ondansetron) 4 mg Route: IVP; Site: right antecubital; ph 09:20 Follow up: Response: No adverse reaction; Nausea unchanged ph 09:21 Drug: Dilaudid 1 mg {Note: initial RASS 1.} Route: IVP; Site: right antecubital; ph 09:40 Follow up: Response: No adverse reaction; Pain is decreased; RASS: Drowsy (-1) ph 10:25 Drug: NS 0.9% with KCl 20 mEq/L 1000 ml Route: IV; Rate: 500 ml/hr; Site: right ph antecubital; Intake: 10:15 IV: 1000ml; Total: 1000ml. ph Outcome: 11:27 Discharge ordered by . [facility] 12:41 Patient left the ED. sv 12:41 Discharged to home ambulatory. ph 12:41 Condition: improved 12:41 Discharge instructions given to patient, Instructed on discharge instructions, follow up and referral plans. no driving heavy equipment, Demonstrated understanding of instructions, follow-up care, medications, Prescriptions given X 4. Signatures: Carolina Connor RN RN sv Anderson, Corey, MD MD cha Sanford, Demi ds1 Summer Telles RN RN ph Lynn Tai RN RN tw2 Corrections: (The following items were deleted from the chart) 08:55 08:21 GI: Abdomen is flat, non-distended, Reports upper abdominal pain, epigastric ph pain, nausea, vomiting, ph
[2020-11-04 16:23] VITALS: TEMP 96.8
[2020-11-04 16:27] VITALS: BP 109/79; O2SAT 100
== END 2020-11-02 12:41 | disposition home or self-care (01) ==
LOC: ER 08:06
DX: K30 Functional dyspepsia (principal); K29.70 Gastritis, unspecified, without bleeding; Q40.1 Congenital hiatus hernia; Z88.0 Allergy status to penicillin; Z88.2 Allergy status to sulfonamides; Z88.1 Allergy status to other antibiotic agents; Z88.3 Allergy status to other anti-infective agents; Z88.5 Allergy status to narcotic agent
CPT/HCPCS: 36415; 80048; 80076; 81003; 81025; 83690; 85025; 96361; 96374; 96375; 99284; C9113; J1170; J2405; J2550; J3480; J7030

== ENCOUNTER 2020-11-03 12:21 | Inpatient (IN) | payer OTHER, SELFPAY ==
--- OUTSIDE RECORDS SUMMARY | 2020-11-03 12:24 | XMS REPORT | Continuity of Care Document ---
:1985 Author Organization [facility] t Address [address] [place] [place] [address] Care Team Providers Name Role Phone NONSTAFF Primary Care Physician Unavailable Loan CUEVAS, L Attending Clinician Moustapha Myers MD Attending Clinician SINGH Attending Clinician Unavailable SINGH Admitting Clinician Unavailable Payers Payer Name Policy Type Policy Number Effective Date Expiration Date S rex [id number] Problems Condition Condition Condition Status Onset Resolution Last Treating Co mments Source Name Details Category Date Date Treatment Clinician Date Chronic Chronic Problem [facility] Gastritis Gastritis Problem [facility] Center Intractabl Intractabl Problem Active C HI [...] Performed Clinician Laparoscopic cholecystectomy 2019-01-10 YURIY MYERS [facility] Magnetic resonance 2019-01-08 SARY SINGH [facility] - cholangiopancreatography (MRCP) 00:00:00 Patients Medical without contrast Center Colonoscopy with biopsy 2019-01-07 DWAIN LOVING [facility] EGD with biopsy 2019-01-07 DWAIN LOVING [facility] En[facility]ters Start End Encounter Admission Attending Care Care Encounter Source Date/Time Date/Time Type Type Clinicians Facility Department ID 2020-08-19 2020-08-19 Telephone Loan, [facility] [id number] 00:00:00 00:00:00 Kenyetta Dorsey Shaggy [id number] [place] [id number] Professio [id number] nal 134 [facility] 2020-08-18 2020-08-18 Telephone Michelle Myers [facility] [id number] 00:00:00 00:00:00 Moustapha Coon [id number] [place] [id number] Professio [id number] nal 134 [facility] 2019-01-08 2019-01-12 Discharged 1 SARY SINGH [facility] [id number] [facility] 08:41:00 13:44:[address] [place] [address] Results Test Description Test Time Test Comments Results Result Comments Source Sodium Level 2019-01-12 06:14:00 Test Item Value Reference Range Interpretation Comme nts Sodium Level (test code = 2951-2) 140 136-145 [facility]Pot[facility] Wtsvh9532-88-35 06:14:00 Test Item Value Reference Range Interpretation Comments Potassium Level (test code = 2823-3) 3.2 3.5-5.1 L [facility] ChildrenChloride Uiamh5512-00-55 06:14:00 Test Item Value Reference Range Interpretation Comments Chloride Level (test code = 2075-0) 104 98-107 [facility] ChildrenCarbon Dioxide Pcsdp3435-31-16 06:14:00 Test Item Value Reference Range Interpretation Comments Carbon Dioxide Level (test code = 28 22-29 2027-9) [facility] ChildrenAnion Mfx2972-14-23 06:14:00 Test Item Value Reference Range Interpretation Comments Anion Gap (test code = 74538-1) 11.2 8-16 [facility] ChildrenBlood Urea Ikpwlbfd9975-06-85 06:14:00 Test Item Value Reference Range Interpretation Comments Blood Urea Nitrogen (test code = < 5 7-26 L 3094-0) [facility] ChildrenCreatinine2019-02-24 06:14:00 Test Item Value Reference Range Interpretation Comments Creatinine (test code = 2160-0) 0.67 0.57-1.11 [facility] ChildrenBUN/Creatinine Pwrxe1316-16-09 06:14:00 Test Item Value Reference Range Interpretation Comments BUN/Creatinine Ratio (test code = 7 6-25 3097-3) [facility] ChildrenEstimat Glomerular Filtration Rate 2019-01-12 06:14:00 Test Item Value Reference Range Interpretation Comments Estimat Glomerular Filtration Rate > 60 >60 (test code = 561855168) Ranges were taken from the National Kidney Disease Education Program and the National Kidney Foundation literature.Reference ranges:60 or greater: Jtafms87- 59 (for 3 consecutive months): Chronic kidneydisease 15 or less: Kidney failure [facility] ChildrenGlucose Jgazk4027-20-61 06:14:00 Test Item Value Reference Range Interpretation Comments Glucose Level (test code = DEX3335) 129 74-118 H [facility] ChildrenCalcium Muish5972-78-18 06:14:00 Test Item Value Reference Range Interpretation Comments Calcium Level (test code = 66860-2) 8.8 8.4-10.2 [facility] ChildrenWhite Blood Jvoxm5036-31-44 05:42:00 Test Item Value Reference Range Interpretation Comments White Blood Count (test code = 6690-2) 5.63 4.8-10.8 [facility] ChildrenRed Blood Jswas6939-34-32 05:42:00 Test Item Value Reference Range Interpretation Comments Red Blood Count (test code = 789-8) 3.73 3.6-5.1 [facility] ChildrenHemoglobin2019-02-24 05:42:00 Test Item Value Reference Range Interpretation Comments Hemoglobin (test code = 12883-3) 11.2 12.0-16.0 L [facility] ChildrenHematocrit2019-02-24 05:42:00 Test Item Value Reference Range Interpretation Comments Hematocrit (test code = 4544-3) 32.5 34.2-44.1 L [facility] ChildrenMean Corpuscular Wseuoe9648-39-06 05:42:00 Test Item Value Reference Range Interpretation Comments Mean Corpuscular Volume (test code = 87.1 81-99 787-2) [facility] ChildrenMean Corpuscular Hbjaeesssq4420-62-80 05:42:00 Test Item Value Reference Range Interpretation Comments Mean Corpuscular Hemoglobin (test code 30.0 28-32 = 785-6) [facility] ChildrenMean Corpuscular Hemoglobin Concent 2019-01-12 05:42:00 Test Item Value Reference Range Interpretation Comments Mean Corpuscular Hemoglobin Concent 34.5 31-35 (test code = 786-4) [facility] ChildrenRed Cell Distribution Ddgzq1598-67-08 05:42:00 Test Item Value Reference Range Interpretation Comments Red Cell Distribution Width (test code 13.0 11.7-14.4 = 80098-3) [facility] ChildrenPlatelet Jlury6083-25-87 05:42:00 Test Item Value Reference Range Interpretation Comments Platelet Count (test code = 777-3) 233 140-360 [facility] ChildrenNeutrophils (%) (Auto)2019-01-12 05:42:00 Test Item Value Reference Range Interpretation Comments Neutrophils (%) (Auto) (test code = 39.7 38.7-80.0 11989-0) [facility] ChildrenLymphocytes (%) (Auto)2019-01-12 05:42:00 Test Item Value Reference Range Interpretation Comments Lymphocytes (%) (Auto) (test code = 50.3 18.0-39.1 H 736-9) [facility] ChildrenMonocytes (%) (Auto)2019-01-12 05:42:00 Test Item Value Reference Range Interpretation Comments Monocytes (%) (Auto) (test code = 9.1 4.4-11.3 5905-5) [facility] ChildrenEosinophils (%) (Auto)2019-01-12 05:42:00 Test Item Value Reference Range Interpretation Comments Eosinophils (%) (Auto) (test code = 0.2 0.0-6.0 713-8) [facility] ChildrenBasophils (%) (Auto)2019-01-12 05:42:00 Test Item Value Reference Range Interpretation Comments Basophils (%) (Auto) (test code = 0.5 0.0-1.0 706-2) [facility] ChildrenIM GRANULOCYTES %2019-01-12 05:42:00 Test Item Value Reference Range Interpretation Comments IM GRANULOCYTES % (test code = IM 0.2 0.0-1.0 GRANULOCYTES %) [facility] ChildrenNeutrophils # (Auto)2019-01-12 05:42:00 Test Item Value Reference Range Interpretation Comments Neutrophils # (Auto) (test code = 2.2 2.1-6.9 751-8) [facility] ChildrenLymphocytes # (Auto)2019-01-12 05:42:00 Test Item Value Reference Range Interpretation Comments Lymphocytes # (Auto) (test code = 2.8 1.0-3.2 01163-9) [facility] ChildrenMonocytes # (Auto)2019-01-12 05:42:00 Test Item Value Reference Range Interpretation Comments Monocytes # (Auto) (test code = 742-7) 0.5 0.2-0.8 [facility] ChildrenEosinophils # (Auto)2019-01-12 05:42:00 Test Item Value Reference Range Interpretation Comments Eosinophils # (Auto) (test code = 0.0 0.0-0.4 711-2) [facility] ChildrenBasophils # (Auto)2019-01-12 05:42:00 Test Item Value Reference Range Interpretation Comments Basophils # (Auto) (test code = 704-7) 0.0 0.0-0.1 [facility] ChildrenAbsolute Immature Granulocyte (auto 2019-01-12 05:42:00 Test Item Value Reference Range Interpretation Comments Absolute Immature Granulocyte (auto 0.01 0-0.1 (test code = Absolute Immature Granulocyte (auto) [facility] ChildrenBedside Utzsnnt5576-47-74 19:46:00 Test Item Value Reference Range Interpretation Comments Bedside Glucose (test code = 90891-9) 117 70-120 Meter ID: [id number] Regional Medical CenterAnti-Nuclear Antibody Iovpsz6315-24-36 12:36:00 Test Item Value Reference Range Interpretation Comments Anti-Nuclear Antibody Screen (test Negative . code = 5048-4) Negative <1:80 Borderline 1:80 Positive >1:80Performed at: [facility] [address] [id number] Director: Oli Ghsoh MD, Phone: [phone] [facility] for ChildrenC-Reactive Izehywx4326-10-16 11:57:00 Test Item Value Reference Range Interpretation Comments C-Reactive Protein (test code = 1988-5) 0.9 0.0-4.9 Performed at: [facility] [address] [id number] Director: Oli Ghosh MD, Phone: [phone] Scottish [facility]ite Hospital for ChildrenPhosphorus Uzmyh0506-58-46 06:40:00 Test Item Value Reference Range Interpretation Comments Phosphorus Level (test code = INR1522) 3.7 2.3-4.7 [facility] ChildrenMagnesium Gahnf0913-04-42 06:40:00 Test Item Value Reference Range Interpretation Comments Magnesium Level (test code = 77493-6) 1.9 1.3-2.1 [facility] ChildrenUrine TTI5535-63-62 19:42:00 Test Item Value Reference Range Interpretation Comments Urine WBC (test code = 5821-4) NONE 0-5 [facility] ChildrenUrine IYH9637-67-28 19:42:00 Test Item Value Reference Range Interpretation Comments Urine RBC (test code = 32178-0) >50 0-5 H [facility] ChildrenUrine Pyygnmtx8374-67-01 19:42:00 Test Item Value Reference Range Interpretation Comments Urine Bacteria (test code = 29006-0) PRESENT NONE [facility] ChildrenUrine Epithelial Nddlu5483-23-39 19:42:00 Test Item Value Reference Range Interpretation Comments Urine Epithelial Cells (test code = RARE NONE 43105-0) [facility] ChildrenUrine Zlfvk1728-35-77 19:32:00 Test Item Value Reference Range Interpretation Comments Urine Color (test code = 5778-6) STRAW YELLOW [facility] ChildrenUrine Zoctmlw8125-29-09 19:32:00 Test Item Value Reference Range Interpretation Comments Urine Clarity (test code = 82491-6) SL CLOUDY CLEAR [facility] ChildrenUrine Specific Kaijjam0675-18-07 19:32:00 Test Item Value Reference Range Interpretation Comments Urine Specific [place] (test code = 1.015 1.010-1.025 5811-5) [facility] ChildrenUrine bO6479-67-63 19:32:00 Test Item Value Reference Range Interpretation Comments Urine pH (test code = 23789-6) 6 5-7 [facility] Leukocyte Chmznetr4534-29-38 19:32:00 Test Item Value Reference Range Interpretation Comments Urine Leukocyte Esterase (test code NEGATIVE NEGATIVE = 5799-2) [facility] Rdrmfix6296-91-58 19:32:00 Test Item Value Reference Range Interpretation Comments Urine Nitrite (test code = 49971-2) NEGATIVE NEGATIVE [facility] Kcuunuy8152-52-54 19:32:00 Test Item Value Reference Range Interpretation Comments Urine Protein (test code = 5804-0) NEGATIVE NEGATIVE [facility] ChildrenUrine Glucose (UA)2019-01-09 19:32:00 Test Item Value Reference Range Interpretation Comments Urine Glucose (UA) (test code = NEGATIVE NEGATIVE 2349-9) [facility] Igyqoxz4138-77-82 19:32:00 Test Item Value Reference Range Interpretation Comments Urine Ketones (test code = 54181-2) 2+ NEGATIVE H [facility] Eukmageokuma8314-76-11 19:32:00 Test Item Value Reference Range Interpretation Comments Urine Urobilinogen (test code = 0.2 0.2-1 47050-2) [facility] Jxlvdymzt1599-43-35 19:32:00 Test Item Value Reference Range Interpretation Comments Urine Bilirubin (test code = 1978-6) NEGATIVE NEGATIVE [facility] ChildrenUrine Zwubs5291-09-81 19:32:00 Test Item Value Reference Range Interpretation Comments Urine Blood (test code = 44498-0) 4+ NEGATIVE H INFORMED THAT PT IS STARTED HER PERIODTexas [facility] Vitamin B12 Iodxu9545-75-84 18:39:00 Test Item Value Reference Range Interpretation Comments Vitamin B12 Level (test code = 59403-8) 808 213-816 [facility] for ChildrenErythrocyte Sedimentation Kkyw2725-86-14 18:07:00 Test Item Value Reference Range Interpretation Comments Erythrocyte Sedimentation Rate (test 4 0-20 code = 4537-7) [facility] for ChildrenFerritin2019-02-21 18:06:00 Test Item Value Reference Range Interpretation Comments Ferritin (test code = 2276-4) 29.07 4.63-204.00 [facility] ChildrenIron Imegu7217-72-44 17:46:00 Test Item Value Reference Range Interpretation Comments Iron Level (test code = 2498-4) 40 50-170 L [facility] ChildrenTotal Iron Binding Dhiqukvm9504-87-73 17:46:00 Test Item Value Reference Range Interpretation Comments Total Iron Binding Capacity (test code 333 370-158 = 2500-7) [facility] ChildrenPercent Iron Cghflucsoa4071-30-02 17:46:00 Test Item Value Reference Range Interpretation Comments Percent Iron Saturation (test code = 12 15-50 L 2502-3) [facility] for ChildrenTransferrin2019-02-21 17:46:00 Test Item Value Reference Range Interpretation Comments Transferrin (test code = 3034-6) 238 180-382 [facility] ChildrenPercent Reticulocyte Rabuo2740-26-17 17:34:00 Test Item Value Reference Range Interpretation Comments Percent Reticulocyte Count (test code = 2.1 0.8-2.2 01725-5) [facility] ChildrenHEPTOBILIARY W MDUFQ0031-94-59 14:46:00 [facility] [address] [address] Patient Name: JAMES GRIFFIN MR #: [id number] : 1985 Age/Sex: 33/F Req #: [id number] Adm Physician: SARY SINGH MD Ordered by: DWAIN LOVING MD Report #: [id number] Location: MED/SURG3 Room/Bed: [facility] Procedure: [id number] NM/HEPTOBILIARY W PHARM Exam Date: 01/09/19 Exam [...] 01/09/2019 2:47 PM DictatedBy: JEOVANY VELAZQUEZ MD 2980 Transcribed By: TANA on 01/09/19 6930 COPY TO: DWAIN LOVING [facility] MRCP [id number] 16:52:[address] [place] [address] Patient Name: JAMES GRIFFIN MR #: [id number] : 1985 Age/Sex: 33/F Req #: [id number] Adm Physician: SARY SINGH MD Ordered by: SARY SINGH MD Report #: [id number] Location: MED/SURG3 Room/Bed: [facility] Procedure: [id number] MRI/MRI MRCP WO Exam Date: 01/08/19 Exam Time: 1600 REPORT STATUS: Signed MRCP CPT code: 39748 History: Intractable nausea/vomiting, chronic epigastric pain Comparison: [...] 01/08/191700 COPY TO: SARY SINGH MD Urine Xnko4525-05-80 12:32:00 Test Item Value Reference Range Interpretation Comments Urine Test (test code = NEGATIVE NEGATIVE 2106-3) [facility] ChildrenFolate2019-02-20 06:55:00 Test Item Value Reference Range Interpretation Comments Folate (test code = 2284-8) 18.6 7.0-15.4 H [facility] ChildrenThyroid Stimulating Hormone (TSH) 2019-01-08 06:33:00 Test Item Value Reference Range Interpretation Comments Thyroid Stimulating Hormone (TSH) (test 0.964 0.350-4.940 code = 79142-3) [facility] ChildrenTotal Ghkthoawy8093-69-03 05:55:00 Test Item Value Reference Range Interpretation Comments Total Bilirubin (test code = 1975-2) 0.5 0.2-1.2 [facility] ChildrenAspartate Amino Transf (AST/SGOT) 2019-01-08 05:55:00 Test Item Value Reference Range Interpretation Comments Aspartate Amino Transf (AST/SGOT) (test 17 5-34 code = Aspartate Amino Transf (AST/SGOT)) [facility] ChildrenAlanine Aminotransferase (ALT/SGPT) 2019-01-08 05:55:00 Test Item Value Reference Range Interpretation Comments Alanine Aminotransferase (ALT/SGPT) 16 0-55 (test code = 1742-6) [facility] ChildrenTotal Xevtllq2920-47-83 05:55:00 Test Item Value Reference Range Interpretation Comments Total Protein (test code = 2885-2) 5.7 6.5-8.1 L [facility] ChildrenAlbumin2019-02-20 05:55:00 Test Item Value Reference Range Interpretation Comments Albumin (test code = 1751-7) 4.0 3.5-5.0 [facility] ChildrenGlobulin2019-02-20 05:55:00 Test Item Value Reference Range Interpretation Comments Globulin (test code = 56275-2) 1.7 2.3-3.5 L [facility] ChildrenAlbumin/Globulin Mubcx0477-07-60 05:55:00 Test Item Value Reference Range Interpretation Comments Albumin/Globulin Ratio (test code = 2.4 0.8-2.0 H 1759-0) [facility] ChildrenAlkaline Ljkvptqajlm0719-41-27 05:55:00 Test Item Value Reference Range Interpretation Comments Alkaline Phosphatase (test code = 39 40-150 L 6768-6) [facility] ChildrenAmylase Dgwys2050-77-07 05:55:00 Test Item Value Reference Range Interpretation Comments Amylase Level (test code = 1798-8) 31 25-125 [facility] ChildrenLipase2019-02-20 05:55:00 Test Item Value Reference Range Interpretation Comments Lipase (test code = 3040-3) 22 8-78 [facility] ChildrenABDOMEN ACUTE SERIES W/PA RMO0842-51-07 01:41:00 [facility] [address] [place] [address] Patient Name: JAMES GRIFFIN MR #: [id number] : 1985 Age/Sex: 33/F Req #: [id number] Adm Physician: Ordered by: RACIEL CALVERT MD Report #: [id number] Location: ER Room/Bed: Procedure: [id number] DX/ABDOMEN ACUTE SERIES W/PA CXR Exam Date: 01/07/19 Exam Time: 47 REPORT STATUS: Signed EXAM: Abdomen 2 Views, chest 1 view INDICATION: abd pain [id number] Y COMPARISON: None FINDINGS: No focal [...] on 01/07/19141 COPY TO: RACIEL CALVERT MDUrine Nogqa9043-68-06 00:18:00 Test Item Value Reference Range Interpretation Comments Urine Mucus (test code = 8247-9) MANY RARE H [facility] ChildrenUrine Opiates Tvadsa0540-27-33 00:09:00 Test Item Value Reference Range Interpretation Comments Urine Opiates Screen (test code = POSITIVE NEGATIVE H 40364-5) ALL TESTS PERFORMED MANUALLY ON [employer] TOX/SEE TEST This test provides only a screen. Positive results should be repeated by a confirmatory test.[facility] ChildrenUrine Barbiturates Kuhvit7839-54-91 00:09:00 Test Item Value Reference Range Interpretation Comments Urine Barbiturates Screen (test code NEGATIVE NEGATIVE = 801918875) [facility] ChildrenUrine Phencyclidine Ruxxbt0989-97-89 00:09:00 Test Item Value Reference Range Interpretation Comments Urine Phencyclidine Screen (test NEGATIVE NEGATIVE code = 59454-4) [facility] ChildrenUrine Amphetamines Vikpkv6033-64-97 00:09:00 Test Item Value Reference Range Interpretation Comments Urine Amphetamines Screen (test code NEGATIVE NEGATIVE = 11125-4) [facility] ChildrenUrine Methamphetamines Ltrkjx4096-37-07 00:09:00 Test Item Value Reference Range Interpretation Comments Urine Methamphetamines Screen (test NEGATIVE NEGATIVE code = Urine Methamphetamines Screen) [facility] ChildrenUrine Benzodiazepines Plychy9584-44-69 00:09:00 Test Item Value Reference Range Interpretation Comments Urine Benzodiazepines Screen (test NEGATIVE NEGATIVE code = 99433-2) [facility] ChildrenUrine Cocaine Zaphmj7993-60-48 00:09:00 Test Item Value Reference Range Interpretation Comments Urine Cocaine Screen (test code = NEGATIVE NEGATIVE 3398-5) [facility] ChildrenUrine Cannabinoids Nqaknk2535-63-60 00:09:00 Test Item Value Reference Range Interpretation Comments Urine Cannabinoids Screen (test code POSITIVE NEGATIVE H = 67335-7) THESE RESULTS ARE FOR MEDICAL TREATMENT ONLYTHIS REPORT CONTAINS UNCONFIRMED SCREENING RESULTS*POSITIVE RESULTS WILL BE CONFIRMED BY REFERENCE LAB UPON REQUEST CUT-OFFDRUG CLASS CONCENTRATION ng/mLAmphetamines 1000Met hamphetamines 1000Cocaine 300Opiate 300Phencyclidine 25Cannabinoid 50Barbiturates 300Benzodiazepine 300Methadone 300 This test provides only a screen. Positive results should be repeated by a confirmatory test.[facility] ChildrenUrine Methadone Hzohoh6210-47-51 00:09:00 Test Item Value Reference Range Interpretation Comments Urine Methadone Screen (test code = NEGATIVE NEGATIVE 68548-0) THESE RESULTS ARE FOR MEDICAL TREATMENT ONLYTHIS REPORT CONTAINS UNCONFIRMED SCREENING RESULTS*POSITIVE RESULTS WILL BE CONFIRMED BY REFERENCE LAB UPON REQUEST CUT-OFFDRUG CLASS CONCENTRATION ng/mLAmphetamines 1000Met hamphetamines 1000Cocaine Metabolite 300Opiate 300Phencyclidine 25Cannabinoid 50Barbiturates 300Benzodiazepine 300Methadone 300[facility]
[2020-11-03 14:46] LABS: Absolute Lymphocytes (CBC) 0.6 K/uL (0.7-4.9); Basophils % 0.3 % (0-1.3); Hematocrit 35.7 % (36.0-45.0); Lymphocytes % 8.3 % (15.3-44.8); MPV 9.2 fL (7.6-11.3); RBC Red Blood Cell Count 4.07 M/uL (3.86-4.86)
[2020-11-03] MEDS ORDERED: FAMOTIDINE 20 MG/2 ML VIAL IV ONE (14:53)
[2020-11-03] MEDS ORDERED: PROMETHAZINE INJ 25 MG/ML AMP ONE (14:53)
[2020-11-03] MEDS ORDERED: NA CHLORIDE 0.9% 2,000 ML ONE (14:53)
[2020-11-03] MEDS ORDERED: HYDROMORPHONE HCL 1 MG/ML INJ ONE (14:53)
[2020-11-03 15:00] LABS: Albumin 4.2 g/dL (3.4-5.0); Bilirubin Direct 0.2 mg/dL (0-0.2); Bilirubin Total 0.6 mg/dL (0.2-1.0); Protein, Total 7.6 g/dL (6.4-8.2)
[2020-11-03] MEDS ORDERED: MORPHINE 2 MG/ML SYR IV PRN (16:07)
[2020-11-03] MEDS ORDERED: ACETAMINOPHEN 500 MG TAB PO PRN (16:07)
--- NOTE | 2020-11-03 16:14 | EDPHYS ---
Physician Documentation [facility] Name: Shyanne Pardo Age: 35 yrs Sex: Female : 1985 Arrival Date: 11/03/2020 Time: 12:22 Bed 7 Private MD: ED Physician Fito Rabago HPI: 11/03 15:49 This 35 yrs old Female presents to ER via Ambulatory with complaints of keyonna Abdominal Pain, Nausea. 15:49 The patient presents to the emergency department with nausea, vomiting, abdominal pain, keyonna of the right upper quadrant, left upper quadrant, right lower quadrant and left lower quadrant. Onset: The symptoms/episode began/occurred 3 day(s) ago. Possible causes: unknown. The symptoms are aggravated by pressure, food , The symptoms are alleviated by nothing. Associated signs and symptoms: The patient has no apparent associated signs or symptoms. Severity of symptoms: At their worst the symptoms were. 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 - Social history:: Smoking status: Patient denies any tobacco usage or history of. ROS: 16:07 Constitutional: Negative for fever, chills, and weight loss, Eyes: Negative for injury, keyonna pain, redness, and discharge, ENT: Negative for injury, pain, and discharge, Neck: Negative for injury, pain, and swelling, Cardiovascular: Negative for chest pain, palpitations, and edema, Respiratory: Negative for shortness of breath, cough, wheezing, and pleuritic chest pain, Back: Negative for injury and pain, : Negative for injury, bleeding, discharge, and swelling, MS/Extremity: Negative for injury and deformity, Skin: Negative for injury, rash, and discoloration, Neuro: Negative for headache, weakness, numbness, tingling, and seizure, Psych: Negative for depression, anxiety, suicide ideation, homicidal ideation, and hallucinations, Allergy/Immunology: Negative for hives, rash, and allergies, Endocrine: Negative for neck swelling, polydipsia, polyuria, polyphagia, and marked weight changes, Hematologic/Lymphatic: Negative for swollen nodes, abnormal bleeding, and unusual bruising. 16:07 Abdomen/GI: Positive for abdominal pain, nausea and vomiting, of the right upper quadrant, left upper quadrant, right lower quadrant and left lower quadrant. Exam: 16:07 Constitutional: This is a well developed, well nourished patient who is awake, alert, keyonna and in no acute distress. Head/Face: Normocephalic, atraumatic. Eyes: Pupils equal round and reactive to light, extra-ocular motions intact. Lids and lashes normal. Conjunctiva and sclera are non-icteric and not injected. Cornea within normal limits. Periorbital areas with no swelling, redness, or edema. ENT: Nares patent. No nasal discharge, no septal abnormalities noted. Tympanic membranes are normal and external auditory canals are clear. Oropharynx with no redness, swelling, or masses, exudates, or evidence of obstruction, uvula midline. Mucous membranes moist. Neck: Trachea midline, no thyromegaly or masses palpated, and no cervical lymphadenopathy. Supple, full range of motion without nuchal rigidity, or vertebral point tenderness. No Meningismus. Chest/axilla: Normal chest wall appearance and motion. Nontender with no deformity. No lesions are appreciated. Cardiovascular: Regular rate and rhythm with a normal S1 and S2. No gallops, murmurs, or rubs. Normal PMI, no JVD. No pulse deficits. Respiratory: Lungs have equal breath sounds bilaterally, clear to auscultation and percussion. No rales, rhonchi or wheezes noted. No increased work of breathing, no retractions or nasal flaring. Back: No spinal tenderness. No costovertebral tenderness. Full range of motion. Female : Normal external genitalia. Skin: Warm, dry with normal turgor. Normal color with no rashes, no lesions, and no evidence of cellulitis. MS/ Extremity: Pulses equal, no cyanosis. Neurovascular intact. Full, normal range of motion. Neuro: Awake and alert, GCS 15, oriented to person, place, time, and situation. Cranial nerves II-XII grossly intact. Motor strength 5/5 in all extremities. Sensory grossly intact. Cerebellar exam normal. Normal gait. Psych: Awake, alert, with orientation to person, place and time. Behavior, mood, and affect are within normal limits. 16:07 Abdomen/GI: Inspection: abdomen appears normal, Bowel sounds: hyperactive, Palpation: mild abdominal tenderness, in all quadrants, Liver: no appreciated palpable abnormalities, Hernia: not appreciated. Vital Signs: 12:45 Pulse 72; Resp 18; Temp 98.9(O); Pulse Ox 100% on R/A; Weight 60.33 kg; Height 5 ft. 8 em in. (172.72 cm); Pain 10/10; 14:30 BP 129 / 83; Pulse 67; Resp 17; Pulse Ox 99% on R/A; tw2 15:30 BP 118 / 77; Pulse 62; Resp 19; Pulse Ox 100% on R/A; tw2 15:50 BP 118 / 77; aa5 16:50 BP 118 / 96; Pulse 57; Resp 17; Pulse Ox 100% on R/A; tw2 17:47 BP 121 / 81; Pulse 60; Resp 17; Pulse Ox 100% on R/A; tw2 18:48 BP 118 / 80; Pulse 62; Resp 17; Pulse Ox 99% on R/A; tw2 19:08 BP 120 / 85; Pulse 62; Resp 18; Pulse Ox 99% ; ea 19:36 BP 116 / 84; Pulse 61; Resp 16; Temp 98.5; Pulse Ox 99% on R/A; rv 12:45 Body Mass Index 20.22 (60.33 kg, 172.72 cm) em MDM: 14:19 Patient medically screened. [facility] 16:09 Differential diagnosis: Nonspecific abd pain, gastritis, pancreatitis, diverticulitis, keyonna viral gastroenteritis, gastroenteritis. Data reviewed: vital signs, nurses notes, old medical records, lab test result(s), radiologic studies, CT scan, plain films, ultrasound. Data interpreted: manager monitoring: rate is 62 beats/min, rhythm is regular. Test interpretation: by ED physician or midlevel provider: plain radiologic studies. Counseling: I had a detailed discussion with the patient and/or guardian regarding: the historical points, exam findings, and any diagnostic results supporting the discharge/admit diagnosis, lab results, the need for further work-up and treatment in the hospital. 11/03 14:22 Order name: Basic Metabolic Panel; Complete Time: 15:30 keyonna 12/16 14:22 Order name: CBC with Diff; Complete Time: 03:59 [facility] 11/03 14:22 Order name: Hepatic Function; Complete Time: 15:30 [facility] 11/03 14:22 Order name: Lipase; Complete Time: 15:30 [facility] 11/03 16:09 Order name: CBC with Automated Diff [facility] 11/03 16:09 Order name: CBC with Automated Diff [facility] 11/03 16:09 Order name: Comprehensive Metabolic Panel [facility] 11/03 16:09 Order name: Comprehensive Metabolic Panel [facility] 11/03 16:31 Order name: Urine Dipstick--Ancillary (enter results) 11/03 16:31 Order name: Urine --Ancillary (enter results) 11/03 16:55 Order name: Urine --Ancillary; Complete Time: 03:59 [facility] 11/03 16:55 Order name: Urine Dipstick-Ancillary; Complete Time: 03:59 [facility] 11/03 17:57 Order name: CORONAVIRUS [facility] 11/03 14:22 Order name: IV Saline Lock; Complete Time: 14:37 [facility] 11/03 14:22 Order name: Labs collected and sent; Complete Time: 14:37 [facility] 11/03 14:22 Order name: Urine Dipstick-Ancillary (obtain specimen); Complete Time: 16:22 [facility] 11/03 15:31 Order name: Vital Signs; Complete Time: 15:59 [facility] 11/03 16:09 Order name: CONS Pharmacy Consult [facility] 11/03 16:09 Order name: Clear Liquid [facility] 11/03 18:41 Order name: CBC Smear Scan; Complete Time: 03:59 [facility] Administered Medications: 14:43 Drug: Phenergan 12.5 mg Route: IVP; Site: right antecubital; tw2 16:22 Follow up: Response: No adverse reaction; Nausea is decreased tw2 14:45 Drug: Dilaudid 1 mg {Note: RASS 0.} Route: IVP; Site: right antecubital; tw2 16:22 Follow up: Response: No adverse reaction; Pain is decreased; RASS: Alert and Calm (0) tw2 14:46 Drug: Pepcid 20 mg Route: IVP; Site: right antecubital; tw2 17:48 Follow up: Response: No adverse reaction tw2 14:48 Drug: NS 0.9% 1000 ml Route: IV; Rate: 1 bolus; Site: right antecubital; tw2 17:48 Follow up: Response: No adverse reaction; IV Status: Completed infusion; IV Intake: tw2 1000ml 14:48 Drug: NS 0.9% 1000 ml Route: IV; Rate: 125 ml/hr; Site: right antecubital; tw2 19:07 Follow up: Response: No adverse reaction; IV Status: Infusion continued upon admission ea 16:23 Drug: NS 0.9% with KCl 20 mEq/L 1000 ml Route: IV; Rate: 500 ml/hr; Site: right tw2 antecubital; 18:47 Follow up: Response: No adverse reaction; IV Status: Completed infusion; IV Intake: tw2 1000ml 19:07 Follow up: Response: No adverse reaction; IV Status: Completed infusion; IV Intake: ea 1000ml Disposition: 11/03/20 16:13 Hospitalization ordered by Luis M Casas for Observation. Preliminary diagnosis are Abdominal tenderness, Vomiting - intractable, Functional dyspepsia, Hypokalemia. - Bed requested for Telemetry/MedSurg (observation). - Status is Observation. rv - Condition is Fair. - Problem is new. - Symptoms have improved. Signatures: Dispatcher [employer] EDMS Trice Diamond Corey, MD MD cha Munoz, Edgar, RN RN Mariano Cortez PA PA [id number] Lynn Tai RN RN tw2 Ron Silva RN RN rv Antunez, Elena RN ea Corrections: (The following items were deleted from the chart) 18:06 16:13 Hospitalization Ordered by Luis M Casas MD for Observation. Preliminary bd diagnosis is Abdominal tenderness; Vomiting - intractable; Functional dyspepsia; Hypokalemia. Bed requested for Telemetry/MedSurg (observation). Status is Observation. Condition is Fair. Problem is new. Symptoms have improved. keyonna 19:41 18:06 11/03/2020 16:13 Hospitalization Ordered by Luis M Casas MD for Observation. rv Preliminary diagnosis is Abdominal tenderness; Vomiting - intractable; Functional dyspepsia; Hypokalemia. Bed requested for Telemetry/MedSurg (observation). Status is Observation. Condition is Fair. Problem is new. Symptoms have improved. bd
--- NOTE | 2020-11-03 16:14 | ER ---
Nurse's Notes [facility] Name: Shyanne Pardo Age: 35 yrs Sex: Female : 1985 Arrival Date: 11/03/2020 Time: 12:22 Bed 7 Private MD: Diagnosis: Abdominal tenderness;Vomiting-intractable;Functional dyspepsia;Hypokalemia Presentation: 11/03 12:45 Chief complaint: Patient states: was seen here x 2 days, was supposed to be admitted em but left, pt reports abd pain, N/V/D and fever. Coronavirus screen: Client denies travel out of the [place] in the last 14 days. Ebola Screen: Patient negative for fever greater than or equal to 101.5 degrees Fahrenheit, and additional compatible Ebola Virus Disease symptoms Patient denies exposure to infectious person. Patient denies travel to an Ebola-affected area in the 21 days before illness onset. No symptoms or risks identified at this time. Initial Sepsis Screen: Does the patient meet any 2 criteria? No. Patient's initial sepsis screen is negative. Does the patient have a suspected source of infection? No. Patient's initial sepsis screen is negative. Risk Assessment: Do you want to hurt yourself or someone else? Patient reports no desire to harm self or others. Onset of symptoms was October 31, 2020. 12:45 Method Of Arrival: Ambulatory em 12:45 Acuity: WOODROW 2 aa5 Triage Assessment: 12:45 General: Appears distressed, uncomfortable, Behavior is cooperative, appropriate for bp age, anxious. Pain: Complains of pain in abdomen. EENT: No deficits noted. Neuro: No deficits noted. Cardiovascular: No deficits noted. Respiratory: No deficits noted. GI: Abdomen is non-distended, Reports lower abdominal pain, nausea, vomiting. : No signs and/or symptoms were reported regarding the genitourinary system. Derm: No deficits noted. Musculoskeletal: No deficits noted. 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 - Social history:: Smoking status: Patient denies any tobacco usage or history of. Screenin:06 Abuse screen: Denies threats or abuse. Nutritional screening: No deficits noted. tw2 Tuberculosis screening: No symptoms or risk factors identified. Fall Risk None identified. Assessment: 12:45 General: SEE TRIAGE NOTE. 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 15:58 Reassessment: Patient appears in no apparent distress at this time. Patient and/or tw2 family updated on plan of care and expected duration. Pain level reassessed. Patient is alert, oriented x 3, equal unlabored respirations, skin warm/dry/pink. pt ambulates to restroom at this time, states "pain is better but i dont understand why it comes back" Patient states feeling better. Patient states symptoms have improved. 16:50 Reassessment: Patient appears in no apparent distress at this time. Patient and/or tw2 family updated on plan of care and expected duration. Pain level reassessed. Patient is alert, oriented x 3, equal unlabored respirations, skin warm/dry/pink. Patient states feeling better. Patient states symptoms have improved. 17:47 Reassessment: Patient appears in no apparent distress at this time. Patient and/or tw2 family updated on plan of care and expected duration. Pain level reassessed. Patient is alert, oriented x 3, equal unlabored respirations, skin warm/dry/pink. Patient states feeling better. Patient states symptoms have improved. 18:47 Reassessment: Patient appears in no apparent distress at this time. Patient and/or tw2 family updated on plan of care and expected duration. Pain level reassessed. Patient is alert, oriented x 3, equal unlabored respirations, skin warm/dry/pink. pt given clear liquid diet and pt tolerating well at this time. 19:08 General: Appears comfortable, Behavior is appropriate for age. Neuro: Level of ea Consciousness is awake, alert, obeys commands, Oriented to person, place, time, situation. Respiratory: Airway is patent Respiratory effort is even, unlabored, Respiratory pattern is regular, symmetrical. GI: Abdomen is non-distended. Derm: Skin is pink, warm \\T\\ dry. 19:36 GI: Bowel sounds present X 4 quads. rv 19:37 GI: Abd is soft and non tender X 4 quads. rv Vital Signs: 12:45 Pulse 72; Resp 18; Temp 98.9(O); Pulse Ox 100% on R/A; Weight 60.33 kg; Height 5 ft. 8 em in. (172.72 cm); Pain 10/10; 14:30 BP 129 / 83; Pulse 67; Resp 17; Pulse Ox 99% on R/A; tw2 15:30 BP 118 / 77; Pulse 62; Resp 19; Pulse Ox 100% on R/A; tw2 15:50 BP 118 / 77; aa5 16:50 BP 118 / 96; Pulse 57; Resp 17; Pulse Ox 100% on R/A; tw2 17:47 BP 121 / 81; Pulse 60; Resp 17; Pulse Ox 100% on R/A; tw2 18:48 BP 118 / 80; Pulse 62; Resp 17; Pulse Ox 99% on R/A; tw2 19:08 BP 120 / 85; Pulse 62; Resp 18; Pulse Ox 99% ; ea 19:36 BP 116 / 84; Pulse 61; Resp 16; Temp 98.5; Pulse Ox 99% on R/A; rv 12:45 Body Mass Index 20.22 (60.33 kg, 172.72 cm) em ED Course: 12:22 Patient arrived in ED. ag5 12:47 Triage completed. em 12:47 Arm band placed on. em 13:55 Placed in gown. Bed in low position. Pulse ox on. NIBP on. pt was given back her tw2 blanket she left in ER yesterday. 13:59 Andrew Galarza, RN is Primary Nurse. bp 14:19 Fito Rabago MD is Attending Physician. keyonna 14:37 Initial lab(s) drawn, by me, sent to lab. Inserted saline lock: 20 gauge in right em1 antecubital area, using aseptic technique. Blood collected. 15:31 IV discontinued, intact, bleeding controlled, No redness/swelling at site. Pressure tw2 dressing applied. 16:13 Luis M Casas MD is Hospitalizing Provider. keyonna 16:14 Inserted saline lock: 20 gauge in right forearm, using aseptic technique. em1 19:09 No provider procedures requiring assistance completed. ea 19:13 Primary Nurse role handed off by Andrew Galarza RN mw2 19:33 Ron Silva, ESTER is Primary Nurse. rv Administered Medications: 14:43 Drug: Phenergan 12.5 mg Route: IVP; Site: right antecubital; tw2 16:22 Follow up: Response: No adverse reaction; Nausea is decreased tw2 14:45 Drug: Dilaudid 1 mg {Note: RASS 0.} Route: IVP; Site: right antecubital; tw2 16:22 Follow up: Response: No adverse reaction; Pain is decreased; RASS: Alert and Calm (0) tw2 14:46 Drug: Pepcid 20 mg Route: IVP; Site: right antecubital; tw2 17:48 Follow up: Response: No adverse reaction tw2 14:48 Drug: NS 0.9% 1000 ml Route: IV; Rate: 1 bolus; Site: right antecubital; tw2 17:48 Follow up: Response: No adverse reaction; IV Status: Completed infusion; IV Intake: tw2 1000ml 14:48 Drug: NS 0.9% 1000 ml Route: IV; Rate: 125 ml/hr; Site: right antecubital; tw2 19:07 Follow up: Response: No adverse reaction; IV Status: Infusion continued upon admission ea 16:23 Drug: NS 0.9% with KCl 20 mEq/L 1000 ml Route: IV; Rate: 500 ml/hr; Site: right tw2 antecubital; 18:47 Follow up: Response: No adverse reaction; IV Status: Completed infusion; IV Intake: tw2 1000ml 19:07 Follow up: Response: No adverse reaction; IV Status: Completed infusion; IV Intake: ea 1000ml Intake: 17:48 IV: 1000ml; Total: 1000ml. tw2 18:47 IV: 1000ml; Total: 2000ml. tw2 19:07 IV: 1000ml; Total: 3000ml. ea Outcome: 16:13 Decision to Hospitalize by Provider. keyonna 19:09 Instructed on the need for admit, Demonstrated understanding of instructions. ea 19:36 Admitted to Med/surg accompanied by tech, via wheelchair, room 216, Other sbar, covid rv result Report called to LATRELL NORMAN 19:36 Condition: good 19:41 Patient left the ED. rv Signatures: Fito Rabago MD MD cha Munoz, Edgar, RN RN aMrck Arnett em1 Radha Vergara RN RN aa5 Lynn Tai RN RN tw2 Regla Jaeger RN RN Andrew Parker RN RN Leona, Cristy 2 Ron Silva RN RN Godwin Jacobsen 5 Corrections: (The following items were deleted from the chart) 12:50 12:45 Acuity: WOODROW 3 em aa5 15:52 12:47 BP 135 / 123; em aa5
[2020-11-03] MEDS ORDERED: NS KCL 20MEQ 1,000 ML IV ONE (16:16)
[2020-11-03 16:54] LABS: Urine Blood 1+ (NEG); Urine Glucose NEGATIVE (NEG); Urine Protein NEGATIVE (NEG); Urine Specific Gravity 1.015 (1.005-1.030)
[2020-11-03 18:40] LABS: Blood Morphology Comment NOT SEEN (NOT SEEN); Platelet Estimate ADEQ; White Blood Cell Scan OK (OK)
[2020-11-03] MEDS: NA CHLORIDE 0.9% 1,000 ML IV SCH (20:24)
[2020-11-03] MEDS: clonazePAM 0.5 MG TAB PO SCH ×2 (20:25→20:39)
[2020-11-03] MEDS: HYDROCORTISONE SUC 100 MG INJ IV SCH (20:25)
[2020-11-03] MEDS: levoFLOXacin 750 MG TAB PO SCH (21:59)
[2020-11-04] MEDS: HYDROCORTISONE SUC 100 MG INJ IV SCH ×3 (01:25→16:45)
[2020-11-04] MEDS: NA CHLORIDE 0.9% 1,000 ML IV SCH ×4 (03:00→23:00)
[2020-11-04] MEDS: ONDANSETRON 4 MG/2 ML VIAL IV PRN (03:24)
[2020-11-04] MEDS ORDERED: MAGNES/ALUMIN/SIMET 30ML UCUP PO ONE (04:04)
[2020-11-04] MEDS ORDERED: PROMETHAZINE INJ 25 MG/ML AMP IV PRN (04:04)
[2020-11-04] MEDS ORDERED: SODIUM CHLORIDE 0.9% 10ML INJ IV PRN (04:04)
[2020-11-04] MEDS ORDERED: LIDOCAINE VISCOUS 2% SOLN 15 ML UDC PO ONE (04:06)
[2020-11-04] MEDS ORDERED: PROMETHAZINE INJ 25 MG/ML AMP IV ONE (05:59)
[2020-11-04] MEDS ORDERED: HYDROMORPHONE HCL 0.5 MG/0.5 ML INJ IV ONE (05:59)
[2020-11-04 06:08] LABS: Basophils % 0.4 % (0-1.3); Hematocrit 32.7 % (36.0-45.0); Lymphocytes % 16.4 % (15.3-44.8); MPV 9.1 fL (7.6-11.3); RBC Red Blood Cell Count 3.71 M/uL (3.86-4.86)
[2020-11-04 06:30] LABS: ALT/SGPT 19 U/L (12-78); AST/SGOT 13 U/L (15-37); Albumin 3.2 g/dL (3.4-5.0); Alkaline Phosphatase 63 U/L (45-117); BUN Blood Urea Nitrogen 7 mg/dL (7-18); Bicarbonate 25 mmol/L (21-32); Bilirubin Total 0.6 mg/dL (0.2-1.0); Glucose Level 104 mg/dL (74-106); Potassium 3.2 mmol/L (3.5-5.1); Protein, Total 6.1 g/dL (6.4-8.2); Sodium Level 140 mmol/L (136-145)
[2020-11-04] MEDS ORDERED: PANTOPRAZOLE 40 MG INJ IVP SCH (07:30)
[2020-11-04] MEDS: clonazePAM 0.5 MG TAB PO SCH ×3 (08:19→20:09)
--- NOTE | 2020-11-04 09:05 | P.HP ---
Certification for Inpatient Patient admitted to: Inpatient With expected LOS: >2 Midnights Patient will require the following post-hospital care: None Practitioner: I am a practitioner with admitting privileges, knowledge of patient current condition, hospital course, and medical plan of care. Services: Services provided to patient in accordance with Admission requirements found in Title 42 Section 412.3 of the Code of Federal Regulations Patient History Date of Service: 11/03/20 Reason for admission: Intractable nausea and vomiting/abdominal pain/cyclical vomiting syndrome History of Present Illness: Patient is a 35-year-old female who presents the hospital with abdominal pain. She has been admitted a couple of days ago for abdominal pain and nausea and vomiting. Her symptoms are not really improving. She left AMA because she had to go take care of her children & find some assistance with her children. She states she has been seen in the past for similar complaints and she was worked up for inflammatory bowel disease. At one time, she was told she had Crohn's disease but the workup came back negative. She had been doing well, but she has had flare ups on and off. Over the last week she has had worsening flare ups that she has had some issues with in her family. She said is been very traumatic for her NS caused a lot of anxiety and stress in her life. She does smoke marijuana regularly but she has been doing this on and off since the age of 13. She has not really changed declining the that she is smoking. There was concern she may have cannabis hyperemesis syndrome. She has also had an EGD in the past which is revealed peptic ulcer disease, gastritis, and a hiatal hernia. At this time, she will be admitted to the hospital for observation. Allergies azithromycin [From Zithromax] Adverse Reaction (Verified 11/01/20 03:56) Itching/Hives/Rash Cephalosporins Adverse Reaction (Verified 11/01/20 03:56) Itching/Hives/Rash erythromycin base Adverse Reaction (Verified 11/01/20 03:56) Itching/Hives/Rash Penicillins Adverse Reaction (Verified 11/01/20 03:56) Anaphylaxis Sulfa (Sulfonamide Antibiotics) Adverse Reaction (Verified 11/01/20 03:56) Itching/Hives/Rash Home Medications: Ondansetron [Zofran] 4 mg PO Q6H PRN #15 tab 12/14/20 Promethazine HCl 12.5 mg PO Q6H PRN 11/01/20 levoFLOXacin [Levaquin] 750 mg PO DAILY 6 Days #6 tab 11/01/20 - Past Medical/Surgical History Has patient received pneumonia vaccine in the past: No Diabetic: No -: HPV -: Colitis -: Gastritis, Sliding Hernia -: Ulcers -: endometriosis -: Tubal ligation -: tonsillectomy -: adenoids removal -: Cholecystectomy - Family History Mother Medical History: Hypertension, GI disease Father Medical History: Hypertension - Social History Smoking Status: Former smoker Alcohol use: Yes CD- Drugs: Yes Place of Residence: Home Review of Systems 10-point ROS is otherwise unremarkable Physical Examination - Vital Signs Temperature: 98.6 F Blood Pressure: 142/70 Pulse: 82 Respirations: 18 Pulse Ox (%): 100 - Physical Exam General: Alert, In no apparent distress, Oriented x3 HEENT: Atraumatic, PERRLA, Mucous membr. moist/pink, EOMI, Sclerae nonicteric Neck: Supple, 2+ carotid pulse no bruit, No LAD, Without JVD or thyroid abnormality Respiratory: Clear to auscultation bilaterally, Normal air movement Cardiovascular: Regular rate/rhythm, Normal S1 S2, No murmurs Gastrointestinal: Normal bowel sounds, Soft and benign, Non-distended, No tenderness, No rebound, No guarding Musculoskeletal: No clubbing, No swelling, No tenderness Integumentary: No rashes Neurological: Normal gait, Normal speech, Normal strength at 5/5 x4 extr, Normal tone, Sensation intact, Cranial nerves 3-12 intact, Normal affect Lymphatics: No axilla or inguinal lymphadenopathy - Studies Laboratory Data (last 24 hrs) 11/03/20 14:35: WBC 7.8, Hgb 12.5, Hct 35.7 L, Plt Count 268 11/03/20 14:35: Sodium 138, Potassium 3.0 L, BUN 8, Creatinine 0.80, Glucose 101, Total Bilirubin 0.6, AST 19, ALT 25, Alkaline Phosphatase 80, Lipase 68 L Assessment & Plan - Problems (Diagnosis) (1) Abdominal pain Current Visit: Yes Status: Acute (2) Intractable nausea and vomiting Current Visit: Yes Status: Acute (3) History of peptic ulcer disease Current Visit: Yes Status: Acute (4) History of hiatal hernia Current Visit: Yes Status: Acute (5) Intractable cyclical vomiting syndrome Current Visit: Yes Status: Acute - Plan Plan: 1. May need repeat imaging of the abdomen and pelvis. Patient may need a GI consultation for upper endoscopy 2. PPI twice a day 3. Anti emetics 4. IV fluids 5. IV steroids 6. Anxiolytics 7. H pylori testing 8. Antidepressant 9. GI and DVT prophylaxis Discharge Plan: Home Plan to discharge in: 48 Hours - Advance Directives Does patient have a Living Will: No Does patient have a Durable POA for Healthcare: No - Code Status/Comfort Care Code Status Assessed: Yes Code Status: Full Code Critical Care: No Time Spent Managing PTS Care (In Minutes): 35
[2020-11-04 09:21] VITALS: O2SAT 97
[2020-11-04] MEDS: PANTOPRAZOLE 40 MG INJ IVP SCH (20:09)
[2020-11-04] MEDS: levoFLOXacin 750 MG TAB PO SCH (20:10)
[2020-11-05] MEDS: HYDROCORTISONE SUC 100 MG INJ IV SCH ×2 (00:11→07:55)
[2020-11-05] MEDS: POTASSIUM 25 MEQ EFFERV TAB PO ONE ×2 (00:54→01:31)
[2020-11-05] MEDS: NA CHLORIDE 0.9% 1,000 ML IV SCH ×2 (01:00→08:25)
[2020-11-05 07:49] LABS: BUN Blood Urea Nitrogen 5 mg/dL (7-18); Bicarbonate 29 mmol/L (21-32); Glucose Level 96 mg/dL (74-106); Potassium 3.3 mmol/L (3.5-5.1); Sodium Level 142 mmol/L (136-145)
[2020-11-05] MEDS: PANTOPRAZOLE 40 MG INJ IVP SCH (07:54)
[2020-11-05] MEDS: ONDANSETRON 4 MG/2 ML VIAL IV PRN (07:55)
[2020-11-05] MEDS ORDERED: LORazepam 2 MG/ML VIAL IV ONE (08:04)
[2020-11-05] MEDS: clonazePAM 0.5 MG TAB PO SCH ×2 (08:24→14:44)
[2020-11-05] MEDS ORDERED: LORazepam 2 MG/ML VIAL ONE (08:25)
[2020-11-05] MEDS ORDERED: HYDROMORPHONE HCL 0.5 MG/0.5 ML INJ IV ONE ×2 (08:36→08:45)
--- NOTE | 2020-11-05 08:38 | P.PN ---
Subjective Date of Service: 11/04/20 Subjective: No new changes, No C/O voiced, Improving Review of Systems 10-point ROS is otherwise unremarkable Physical Examination - Vital Signs Temperature: 97.4 F Blood Pressure: 126/72 Pulse: 54 Respirations: 16 Pulse Ox (%): 100 - Physical Exam General: Alert, In no apparent distress, Oriented x3 Respiratory: Clear to auscultation bilaterally, Normal air movement Cardiovascular: Regular rate/rhythm, Normal S1 S2 Gastrointestinal: Normal bowel sounds, No tenderness Musculoskeletal: No tenderness Integumentary: No rashes Neurological: Normal speech, Normal tone, Normal affect Lymphatics: No axilla or inguinal lymphadenopathy - Studies Medications List Reviewed: Yes Assessment & Plan - Problems (Diagnosis) (1) Abdominal pain Current Visit: Yes Status: Acute (2) Intractable nausea and vomiting Current Visit: Yes Status: Acute (3) History of peptic ulcer disease Current Visit: Yes Status: Acute (4) History of hiatal hernia Current Visit: Yes Status: Acute (5) Intractable cyclical vomiting syndrome Current Visit: Yes Status: Acute - Plan Plan: 1. Patient doing well; no new c/o 2. PPI twice a day 3. Anti emetics 4. IV fluids 5. IV steroids 6. Anxiolytics 7. H pylori testing 8. Antidepressant 9. GI and DVT prophylaxis Discharge Plan: Home Plan to discharge in: Greater than 2 days - Advance Directives Does patient have a Living Will: No Does patient have a Durable POA for Healthcare: No - Code Status/Comfort Care Code Status: Full Code
[2020-11-05] MEDS ORDERED: SIMETHICONE 40 MG/ 0.6 ML PO ONE (09:37)
[2020-11-05] MEDS ORDERED: METOCLOPRAMIDE 10 MG/2mL INJ IV SCH (10:00)
--- NOTE | 2020-11-05 10:39 | RAD REPORT ---
EXAM DESCRIPTION: CT - Stone Protocol - 11/05/2020 9:59 am CLINICAL HISTORY: persistent abdominal pain; hematuria COMPARISON: Abdomen Pelvis W Contrast dated 10/31/2020 TECHNIQUE: Axial [address] imaging of the abdomen and pelvis was performed without IV contrast. No IV contrast was given because of allergy, abnormal renal function, patient refusal or physician re quest. No oral contrast given. All CT scans are performed using dose optimization technique as appropriate and may include automated exposure control or mA/KV adjustment according to patient size. FINDINGS: No suspicious findings in the lung bases. The liver, spleen and pancreas show no suspicious findings on non-contrast imaging. Cholecystectomy c lips are present. No biliary tree dilatation. No hydronephrosis or suspicious renal mass. Numerous phleboliths are present none which are suspected to be ureteral in origin. No significant adrenal finding. Isodense renal masses and pyelonephritis c annot be excluded in the absence of IV contrast. Partially filled urinary bladder shows no suspicious finding. Tubal ligation clips are present. Uterus and left ovary show no suspicious findings. Right over is more prominent. A leaking or ruptured cyst would be possible if the patient has right lower q uadrant pain pattern. No dilated bowel loops or bowel wall thickening. Appendix is not clearly defined. However, there is n o indirect evidence for appendicitis. Patient has a few small central mesenteric lymph nodes under 1 centimeter in size. No free air or pneumatosis. Physiologic quantity of free fluid seen in the cul de sac. No hernia, mass or bulky lymphadenopathy. No suspicious bony findings. IMPRESSION: CT abdomen and pelvis imaging shows no acute or emergent finding. Numerous small mesenteric lymph nodes are present. Nonspecific enteritis or mesenteric adenitis would be possible. Appendix is not clearly defined. There is no indirect evidence for appendicitis. Right ovary is prominent relative to the left. Detail is limited on a noncontrast study. Ruptured or leaking right ovarian cyst would be possible if the patient has right lower quadrant symptoms. Full assessment is limited is the absence of IV contrast.
[2020-11-05] MEDS: METOCLOPRAMIDE 5 MG TAB PO SCH ×2 (11:19→16:10)
[2020-11-05 11:58] LABS: ALT/SGPT 19 U/L (12-78); AST/SGOT 9 U/L (15-37); Albumin 3.5 g/dL (3.4-5.0); Alkaline Phosphatase 70 U/L (45-117); BUN Blood Urea Nitrogen 4 mg/dL (7-18); Bicarbonate 29 mmol/L (21-32); Bilirubin Total 0.4 mg/dL (0.2-1.0); Glucose Level 99 mg/dL (74-106); Potassium 3.2 mmol/L (3.5-5.1); Protein, Total 6.5 g/dL (6.4-8.2); Sodium Level 139 mmol/L (136-145)
[2020-11-05] MEDS ORDERED: METRONIDAZOLE 500mg IVPB 500 MG/100 ML BAG IV SCH (12:00)
[2020-11-05 12:05] LABS: C-Reactive Protein < 2.90 mg/L (<3.00)
[2020-11-05 12:14] LABS: Magnesium 1.7 mg/dL (1.8-2.4); Phosphorus 2.4 mg/dL (2.5-4.9)
[2020-11-05 12:30] LABS: Absolute Lymphocytes (CBC) 0.9 K/uL (0.7-4.9); Basophils % 0.1 % (0-1.3); Hematocrit 36.2 % (36.0-45.0); Lymphocytes % 8.6 % (15.3-44.8); MPV 9.9 fL (7.6-11.3); RBC Red Blood Cell Count 4.14 M/uL (3.86-4.86)
[2020-11-05] MEDS ORDERED: SIMETHICONE 80 MG TAB PO SCH (14:00)
[2020-11-05] MEDS ORDERED: LACTOBACILLUS/ACIDOPHILUS TAB PO SCH (14:00)
--- NOTE | 2020-11-05 15:22 | P.DS ---
Discharge Date: 11/05/20 Disposition: ROUTINE DISCHARGE Discharge Condition: GOOD Reason for Admission: Intractable nausea and vomiting/abdominal pain/cyclical vomiting syndrome - Problems (1) Abdominal pain Status: Acute (2) Intractable nausea and vomiting Status: Acute (3) History of peptic ulcer disease Status: Acute (4) History of hiatal hernia Status: Acute (5) Intractable cyclical vomiting syndrome Status: Acute Brief History of Present Illness: Patient is a 35-year-old female who presents the hospital with abdominal pain. She has been admitted a couple of days ago for abdominal pain and nausea and vomiting. Her symptoms are not really improving. She left AMA because she had to go take care of her children & find some assistance with her children. She states she has been seen in the past for similar complaints and she was worked up for inflammatory bowel disease. At one time, she was told she had Crohn's disease but the workup came back negative. She had been doing well, but she has had flare ups on and off. Over the last week she has had worsening flare ups that she has had some issues with in her family. She said is been very traumatic for her NS caused a lot of anxiety and stress in her life. She does smoke marijuana regularly but she has been doing this on and off since the age of 13. She has not really changed declining the that she is smoking. There was concern she may have cannabis hyperemesis syndrome. She has also had an EGD in the past which is revealed peptic ulcer disease, gastritis, and a hiatal hernia. At this time, she will be admitted to the hospital for observation. Hospital Course: Patient has improved. She remains tearful at times. Nausea and vomiting are much better. At this time, patient is stable for discharge. Vital Signs/Physical Exam: Temp Pulse Resp BP Pulse Ox 98.7 F 77 16 147/63 H 99 11/05/20 12:00 11/05/20 12:00 11/05/20 12:00 11/05/20 12:00 11/05/20 12:00 General: Alert, In no apparent distress, Oriented x3 Laboratory Data at Discharge: WBC 10.5 K/uL (4.3-10.9) D 11/05/20 11:19 Hgb 12.5 g/dL (12.0-15.0) 11/05/20 11:19 Hct 36.2 % (36.0-45.0) 11/05/20 11:19 Plt Count 246 K/uL (152-406) 11/05/20 11:19 Sodium 139 mmol/L (136-145) 11/05/20 11:19 Potassium 3.2 mmol/L (3.5-5.1) L 11/05/20 11:19 BUN 4 mg/dL (7-18) L 11/05/20 11:19 Creatinine 0.66 mg/dL (0.55-1.3) 11/05/20 11:19 Glucose 99 mg/dL (74-106) 11/05/20 11:19 Phosphorus 2.4 mg/dL (2.5-4.9) L 11/05/20 11:19 Magnesium 1.7 mg/dL (1.8-2.4) L 11/05/20 11:19 Total Bilirubin 0.4 mg/dL (0.2-1.0) 11/05/20 11:19 AST 9 U/L (15-37) L 11/05/20 11:19 ALT 19 U/L (12-78) 11/05/20 11:19 Alkaline Phosphatase 70 U/L (45-117) 11/05/20 11:19 Lipase 68 U/L (73-393) L 11/03/20 14:35 Home Medications: Ondansetron [Zofran (Odt)*] 4 mg PO Q6H PRN #15 tab 11/01/20 Promethazine HCl 12.5 mg PO Q6H PRN 11/01/20 levoFLOXacin [Levaquin] 750 mg PO DAILY 6 Days #6 tab 11/01/20 Simethicone [Mylicon*] 80 mg PO TID #30 tab 11/05/20 New Medications: Simethicone [Mylicon*] 80 mg PO TID #30 tab Patient Discharge Instructions: OK TO DC IV AND DC HOME. FOLLOW-UP WITH PCP IN 1-2 WEEKS. RETURN TO THE ER IF SYMPTOMS WORSENS. CALL ME AT [phone] IF ANY QUESTIONS REGARDING HOSPITAL STAY. FOLLOW-UP WITH GI. DR. VILLALOBOS OR DR. GÓEMZ IN 1-2 WEEKS Diet: Regular Activity: Fall precautions Followup: Unknown,U [Primary Care Provider] - Time spent managing pt's care (in minutes): 25
[2020-11-10 12:51] LABS: Immunoglobulin A 101 mg/dL (47-310); Tissue Transglutaminase IgA Ab 1 U/mL (<4)
[2020-11-10 16:53] VITALS: BP 126/72; TEMP 97.4
== END 2020-11-05 16:41 | disposition home or self-care (01) | DRG 392 ==
LOC: ER 12:21 → ERHOLD 16:07 → 2ND 19:36 → OBSVTOIN 11-04 09:45
PROVIDERS: ADMIT Hospitalist; ATTEND Hospitalist
DX: R10.9 Unspecified abdominal pain (principal); R11.15 Cyclical vomiting syndrome unrelated to migraine; R11.2 Nausea with vomiting, unspecified; Z88.1 Allergy status to other antibiotic agents; Z88.0 Allergy status to penicillin; Z90.49 Acquired absence of other specified parts of digestive tract; Z88.5 Allergy status to narcotic agent; Z79.899 Other long term (current) drug therapy; Z98.51 Tubal ligation status; Z87.891 Personal history of nicotine dependence; Z20.828 Contact with and (suspected) exposure to other viral communicable diseases
CPT/HCPCS: 36415; 74176; 76377; 80048; 80053; 80076; 81003; 81025; 82784; 83516; 83690; 83735; 84100; 85025; 85652; 86140; 96361; 96374; 96375; 99285; C9113; J1170; J1720; J2270; J2405; J2550; J2765; J3480; J7030

== ENCOUNTER 2020-12-07 20:18 | Emergency (ER) | payer OTHER, SELFPAY ==
--- OUTSIDE RECORDS SUMMARY | 2020-12-07 20:22 | XMS REPORT | Continuity of Care Document ---
:1985 Author Organization [facility] t Address [address] [place] [place] [address] Care Team Providers Name Role Phone NONSTAFF Primary Care Physician Unavailable Loan CUEVAS, L Attending Clinician Moustapha Myers MD Attending Clinician SINGH Attending Clinician Unavailable SINGH Admitting Clinician Unavailable Payers Payer Name Policy Type Policy Number Effective Date Expiration Date S rex [place] [employer] [id number] [facility] Problems Condition Condition Condition [...] Clinician Laparoscopic cholecystectomy 2019-01-[address] [facility] Medical Center Magnetic resonance 2019-01-[address] [facility] - cholangiopancreatography (MRCP) 00:00:00 Patients Medical without contrast Center Colonoscopy with biopsy 2019-01-[address] [facility] Patients Medical [place] EGD with biopsy 2019-01-07 DWAIN LOVING [facility] - 00:00:00 Patients [facility] Encounters Start End Encounter Admission Attending Care Care Encounter Source Date/Time Date/Time Type Type Clinicians Facility Department ID 2020-08-19 2020-08-19 Telephone Loan, [facility] [id number] 00:00:00 00:00:00 Kenyetta Dorsey Shaggy [id number] [place] [id number] Professio [id number] nal [address] [facility] 2020-08-18 2020-08-18 Telephone Michelle Myers [facility] [id number] 00:00:00 00:00:00 Moustapha Coon [id number] [place] [id number] Professio [id number] nal [address] [facility] 2019-01-08 2019-01-12 Discharged 1 SARY SINGH [facility] A00 [id number] [facility] 08:41:00 13:44:[address] [place] [address] Results Test Description Test Time Test Comments Results Result Comments Source Sodium Level 2019-01-12 06:14:00 Test Item Value Reference Range Interpretation Comme nts Sodium Level (test code = 2951-2) 140 136-145 [facility]Potassium Rzpfi3838-91-42 06:14:00 Test Item Value Reference Range Interpretation Comments Potassium Level (test code = 2823-3) 3.2 3.5-5.1 L [facility] LakewayChloride Koqzg7267-72-94 06:14:00 Test Item Value Reference Range Interpretation Comments Chloride Level (test code = 2075-0) 104 98-107 [facility] LakewayCarbon Dioxide Wcpzp0134-84-66 06:14:00 Test Item Value Reference Range Interpretation Comments Carbon Dioxide Level (test code = 28 22-29 2027-9) [facility] LakewayAnion Vnn2806-33-67 06:14:00 Test Item Value Reference Range Interpretation Comments Anion Gap (test code = 59389-1) 11.2 8-16 [facility] LakewayBlood Urea Mqptjjbl8948-68-67 06:14:00 Test Item Value Reference Range Interpretation Comments Blood Urea Nitrogen (test code = < 5 7-26 L 3094-0) [facility] LakewayCreatinine2019-02-24 06:14:00 Test Item Value Reference Range Interpretation Comments Creatinine (test code = 2160-0) 0.67 0.57-1.11 [facility] LakewayBUN/Creatinine Kysbb7427-39-59 06:14:00 Test Item Value Reference Range Interpretation Comments BUN/Creatinine Ratio (test code = 7 6-25 3097-3) [facility] LakewayEstimat Glomerular Filtration Rate 2019-01-12 06:14:00 Test Item Value Reference Range Interpretation Comments Estimat Glomerular Filtration Rate > 60 >60 (test code = 749848333) Ranges were taken from the National Kidney Disease Education Program and the National Kidney Foundation literature.Reference ranges:60 or greater: Qvmcbh71- 59 (for 3 consecutive months): Chronic kidneydisease 15 or less: Kidney failure [facility] LakewayGlucose Dypje3068-83-52 06:14:00 Test Item Value Reference Range Interpretation Comments Glucose Level (test code = MRK4000) 129 74-118 H [facility] LakewayCalcium Ivpky2186-98-33 06:14:00 Test Item Value Reference Range Interpretation Comments Calcium Level (test code = 69467-0) 8.8 8.4-10.2 [facility] LakewayWhite Blood Nhexe6533-51-57 05:42:00 Test Item Value Reference Range Interpretation Comments White Blood Count (test code = 6690-2) 5.63 4.8-10.8 [facility] LakewayRed Blood Cojke3206-65-51 05:42:00 Test Item Value Reference Range Interpretation Comments Red Blood Count (test code = 789-8) 3.73 3.6-5.1 [facility] LakewayHemoglobin2019-02-24 05:42:00 Test Item Value Reference Range Interpretation Comments Hemoglobin (test code = 77880-1) 11.2 12.0-16.0 L [facility] LakewayHematocrit2019-02-24 05:42:00 Test Item Value Reference Range Interpretation Comments Hematocrit (test code = 4544-3) 32.5 34.2-44.1 L [facility] LakewayMean Corpuscular Mtkuff1344-45-29 05:42:00 Test Item Value Reference Range Interpretation Comments Mean Corpuscular Volume (test code = 87.1 81-99 787-2) [facility] LakewayMean Corpuscular Cccdrrqnkz9035-80-99 05:42:00 Test Item Value Reference Range Interpretation Comments Mean Corpuscular Hemoglobin (test code 30.0 28-32 = 785-6) [facility] LakewayMean Corpuscular Hemoglobin Concent 2019-01-12 05:42:00 Test Item Value Reference Range Interpretation Comments Mean Corpuscular Hemoglobin Concent 34.5 31-35 (test code = 786-4) [facility] LakewayRed Cell Distribution Sivnk0640-45-98 05:42:00 Test Item Value Reference Range Interpretation Comments Red Cell Distribution Width (test code 13.0 11.7-14.4 = 53952-1) [facility] LakewayPlatelet Shwhu0748-56-19 05:42:00 Test Item Value Reference Range Interpretation Comments Platelet Count (test code = 777-3) 233 140-360 [facility] LakewayNeutrophils (%) (Auto)2019-01-12 05:42:00 Test Item Value Reference Range Interpretation Comments Neutrophils (%) (Auto) (test code = 39.7 38.7-80.0 16111-7) [facility] LakewayLymphocytes (%) (Auto)2019-01-12 05:42:00 Test Item Value Reference Range Interpretation Comments Lymphocytes (%) (Auto) (test code = 50.3 18.0-39.1 H 736-9) [facility] LakewayMonocytes (%) (Auto)2019-01-12 05:42:00 Test Item Value Reference Range Interpretation Comments Monocytes (%) (Auto) (test code = 9.1 4.4-11.3 5905-5) [facility] LakewayEosinophils (%) (Auto)2019-01-12 05:42:00 Test Item Value Reference Range Interpretation Comments Eosinophils (%) (Auto) (test code = 0.2 0.0-6.0 713-8) [facility] LakewayBasophils (%) (Auto)2019-01-12 05:42:00 Test Item Value Reference Range Interpretation Comments Basophils (%) (Auto) (test code = 0.5 0.0-1.0 706-2) [facility] LakewayIM GRANULOCYTES %2019-01-12 05:42:00 Test Item Value Reference Range Interpretation Comments IM GRANULOCYTES % (test code = IM 0.2 0.0-1.0 GRANULOCYTES %) [facility] LakewayNeutrophils # (Auto)2019-01-12 05:42:00 Test Item Value Reference Range Interpretation Comments Neutrophils # (Auto) (test code = 2.2 2.1-6.9 751-8) [facility] LakewayLymphocytes # (Auto)2019-01-12 05:42:00 Test Item Value Reference Range Interpretation Comments Lymphocytes # (Auto) (test code = 2.8 1.0-3.2 01912-2) [facility] LakewayMonocytes # (Auto)2019-01-12 05:42:00 Test Item Value Reference Range Interpretation Comments Monocytes # (Auto) (test code = 742-7) 0.5 0.2-0.8 [facility] LakewayEosinophils # (Auto)2019-01-12 05:42:00 Test Item Value Reference Range Interpretation Comments Eosinophils # (Auto) (test code = 0.0 0.0-0.4 711-2) [facility] LakewayBasophils # (Auto)2019-01-12 05:42:00 Test Item Value Reference Range Interpretation Comments Basophils # (Auto) (test code = 704-7) 0.0 0.0-0.1 [facility] LakewayAbsolute Immature Granulocyte (auto 2019-01-12 05:42:00 Test Item Value Reference Range Interpretation Comments Absolute Immature Granulocyte (auto 0.01 0-0.1 (test code = Absolute Immature Granulocyte (auto) [facility] LakewayBedside Cfyuhok5964-77-49 19:46:00 Test Item Value Reference Range Interpretation Comments Bedside Glucose (test code = 41166-5) 117 70-120 Meter ID: [id number] Health Presbyterian Hospital Flower MoundAnti-Nuclear Antibody Kypxez2009-63-21 12:36:00 Test Item Value Reference Range Interpretation Comments Anti-Nuclear Antibody Screen (test Negative . code = 5048-4) Negative <1:80 Borderline 1:80 Positive >1:80Performed at: [email or web address] [address] [id number] Director: Oli Ghosh MD, Phone: [phone] Scott & White Medical Center – LakewayC-Reactive Vkgirem1604-41-58 11:57:00 Test Item Value Reference Range Interpretation Comments C-Reactive Protein (test code = 1988-5) 0.9 0.0-4.9 Performed at: [facility] - [facility] [address] [id number] Director: Oli Ghosh MD, Phone: [phone] Scott & White Medical Center – LakewayPhosphorus Kexiw9868-32-47 06:40:00 Test Item Value Reference Range Interpretation Comments Phosphorus Level (test code = XLB3462) 3.7 2.3-4.7 [facility] LakewayMagnesium Pmefs0234-54-51 06:40:00 Test Item Value Reference Range Interpretation Comments Magnesium Level (test code = 36028-3) 1.9 1.3-2.1 [facility] LakewayUrine UTH1253-47-07 19:42:00 Test Item Value Reference Range Interpretation Comments Urine WBC (test code = 5821-4) NONE 0-5 [facility] LakewayUrine BCG2660-51-02 19:42:00 Test Item Value Reference Range Interpretation Comments Urine RBC (test code = 21235-5) >50 0-5 H [facility] LakewayUrine Fddhrkzv7779-66-61 19:42:00 Test Item Value Reference Range Interpretation Comments Urine Bacteria (test code = 03955-3) PRESENT NONE [facility] LakewayUrine Epithelial Fvows9665-35-31 19:42:00 Test Item Value Reference Range Interpretation Comments Urine Epithelial Cells (test code = RARE NONE 81815-0) [facility] LakewayUrine Lshhp7872-77-33 19:32:00 Test Item Value Reference Range Interpretation Comments Urine Color (test code = 5778-6) STRAW YELLOW [facility] LakewayUrine Sbjxtrl6506-69-64 19:32:00 Test Item Value Reference Range Interpretation Comments Urine Clarity (test code = 55768-7) SL CLOUDY CLEAR [facility] LakewayUrine Specific Tfkaraa6937-10-64 19:32:00 Test Item Value Reference Range Interpretation Comments Urine Specific Worden (test code = 1.015 1.010-1.025 5811-5) [facility] LakewayUrine fB0374-68-86 19:32:00 Test Item Value Reference Range Interpretation Comments Urine pH (test code = 62482-5) 6 5-7 [facility] LakewayUrine Leukocyte Uhdadlmi9213-83-73 19:32:00 Test Item Value Reference Range Interpretation Comments Urine Leukocyte Esterase (test code NEGATIVE NEGATIVE = 5799-2) [facility] Tcdzsnb1588-05-91 19:32:00 Test Item Value Reference Range Interpretation Comments Urine Nitrite (test code = 45163-1) NEGATIVE NEGATIVE [facility] LakewayUrine Qnvfwsf7155-37-60 19:32:00 Test Item Value Reference Range Interpretation Comments Urine Protein (test code = 5804-0) NEGATIVE NEGATIVE [facility] LakewayUrine Glucose (UA)2019-01-09 19:32:00 Test Item Value Reference Range Interpretation Comments Urine Glucose (UA) (test code = NEGATIVE NEGATIVE 2349-9) [facility] Frbnkhw4003-67-82 19:32:00 Test Item Value Reference Range Interpretation Comments Urine Ketones (test code = 48851-4) 2+ NEGATIVE H [facility] Fkphmoaebpvn2454-11-32 19:32:00 Test Item Value Reference Range Interpretation Comments Urine Urobilinogen (test code = 0.2 0.2-1 19928-7) [facility] LakewayUrine Iufeouazs7591-74-72 19:32:00 Test Item Value Reference Range Interpretation Comments Urine Bilirubin (test code = 1978-6) NEGATIVE NEGATIVE [facility] LakewayUrine Bkotq6451-66-09 19:32:00 Test Item Value Reference Range Interpretation Comments Urine Blood (test code = 53720-7) 4+ NEGATIVE H INFORMED THAT PT IS STARTED HER PERIODBaylor Scott & White Medical Center – Lakeway Vitamin B12 Mpddj2015-13-88 18:39:00 Test Item Value Reference Range Interpretation Comments Vitamin B12 Level (test code = 31244-2) 808 213-816 [facility] LakewayErythrocyte Sedimentation Qkne3507-38-37 18:07:00 Test Item Value Reference Range Interpretation Comments Erythrocyte Sedimentation Rate (test 4 0-20 code = 4537-7) [facility] LakewayFerritin2019-02-21 18:06:00 Test Item Value Reference Range Interpretation Comments Ferritin (test code = 2276-4) 29.07 4.63-204.00 [facility] LakewayIron Geftt2099-00-16 17:46:00 Test Item Value Reference Range Interpretation Comments Iron Level (test code = 2498-4) 40 50-170 L [facility] LakewayTotal Iron Binding Abdljneo7339-68-08 17:46:00 Test Item Value Reference Range Interpretation Comments Total Iron Binding Capacity (test code 333 203-068 = 2500-7) [facility] LakewayPercent Iron Xfzmeuktos1090-52-33 17:46:00 Test Item Value Reference Range Interpretation Comments Percent Iron Saturation (test code = 12 15-50 L 2502-3) [facility] LakewayTransferrin2019-02-21 17:46:00 Test Item Value Reference Range Interpretation Comments Transferrin (test code = 3034-6) 238 180-382 [facility] LakewayPercent Reticulocyte Zrghj0375-42-59 17:34:00 Test Item Value Reference Range Interpretation Comments Percent Reticulocyte Count (test code = 2.1 0.8-2.2 36243-4) [facility] LakewayHEPTOBILIARY W VWJKQ6497-49-17 14:46:00 [facility] [address] [address] Patient Name: JAMES GRIFFIN MR #: [id number] : 1985 Age/Sex: 33/F Req #: [id number] Adm Physician: SARY SINGH MD Ordered by: DWAIN LOVING MD Report #: [id number] Location: MED/SURG3 Room/Bed: [facility] Procedure: [id number] NM/HEPTOBILIARY W PHARM Exam Date: 01/09/19 Exam [...] 01/09/2019 2:47 PM DictatedBy: JEOVANY VELAZQUEZ MD 1930 Transcribed By: TANA on 01/09/19 8838 COPY TO: DWAIN LOVING [facility] MRCP FQ3609-48-28 16:52:00 [place] [address] Patient Name: JAMES GRIFFIN MR #: [id number] : 1985 Age/Sex: 33/F Req #: [id number] Adm Physician: SARY SINGH MD Ordered by: SARY SINGH MD Report #: [id number] Location: MED/SURG3 Room/Bed: [facility] Procedure: [id number] MRI/MRI MRCP WO Exam Date: 01/08/19 Exam Time: 1600 REPORT STATUS: Signed MRCP CPT code: 53519 History: Intractable nausea/vomiting, chronic epigastric pain Comparison: [...] 01/08/191700 COPY TO: SARY SINGH MD Urine Jigv8389-48-35 12:32:00 Test Item Value Reference Range Interpretation Comments Urine Test (test code = NEGATIVE NEGATIVE 2106-3) [facility] LakewayFolate2019-02-20 06:55:00 Test Item Value Reference Range Interpretation Comments Folate (test code = 2284-8) 18.6 7.0-15.4 H [facility] LakewayThyroid Stimulating Hormone (TSH) 2019-01-08 06:33:00 Test Item Value Reference Range Interpretation Comments Thyroid Stimulating Hormone (TSH) (test 0.964 0.350-4.940 code = 46482-0) [facility] LakewayTotal Pgzhzeaju8628-77-22 05:55:00 Test Item Value Reference Range Interpretation Comments Total Bilirubin (test code = 1975-2) 0.5 0.2-1.2 [facility] LakewayAspartate Amino Transf (AST/SGOT) 2019-01-08 05:55:00 Test Item Value Reference Range Interpretation Comments Aspartate Amino Transf (AST/SGOT) (test 17 5-34 code = Aspartate Amino Transf (AST/SGOT)) [facility] LakewayAlanine Aminotransferase (ALT/SGPT) 2019-01-08 05:55:00 Test Item Value Reference Range Interpretation Comments Alanine Aminotransferase (ALT/SGPT) 16 0-55 (test code = 1742-6) [facility] LakewayTotal Uzwnkmd4772-58-58 05:55:00 Test Item Value Reference Range Interpretation Comments Total Protein (test code = 2885-2) 5.7 6.5-8.1 L [facility] LakewayAlbumin2019-02-20 05:55:00 Test Item Value Reference Range Interpretation Comments Albumin (test code = 1751-7) 4.0 3.5-5.0 [facility] LakewayGlobulin2019-02-20 05:55:00 Test Item Value Reference Range Interpretation Comments Globulin (test code = 11929-0) 1.7 2.3-3.5 L [facility] LakewayAlbumin/Globulin Nwyas3281-90-67 05:55:00 Test Item Value Reference Range Interpretation Comments Albumin/Globulin Ratio (test code = 2.4 0.8-2.0 H 1759-0) [facility] LakewayAlkaline Otzynttnror5352-13-56 05:55:00 Test Item Value Reference Range Interpretation Comments Alkaline Phosphatase (test code = 39 40-150 L 6768-6) [facility] LakewayAmylase Rnqij8357-75-54 05:55:00 Test Item Value Reference Range Interpretation Comments Amylase Level (test code = 1798-8) 31 25-125 [facility] LakewayLipase2019-02-20 05:55:00 Test Item Value Reference Range Interpretation Comments Lipase (test code = 3040-3) 22 8-78 [facility] LakewayABDOMEN ACUTE SERIES W/PA BKA5229-53-11 01:41:00 [facility] [address] [place] [address] Patient Name: JAMES GRIFFIN MR #: [id number] : 1985 Age/Sex: 33/F Req #: [id number] Adm Physician: Ordered by: RACIEL CALVERT MD Report #: [id number] Location: ER Room/Bed: Procedure: [id number] DX/ABDOMEN ACUTE SERIES W/PA CXR Exam Date: 01/07/19 Exam Time: 47 REPORT STATUS: Signed EXAM: Abdomen 2 Views, chest 1 view INDICATION: abd pain [id number] Y COMPARISON: None FINDINGS: No focal [...] on 01/07/19141 COPY TO: RACIEL CALVERT MDUrine Ysbqt4420-46-86 00:18:00 Test Item Value Reference Range Interpretation Comments Urine Mucus (test code = 8247-9) MANY RARE H [facility] LakewayUrine Opiates Jqhrih2260-68-80 00:09:00 Test Item Value Reference Range Interpretation Comments Urine Opiates Screen (test code = POSITIVE NEGATIVE H 61292-9) ALL TESTS PERFORMED MANUALLY ON Why Not Give Back TOX/SEE TEST This test provides only a screen. Positive results should be repeated by a confirmatory test.[facility] LakewayUrine Barbiturates Teblfu1151-62-87 00:09:00 Test Item Value Reference Range Interpretation Comments Urine Barbiturates Screen (test code NEGATIVE NEGATIVE = 672492972) [facility] LakewayUrine Phencyclidine Xhqdym6313-96-06 00:09:00 Test Item Value Reference Range Interpretation Comments Urine Phencyclidine Screen (test NEGATIVE NEGATIVE code = 09084-1) [facility] LakewayUrine Amphetamines Xgikmt0502-75-77 00:09:00 Test Item Value Reference Range Interpretation Comments Urine Amphetamines Screen (test code NEGATIVE NEGATIVE = 87600-5) [facility] LakewayUrine Methamphetamines Sangeh2423-98-91 00:09:00 Test Item Value Reference Range Interpretation Comments Urine Methamphetamines Screen (test NEGATIVE NEGATIVE code = Urine Methamphetamines Screen) [facility] LakewayUrine Benzodiazepines Rhpkqv1540-86-38 00:09:00 Test Item Value Reference Range Interpretation Comments Urine Benzodiazepines Screen (test NEGATIVE NEGATIVE code = 80266-1) [facility] LakewayUrine Cocaine Qjxufi1770-63-25 00:09:00 Test Item Value Reference Range Interpretation Comments Urine Cocaine Screen (test code = NEGATIVE NEGATIVE 3398-5) [facility] LakewayUrine Cannabinoids Ennxiz5107-44-42 00:09:00 Test Item Value Reference Range Interpretation Comments Urine Cannabinoids Screen (test code POSITIVE NEGATIVE H = 23632-4) THESE RESULTS ARE FOR MEDICAL TREATMENT ONLYTHIS REPORT CONTAINS UNCONFIRMED SCREENING RESULTS*POSITIVE RESULTS WILL BE CONFIRMED BY REFERENCE LAB UPON REQUEST CUT-OFFDRUG CLASS CONCENTRATION ng/mLAmphetamines 1000Met hamphetamines 1000Cocaine 300Opiate 300Phencyclidine 25Cannabinoid 50Barbiturates 300Benzodiazepine 300Methadone 300 This test provides only a screen. Positive results should be repeated by a confirmatory test.[facility] LakewayUrine Methadone Omwjxe4810-50-67 00:09:00 Test Item Value Reference Range Interpretation Comments Urine Methadone Screen (test code = NEGATIVE NEGATIVE 55973-4) THESE RESULTS ARE FOR MEDICAL TREATMENT ONLYTHIS REPORT CONTAINS UNCONFIRMED SCREENING RESULTS*POSITIVE RESULTS WILL BE CONFIRMED BY REFERENCE LAB UPON REQUEST CUT-OFFDRUG CLASS CONCENTRATION ng/mLAmphetamines 1000Met hamphetamines 1000Cocaine Metabolite 300Opiate 300Phencyclidine 25Cannabinoid 50Barbiturates 300Benzodiazepine 300Methadone 300[facility]
[2020-12-07] MEDS ORDERED: NA CHLORIDE 0.9% 1,000 ML ONE (22:51)
[2020-12-07] MEDS ORDERED: ONDANSETRON 4 MG/2 ML VIAL ONE (22:51)
[2020-12-07] MEDS ORDERED: MORPHINE 4 MG/ML SYR ONE (22:51)
[2020-12-07] MEDS ORDERED: PROMETHAZINE INJ 25 MG/ML AMP ONE (22:54)
[2020-12-07] MEDS ORDERED: NA CHLORIDE 0.9% 50 ML ONE (22:54)
[2020-12-07] MEDS ORDERED: FAMOTIDINE 20 MG/2 ML VIAL IV ONE (23:17)
[2020-12-07 23:21] LABS: Basophils % 0.3 % (0-1.3); Hematocrit 39.6 % (36.0-45.0); Lymphocytes % 6.3 % (15.3-44.8); MPV 9.8 fL (7.6-11.3); RBC Red Blood Cell Count 4.42 M/uL (3.86-4.86)
[2020-12-07 23:23] LABS: Barbiturates NEGATIVE (NEGATIVE); Benzodiazepines NEGATIVE (NEGATIVE); Cocaine NEGATIVE (NEGATIVE); METHAMPHETAM NEGATIVE (NEGATIVE); Methadone NEGATIVE (NEGATIVE); Opiates POSITIVE (NEGATIVE); Phencyclidine NEGATIVE (NEGATIVE); THC Cannibis POSITIVE (NEGATIVE)
[2020-12-07 23:23] LABS: ALT/SGPT 16 U/L (12-78); AST/SGOT 13 U/L (15-37); Albumin 4.4 g/dL (3.4-5.0); Alkaline Phosphatase 82 U/L (45-117); BUN Blood Urea Nitrogen 14 mg/dL (7-18); Bicarbonate 26 mmol/L (21-32); Bilirubin Direct < 0.1 mg/dL (0-0.2); Bilirubin Total 0.4 mg/dL (0.2-1.0); Glucose Level 145 mg/dL (74-106); Lipase 113 U/L (73-393); Potassium 3.8 mmol/L (3.5-5.1); Protein, Total 8.3 g/dL (6.4-8.2); Sodium Level 137 mmol/L (136-145)
[2020-12-07 23:24] LABS: Urine Blood 1+ (NEG); Urine Glucose NEGATIVE (NEG); Urine Protein 2+ (NEG); Urine Specific Gravity >1.030 (1.005-1.030); Urine pH 5.5 (5.0-7.0)
[2020-12-08] MEDS ORDERED: METRONIDAZOLE 500mg IVPB 500 MG/100 ML BAG IV ONE (01:08)
[2020-12-08] MEDS ORDERED: ONDANSETRON 4 MG/2 ML VIAL ONE (01:08)
[2020-12-08] MEDS ORDERED: LORazepam 2 MG/ML VIAL ONE (01:10)
[2020-12-08 01:20] LABS: Blood Morphology Comment NOT SEEN (NOT SEEN); Platelet Estimate ADEQ
--- NOTE | 2020-12-08 01:32 | EDPHYS ---
Physician Documentation [facility] Name: Shyanne Pardo Age: 35 yrs Sex: Female : 1985 Arrival Date: 12/07/2020 Time: 20:19 Bed 13 Private MD: ED Physician Luis M Mendoza HPI: 12/07 22:40 This 35 yrs old Female presents to ER via Wheelchair with complaints of cp Abdominal Pain, Nausea/Vomiting. 22:40 The patient presents with abdominal pain that is diffuse. cp 22:40 Onset: The symptoms/episode began/occurred this morning. cp 22:40 Associated signs and symptoms: Pertinent positives: nausea and vomiting, Pertinent cp negatives: diarrhea, fever, vomiting blood. Severity of pain: in the emergency department the pain is unchanged despite home interventions. The patient has experienced similar episodes in the past, multiple times. 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 - Social history:: Smoking status: Patient denies any tobacco usage or history of. ROS: 22:45 Constitutional: Positive for poor PO intake, Negative for body aches, chills, fever. cp 22:45 Eyes: Negative for injury, pain, redness, and discharge. cp 22:45 ENT: Negative for ear pain, sore throat, difficulty swallowing, difficulty handling secretions. 22:45 Cardiovascular: Negative for chest pain, palpitations. 22:45 Respiratory: Negative for cough, shortness of breath, wheezing. 22:45 Abdomen/GI: Positive for abdominal pain, nausea and vomiting, Negative for diarrhea, constipation, hematemesis. 22:45 Neuro: Negative for altered mental status, headache, weakness. 22:45 All other systems are negative. Exam: 22:50 Constitutional: The patient appears in no acute distress, alert, awake, non-toxic, well cp developed, well nourished. 22:50 Head/Face: Normocephalic, atraumatic. cp 22:50 Eyes: Periorbital structures: appear normal, Conjunctiva: normal, no exudate, no cp injection, Sclera: no appreciated abnormality, Lids and lashes: appear normal, bilaterally. 22:50 ENT: External ear(s): are unremarkable, Nose: is normal, Mouth: Lips: moist, Oral cp mucosa: moist. 22:50 Neck: ROM/movement: is normal, is supple, without pain, no range of motions limitations. 22:50 Chest/axilla: Inspection: normal, Palpation: is normal, no crepitus, no tenderness. 22:50 Cardiovascular: Rate: normal, Rhythm: regular. 22:50 Respiratory: the patient does not display signs of respiratory distress, Respirations: normal, no use of accessory muscles, no retractions, labored breathing, is not present, Breath sounds: are clear throughout, no decreased breath sounds, no stridor, no wheezing. 22:50 Abdomen/GI: Inspection: abdomen appears normal, Palpation: soft, in all quadrants, severe abdominal tenderness, in all quadrants, rebound tenderness, is not appreciated, involuntary guarding, is not appreciated. 22:50 Back: CVA tenderness, is absent. 22:50 Neuro: Orientation: to person, place \T\ time. Mentation: is normal, Motor: moves all fours, strength is normal. Vital Signs: 20:41 BP 151 / 86; Pulse 79; Resp 18 S; Temp 98.7(TE); Pulse Ox 99% on R/A; Weight 58.97 kg ca1 (R); Height 5 ft. 8 in. (172.72 cm) (R); Pain 10/10; 22:30 BP 142 / 80; Pulse 80; Resp 17; Pulse Ox 98% on R/A; Pain 10/10; rr5 23:30 BP 155 / 89; Pulse 86; Resp 17; Pulse Ox 98% on R/A; rr5 12/08 00:46 BP 132 / 70; Pulse 75; Resp 19; Pulse Ox 99% ; rr5 01:23 BP 126 / 62; Pulse 79; Resp 16; Pulse Ox 98% ; rr5 12/07 20:41 Body Mass Index 19.77 (58.97 kg, 172.72 cm) ca1 MDM: 12/07 22:31 Patient medically screened. cp 12/08 01:30 Data reviewed: vital signs, nurses notes, lab test result(s), radiologic studies, CT cp scan, and as a result, I will discharge patient. 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 01:37 ED course: VSS. Nausea and pain improved and vomiting resolved. Patient tolerating po cp meds and fluids. 01:37 Response to treatment: the patient's symptoms have markedly improved after treatment, cp and as a result, I will discharge patient. Special discussion: Based on the patient's Hx, exam, and Dx evaluation, there is no indication for emergent surgery or inpatient Tx. It is understood by the patient/guardian that if the Sx's persist or worsen they need to return immediately for re-evaluation. 12/07 22:36 Order name: Basic Metabolic Panel; Complete Time: 00:48 cp 12/07 22:36 Order name: CBC with Diff; Complete Time: cp 12/08 01:22 Interpretation: Normal except: WBC 15.8; GIDEON% 89.5; LYM% 6.3; NEUT A 14.2. cp 12/07 22:36 Order name: Hepatic Function; Complete Time: 00:48 cp 12/07 22:36 Order name: Lipase; Complete Time: 00:48 cp 12/07 22:36 Order name: UDS; Complete Time: 00:48 cp 12/08 01:35 Interpretation: Normal except: THC POSITIVE; OPI POSITIVE. cp 12/07 23:05 Order name: Urine --Ancillary (enter results); Complete Time: 00:48 tt3 12/07 22:36 Order name: CT Abd/Pelvis - IV Contrast Only cp 12/07 23:05 Order name: Urine Dipstick--Ancillary (enter results); Complete Time: 00:48 tt3 12/08 01:23 Interpretation: Normal except: UKET 1+; UBLD 1+; UPROT 2+. cp 12/07 23:26 Order name: Manual Differential; Complete Time: 01:22 EDMS 12/08 01:23 Interpretation: Normal except: SEGS 89; BANDS [F] 3; LYM 8. cp 12/07 22:36 Order name: IV Saline Lock; Complete Time: :58 cp 12/07 22:36 Order name: Labs collected and sent; Complete Time: :58 cp 12/07 22:36 Order name: Urine Dipstick-Ancillary (obtain specimen); Complete Time: :58 cp 12/07 22:36 Order name: Urine Test (obtain specimen); Complete Time: :58 cp 12/08 01:07 Order name: PO challenge; Complete Time: :36 cp Administered Medications: 12/07 22:02 Drug: Pepcid 20 mg Route: IVP; Site: right forearm; rr5 23:00 Follow up: Response: No adverse reaction rr5 22:37 CANCELLED (Physician Discretion): morphine 4 mg IVP once; RASS on ADMIN: Combtv4, Very cp Agttd3, Agttd2, Rstlss1, AlertClm0, Drwsy-1, Lt Sdtn-2, Mod Sdtn-3, Dp Sdtn-4, UnArsble-5 22:50 Drug: Zofran (Ondansetron) 4 mg Route: IVP; Site: right forearm; rr5 23:35 Follow up: Response: No adverse reaction rr5 22:50 Drug: NS 0.9% 1000 ml Route: IV; Rate: 1 bolus; Site: right forearm; rr5 12/08 00:00 Follow up: Response: No adverse reaction; IV Status: Completed infusion; IV Intake: rr5 1000ml 12/07 22:55 Drug: morphine 4 mg {Note: rass 0.} Route: IVP; Site: right forearm; rr5 23:30 Follow up: Response: No adverse reaction; RASS: Alert and Calm (0) rr5 22:57 Drug: Phenergan 25 mg {Note: incorporate to ns 50 ml hooked as side drip.} Route: IVP; rr5 Site: right forearm; 23:30 Follow up: Response: No adverse reaction rr5 12/08 00:58 Drug: Zofran (Ondansetron) 4 mg Route: IVP; Site: right forearm; rr5 02:04 Follow up: Response: No adverse reaction rr5 00:58 Not Given (Physician Discretion): HALdol (as decanoate) 5 mg IM once cp 01:00 Drug: Ativan 1 mg Route: IVP; Site: right forearm; rr5 02:04 Follow up: Response: No adverse reaction rr5 01:02 Drug: metroNIDAZOLE 500 mg Volume: 100 ml; Route: IVPB; Infused Over: 30 mins; Site: rr5 right forearm; 01:30 Follow up: Response: No adverse reaction; IV Status: Completed infusion; IV Intake: rr5 100ml 01:35 Drug: Cipro 500 mg Route: PO; rr5 02:04 Follow up: Response: No adverse reaction rr5 Disposition: 06:59 Co-signature as Attending Physician, Luis M Mendoza MD. ma2 Disposition: 12/08/20 01:32 Discharged to Home. Impression: Nausea and vomiting, Left sided colitis without complications. - Condition is Stable. - Discharge Instructions: Nausea and Vomiting, Adult, Colitis. - Prescriptions for Bentyl 20 mg Oral Tablet - take 1 tablet by ORAL route every 6 hours As needed; 30 tablet. Cipro 500 mg Oral Tablet - take 1 tablet by ORAL route every 12 hours for 10 days; 20 tablet. Metronidazole 500 mg Oral Tablet - take 1 tablet by ORAL route every 8 hours; 30 tablet. Phenergan 25 mg Rectal Suppository - insert 1 suppository by RECTAL route every 6 hours As needed; 12 suppository. promethazine 25 mg Oral Tablet - take 1 tablet by ORAL route every 6 hours As needed; 20 tablet. - Medication Reconciliation Form, Thank You Letter, Antibiotic Education, Prescription Opioid Use form. - Follow up: Bhavik Stevens MD; When: 1 - 2 days; Reason: Recheck today's complaints. - Problem is new. - Symptoms have improved. Signatures: Dispatcher [employer] EDMS Fito Rodrigues PA PA cp Alzahri, Mohammad, MD MD ma2 Diony Jung RN RN rr5 Allison Meléndez RN RN ca1 Corrections: (The following items were deleted from the chart) 12/07 22:37 22:36 morphine 4 mg IVP once; RASS on ADMIN: Combtv4, Very Agttd3, Agttd2, Rstlss1, cp AlertClm0, Drwsy-1, Lt Sdtn-2, Mod Sdtn-3, Dp Sdtn-4, UnArsble-5 ordered. cp 12/08 01:38 01:32 12/08/2020 01:32 Discharged to Home. Impression: Infectious gastroenteritis and cp colitis, unspecified. Condition is Stable. Forms are Medication Reconciliation Form, Thank You Letter, Antibiotic Education, Prescription Opioid Use. Follow up: Bhavik Stevens; When: 1 - 2 days; Reason: Recheck today's complaints. Problem is new. Symptoms have improved. cp 01:42 01:38 12/08/2020 01:32 Discharged to Home. Impression: Infectious gastroenteritis and cp colitis, unspecified; Nausea and vomiting. Condition is Stable. Forms are Medication Reconciliation Form, Thank You Letter, Antibiotic Education, Prescription Opioid Use. Follow up: Bhavik Stevens; When: 1 - 2 days; Reason: Recheck today's complaints. Problem is new. Symptoms have improved. cp 02:59 01:42 12/08/2020 01:32 Discharged to Home. Impression: Nausea and vomiting; Left sided rr5 colitis without complications. Condition is Stable. Discharge Instructions: Nausea and Vomiting, Adult, Colitis. Prescriptions for Bentyl 20 mg Oral Tablet - take 1 tablet by ORAL route every 6 hours As needed; 30 tablet, Cipro 500 mg Oral Tablet - take 1 tablet by ORAL route every 12 hours for 10 days; 20 tablet, Metronidazole 500 mg Oral Tablet - take 1 tablet by ORAL route every 8 hours; 30 tablet, Phenergan 25 mg Rectal Suppository - insert 1 suppository by RECTAL route every 6 hours As needed; 12 suppository, promethazine 25 mg Oral Tablet - take 1 tablet by ORAL route every 6 hours As needed; 20 tablet. and Forms are Medication Reconciliation Form, Thank You Letter, Antibiotic Education, Prescription Opioid Use. Follow up: Bhavik Stevens; When: 1 - 2 days; Reason: Recheck today's complaints. Problem is new. Symptoms have improved. cp
--- NOTE | 2020-12-08 01:32 | ER ---
Nurse's Notes [facility] Name: Shyanne Pardo Age: 35 yrs Sex: Female : 1985 Arrival Date: 12/07/2020 Time: 20:19 Bed 13 Private MD: Diagnosis: Nausea and vomiting;Left sided colitis without complications Presentation: 12/07 20:41 Chief complaint: Patient states: Abdominal pain since Morning. Reports nausea and ca1 vomiting. Pt crying in triage. Coronavirus screen: Client denies travel out of the [place] in the last 14 days. nausea, vomiting. Client presents with at least one sign or symptom that may indicate coronavirus-19. Standard/surgical mask placed on the client. Provider contacted for isolation considerations. Ebola Screen: Patient negative for fever greater than or equal to 101.5 degrees Fahrenheit, and additional compatible Ebola Virus Disease symptoms Patient denies exposure to infectious person. Patient denies travel to an Ebola-affected area in the 21 days before illness onset. No symptoms or risks identified at this time. Initial Sepsis Screen: Does the patient meet any 2 criteria? No. Patient's initial sepsis screen is negative. Does the patient have a suspected source of infection? No. Patient's initial sepsis screen is negative. Risk Assessment: Do you want to hurt yourself or someone else? Patient reports no desire to harm self or others. Onset of symptoms was December 07, 2020. 20:41 Method Of Arrival: Wheelchair ca1 20:41 Acuity: WOODROW 3 ca1 Triage Assessment: 20:47 General: Appears in no apparent distress. uncomfortable, Behavior is crying. Pain: ca1 Complains of pain in abdomen Pain currently is 10 out of 10 on a pain scale. 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 - Social history:: Smoking status: Patient denies any tobacco usage or history of. Screenin:00 Abuse screen: Denies threats or abuse. Denies injuries from another. Nutritional rr5 screening: No deficits noted. Tuberculosis screening: No symptoms or risk factors identified. Fall Risk IV access (20 points). Total Saba Fall Scale indicates No Risk (0-24 pts). Assessment: 22:30 General: Appears in no apparent distress. uncomfortable, ill, Behavior is anxious, rr5 crying. Pain: Complains of pain in abdomen Pain currently is 10 out of 10 on a pain scale. Quality of pain is described as aching, Pain began gradually, Is continuous. Neuro: Level of Consciousness is awake, alert, obeys commands, Oriented to person, place, time, situation. Cardiovascular: Capillary refill < 3 seconds Patient's skin is warm and dry. Respiratory: Airway is patent Respiratory effort is even, unlabored, Respiratory pattern is regular, symmetrical. GI: Abdomen is flat, Abd is soft and non tender Reports lower abdominal pain, upper abdominal pain, nausea, vomiting. : No signs and/or symptoms were reported regarding the genitourinary system. EENT: No signs and/or symptoms were reported regarding the EENT system. Derm: Skin is intact, is healthy with good turgor, Skin temperature is warm. Musculoskeletal: Circulation, motion, and sensation intact. Capillary refill < 3 seconds. 23:30 Reassessment: Patient appears in no apparent distress at this time. Patient is alert, rr5 oriented x 3, equal unlabored respirations, skin warm/dry/pink. resting eyes closed breathing spontaneously. 12/08 00:30 Reassessment: Patient appears in no apparent distress at this time. Patient is alert, rr5 oriented x 3, equal unlabored respirations, skin warm/dry/pink. back from CT scan. 00:50 GI: Reports lower abdominal pain, upper abdominal pain, nausea, vomiting, ED provider rr5 aware with order made and carriedout. 00:50 Pain: Complains of pain in abdomen Pain currently is 10 out of 10 on a pain scale. rr5 01:23 Reassessment: Patient appears in no apparent distress at this time. Patient is alert, rr5 oriented x 3, equal unlabored respirations, skin warm/dry/pink. Patient states symptoms have improved. 02:03 Reassessment: Patient appears in no apparent distress at this time. discharge rr5 instruction given and explained verbalized understanding. 02:18 Reassessment: awaiting for her ride home. rr5 Vital Signs: 12/07 20:41 BP 151 / 86; Pulse 79; Resp 18 S; Temp 98.7(TE); Pulse Ox 99% on R/A; Weight 58.97 kg ca1 (R); Height 5 ft. 8 in. (172.72 cm) (R); Pain 10/10; 22:30 BP 142 / 80; Pulse 80; Resp 17; Pulse Ox 98% on R/A; Pain 10/10; rr5 23:30 BP 155 / 89; Pulse 86; Resp 17; Pulse Ox 98% on R/A; rr5 12/08 00:46 BP 132 / 70; Pulse 75; Resp 19; Pulse Ox 99% ; rr5 01:23 BP 126 / 62; Pulse 79; Resp 16; Pulse Ox 98% ; rr5 12/07 20:41 Body Mass Index 19.77 (58.97 kg, 172.72 cm) ca1 ED Course: 12/07 20:19 Patient arrived in ED. am2 20:42 Triage completed. ca1 20:43 Arm band placed on right wrist. ca1 22:27 Diony Jung, ESTER is Primary Nurse. rr5 22:28 Fito Rodrigues PA is PHCP. cp 22:29 Luis M Mendoza MD is Attending Physician. cp 22:30 Patient has correct armband on for positive identification. Bed in low position. Call rr5 light in reach. Side rails up X2. Pulse ox on. NIBP on. 22:50 Inserted saline lock: 20 gauge in right forearm, using aseptic technique. Blood rr5 collected. 22:55 Urine collected: clean catch specimen, cloudy. rr5 12/08 00:13 CT Abd/Pelvis - IV Contrast Only In Process Unspecified. EDMS 01:31 Bhavik Stevens MD is Referral Physician. cp 02:05 No provider procedures requiring assistance completed. rr5 02:18 IV discontinued, intact, bleeding controlled, No redness/swelling at site. Pressure rr5 dressing applied. Administered Medications: 12/07 22:02 Drug: Pepcid 20 mg Route: IVP; Site: right forearm; rr5 23:00 Follow up: Response: No adverse reaction rr5 22:37 CANCELLED (Physician Discretion): morphine 4 mg IVP once; RASS on ADMIN: Combtv4, Very cp Agttd3, Agttd2, Rstlss1, AlertClm0, Drwsy-1, Lt Sdtn-2, Mod Sdtn-3, Dp Sdtn-4, UnArsble-5 22:50 Drug: Zofran (Ondansetron) 4 mg Route: IVP; Site: right forearm; rr5 23:35 Follow up: Response: No adverse reaction rr5 22:50 Drug: NS 0.9% 1000 ml Route: IV; Rate: 1 bolus; Site: right forearm; rr5 12/08 00:00 Follow up: Response: No adverse reaction; IV Status: Completed infusion; IV Intake: rr5 1000ml 12/07 22:55 Drug: morphine 4 mg {Note: rass 0.} Route: IVP; Site: right forearm; rr5 23:30 Follow up: Response: No adverse reaction; RASS: Alert and Calm (0) rr5 22:57 Drug: Phenergan 25 mg {Note: incorporate to ns 50 ml hooked as side drip.} Route: IVP; rr5 Site: right forearm; 23:30 Follow up: Response: No adverse reaction rr5 12/08 00:58 Drug: Zofran (Ondansetron) 4 mg Route: IVP; Site: right forearm; rr5 02:04 Follow up: Response: No adverse reaction rr5 00:58 Not Given (Physician Discretion): HALdol (as decanoate) 5 mg IM once cp 01:00 Drug: Ativan 1 mg Route: IVP; Site: right forearm; rr5 02:04 Follow up: Response: No adverse reaction rr5 01:02 Drug: metroNIDAZOLE 500 mg Volume: 100 ml; Route: IVPB; Infused Over: 30 mins; Site: rr5 right forearm; 01:30 Follow up: Response: No adverse reaction; IV Status: Completed infusion; IV Intake: rr5 100ml 01:35 Drug: Cipro 500 mg Route: PO; rr5 02:04 Follow up: Response: No adverse reaction rr5 Intake: 00:00 IV: 1000ml; Total: 1000ml. rr5 01:30 IV: 100ml; Total: 1100ml. rr5 Outcome: 01:32 Discharge ordered by . cp 02:19 Discharge instructions given to patient, Instructed on discharge instructions, follow rr5 up and referral plans. medication usage, Demonstrated understanding of instructions, follow-up care, medications, Prescriptions given X x5 02:55 Discharged to home ambulatory. rr5 02:55 Condition: stable 02:59 Patient left the ED. rr5 Signatures: Dispatcher [employer] EDMS Fito Rodrigues PA PA cp Kristine Crowell am2 Diony Jung RN RN rr5 Allison Meléndez RN RN ca1 Corrections: (The following items were deleted from the chart) 02:58 02:54 Reassessment: patient stated [place] take 1 hour travel. rr5 rr5
[2020-12-08] MEDS ORDERED: CIPROFLOXACIN HCL 500 MG TAB ONE (01:48)
[2020-12-08 03:04] VITALS: TEMP 98.7
[2020-12-08 03:09] VITALS: BP 126/62; O2SAT 98
--- NOTE | 2020-12-08 11:27 | RAD REPORT ---
EXAM DESCRIPTION: CT - Abdomen Pelvis W Contrast - 12/08/2020 5:43 am CLINICAL HISTORY: ABD PAIN COMPARISON: 10/31/2020 TECHNIQUE: CT of the abdomen and pelvis performed following IV administration of iodinated contras t. Arterial and portal venous phase imaging available. FINDINGS: Lung Bases: The visualized lung bases are clear. Bones: No destructive bone lesions identified. Abdomen: Liver: The liver has normal size and density. No intrahepatic biliary dilatation. Gallbladder: Prior cholecystectomy Spleen, Pancreas, and Adrenal Glands: The spleen, pancreas, and adrenal glands are unremarkable. Kidneys: No hydronephrosis or obstructing calculus. Vasculature: Aortoiliac atherosclerosis. The portal vein is patent. The proximal visceral and renal arteries are patent. Stomach: The stomach and duodenum have normal course. Other: No free intraperitoneal air. Small amount of free fluid. Pelvis: Bladder: Urinary bladder is unremarkable. Bowel: No dilated loops of large or small bowel. Mild wall thickening of the descending and sigmoid colon. Appendix: Normal appendix. Pelvis: Uterus is not enlarged. 2.0 cm left ovarian cyst. No follow-up imaging recommended. IMPRESSION: 1. Mild wall thickening of the sigmoid and descending colon. These findings may be relat ed to under distention however mild nonspecific colitis of infectious or inflammatory etiology could also produce this appearance. 2. Trace free fluid. This exam was performed according to our departmental dose-optimization program, which includes autom ated exposure control, adjustment of the mA and/or kV according to patient size and/or use of iterati ve reconstruction technique. Electronically signed by: Ayush Myrick 12/08/2020 12:27 AM GREASE BUFFER Due to temporary technical issues with the PACS/Fluency reporting system, reports are being signed by the in house radiologist without review as a courtesy to ensure prompt reporting. The interpreting r adiologist is fully responsible for the content of the report.
== END 2020-12-08 02:59 | disposition home or self-care (01) ==
LOC: ER 20:18
DX: K51.50 Left sided colitis without complications (principal); Z88.0 Allergy status to penicillin; Z88.1 Allergy status to other antibiotic agents; Z88.2 Allergy status to sulfonamides; Z88.3 Allergy status to other anti-infective agents; Z88.5 Allergy status to narcotic agent
CPT/HCPCS: 36415; 74177; 80048; 80076; 80307; 81003; 81025; 83690; 85025; 96361; 96365; 96375; 99284; J2405; J2550; J7030; Q9967

== ENCOUNTER 2020-12-10 12:16 | Emergency (ER) | payer OTHER, SELFPAY ==
--- OUTSIDE RECORDS SUMMARY | 2020-12-10 12:19 | XMS REPORT | Continuity of Care Document ---
:1985 Author Organization [facility] t Address [address] [place] [place] [address] Care Team Providers Name Role Phone NONSTAFF Primary Care Physician Unavailable Loan CUEVAS, L Attending Clinician Moustapha Myers MD Attending Clinician SINGH Attending Clinician Unavailable SINGH Admitting Clinician Unavailable Payers Payer Name Policy Type Policy Number Effective Date Expiration Date S rex [place] [facility] [id number] [facility] Patients Medical Center Problems Condition Condition Condition [...] Performed Clinician Laparoscopic cholecystectomy 2019-01-10 [address] [facility] - 00:[facility]:00 Patients Medical Center Magnetic resonance 2019-01-08 SARY SINGH [facility] - cholangiopancreatography (MRCP) 00:00:00 Patients Medical without contrast Center Colonoscopy with biopsy 2019-01-07 DWAIN LOVING [facility] - 00:[facility]:00 Patients Medical [place] EGD with biopsy 2019-01-[address] [facility] - 00:00:00 Patients [facility] Encounters Start End Encounter Admission Attending Care Care Encounter Source Date/Time Date/Time Type Type Clinicians Facility Department ID 2020-08-19 2020-08-19 Telephone Loan, [facility] [id number] 00:00:00 00:00:00 Kenyetta Dorsey Shag[place] [id number] [place] [id number] Professio [id number] nal 134 [facility] 2020-08-18 2020-08-18 Telephone Michelle Myers [facility] [id number] 00:00:00 00:00:00 Moustapha Coon [id number] [place] [id number] Professio [id number] nal 134 [facility] 2019-01-08 2019-01-12 Discharged 1 SARY SINGH [facility] [id number] [facility] 08:41:00 13:44:[address] [place] [address] Results Test Description Test Time Test Comments Results Result Comments Source Sodium Level 2019-01-12 06:14:00 Test Item Value Reference Range Interpretation Comme nts Sodium Level (test code = 2951-2) 140 136-145 [facility] Sluim0541-89-01 06:14:00 Test Item Value Reference Range Interpretation Comments Potassium Level (test code = 2823-3) 3.2 3.5-5.1 L [facility] CenterChloride Ovbvv5318-02-83 06:14:00 Test Item Value Reference Range Interpretation Comments Chloride Level (test code = 2075-0) 104 98-107 [facility] CenterCarbon Dioxide Rscwg1554-26-29 06:14:00 Test Item Value Reference Range Interpretation Comments Carbon Dioxide Level (test code = 28 22-29 2027-9) [facility] CenterAnion Kjd8228-73-57 06:14:00 Test Item Value Reference Range Interpretation Comments Anion Gap (test code = 24189-1) 11.2 8-16 [facility] CenterBlood Urea Fwjrvrlh1124-52-34 06:14:00 Test Item Value Reference Range Interpretation Comments Blood Urea Nitrogen (test code = < 5 7-26 L 3094-0) [facility] CenterCreatinine2019-02-24 06:14:00 Test Item Value Reference Range Interpretation Comments Creatinine (test code = 2160-0) 0.67 0.57-1.11 [facility] CenterBUN/Creatinine Bgpqa3319-07-18 06:14:00 Test Item Value Reference Range Interpretation Comments BUN/Creatinine Ratio (test code = 7 6-25 3097-3) [facility] CenterEstimat Glomerular Filtration Rate 2019-01-12 06:14:00 Test Item Value Reference Range Interpretation Comments Estimat Glomerular Filtration Rate > 60 >60 (test code = 005858205) Ranges were taken from the National Kidney Disease Education Program and the National Kidney Foundation literature.Reference ranges:60 or greater: Hkxwny95- 59 (for 3 consecutive months): Chronic kidneydisease 15 or less: Kidney failure [facility] CenterGlucose Ohkbx9604-01-59 06:14:00 Test Item Value Reference Range Interpretation Comments Glucose Level (test code = WTD4349) 129 74-118 H [facility] CenterCalcium Igavq7514-14-31 06:14:00 Test Item Value Reference Range Interpretation Comments Calcium Level (test code = 41412-2) 8.8 8.4-10.2 [facility] CenterWhite Blood Tqxbx9885-01-89 05:42:00 Test Item Value Reference Range Interpretation Comments White Blood Count (test code = 6690-2) 5.63 4.8-10.8 [facility] CenterRed Blood Lxctd7741-03-94 05:42:00 Test Item Value Reference Range Interpretation Comments Red Blood Count (test code = 789-8) 3.73 3.6-5.1 [facility] CenterHemoglobin2019-02-24 05:42:00 Test Item Value Reference Range Interpretation Comments Hemoglobin (test code = 34155-8) 11.2 12.0-16.0 L [facility] CenterHematocrit2019-02-24 05:42:00 Test Item Value Reference Range Interpretation Comments Hematocrit (test code = 4544-3) 32.5 34.2-44.1 L [facility] CenterMean Corpuscular Tvybgg5856-91-31 05:42:00 Test Item Value Reference Range Interpretation Comments Mean Corpuscular Volume (test code = 87.1 81-99 787-2) [facility] CenterMean Corpuscular Jrgxvjjeom8514-90-98 05:42:00 Test Item Value Reference Range Interpretation Comments Mean Corpuscular Hemoglobin (test code 30.0 28-32 = 785-6) [facility] CenterMean Corpuscular Hemoglobin Concent 2019-01-12 05:42:00 Test Item Value Reference Range Interpretation Comments Mean Corpuscular Hemoglobin Concent 34.5 31-35 (test code = 786-4) [facility] CenterRed Cell Distribution Rcokc9693-07-13 05:42:00 Test Item Value Reference Range Interpretation Comments Red Cell Distribution Width (test code 13.0 11.7-14.4 = 02443-7) [facility] CenterPlatelet Qijia8191-11-43 05:42:00 Test Item Value Reference Range Interpretation Comments Platelet Count (test code = 777-3) 233 140-360 [facility] CenterNeutrophils (%) (Auto)2019-01-12 05:42:00 Test Item Value Reference Range Interpretation Comments Neutrophils (%) (Auto) (test code = 39.7 38.7-80.0 07385-2) [facility] CenterLymphocytes (%) (Auto)2019-01-12 05:42:00 Test Item Value Reference Range Interpretation Comments Lymphocytes (%) (Auto) (test code = 50.3 18.0-39.1 H 736-9) [facility] CenterMonocytes (%) (Auto)2019-01-12 05:42:00 Test Item Value Reference Range Interpretation Comments Monocytes (%) (Auto) (test code = 9.1 4.4-11.3 5905-5) [facility] CenterEosinophils (%) (Auto)2019-01-12 05:42:00 Test Item Value Reference Range Interpretation Comments Eosinophils (%) (Auto) (test code = 0.2 0.0-6.0 713-8) [facility] CenterBasophils (%) (Auto)2019-01-12 05:42:00 Test Item Value Reference Range Interpretation Comments Basophils (%) (Auto) (test code = 0.5 0.0-1.0 706-2) [facility] CenterIM GRANULOCYTES %2019-01-12 05:42:00 Test Item Value Reference Range Interpretation Comments IM GRANULOCYTES % (test code = IM 0.2 0.0-1.0 GRANULOCYTES %) [facility] CenterNeutrophils # (Auto)2019-01-12 05:42:00 Test Item Value Reference Range Interpretation Comments Neutrophils # (Auto) (test code = 2.2 2.1-6.9 751-8) [facility] CenterLymphocytes # (Auto)2019-01-12 05:42:00 Test Item Value Reference Range Interpretation Comments Lymphocytes # (Auto) (test code = 2.8 1.0-3.2 82659-0) [facility] CenterMonocytes # (Auto)2019-01-12 05:42:00 Test Item Value Reference Range Interpretation Comments Monocytes # (Auto) (test code = 742-7) 0.5 0.2-0.8 [facility] CenterEosinophils # (Auto)2019-01-12 05:42:00 Test Item Value Reference Range Interpretation Comments Eosinophils # (Auto) (test code = 0.0 0.0-0.4 711-2) [facility] CenterBasophils # (Auto)2019-01-12 05:42:00 Test Item Value Reference Range Interpretation Comments Basophils # (Auto) (test code = 704-7) 0.0 0.0-0.1 [facility] CenterAbsolute Immature Granulocyte (auto 2019-01-12 05:42:00 Test Item Value Reference Range Interpretation Comments Absolute Immature Granulocyte (auto 0.01 0-0.1 (test code = Absolute Immature Granulocyte (auto) [facility] CenterBedside Lbpbqbm8856-86-65 19:46:00 Test Item Value Reference Range Interpretation Comments Bedside Glucose (test code = 95519-1) 117 70-120 Meter ID: [id number] Community Hospital and ClinicAnti-Nuclear Antibody Qjtptw3580-33-18 12:36:00 Test Item Value Reference Range Interpretation Comments Anti-Nuclear Antibody Screen (test Negative . code = 5048-4) Negative <1:80 Borderline 1:80 Positive >1:80Performed at: [facility] [address] [id number] Director: Oli Ghosh MD, Phone: [phone] Regional Medical CenterC-Reactive Eqhrnqs9477-86-70 11:57:00 Test Item Value Reference Range Interpretation Comments C-Reactive Protein (test code = 1988-5) 0.9 0.0-4.9 Performed at: [facility] [address] [id number] Director: Oli Ghosh MD, Phone: [phone] Regional Medical CenterPhosphorus Ctyyo8002-35-11 06:40:00 Test Item Value Reference Range Interpretation Comments Phosphorus Level (test code = NUL0697) 3.7 2.3-4.7 [facility] CenterMagnesium Seigp4402-40-24 06:40:00 Test Item Value Reference Range Interpretation Comments Magnesium Level (test code = 23991-5) 1.9 1.3-2.1 [facility] CenterUrine XLU0314-89-44 19:42:00 Test Item Value Reference Range Interpretation Comments Urine WBC (test code = 5821-4) NONE 0-5 [facility] CenterUrine ZJF1695-81-35 19:42:00 Test Item Value Reference Range Interpretation Comments Urine RBC (test code = 10384-6) >50 0-5 H [facility] CenterUrine Esuxrqmq4509-19-51 19:42:00 Test Item Value Reference Range Interpretation Comments Urine Bacteria (test code = 29567-9) PRESENT NONE [facility] CenterUrine Epithelial Puhrx4943-26-73 19:42:00 Test Item Value Reference Range Interpretation Comments Urine Epithelial Cells (test code = RARE NONE 63983-5) [facility] CenterUrine Bxzcp1505-59-39 19:32:00 Test Item Value Reference Range Interpretation Comments Urine Color (test code = 5778-6) STRAW YELLOW [facility] CenterUrine Obxxrzn0529-51-21 19:32:00 Test Item Value Reference Range Interpretation Comments Urine Clarity (test code = 63846-0) SL CLOUDY CLEAR [facility] CenterUrine Specific Ahfmjfs6255-58-21 19:32:00 Test Item Value Reference Range Interpretation Comments Urine Specific [place] (test code = 1.015 1.010-1.025 5811-5) [facility] CenterUrine sE2446-06-90 19:32:00 Test Item Value Reference Range Interpretation Comments Urine pH (test code = 27489-9) 6 5-7 [facility] CenterUrine Leukocyte Drmqmjhr0479-60-21 19:32:00 Test Item Value Reference Range Interpretation Comments Urine Leukocyte Esterase (test code NEGATIVE NEGATIVE = 5799-2) [facility] Amikewb5345-17-59 19:32:00 Test Item Value Reference Range Interpretation Comments Urine Nitrite (test code = 11298-0) NEGATIVE NEGATIVE [facility] CenterUrine Jdrfibe8352-47-76 19:32:00 Test Item Value Reference Range Interpretation Comments Urine Protein (test code = 5804-0) NEGATIVE NEGATIVE [facility] CenterUrine Glucose (UA)2019-01-09 19:32:00 Test Item Value Reference Range Interpretation Comments Urine Glucose (UA) (test code = NEGATIVE NEGATIVE 2349-9) [facility] Ivezkou6671-19-02 19:32:00 Test Item Value Reference Range Interpretation Comments Urine Ketones (test code = 49484-5) 2+ NEGATIVE H [facility] Cyhhxizxhufl4273-94-36 19:32:00 Test Item Value Reference Range Interpretation Comments Urine Urobilinogen (test code = 0.2 0.2-1 99366-0) [facility] CenterUrine Pkxjfoopi1159-20-14 19:32:00 Test Item Value Reference Range Interpretation Comments Urine Bilirubin (test code = 1978-6) NEGATIVE NEGATIVE [facility] CenterUrine Deqvr8457-19-07 19:32:00 Test Item Value Reference Range Interpretation Comments Urine Blood (test code = 29059-0) 4+ NEGATIVE H INFORMED THAT PT IS STARTED HER PERIODGuadalupe Regional Medical Center Vitamin B12 Pweba5592-68-55 18:39:00 Test Item Value Reference Range Interpretation Comments Vitamin B12 Level (test code = 51076-0) 808 213-816 [facility] CenterErythrocyte Sedimentation Bjwy0622-62-42 18:07:00 Test Item Value Reference Range Interpretation Comments Erythrocyte Sedimentation Rate (test 4 0-20 code = 4537-7) [facility] CenterFerritin2019-02-21 18:06:00 Test Item Value Reference Range Interpretation Comments Ferritin (test code = 2276-4) 29.07 4.63-204.00 [facility] CenterIron Bkrgp2146-53-63 17:46:00 Test Item Value Reference Range Interpretation Comments Iron Level (test code = 2498-4) 40 50-170 L [facility] CenterTotal Iron Binding Ilaudizd9311-93-44 17:46:00 Test Item Value Reference Range Interpretation Comments Total Iron Binding Capacity (test code 333 227-828 = 2500-7) [facility] CenterPercent Iron Tnquisphmq7586-32-21 17:46:00 Test Item Value Reference Range Interpretation Comments Percent Iron Saturation (test code = 12 15-50 L 2502-3) [facility] CenterTransferrin2019-02-21 17:46:00 Test Item Value Reference Range Interpretation Comments Transferrin (test code = 3034-6) 238 180-382 [facility] CenterPercent Reticulocyte Wnsni5534-18-87 17:34:00 Test Item Value Reference Range Interpretation Comments Percent Reticulocyte Count (test code = 2.1 0.8-2.2 75159-6) [facility] CenterHEPTOBILIARY W FKBVE1230-32-24 14:46:00 [facility] [address] [address] Patient Name: JAMES GRIFFIN MR #: [id number] : 1985 Age/Sex: 33/F Req #: [id number] Adm Physician: SARY SINGH MD Ordered by: DWAIN LOVING MD Report #: [id number] Location: MED/SURG3 Room/Bed: [facility] Procedure: [id number] NM/HEPTOBILIARY W PHARM Exam Date: 01/09/19 Exam [...] 01/09/2019 2:47 PM DictatedBy: JEOVANY VELAZQUEZ MD 4480 Transcribed By: TANA on 01/09/19 9097 COPY TO: DWAIN LOVING [facility] MRCP LF5284-37-64 16:52:00 [place] [address] Patient Name: JAMES GRIFFIN MR #: [id number] : 1985 Age/Sex: 33/F Req #: [id number] Adm Physician: SARY SINGH MD Ordered by: SARY SINGH MD Report #: [id number] Location: MED/SURG3 Room/Bed: [facility] Procedure: [id number] MRI/MRI MRCP WO Exam Date: 01/08/19 Exam Time: 1600 REPORT STATUS: Signed MRCP CPT code: 00382 History: Intractable nausea/vomiting, chronic epigastric pain Comparison: [...] 01/08/191700 COPY TO: SARY SINGH MD Urine Rjcn9427-62-55 12:32:00 Test Item Value Reference Range Interpretation Comments Urine Test (test code = NEGATIVE NEGATIVE 2106-3) [facility] CenterFolate2019-02-20 06:55:00 Test Item Value Reference Range Interpretation Comments Folate (test code = 2284-8) 18.6 7.0-15.4 H [facility] CenterThyroid Stimulating Hormone (TSH) 2019-01-08 06:33:00 Test Item Value Reference Range Interpretation Comments Thyroid Stimulating Hormone (TSH) (test 0.964 0.350-4.940 code = 42108-2) [facility] CenterTotal Gmpikqvdp4727-21-93 05:55:00 Test Item Value Reference Range Interpretation Comments Total Bilirubin (test code = 1975-2) 0.5 0.2-1.2 [facility] CenterAspartate Amino Transf (AST/SGOT) 2019-01-08 05:55:00 Test Item Value Reference Range Interpretation Comments Aspartate Amino Transf (AST/SGOT) (test 17 5-34 code = Aspartate Amino Transf (AST/SGOT)) [facility] CenterAlanine Aminotransferase (ALT/SGPT) 2019-01-08 05:55:00 Test Item Value Reference Range Interpretation Comments Alanine Aminotransferase (ALT/SGPT) 16 0-55 (test code = 1742-6) [facility] CenterTotal Esysjmc2160-24-14 05:55:00 Test Item Value Reference Range Interpretation Comments Total Protein (test code = 2885-2) 5.7 6.5-8.1 L [facility] CenterAlbumin2019-02-20 05:55:00 Test Item Value Reference Range Interpretation Comments Albumin (test code = 1751-7) 4.0 3.5-5.0 [facility] CenterGlobulin2019-02-20 05:55:00 Test Item Value Reference Range Interpretation Comments Globulin (test code = 30119-3) 1.7 2.3-3.5 L [facility] CenterAlbumin/Globulin Agcgk8600-90-02 05:55:00 Test Item Value Reference Range Interpretation Comments Albumin/Globulin Ratio (test code = 2.4 0.8-2.0 H 1759-0) [facility] CenterAlkaline Sspghlkdfdh6777-85-66 05:55:00 Test Item Value Reference Range Interpretation Comments Alkaline Phosphatase (test code = 39 40-150 L 6768-6) [facility] CenterAmylase Qsxeh2867-05-93 05:55:00 Test Item Value Reference Range Interpretation Comments Amylase Level (test code = 1798-8) 31 25-125 [facility] CenterLipase2019-02-20 05:55:00 Test Item Value Reference Range Interpretation Comments Lipase (test code = 3040-3) 22 8-78 [facility] CenterABDOMEN ACUTE SERIES W/PA MDA9878-05-23 01:41:00 [facility] [address] [place] [address] Patient Name: JAMES GRIFFIN MR #: [id number] : 1985 Age/Sex: 33/F Req #: [id number] Adm Physician: Ordered by: RACIEL CALVERT MD Report #: [id number] Location: ER Room/Bed: Procedure: [id number] DX/ABDOMEN ACUTE SERIES W/PA CXR Exam Date: 01/07/19 Exam Time: 47 REPORT STATUS: Signed EXAM: Abdomen 2 Views, chest 1 view INDICATION: abd pain [id number] 0048 Y COMPARISON: None FINDINGS: No focal [...] on 01/07/19141 COPY TO: RACIEL CALVERT MDUrine Zxzqr3347-88-83 00:18:00 Test Item Value Reference Range Interpretation Comments Urine Mucus (test code = 8247-9) MANY RARE H [facility] CenterUrine Opiates Hfhrtq8849-57-75 00:09:00 Test Item Value Reference Range Interpretation Comments Urine Opiates Screen (test code = POSITIVE NEGATIVE H 37179-3) ALL TESTS PERFORMED MANUALLY ON [employer] TOX/SEE TEST This test provides only a screen. Positive results should be repeated by a confirmatory test.[facility] CenterUrine Barbiturates Wmsygc8515-22-32 00:09:00 Test Item Value Reference Range Interpretation Comments Urine Barbiturates Screen (test code NEGATIVE NEGATIVE = 244742816) [facility] CenterUrine Phencyclidine Eetpxm1212-20-75 00:09:00 Test Item Value Reference Range Interpretation Comments Urine Phencyclidine Screen (test NEGATIVE NEGATIVE code = 54480-2) [facility] CenterUrine Amphetamines Pusewn9767-53-82 00:09:00 Test Item Value Reference Range Interpretation Comments Urine Amphetamines Screen (test code NEGATIVE NEGATIVE = 61020-8) [facility] CenterUrine Methamphetamines Hfkshf5871-35-02 00:09:00 Test Item Value Reference Range Interpretation Comments Urine Methamphetamines Screen (test NEGATIVE NEGATIVE code = Urine Methamphetamines Screen) [facility] CenterUrine Benzodiazepines Rbloze5409-01-08 00:09:00 Test Item Value Reference Range Interpretation Comments Urine Benzodiazepines Screen (test NEGATIVE NEGATIVE code = 96643-9) [facility] CenterUrine Cocaine Mdahpk1981-02-91 00:09:00 Test Item Value Reference Range Interpretation Comments Urine Cocaine Screen (test code = NEGATIVE NEGATIVE 3398-5) [facility] CenterUrine Cannabinoids Hgufsw6029-93-26 00:09:00 Test Item Value Reference Range Interpretation Comments Urine Cannabinoids Screen (test code POSITIVE NEGATIVE H = 38304-0) THESE RESULTS ARE FOR MEDICAL TREATMENT ONLYTHIS REPORT CONTAINS UNCONFIRMED SCREENING RESULTS*POSITIVE RESULTS WILL BE CONFIRMED BY REFERENCE LAB UPON REQUEST CUT-OFFDRUG CLASS CONCENTRATION ng/mLAmphetamines 1000Met hamphetamines 1000Cocaine 300Opiate 300Phencyclidine 25Cannabinoid 50Barbiturates 300Benzodiazepine 300Methadone 300 This test provides only a screen. Positive results should be repeated by a confirmatory test.[facility] CenterUrine Methadone Yjifen0743-74-12 00:09:00 Test Item Value Reference Range Interpretation Comments Urine Methadone Screen (test code = NEGATIVE NEGATIVE 47146-9) THESE RESULTS ARE FOR MEDICAL TREATMENT ONLYTHIS REPORT CONTAINS UNCONFIRMED SCREENING RESULTS*POSITIVE RESULTS WILL BE CONFIRMED BY REFERENCE LAB UPON REQUEST CUT-OFFDRUG CLASS CONCENTRATION ng/mLAmphetamines 1000Met hamphetamines 1000Cocaine Metabolite 300Opiate 300Phencyclidine 25Cannabinoid 50Barbiturates 300Benzodiazepine 300Methadone 300[facility]
[2020-12-10 13:12] LABS: Absolute Lymphocytes (CBC) 1.2 K/uL (0.7-4.9); Basophils % 0.4 % (0-1.3); Hematocrit 40.3 % (36.0-45.0); MPV 9.9 fL (7.6-11.3); RBC Red Blood Cell Count 4.58 M/uL (3.86-4.86)
[2020-12-10] MEDS ORDERED: FENTANYL CITR 100 MCG/2 ML ONE ×2 (13:28→14:32)
[2020-12-10] MEDS ORDERED: NA CHLORIDE 0.9% 1,000 ML ONE (13:28)
[2020-12-10] MEDS ORDERED: ONDANSETRON 4 MG/2 ML VIAL ONE (13:28)
[2020-12-10 13:30] LABS: Albumin 4.4 g/dL (3.4-5.0); Bilirubin Direct 0.2 mg/dL (0-0.2); Bilirubin Total 0.7 mg/dL (0.2-1.0); Potassium 3.6 mmol/L (3.5-5.1); Protein, Total 7.9 g/dL (6.4-8.2)
[2020-12-10] MEDS ORDERED: PROMETHAZINE INJ 25 MG/ML AMP ONE (14:04)
--- NOTE | 2020-12-10 14:38 | ER ---
Nurse's Notes [facility] Name: Shyanne Pardo Age: 35 yrs Sex: Female : 1985 Arrival Date: 12/10/2020 Time: 12:17 Bed 8 Private MD: Diagnosis: Cannabis dependence;Cannabinoid hyeremeis syndrome Presentation: 12/10 12:30 Chief complaint: Patient states: abdominal pain x 4 days. Was here Sunday for same ca1 thing. Reports N/V, can't keep anything down. Coronavirus screen: Client denies travel out of the [place] in the last 14 days. nausea, vomiting. Client presents with at least one sign or symptom that may indicate coronavirus-19. Standard/surgical mask placed on the client. Provider contacted for isolation considerations. Ebola Screen: Patient negative for fever greater than or equal to 101.5 degrees Fahrenheit, and additional compatible Ebola Virus Disease symptoms Patient denies exposure to infectious person. Patient denies travel to an Ebola-affected area in the 21 days before illness onset. No symptoms or risks identified at this time. Initial Sepsis Screen: Does the patient meet any 2 criteria? No. Patient's initial sepsis screen is negative. Does the patient have a suspected source of infection? No. Patient's initial sepsis screen is negative. Risk Assessment: Do you want to hurt yourself or someone else? Patient reports no desire to harm self or others. Onset of symptoms was December 10, 2020. 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 - Social history:: Smoking status: Patient/guardian denies using tobacco, Patient uses street drugs, marijuana, pt states "i used to smoke weed daily but i quit about a week ago", provider notified.. Screenin:21 Abuse screen: Denies threats or abuse. Nutritional screening: No deficits noted. tw2 Tuberculosis screening: No symptoms or risk factors identified. Fall Risk None identified. Assessment: 13:21 General: Appears uncomfortable, Behavior is anxious, crying, fussy, restless. tw2 13:30 General: Appears in no apparent distress. uncomfortable, Behavior is cooperative, hb crying, restless. Pain: Pain currently is 10 out of 10 on a pain scale. Neuro: Level of Consciousness is awake, alert, obeys commands, Oriented to person, place, time, situation. Cardiovascular: Capillary refill < 3 seconds Patient's skin is warm and dry. Respiratory: Respiratory effort is even, unlabored, Respiratory pattern is regular, symmetrical. GI: Abdomen is non-distended, Reports lower abdominal pain, upper abdominal pain, nausea, vomiting. : No signs and/or symptoms were reported regarding the genitourinary system. EENT: No signs and/or symptoms were reported regarding the EENT system. Derm: Skin is pink, warm \\T\\ dry. Musculoskeletal: No signs and/or symptoms reported regarding the musculoskeletal system. 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 General: Behavior is anxious, crying, fussy, restless. Vital Signs: 12:30 BP 142 / 93; Pulse 101; Resp 17 S; Temp 97.3(TE); Pulse Ox 98% on R/A; Weight 58.97 kg ca1 (R); Height 5 ft. 8 in. (172.72 cm) (R); 13:30 BP 117 / 77; Pulse 75; Resp 15; Pulse Ox 99% on R/A; Pain 10/10; hb 14:48 BP 121 / 79; Pulse 85; Resp 17; Pulse Ox 100% on R/A; tw2 12:30 Body Mass Index 19.77 (58.97 kg, 172.72 cm) ca1 ED Course: 12:17 Patient arrived in ED. as 12:21 Brady Quintanilla MD is Attending Physician. tw4 12:23 Bed in low position. Call light in reach. Pulse ox on. NIBP on. Warm blanket given. tw2 12:25 Chava Bazzi, ESTER is Primary Nurse. jd3 12:27 Mariano Chakraborty PA is PHCP. jr8 12:36 Triage completed. ca1 12:36 Arm band placed on right wrist. ca1 12:55 Basic Metabolic Panel Sent. sv 12:55 CBC with Diff Sent. sv 12:55 Hepatic Function Sent. sv 12:55 Lipase Sent. sv 13:11 Aurea Bonilla, ESTER is Primary Nurse. hb 13:20 IV discontinued, intact, bleeding controlled, No redness/swelling at site. hb 13:24 Missed attempt(s): 22 gauge in left antecubital area. hb 13:27 Inserted saline lock: 22 gauge in left wrist, using aseptic technique. hb 13:46 Initial lab(s) drawn, by me, held in ED. Inserted saline lock: 22 gauge in right mh5 antecubital area, using aseptic technique. Blood collected. 14:48 No provider procedures requiring assistance completed. IV discontinued, intact, tw2 bleeding controlled, No redness/swelling at site. Pressure dressing applied. Administered Medications: 13:28 Drug: Zofran (Ondansetron) 4 mg Route: IVP; Site: left wrist; hb 13:57 Follow up: Response: No adverse reaction; Nausea unchanged tw2 13:28 Drug: NS 0.9% 1000 ml Route: IV; Rate: 1 bolus; Site: left wrist; hb 14:49 Follow up: Response: No adverse reaction; IV Status: Completed infusion; IV Intake: tw2 1000ml 13:28 Drug: fentaNYL (PF) 25 mcg Route: IVP; Site: left wrist; hb 14:14 Follow up: Response: No adverse reaction; Pain is unchanged, physician notified; RASS: tw2 Alert and Calm (0) 13:55 Drug: Phenergan 25 mg Route: IVP; Site: left forearm; tw2 14:49 Follow up: Response: No adverse reaction tw2 14:17 Drug: fentaNYL (PF) 25 mcg {Note: RASS 0.} Route: IVP; Site: left forearm; tw2 14:49 Follow up: Response: No adverse reaction; Pain is decreased; RASS: Alert and Calm (0) tw2 Intake: 14:49 IV: 1000ml; Total: 1000ml. tw2 Outcome: 14:38 Discharge ordered by . tw4 14:48 Discharged to home ambulatory. tw2 14:48 Condition: stable 14:48 Discharge instructions given to patient, Instructed on discharge instructions, follow up and referral plans. no drinking with medication, no driving heavy equipment, medication usage, Demonstrated understanding of instructions, follow-up care, medications, Prescriptions given X 2. 14:49 Patient left the ED. tw2 Signatures: Carolina Connor, RN Shirley Sequeira Josh, PA PA jr8 Aurea Bonilla RN RN Lynn Tai RN RN tw2 Radha Lamb [facility] Chava Bazzi RN RN jd3 Wadley, Terrence, MD MD 4 Allison Meléndez RN RN ca1
--- NOTE | 2020-12-10 14:38 | EDPHYS ---
Physician Documentation [facility] Name: Shyanne Pardo Age: 35 yrs Sex: Female : 1985 Arrival Date: 12/10/2020 Time: 12:17 Bed 8 Private MD: ED Physician Brady Quintanilla HPI: 12/10 13:39 This 35 yrs old Female presents to ER via Ambulatory with complaints of tw4 Nausea/Vomiting, Abdominal Pain. 13:39 The patient presents to the emergency department with nausea, vomiting, abdominal pain, tw4 of the right upper quadrant, left upper quadrant, right lower quadrant and left lower quadrant, described as crampy. Onset: The symptoms/episode began/occurred yesterday. Possible causes: flare up of bowel problem, irritable bowel disease. The symptoms are aggravated by nothing. The symptoms are alleviated by nothing. Severity of symptoms: At their worst the symptoms were moderate in the emergency department the symptoms are unchanged. The patient has not experienced similar symptoms in the past. 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 - Social history:: Smoking status: Patient/guardian denies using tobacco, Patient uses street drugs, marijuana, pt states "i used to smoke weed daily but i quit about a week ago", provider notified.. ROS: 13:39 Constitutional: Negative for fever, chills, and weight loss, Eyes: Negative for injury, tw4 pain, redness, and discharge, Cardiovascular: Negative for chest pain, palpitations, and edema, Respiratory: Negative for shortness of breath, cough, wheezing, and pleuritic chest pain. 13:39 Back: Negative for injury and pain, MS/Extremity: Negative for injury and deformity, Skin: Negative for injury, rash, and discoloration, Neuro: Negative for headache, weakness, numbness, tingling, and seizure. 13:39 Abdomen/GI: Positive for abdominal pain, nausea and vomiting, nausea, vomiting, and diarrhea, nausea, vomiting, abdominal cramps, Negative for diarrhea, constipation, anorexia, dysphagia, hematemesis, black/tarry stool, rectal pain, bowel incontinence. Exam: 13:39 Head/Face: Normocephalic, atraumatic. Chest/axilla: Normal chest wall appearance and tw4 motion. Nontender with no deformity. No lesions are appreciated. Cardiovascular: Regular rate and rhythm with a normal S1 and S2. No gallops, murmurs, or rubs. Normal PMI, no JVD. No pulse deficits. Respiratory: Lungs have equal breath sounds bilaterally, clear to auscultation and percussion. No rales, rhonchi or wheezes noted. No increased work of breathing, no retractions or nasal flaring. Back: No spinal tenderness. No costovertebral tenderness. Full range of motion. Skin: Warm, dry with normal turgor. Normal color with no rashes, no lesions, and no evidence of cellulitis. MS/ Extremity: Pulses equal, no cyanosis. Neurovascular intact. Full, normal range of motion. Neuro: Awake and alert, GCS 15, oriented to person, place, time, and situation. Cranial nerves II-XII grossly intact. Motor strength 5/5 in all extremities. Sensory grossly intact. Cerebellar exam normal. Normal gait. 13:39 Constitutional: The patient appears in obvious distress, moderately distressed. Vital Signs: 12:30 BP 142 / 93; Pulse 101; Resp 17 S; Temp 97.3(TE); Pulse Ox 98% on R/A; Weight 58.97 kg ca1 (R); Height 5 ft. 8 in. (172.72 cm) (R); 13:30 BP 117 / 77; Pulse 75; Resp 15; Pulse Ox 99% on R/A; Pain 10/10; hb 14:48 BP 121 / 79; Pulse 85; Resp 17; Pulse Ox 100% on R/A; tw2 12:30 Body Mass Index 19.77 (58.97 kg, 172.72 cm) ca1 MDM: 12:27 Patient medically screened. jr8 14:44 Differential diagnosis: Nonspecific abd pain, gastritis, cholecystitis. Data reviewed: tw4 vital signs, nurses notes. Data interpreted: Pulse oximetry: Interpretation:. Counseling: I had a detailed discussion with the patient and/or guardian regarding: the historical points, exam findings, and any diagnostic results supporting the discharge/admit diagnosis. Special discussion: I discussed with the patient/guardian in detail that at this point there is no indication for admission to the hospital. It is understood, however, that if the symptoms persist or worsen the patient needs to return immediately for re-evaluation. 12/10 12:21 Order name: Basic Metabolic Panel [facility] 12/10 12:21 Order name: CBC with Diff tw 12/10 12:21 Order name: Hepatic Function 12/10 12:21 Order name: Lipase 12/10 13:15 Order name: CBC with Automated Diff; Complete Time: 13:47 EDMS 12/10 13:47 Interpretation: Normal except: WBC 9.6; LYM% 13.0; GIDEON% 81.8. [facility] 12/10 13:30 Order name: Basic Metabolic Panel; Complete Time: 13:47 EDMS 12/10 13:47 Interpretation: Normal except: GLUC 108; GFR 84. [facility] 12/10 12:21 Order name: IV Saline Lock; Complete Time: 12:55 4 12/10 13:30 Order name: Liver (Hepatic) Function; Complete Time: 13:47 EDMS 12/10 13:47 Interpretation: Normal except: AST 12. 12/10 13:30 Order name: Lipase; Complete Time: 13:47 EDMS 12/10 13:47 Interpretation: Within normal limits: LIP 101. [facility] 12/10 12:21 Order name: Labs collected and sent; Complete Time: 12:55 tw4 Administered Medications: 13:28 Drug: Zofran (Ondansetron) 4 mg Route: IVP; Site: left wrist; hb 13:57 Follow up: Response: No adverse reaction; Nausea unchanged tw2 13:28 Drug: NS 0.9% 1000 ml Route: IV; Rate: 1 bolus; Site: left wrist; hb 14:49 Follow up: Response: No adverse reaction; IV Status: Completed infusion; IV Intake: tw2 1000ml 13:28 Drug: fentaNYL (PF) 25 mcg Route: IVP; Site: left wrist; hb 14:14 Follow up: Response: No adverse reaction; Pain is unchanged, physician notified; RASS: tw2 Alert and Calm (0) 13:55 Drug: Phenergan 25 mg Route: IVP; Site: left forearm; tw2 14:49 Follow up: Response: No adverse reaction tw2 14:17 Drug: fentaNYL (PF) 25 mcg {Note: RASS 0.} Route: IVP; Site: left forearm; tw2 14:49 Follow up: Response: No adverse reaction; Pain is decreased; RASS: Alert and Calm (0) tw2 Disposition: 12/10/20 14:38 Discharged to Home. Impression: Cannabis dependence, Cannabinoid hyeremeis syndrome. - Condition is Stable. - Discharge Instructions: Nausea and Vomiting, Adult, [id number]. - Prescriptions for Benadryl 25 mg Oral Capsule - take 1 capsule by ORAL route every 6 hours As needed; 30 tablet. Haloperidol 2 mg Oral Tablet - take 1 tablet by ORAL route once daily; 5 tablet. - Medication Reconciliation Form, Thank You Letter, Antibiotic Education, Prescription Opioid Use form. - Follow up: Private Physician; When: Upon discharge from the Emergency Department; Reason: Recheck today's complaints, Continuance of care, Re-evaluation by your physician. - Problem is new. - Symptoms have improved. Signatures: Dispatcher [employer] EDMS Mariano Chakraborty PA PA jr8 Aurea Bonilla RN RN Lynn Tai RN RN tw2 Brady Quintanilla MD MD tw4 Allison Meléndez RN RN ca1 Corrections: (The following items were deleted from the chart) 14:49 14:38 12/10/2020 14:38 Discharged to Home. Impression: Cannabis dependence; Cannabinoid tw2 hyeremeis syndrome. Condition is Stable. Forms are Medication Reconciliation Form, Thank You Letter, Antibiotic Education, Prescription Opioid Use. Follow up: Private Physician; When: Upon discharge from the Emergency Department; Reason: Recheck today's complaints, Continuance of care, Re-evaluation by your physician. Problem is new. Symptoms have improved. tw4
[2020-12-10 14:55] VITALS: TEMP 97.3
[2020-12-10 14:57] VITALS: BP 121/79; O2SAT 100
== END 2020-12-10 14:49 | disposition home or self-care (01) ==
LOC: ER 12:16
DX: F12.20 Cannabis dependence, uncomplicated (principal); Z88.0 Allergy status to penicillin; Z88.1 Allergy status to other antibiotic agents; Z88.2 Allergy status to sulfonamides; Z88.3 Allergy status to other anti-infective agents; Z88.5 Allergy status to narcotic agent
CPT/HCPCS: 36415; 80048; 80076; 83690; 85025; 99284; J2405; J2550; J3010; J7030

== ENCOUNTER 2021-06-08 15:52 | Emergency (ER) | payer OTHER ==
--- OUTSIDE RECORDS SUMMARY | 2021-06-08 15:56 | XMS REPORT | Continuity of Care Document ---
:1985 Author Organization [facility] t Address [facility] [place] [address] Care Team Providers Name Role Phone NONSTAFF Primary Care Physician Unavailable Vikash BUNDY Attending Clinician Sunita Cates MD Attending Clinician Moustapha Myers MD Attending Clinician SINGH Attending Clinician Unavailable SINGH Admitting Clinician Unavailable Payers Payer Name Policy Type Policy Number Effective Date Expiration Date Shelby goodman [employer] [id number] [facility] [employer] [facility] Problems Condition Condition Condition Status Onset Resolution Last Treating Co mments Source Name Details Category Date Date Treatment Clinician Date Anxiety Anxiety Problem Active [place] [facility] Colitis Colitis Problem Active [place] 05-25 da [facility] Endometrio Endometrio Problem Active [facility] sis sis 7 da (clinical) (Clinical) 00:00: [facility] Chronic Chronic Problem Active [facility] abdominal abdominal [facility] s - pain pain Patient s [facility] Gastritis Gastritis Problem Active [facility] Patient s [facility] Intractabl Intractabl Problem Active [facility] vomiting e vomiting Carol Ann kes - Patient [facility] Allergies, Adverse Reactions, Alerts Allergy Allergy Status Severity Reaction(s) Onset Inactive Treating Comm ents Source Name Type Date Date Clinician Penicill DA Active [facility] ins 2-05 Clear 00:00: [place] 00 [facility] Cephalos DA Active [facility] porins 2-05 Clear 00:00: [place] 00 [facility] Sulfa DA Active [facility] (Sulfona 2-05 Clear mide 00:00: [place] Antibiot 00 [facility] erythrom DA Active [facility] ycin 2-05 Clear base 00:00: [place] 00 [facility] Penicill Allergy Active Severe [facility] - Substanc 00:00: Patient e 00 [facility] Erythrom Allergy Active Severe [facility] ycin to 2-18 [facility] - base Substanc 00:00: Patient e 00 [facility] Erythrom Allergy Active [place] ycin to da Base substanc [facility] PENICILL Allergy Active [place] INS to da substanc [facility] SULFA Allergy Active Hives [place] (SULFONA to da MIDE substanc [facility] ANTIBIOT e al ICS) [facility] Social History Smoking Status Start Date Stop Date Source Former Smoker [place] [facility] Medications Ordered Filled Start Stop Current Ordering [...] Tab Mg Tab [facility] Bentyl Bentyl No Bentyl [place] [facility] clonazepam clonazepam No clonazepam [place] 0.5 mg 0.5 mg 0.5 mg da tablet TAKE tablet TAKE tablet [facility] 1 TABLET BY 1 TABLET BY TAKE 1 al MOUTH THREE MOUTH THREE TABLET BY Health TIMES A DAY TIMES A DAY MOUTH Outreac NEEDED NEEDED THREE h FOR FOR TIMES A Program ANXIETY. ANXIETY. DAY MAX DAILY MAX DAILY NEEDED FOR DOSE 3 DOSE 3 ANXIETY. TABLETS TABLETS MAX DAILY DOSE 3 TABLETS esomeprazol esomeprazol No esomeprazo [place] magnesium e magnesium le d a magnesium [facility] etonogestre etonogestre No etonogestr [place] l 0.12 l 0.12 el 0.12 da mg-ethinyl mg-ethinyl mg-ethinyl [facility] estradiol estradiol estradiol al 0.015 mg/24 0.015 mg/24 0.015 Health hr vaginal hr vaginal mg/24 hr Outreac ring Insert ring Insert vaginal h 1 vaginal 1 vaginal ring Progr am ring every ring every Insert 1 month by month by vaginal vaginal vaginal ring every route. route. month by vaginal route. hyoscyamine hyoscyamine No 1 Q4H hyoscyamin [place] 0.125 mg 0.125 mg e 0.125 mg d a disintegrat disintegrat disintegra [facility] ing tablet ing tablet [facility] 1 Place 1 tablet Health tablet tablet Place 1 Outreac every 4 every 4 tablet h hours by hours by every 4 Prog garrison sublingual sublingual hours by route as route as sublingual needed. needed. route as needed. Librax Librax No 1capsul QID Librax [place] (with (with e(s) (with da clidinium) clidinium) clidinium) [facility] 5 mg-2.5 mg 5 mg-2.5 mg 5 mg-2.5 al capsule capsule mg capsule Hea lth Take 1 Take 1 Take 1 Outreac capsule 4 capsule 4 capsule 4 h times a day times a day times a Program by oral by oral day by route as route as oral route needed. needed. as needed. metoclopram metoclopram No metoclopra [place] marcus (bulk) marcus (bulk) mide da (bulk) [facility] ondansetron ondansetron No 1 TID ondansetro [place] 8 mg 8 mg n 8 mg da disintegrat disintegrat disintegra [facility] ing tablet ing tablet ting al Place 1 Place 1 tablet Health tablet [address] 1 Outr eac times a day times a day tablet 3 h by by times a Program translingua translingua day by l route as l route as translingu needed. needed. al route as needed. ondansetron ondansetron No ondansetro [place] HCl 4 mg HCl 4 mg n HCl 4 mg d a tablet TAKE tablet TAKE tablet [facility] ONE TABLET ONE TABLET TAKE ONE al BY MOUTH BY MOUTH TABLET BY He alth EVERY 12 EVERY 12 MOUTH Outrea c HOURS HOURS EVERY 12 h NEEDED NEEDED HOURS Program NEEDED promethazin promethazin No 1suppos QID promethazi [place] e 25 mg e 25 mg itor(y/ ne 25 mg da rectal rectal ies) rectal [facility] suppository suppository suppositor al Insert 1 Insert 1 y Insert 1 H ealth suppository suppository suppositor Outreac 4 times a 4 times a y 4 times h day by day by a day by Program rectal rectal rectal route as route as route as needed. needed. needed. sucralfate sucralfate No 1 QID sucralfate [place] 1 gram 1 gram 1 gram da tablet Take tablet Take tablet [facility] 1 tablet 4 1 tablet 4 Take 1 a l times a day times a day tablet 4 Health by oral by oral times a Outrea c route. route. day by h oral Program route. Vital Signs Vital Name Observation Time Observation Value Comments Source BP Diastolic 2021-06-07 00:00:00 100 mm[Hg] [facility] Height 2021-06-07 00:00:00 67 [in_i] [facility] BP Systolic 2021-06-07 00:00:00 148 mm[Hg] [facility] BP Diastolic 2021-05-25 00:00:00 82 mm[facility]Hg[facility] Height 2021-05-25 00:00:00 67 [in_i] [facility] BMI (Body Mass 2021-05-25 00:00:00 22.1 kg/m2 [facility] Index) Health Outreach Program BP Systolic 2021-05-25 00:00:00 120 mm[Hg] [facility] Body Weight 2021-05-25 00:00:00 141 [lb_av] [facility] Procedures Procedure Date / Time Performing Source Performed Clinician US transvaginal 2021-05-25 [place] 00:00:00 [facility] Laparoscopic cholecystectomy 2019-01-10 YURIY MYERS [facility] - 00:00:00 Patients [facility] Magnetic resonance 2019-01-08 SARY SINGH [facility] - cholangiopancreatography (MRCP) 00:00:00 Patients [facility] without contrast Center Colonoscopy with biopsy 2019-01-07 INDER NANCY [facility] - 00:00:00 Patients [facility] EGD with biopsy 2019-01-07 DWAIN LOVING [facility] - 00:00:00 Patients [facility] Tubal Ligation 2010-11-19 [place] 00:00:00 [facility] Adenoid Surgery [place] [facility] Tonsillectomy [place] [facility] Cholecystectomy [place] [facility] Plan of Care Planned Activity Planned Date Details Comments Source Diagnostic Test 2021-06-07 C-reactive protein, [place] Pending 00:00:00 quantitative [code = [facility] C-reactive protein, Outreach Program quantitative] Diagnostic Test 2021-06-07 erythrocyte [place] Pending 00:00:00 sedimentation rate by [facility] westergren method Outreach P rogram [code = erythrocyte sedimentation rate by westergren method] Encounters Start End Encounter Admission Attending Care Care Encounter Source Date/Time Date/Time Type Type Clinicians Facility Department ID 2021-06-07 2021-06-07 [place] - [id number] [place] 00:00:00 00:00:00 Jn Tinoco MD: [id number] [facility] Epis scleroscope tester US [address] [facility] [address] [place] Program [address] , Ph. 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 [address] [facility] , Ph. 2020-08-19 2020-08-19 Telephone Jarethmorgan, [facility] [id number] 00:00:00 00:00:00 [place] Sunita Coon [id number] [place] [id number] Professio [id number] [address] 2020-08-18 2020-08-18 Telephone Michelle Myers [facility] [id number] 00:00:00 00:00:00 Moustapha Coon [id number] [place] [id number] Professio [id number] [address] 2019-01-08 2019-01-12 Discharged 1 SARY SINGH [facility] [id number] [facility] St. 08:41:00 13:44:00 Inpatient 54 [facility] Results Test Description Test Time Test Comments Results Result Comments Source Bacterial vaginosis and vaginitis DNA panel - Vaginal fluid by 2021-05-28 00:00:00 Probe with signal amplification Test Item Value Reference Range Interpretation Comme nts Chlamydia trachomatis rRNA [Presence] in Unspecified not detected specimen by SOREN with probe detection (test code = 82587-4) Neisseria gonorrhoeae rRNA [Presence] in Unspecified not detected specimen by SOREN with probe detection (test code = 44570-4) Lactobacillus sp DNA [Log #/volume] in Vaginal fluid by SOREN not det ected with probe detection (test code = 59545-1) Atopobium vaginae DNA [Log #/volume] in Vaginal fluid by SOREN 6.7 log (cells/mL) with probe detection (test code = 17421-8) Megasphaera sp DNA [Log #/volume] in Vaginal fluid by SOREN 6.5 log ( cells/mL) with probe detection (test code = 93726-4) Gardnerella vaginalis DNA [Log #/volume] in Vaginal fluid by 7.3 log (cells/mL) SOREN with probe detection (test code = 48601-5) Bacterial vaginosis score in Vaginal fluid Qualitative by supportiv e A SOREN with probe detection (test code = 64953-0) Trichomonas vaginalis rRNA [Presence] in Unspecified not detected specimen by SOREN with probe detection (test code = 18087-9) Lucrecia sp DNA [Presence] in Vaginal fluid by SOREN with probe not de tected detection (test code = 57285-6) Lucrecia glabrata DNA [Presence] in Vaginal fluid by SOREN with not de tected probe detection (test code = 63842-5) Lucrecia tropicalis DNA [Presence] in Vaginal fluid by SOREN not detec kyree with probe detection (test code = 62452-5) Lucrecia parapsilosis DNA [Presence] in Vaginal fluid by SOREN not det ected with probe detection (test code = 92419-3) [place] [facility] Differential panel - Blood 2021-05-28 00:00:00 Test Item Value Reference Range Interpretation Comments Leukocytes [#/volume] in 7.2 thousand/uL 3.8-10.8 Blood by Automated count (test code = 6690-2) Erythrocytes [#/volume] in 4.26 million/uL 3.80-5.10 Blood by Automated count (test code = 789-8) Hemoglobin [Mass/volume] in 12.2 g/dL 11.7-15.5 Blood (test code = 718-7) Hematocrit [Volume Fraction] 38.0 % 35.0-45.0 of Blood by Automated count (test code = 4544-3) MCV [Entitic volume] by 89.2 fL 80.0-100.0 Automated count (test code = 787-2) MCH [Entitic mass] by 28.6 pg 27.0-33.0 Automated count (test code = 785-6) MCHC [Mass/volume] by 32.1 g/dL 32.0-36.0 Automated count (test code = 786-4) Erythrocyte distribution 13.2 % 11.0-15.0 width [Ratio] by Automated count (test code = 788-0) Platelets [#/volume] in Blood 261 thousand/uL 140-400 by Automated count (test code = 777-3) Platelet mean volume [Entitic 11.1 fL 7.5-12.5 volume] in Blood by Andrew (test code = 776-5) Neutrophils [#/volume] in 4752 cells/uL 5071-9380 Blood by Automated count (test code = 751-8) Lymphocytes [#/volume] in 1663 cells/uL 850-3900 Blood by Automated count (test code = 731-0) Monocytes [#/volume] in Blood 547 cells/uL 200-950 by Automated count (test code = 742-7) Eosinophils [#/volume] in 209 cells/uL 15-500 Blood by Automated count (test code = 711-2) Basophils [#/volume] in Blood 29 cells/uL 0-200 by Automated count (test code = 704-7) Neutrophils/100 leukocytes in 66 % Blood by Automated count (test code = 770-8) Lymphocytes/100 leukocytes in 23.1 % Blood by Automated count (test code = 736-9) Monocytes/100 leukocytes in 7.6 % Blood by Automated count (test code = 5905-5) Eosinophils/100 leukocytes in 2.9 % Blood by Automated count (test code = 713-8) Basophils/100 leukocytes in 0.4 % Blood by Automated count (test code = 706-2) [facility] Outreach ProgramInsulin [Units/volume] in Serum or [id number] 00:00:00 Test Item Value Reference Range Interpretation Comments Insulin [Units/volume] in Serum 10.1 uIU/mL or Plasma (test code = 93895-2) [facility] ProgramThyrotropin [Units/volume] in Serum or [id number] 00:00:00 Test Item Value Reference Range Interpretation Comments Thyrotropin [Units/volume] in 0.98 mIU/L Serum or Plasma (test code = 3016-3) [facility] ProgramTestosterone [Mass/volume] in Serum or [id number] 00:00:00 Test Item Value Reference Range Interpretation Comments Testosterone [Mass/volume] in Serum 12 NG/dL 2-45 or Plasma (test code = 2986-8) [facility] - Vaginal fluid by Probe with signal [id number] 00:00:00 Test Item Value Reference Range Interpretation Comments Chlamydia trachomatis rRNA not detected [Presence] in Unspecified specimen by SOREN with probe detection (test code = 94958-4) Neisseria gonorrhoeae rRNA not detected [Presence] in Unspecified specimen by SOREN with probe detection (test code = 68031-3) Lactobacillus sp DNA [Log not detected #/volume] in Vaginal fluid by SOREN with probe detection (test code = 06518-5) Atopobium vaginae DNA [Log 6.7 log (cells/mL) #/volume] in Vaginal fluid by SOREN with probe detection (test code = 11975-8) Megasphaera sp DNA [Log 6.5 log (cells/mL) #/volume] in Vaginal fluid by SOREN with probe detection (test code = 48176-3) Gardnerella vaginalis DNA 7.3 log (cells/mL) [Log #/volume] in Vaginal fluid by SOREN with probe detection (test code = 91795-7) Bacterial vaginosis score supportive A in Vaginal fluid Qualitative by SOREN with probe detection (test code = 25790-6) Trichomonas vaginalis rRNA not detected [Presence] in Unspecified specimen by SOREN with probe detection (test code = 12561-3) Lucrecia sp DNA [Presence] not detected in Vaginal fluid by SOREN with probe detection (test code = 53479-1) Lucrecia glabrata DNA not detected [Presence] in Vaginal fluid by SOREN with probe detection (test code = 33200-7) Lucrecia tropicalis DNA not detected [Presence] in Vaginal fluid by SOREN with probe detection (test code = 15113-0) Lucrecia parapsilosis DNA not detected [Presence] in Vaginal fluid by SOREN with probe detection (test code = 55303-6) [facility] Auto Differential panel - Blood 2021-05-28 00:00:00 Test Item Value Reference Range Interpretation Comments Leukocytes [#/volume] in 7.2 thousand/uL 3.8-10.8 Blood by Automated count (test code = 6690-2) Erythrocytes [#/volume] in 4.26 million/uL 3.80-5.10 Blood by Automated count (test code = 789-8) Hemoglobin [Mass/volume] in 12.2 g/dL 11.7-15.5 Blood (test code = 718-7) Hematocrit [Volume Fraction] 38.0 % 35.0-45.0 of Blood by Automated count (test code = 4544-3) MCV [Entitic volume] by 89.2 fL 80.0-100.0 Automated count (test code = 787-2) MCH [Entitic mass] by 28.6 pg 27.0-33.0 Automated count (test code = 785-6) MCHC [Mass/volume] by 32.1 g/dL 32.0-36.0 Automated count (test code = 786-4) Erythrocyte distribution 13.2 % 11.0-15.0 width [Ratio] by Automated count (test code = 788-0) Platelets [#/volume] in Blood 261 thousand/uL 140-400 by Automated count (test code = 777-3) Platelet mean volume [Entitic 11.1 fL 7.5-12.5 volume] in Blood by Andrew (test code = 776-5) Neutrophils [#/volume] in 4752 cells/uL 7654-3394 Blood by Automated count (test code = 751-8) Lymphocytes [#/volume] in 1663 cells/uL 850-3900 Blood by Automated count (test code = 731-0) Monocytes [#/volume] in Blood 547 cells/uL 200-950 by Automated count (test code = 742-7) Eosinophils [#/volume] in 209 cells/uL 15-500 Blood by Automated count (test code = 711-2) Basophils [#/volume] in Blood 29 cells/uL 0-200 by Automated count (test code = 704-7) Neutrophils/100 leukocytes in 66 % Blood by Automated count (test code = 770-8) Lymphocytes/100 leukocytes in 23.1 % Blood by Automated count (test code = 736-9) Monocytes/100 leukocytes in 7.6 % Blood by Automated count (test code = 5905-5) Eosinophils/100 leukocytes in 2.9 % Blood by Automated count (test code = 713-8) Basophils/100 leukocytes in 0.4 % Blood by Automated count (test code = 706-2) [facility] [Units/volume] in Serum or [id number] 00:00:00 Test Item Value Reference Range Interpretation Comments Insulin [Units/volume] in Serum 10.1 uIU/mL or Plasma (test code = 88220-5) [facility]yrotropin [Units/volume] in Serum or [id number] 00:00:00 Test Item Value Reference Range Interpretation Comments Thyrotropin [Units/volume] in 0.98 mIU/L Serum or Plasma (test code = 3016-3) [facility]Test[facility] [Mass/volume] in Serum or [id number] 00:00:00 Test Item Value Reference Range Interpretation Comments Testosterone [Mass/volume] in Serum 12 NG/dL 2-45 or Plasma (test code = 2986-8) [facility] CampusBASIC METABOLIC [id number] 05:55:00 Test Item Value Reference Range Interpretation Comments SODIUM (test code = NA) 139 mmol/L 134-147 N POTASSIUM (test code = 3.2 mmol/L 3.4-5.0 L K) CHLORIDE (test code = 108 mmol/L 100-108 N CL) CARBON DIOXIDE (test 26 mmol/L 21-32 N code = CO2) ANION GAP (test code = 5.0 GAP calc 4.0-15.0 N GAP) GLUCOSE (test code = 85 MG/DL 70-110 N GLU) BLOOD UREA NITROGEN 6 MG/DL 7-18 L (test code = BUN) GLOMERULAR FILTRATION >=60 max estimate >60 RATE (test code = GFR) estGFR CREATININE (test code = 0.6 MG/DL 0.6-1.0 N CREAT) CALCIUM (test code = CA) 8.7 MG/DL 8.5-10.1 N [id number] 05:55:00 Test Item Value Reference Range Interpretation Comments PHOSPHOROUS (test code = PHOS) 3.7 MG/DL 2.5-4.9 N [id number] 05:55:00 Test Item Value Reference Range Interpretation Comments MAGNESIUM (test code = MAG) 2.0 MG/DL 1.8-2.4 N CBC W/AUTO [id number] 05:41:00 Test Item Value Reference Range Interpretation Comments WHITE BLOOD CELL (test code = 5.2 K/mm3 3.5-11.0 N WBC) RED BLOOD CELL (test code = 3.61 M/mm3 4.70-6.10 L RBC) HEMOGLOBIN (test code = HGB) 10.7 G/DL 10.4-14.9 N HEMATOCRIT (test code = HCT) 32.9 % 31.5-44.1 N MEAN CELL VOLUME (test code = 91.1 Fl 84.5-98.6 N MCV) MEAN CELL HGB (test code = MCH) 29.6 pg 27.0-34.2 N MEAN CELL HGB CONCETRATION 32.5 G/DL 31.5-34.0 N (test code = MCHC) RED CELL DISTRIBUTION WIDTH 12.6 SD 11.5-14.5 N (test code = RDW) PLATELET COUNT (test code = 234 K/mm3 150-450 N PLT) MEAN PLATELET VOLUME (test code 10.30 fL 7.0-10.5 N = MPV) NEUTROPHIL % (test code = NT%) 59.7 % 40-76 N IMMATURE GRANULOCYTE % (test 0.2 % 0.0-5.0 N code = IG%) LYMPHOCYTE % (test code = LY%) 30.6 % 20.5-51.1 N MONOCYTE % (test code = MO%) 7.7 % 1.7-9.3 N EOSINOPHIL % (test code = EO%) 0.8 % 0.0-6.0 N BASOPHIL % (test code = BA%) 1.0 % 0.0-2.0 N NUCLEATED RBC % (test code = 0.0 /100WBC% 0.0-1.0 N NRBC%) NEUTROPHIL # (test code = NT#) 3.1 K/mm3 1.8-7.6 N IMMATURE GRANULOCYTE # (test 0.01 x10 3/uL 0.00-0.03 N code = IG#) LYMPHOCYTE # (test code = LY#) 1.6 K/mm3 0.6-3.2 N MONOCYTE # (test code = MO#) 0.4 K/mm3 0.3-1.1 N EOSINOPHIL # (test code = EO#) 0.0 K/mm3 0.0-0.4 N BASOPHIL # (test code = BA#) 0.1 K/mm3 0.0-0.1 N NUCLEATED RBC # (test code = 0.0 K/mm3 0.0-0.1 N NRBC#) MANUAL DIFF REQUIRED (test code NO DIFF/SCN CRITERIA = MDIFF) - CT ABD PELVIS W/O [id number] 05:23:00 [facility] : 1985 Sex: F Name: JAMES GRIFFIN [facility] : 1985 Age/S: 35 / F [address] [place] Unit #: [id number] Loc: [place] [address] [id number] Dis Date: Status: ADM IN PHONE #:[phone] Exam Date: 12/25/2020 0314 FAX #: Reason: abdominal pain, nausea and vomitting EXAMS: CPT: [id number] CT ABD PELVIS W/O CONT 08747 EXAM:- CT ABD PELVIS W/O CONT LOCATION: H61 CLINICAL HISTORY/INDICATION: abdominal pain, nausea and vomitting COMPARISON: None TECHNIQUE: Axial CT imag es of the abdomen and pelvis were obtained from the diaphragm to the lesser trochanter withoutIV contrast administration. Coronal and sagittal reformations were reconstructed from the axial data set. This examination was performed according to our departmental dose optimization program, which includes automated exposure control, adjustment of the mA and/or kV according to patient size, and/or use of iterative reconstruction technique. FINDINGS: LIMITATIONS: Absence of IV contrast decreases sensitivity for detection of focal lesions and vascular pathology. LOWER THORAX: Clear. LIVER: No focal hepatic lesions or intrahepatic biliary dilatation. GALLBLADDER/BILIARY SYSTEM: Cholecystectomy. PANCREAS: Unremarkable. SPLEEN: No splenomegaly or focal lesions. ADRENALS: No adrenal nodules. KIDNEYS/URETERS: No hydronephrosis, stones, or solid mass lesions. VESSELS: There is limited evaluation of the vasculature due to lack of IV contrast. No AAA. LYMPH NODES: No lymphadenopathy. PERITONEUM / RETROPERITONEUM: No free air or fluid. GI TRACT: Small bowel and colon are not dilated. No bowel wall thickening. The appendix is not well-visualized. However, there are no secondary signs of appendicitis demonstrated in the right lower PAGE 1 Signed Report (CONTINUED) Name: JAMES GRIFFIN [place] : 1985 Age/S: 35 / F [address] [facility] [place] Unit #: [id number] Loc: [place] [address] Phys: Sam Nesbitt MD Acct: [id number] Dis Date: Status: ADM IN PHONE #: [phone] Exam Date: 12/25/2020 0314 FAX #: Reason: abdominal pain, nausea and vomitting EXAMS: CPT: [id number] CT ABD PELVIS W/O CONT 04214 <Continued> quadrant. GENITOURINARY ORGANS:Unremarkable uterus and adnexa. Scattered pelvic phlebolith are present adjacent to the uterus and cervix. PELVIC FREE FLUID/FLUID COLLECTION: None. URINARY BLADDER: Unremarkable. EXTERNAL SOFT TISSUE: No abnormalities. BONES: Regional osseous structures are intact. IMPRESSION: 1. No acute findings demonstrated in the abdomen and pelvis. 2. Cholecystectomy. at 0523 Reported and signed by: David Wood M.D. CC: Sam Nesbitt MD; Vic Hendrix MD Technologist:RT Kvng (R)(CT) CTDI: DLP: Trnscb Date/Time: 12/25/2020 (05) [id number] Print D/T: S: 12/25/2020 (9736) PAGE 2 Signed [id number] 21:57:00 Test Item Value Reference Range Interpretation Comments TROPONIN-I (test < 0.015 NG/ML 0.000-0.045 N Negative: </= 0.045 code = TROPI) Positive: >/= 0.046 Correlation wit h serial results, other cardiac markers, and cl inical findings is nec essary to determine the c linical significance of this result. Quantit ative results using d ifferent methodologies s hould not be compared to one another as nume rical results may massimo yby method. Completed by Nursing: NODRUGS OF ABUSE SCREEN [id number] 17:18:00 Test Item Value Reference Range Interpretation Comments URN COCAINE (test code = NEGATIVE SCcutoff <300 NG/ML COCAURN) URN CANNABINOIDS (test code POSITIVE SCcutoff <50 NG/ML A = CANNABURN) URN AMPHETAMINE (test code NEGATIVE SCcutoff <1000 NG/ML = AMPHETURN) URN BARBITURATE (test code NEGATIVE SCcutoff <200 NG/ML = BARBITURN) URN BENZODIAZEPINE (test NEGATIVE SCcutoff <200 NG/ML code = BENZOURN) URN OPIATES (test code = POSITIVE SCcutoff <2000 NG/ML A OPIATURN) URN PHENCYCLIDINE (PCP) NEGATIVE SCcutoff <25 NG/ML (test code = PHENCURN) URN METHADONE (test code = NEGATIVE SCcutoff <300 NG/ML METHAURN) [id number]-[id number] 17:11:00 Test Item Value Reference Range Interpretation Comments TROPONIN-I (test < 0.015 NG/ML 0.000-0.045 N Negative: </= 0.045 code = TROPI) Positive: >/= 0.046 Correlation wit h serial results, other cardiac markers, and cl inical findings is nec essary to determine the c linical significance of this result. Quantit ative results using d ifferent methodologies s hould not be compared to one another as nume rical results may massimo yby method. Completed by Nursing: NOSodium Jepbp1231-62-93 06:14:00 Test Item Value Reference Range Interpretation Comments Sodium Level (test code = 2951-2) 140 136-145 [facility]assium Ncooj5987-14-77 06:14:00 Test Item Value Reference Range Interpretation Comments Potassium Level (test code = 2823-3) 3.2 3.5-5.1 L [facility]neChloride Ixnio3740-29-06 06:14:00 Test Item Value Reference Range Interpretation Comments Chloride Level (test code = 2075-0) 104 98-107 [facility]neCarbon Dioxide Ixagr9706-09-21 06:14:00 Test Item Value Reference Range Interpretation Comments Carbon Dioxide Level (test code = 28 22-29 8-9) [facility]neAnion Wvv6570-90-91 06:14:00 Test Item Value Reference Range Interpretation Comments Anion Gap (test code = 30269-1) 11.2 8-16 [facility]neBlood Urea Sectdigw3903-90-23 06:14:00 Test Item Value Reference Range Interpretation Comments Blood Urea Nitrogen (test code = < 5 7-26 L 3094-0) [facility]neCreatinine2019-02-24 06:14:00 Test Item Value Reference Range Interpretation Comments Creatinine (test code = 2160-0) 0.67 0.57-1.11 [facility]neBUN/Creatinine Ozget4945-39-42 06:14:00 Test Item Value Reference Range Interpretation Comments BUN/Creatinine Ratio (test code = 7 6-25 3097-3) [facility]burneEstimat Glomerular Filtration Rate 2019-01-12 06:14:00 Test Item Value Reference Range Interpretation Comments Estimat Glomerular Filtration Rate > 60 >60 (test code = 358048714) Ranges were taken from the National Kidney Disease Education Program and the National Kidney Foundation literature.Reference ranges:60 or greater: Stulla45- 59 (for 3 consecutive months): Chronic kidneydisease 15 or less: Kidney failure [facility]neGlucose Xvzdb7766-32-44 06:14:00 Test Item Value Reference Range Interpretation Comments Glucose Level (test code = RBT4380) 129 74-118 H [facility]neCalcium Zlcpf8676-99-56 06:14:00 Test Item Value Reference Range Interpretation Comments Calcium Level (test code = 05680-2) 8.8 8.4-10.2 [facility]neMonocytes (%) (Auto)2019-01-12 05:42:00 Test Item Value Reference Range Interpretation Comments Monocytes (%) (Auto) (test code = 9.1 4.4-11.3 5905-5) [facility]neEosinophils (%) (Auto)2019-01-12 05:42:00 Test Item Value Reference Range Interpretation Comments Eosinophils (%) (Auto) (test code = 0.2 0.0-6.0 713-8) [facility]neBasophils (%) (Auto)2019-01-12 05:42:00 Test Item Value Reference Range Interpretation Comments Basophils (%) (Auto) (test code = 0.5 0.0-1.0 706-2) [facility]neIM GRANULOCYTES %2019-01-12 05:42:00 Test Item Value Reference Range Interpretation Comments IM GRANULOCYTES % (test code = IM 0.2 0.0-1.0 GRANULOCYTES %) [facility]neNeutrophils # (Auto)2019-01-12 05:42:00 Test Item Value Reference Range Interpretation Comments Neutrophils # (Auto) (test code = 2.2 2.1-6.9 751-8) [facility]neLymphocytes # (Auto)2019-01-12 05:42:00 Test Item Value Reference Range Interpretation Comments Lymphocytes # (Auto) (test code = 2.8 1.0-3.2 75744-8) [facility]neMonocytes # (Auto)2019-01-12 05:42:00 Test Item Value Reference Range Interpretation Comments Monocytes # (Auto) (test code = 742-7) 0.5 0.2-0.8 [facility]neEosinophils # (Auto)2019-01-12 05:42:00 Test Item Value Reference Range Interpretation Comments Eosinophils # (Auto) (test code = 0.0 0.0-0.4 711-2) [facility]neBasophils # (Auto)2019-01-12 05:42:00 Test Item Value Reference Range Interpretation Comments Basophils # (Auto) (test code = 704-7) 0.0 0.0-0.1 [facility] CleburneAbsolute Immature Granulocyte (auto 2019-01-12 05:42:00 Test Item Value Reference Range Interpretation Comments Absolute Immature Granulocyte (auto 0.01 0-0.1 (test code = Absolute Immature Granulocyte (auto) [facility]neWhite Blood Nbnhe5977-57-29 05:42:00 Test Item Value Reference Range Interpretation Comments White Blood Count (test code = 6690-2) 5.63 4.8-10.8 [facility] CleburneRed Blood Kkopo7680-21-81 05:42:00 Test Item Value Reference Range Interpretation Comments Red Blood Count (test code = 789-8) 3.73 3.6-5.1 [facility]neHemoglobin2019-02-24 05:42:00 Test Item Value Reference Range Interpretation Comments Hemoglobin (test code = 29798-3) 11.2 12.0-16.0 L [facility]neHematocrit2019-02-24 05:42:00 Test Item Value Reference Range Interpretation Comments Hematocrit (test code = 4544-3) 32.5 34.2-44.1 L [facility] CleburneMean Corpuscular Pfwmlh0325-17-67 05:42:00 Test Item Value Reference Range Interpretation Comments Mean Corpuscular Volume (test code = 87.1 81-99 787-2) [facility]neMean Corpuscular Qmlockytoz6998-79-37 05:42:00 Test Item Value Reference Range Interpretation Comments Mean Corpuscular Hemoglobin (test code 30.0 28-32 = 785-6) [facility] Hemoglobin Concent 2019-01-12 05:42:00 Test Item Value Reference Range Interpretation Comments Mean Corpuscular Hemoglobin Concent 34.5 31-35 (test code = 786-4) [facility] CleburneRed Cell Distribution Iklpo3702-35-85 05:42:00 Test Item Value Reference Range Interpretation Comments Red Cell Distribution Width (test code 13.0 11.7-14.4 = 11901-4) [facility] CleburnePlatelet Nugva9406-20-12 05:42:00 Test Item Value Reference Range Interpretation Comments Platelet Count (test code = 777-3) 233 140-360 [facility]neNeutrophils (%) (Auto)2019-01-12 05:42:00 Test Item Value Reference Range Interpretation Comments Neutrophils (%) (Auto) (test code = 39.7 38.7-80.0 15340-6) [facility]neLymphocytes (%) (Auto)2019-01-12 05:42:00 Test Item Value Reference Range Interpretation Comments Lymphocytes (%) (Auto) (test code = 50.3 18.0-39.1 H 736-9) [facility]burneBedside Kreoywa0465-00-71 19:46:00 Test Item Value Reference Range Interpretation Comments Bedside Glucose (test code = 39219-7) 117 70-120 Meter ID: [id number] [facility] HospitalAnti-Nuclear Antibody Stlhbj8715-51-32 12:36:00 Test Item Value Reference Range Interpretation Comments Anti-Nuclear Antibody Screen (test Negative . code = 5048-4) Negative <1:80 Borderline 1:80 Positive >1:80Performed at: [facility] [id number] Director: Oli Ghosh MD, Phone: [phone] [facility] CleburneC-Reactive Nuzrmgj3554-31-07 11:57:00 Test Item Value Reference Range Interpretation Comments C-Reactive Protein (test code = 1988-5) 0.9 0.0-4.9 Performed at: [facility] [id number] Director: Oli Ghosh MD, Phone: [phone] Health [facility] Cle[facility]nePhosphorus Hcgzl6433-63-86 06:40:00 Test Item Value Reference Range Interpretation Comments Phosphorus Level (test code = RHQ5490) 3.7 2.3-4.7 [facility]burneMagnesium Qybbd6062-73-66 06:40:00 Test Item Value Reference Range Interpretation Comments Magnesium Level (test code = 57264-4) 1.9 1.3-2.1 [facility] CleburneUrine TCR5633-00-86 19:42:00 Test Item Value Reference Range Interpretation Comments Urine WBC (test code = 5821-4) NONE 0-5 [facility] CleburneUrine BQE4534-95-90 19:42:00 Test Item Value Reference Range Interpretation Comments Urine RBC (test code = 23899-4) >50 0-5 H [facility] Fbjnsnyn8789-78-48 19:42:00 Test Item Value Reference Range Interpretation Comments Urine Bacteria (test code = 81361-3) PRESENT NONE [facility] CleburneUrine Epithelial Fanno2715-29-35 19:42:00 Test Item Value Reference Range Interpretation Comments Urine Epithelial Cells (test code = RARE NONE 96595-9) [facility] CleburneUrine Avksm7300-58-51 19:32:00 Test Item Value Reference Range Interpretation Comments Urine Color (test code = 5778-6) STRAW YELLOW [facility] CleburneUrine Dafnlvs0828-95-27 19:32:00 Test Item Value Reference Range Interpretation Comments Urine Clarity (test code = 19079-2) SL CLOUDY CLEAR [facility] CleburneUrine Specific Xjpqjci3367-69-72 19:32:00 Test Item Value Reference Range Interpretation Comments Urine Specific Morgan (test code = 1.015 1.010-1.025 5811-5) [facility] CleburneUrine rE6147-92-18 19:32:00 Test Item Value Reference Range Interpretation Comments Urine pH (test code = 09455-5) 6 5-7 [facility] CleburneUrine Leukocyte Txflsdce0830-39-96 19:32:00 Test Item Value Reference Range Interpretation Comments Urine Leukocyte Esterase (test code NEGATIVE NEGATIVE = 5799-2) [facility]burneUrine Rbuppfe5742-92-69 19:32:00 Test Item Value Reference Range Interpretation Comments Urine Nitrite (test code = 59421-6) NEGATIVE NEGATIVE [facility]burneUrine Klkhorw6708-28-51 19:32:00 Test Item Value Reference Range Interpretation Comments Urine Protein (test code = 5804-0) NEGATIVE NEGATIVE [facility] CleburneUrine Glucose (UA)2019-01-09 19:32:00 Test Item Value Reference Range Interpretation Comments Urine Glucose (UA) (test code = NEGATIVE NEGATIVE 2349-9) [facility] CleburneUrine Xiconlr9650-26-74 19:32:00 Test Item Value Reference Range Interpretation Comments Urine Ketones (test code = 53979-2) 2+ NEGATIVE H [facility] CleburneUrine Aoqtwhmemifk3404-41-43 19:32:00 Test Item Value Reference Range Interpretation Comments Urine Urobilinogen (test code = 0.2 0.2-1 55838-6) [facility] CleburneUrine Cxbatyabc3082-72-32 19:32:00 Test Item Value Reference Range Interpretation Comments Urine Bilirubin (test code = 1978-6) NEGATIVE NEGATIVE [facility] CleburneUrine Bbbid6553-46-10 19:32:00 Test Item Value Reference Range Interpretation Comments Urine Blood (test code = 11157-2) 4+ NEGATIVE H INFORMED THAT PT IS STARTED HER PERIODTexas Health [facility] Vitamin B12 Bgjrb8070-51-94 18:39:00 Test Item Value Reference Range Interpretation Comments Vitamin B12 Level (test code = 41574-8) 808 213-816 [facility] CleburneErythrocyte Sedimentation Trgl0047-12-72 18:07:00 Test Item Value Reference Range Interpretation Comments Erythrocyte Sedimentation Rate (test 4 0-20 code = 4537-7) [facility] CleburneFerritin2019-02-21 18:06:00 Test Item Value Reference Range Interpretation Comments Ferritin (test code = 2276-4) 29.07 4.63-204.00 [facility] CleburneIron Ndhzb4455-99-31 17:46:00 Test Item Value Reference Range Interpretation Comments Iron Level (test code = 2498-4) 40 50-170 L [facility] CleburneTotal Iron Binding Iwqqaflr3584-73-67 17:46:00 Test Item Value Reference Range Interpretation Comments Total Iron Binding Capacity (test code 333 546-001 = 2500-7) [facility]burnePercent Iron Wglcntkzjj9370-34-63 17:46:00 Test Item Value Reference Range Interpretation Comments Percent Iron Saturation (test code = 12 15-50 L 2502-3) [facility] CleburneTransferrin2019-02-21 17:46:00 Test Item Value Reference Range Interpretation Comments Transferrin (test code = 3034-6) 238 180-382 [facility] CleburnePercent Reticulocyte Elpdu8616-58-13 17:34:00 Test Item Value Reference Range Interpretation Comments Percent Reticulocyte Count (test code = 2.1 0.8-2.2 42426-4) [facility]neHEPTOBILIARY W QTMYH8152-65-61 14:46:00 [place] [address] Patient Name: JAMES GRIFFIN MR #: [id number] : 1985 Age/Sex: 33/F Req #: [id number] Adm Physician: SARY SINGH MD Ordered by: DWAIN LOVING MD Report #: [id number] Location: [facility] Room/Bed: [facility] Procedure: [id number] NM/HEPTOBILIARY W PHARM Exam Date: 01/09/19 Exam [...] on 01/09/19 1447 COPY TO: DWAIN LOVING [facility] IF0322-31-33 16:52:00 [place] [address] Patient Name: JAMES GRIFFIN MR #: [id number] : 1985 Age/Sex: 33/F Req #: [id number] Adm Physician: SARY SINGH MD Ordered by: SARY SINGH MD Report #: [id number] Location: MED/SURG3 Room/Bed: [facility] Procedure: [id number] MRI/MRI MRCP WO Exam Date: 01/08/19 Exam Time: 1600 REPORT STATUS: Signed MRCP CPT code: 01185 History: Intractable nausea/vomiting, chronic epigastric pain Comparison: [...] 01/08/191700 COPY TO: SARY SINGH MD Urine Ysca6852-18-16 12:32:00 Test Item Value Reference Range Interpretation Comments Urine Test (test code = NEGATIVE NEGATIVE 2106-3) [facility]burneFolate2019-02-20 06:55:00 Test Item Value Reference Range Interpretation Comments Folate (test code = 2284-8) 18.6 7.0-15.4 H [facility] CleburneThyroid Stimulating Hormone (TSH) 2019-01-08 06:33:00 Test Item Value Reference Range Interpretation Comments Thyroid Stimulating Hormone (TSH) (test 0.964 0.350-4.940 code = 09470-1) [facility] Ijxxvpane5639-76-90 05:55:00 Test Item Value Reference Range Interpretation Comments Total Bilirubin (test code = 1975-2) 0.5 0.2-1.2 [facility] CleburneAspartate Amino Transf (AST/SGOT) 2019-01-08 05:55:00 Test Item Value Reference Range Interpretation Comments Aspartate Amino Transf (AST/SGOT) (test 17 5-34 code = Aspartate Amino Transf (AST/SGOT)) [facility] Cle[facility]neAlanine Aminotransferase (ALT/SGPT) 2019-01-08 05:55:00 Test Item Value Reference Range Interpretation Comments Alanine Aminotransferase (ALT/SGPT) 16 0-55 (test code = 1742-6) [facility] Ziephyy4821-65-26 05:55:00 Test Item Value Reference Range Interpretation Comments Total Protein (test code = 2885-2) 5.7 6.5-8.1 L [facility] CleburneAlbumin2019-02-20 05:55:00 Test Item Value Reference Range Interpretation Comments Albumin (test code = 1751-7) 4.0 3.5-5.0 [facility]neGlobulin2019-02-20 05:55:00 Test Item Value Reference Range Interpretation Comments Globulin (test code = 69060-5) 1.7 2.3-3.5 L [facility] CleburneAlbumin/Globulin Crgrj2499-83-02 05:55:00 Test Item Value Reference Range Interpretation Comments Albumin/Globulin Ratio (test code = 2.4 0.8-2.0 H 1759-0) [facility]burneAlkaline Rgrtywlmqtc8369-95-12 05:55:00 Test Item Value Reference Range Interpretation Comments Alkaline Phosphatase (test code = 39 40-150 L 6768-6) [facility] CleburneAmylase Lhiaf2072-38-50 05:55:00 Test Item Value Reference Range Interpretation Comments Amylase Level (test code = 1798-8) 31 25-125 [facility] CleburneLipase2019-02-20 05:55:00 Test Item Value Reference Range Interpretation Comments Lipase (test code = 3040-3) 22 8-78 [facility] CleburneABDOMEN ACUTE SERIES W/PA ZPG1868-82-64 01:41:00 [facility] [address] [place] [address] Patient Name: JAMES GRIFFIN MR #: [id number] : 1985 Age/Sex: 33/F Req #: [id number] Adm Physician: Ordered by: RACIEL CALVERT MD Report #: [id number] Location: ER Room/Bed: Procedure: [id number] DX/ABDOMEN ACUTE SERIES W/PA CXR Exam Date: 01/07/19 Exam Time: 47 REPORT STATUS: Signed EXAM: Abdomen 2 Views, chest 1 view INDICATION: abd pain [id number] Y COMPARISON: None FINDINGS: No focal [...] TANA on 01/07/19141 COPY TO: RACIEL CALVERT Mucus 2019-01-07 00:18:00 Test Item Value Reference Range Interpretation Comments Urine Mucus (test code = 8247-9) MANY RARE H [facility] CleburneUrine Opiates Ejdmev8772-26-03 00:09:00 Test Item Value Reference Range Interpretation Comments Urine Opiates Screen (test code = POSITIVE NEGATIVE H 08825-2) ALL TESTS PERFORMED MANUALLY ON eXelate TOX/SEE TEST This test provides only a screen. Positive results should be repeated by a confirmatory test.[facility] CleburneUrine Barbiturates Ngtire6941-01-60 00:09:00 Test Item Value Reference Range Interpretation Comments Urine Barbiturates Screen (test code NEGATIVE NEGATIVE = 285422227) [facility] CleburneUrine Phencyclidine Tzoion2018-08-29 00:09:00 Test Item Value Reference Range Interpretation Comments Urine Phencyclidine Screen (test NEGATIVE NEGATIVE code = 69241-9) [facility]neUrine Amphetamines Dfrffr9995-00-75 00:09:00 Test Item Value Reference Range Interpretation Comments Urine Amphetamines Screen (test code NEGATIVE NEGATIVE = 65331-1) [facility]burneUrine Methamphetamines Lednpj5961-36-95 00:09:00 Test Item Value Reference Range Interpretation Comments Urine Methamphetamines Screen (test NEGATIVE NEGATIVE code = Urine Methamphetamines Screen) [facility]neUrine Benzodiazepines Wkhxfu3844-67-45 00:09:00 Test Item Value Reference Range Interpretation Comments Urine Benzodiazepines Screen (test NEGATIVE NEGATIVE code = 53809-5) [facility]neUrine Cocaine Nzowcz4551-83-38 00:09:00 Test Item Value Reference Range Interpretation Comments Urine Cocaine Screen (test code = NEGATIVE NEGATIVE 3398-5) [facility]neUrine Cannabinoids Ngcurw7219-26-91 00:09:00 Test Item Value Reference Range Interpretation Comments Urine Cannabinoids Screen (test code POSITIVE NEGATIVE H = 18264-7) THESE RESULTS ARE FOR MEDICAL TREATMENT ONLYTHIS REPORT CONTAINS UNCONFIRMED SCREENING RESULTS*POSITIVE RESULTS WILL BE CONFIRMED BY REFERENCE LAB UPON REQUEST CUT-OFFDRUG CLASS CONCENTRATION ng/mLAmphetamines 1000Met hamphetamines 1000Cocaine 300Opiate 300Phencyclidine 25Cannabinoid 50Barbiturates 300Benzodiazepine 300Methadone 300 This test provides only a screen. Positive results should be repeated by a confirmatory test.[facility] Cle[facility]neUrine Methadone Mavgrn5690-59-68 00:09:00 Test Item Value Reference Range Interpretation Comments Urine Methadone Screen (test code = NEGATIVE NEGATIVE 81371-2) THESE RESULTS ARE FOR MEDICAL TREATMENT ONLYTHIS REPORT CONTAINS UNCONFIRMED SCREENING RESULTS*POSITIVE RESULTS WILL BE CONFIRMED BY REFERENCE LAB UPON REQUEST CUT-OFFDRUG CLASS CONCENTRATION ng/mLAmphetamines 1000Met hamphetamines 1000Cocaine Metabolite 300Opiate 300Phencyclidine 25Cannabinoid 50Barbiturates 300Benzodiazepine 300Methadone 300[facility] [place] [place]
[2021-06-08 19:33] LABS: Absolute Lymphocytes (CBC) 0.9 K/uL (0.7-4.9); Basophils % 0.4 % (0-1.3); Hematocrit 31.1 % (36.0-45.0); Lymphocytes % 14.1 % (15.3-44.8); MPV 9.4 fL (7.6-11.3); RBC Red Blood Cell Count 3.74 M/uL (3.86-4.86)
[2021-06-08] MEDS ORDERED: METOCLOPRAMIDE 10 MG/2mL INJ ONE (19:52)
[2021-06-08] MEDS ORDERED: MORPHINE 4 MG/ML SYR ONE (19:52)
[2021-06-08] MEDS ORDERED: PANTOPRAZOLE 40 MG INJ ONE (19:53)
[2021-06-08] MEDS ORDERED: NA CHLORIDE 0.9% 1,000 ML ONE ×2 (19:53→22:14)
[2021-06-08 19:55] LABS: ALT/SGPT 29 U/L (12-78); AST/SGOT 12 U/L (15-37); Albumin 4.1 g/dL (3.4-5.0); Alkaline Phosphatase 67 U/L (45-117); BUN Blood Urea Nitrogen 12 mg/dL (7-18); Bicarbonate 27 mmol/L (21-32); Bilirubin Direct 0.2 mg/dL (0-0.2); Bilirubin Total 0.5 mg/dL (0.2-1.0); Glucose Level 93 mg/dL (74-106); Lipase 76 U/L (73-393); Magnesium 2.1 mg/dL (1.8-2.4); Potassium 3.3 mmol/L (3.5-5.1); Protein, Total 7.4 g/dL (6.4-8.2); Sodium Level 137 mmol/L (136-145)
[2021-06-08 21:04] LABS: Urine Blood 2+ (Negative); Urine Glucose Negative (Negative); Urine Protein 1+ (Negative); Urine Specific Gravity 1.025 (1.005-1.030)
[2021-06-08 21:15] LABS: Urine Specific Gravity/Preg 1.025 (1.005-1.030)
[2021-06-08 21:40] LABS: Barbiturates POSITIVE (NEGATIVE); Benzodiazepines NEGATIVE (NEGATIVE); Cocaine NEGATIVE (NEGATIVE); METHAMPHETAM NEGATIVE (NEGATIVE); Methadone NEGATIVE (NEGATIVE); Opiates POSITIVE (NEGATIVE); Phencyclidine NEGATIVE (NEGATIVE); THC Cannibis POSITIVE (NEGATIVE)
[2021-06-08] MEDS ORDERED: PROMETHAZINE INJ 25 MG/ML AMP ONE (22:13)
[2021-06-08] MEDS ORDERED: DIPHENHYDRAMINE 50 MG/ML VIAL ONE (22:13)
[2021-06-08] MEDS ORDERED: MORPHINE 2 MG/ML SYR ONE (22:14)
[2021-06-08] MEDS ORDERED: MAGNES/ALUMIN/SIMET 30ML UCUP ONE (22:45)
[2021-06-08] MEDS ORDERED: LIDOCAINE VISCOUS 2% SOLN 15 ML UDC ONE (22:45)
--- NOTE | 2021-06-08 23:22 | EDPHYS ---
Physician Documentation [facility] Name: Shyanne Pardo Age: 35 yrs Sex: Female : 1985 Arrival Date: 06/08/2021 Time: 15:56 Bed 16 Private MD: ED Physician César Villarreal HPI: 06/08 19:00 This 35 yrs old Female presents to ER via Ambulatory with complaints of cp Vomiting, Abdominal Pain. 19:00 The patient presents to the emergency department with nausea, with "dry heaves", cp vomiting, that is continuous. 19:00 Onset: The symptoms/episode began/occurred today. cp 19:00 Possible causes: flare up of bowel problem, colitis. Associated signs and symptoms: cp Pertinent positives: abdominal pain, anorexia, nausea, vomiting, Pertinent negatives: diarrhea, fever, GI bleeding. Severity of symptoms: in the emergency department the symptoms are unchanged despite home interventions. 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 - Social history:: Smoking status: Patient denies any tobacco usage or history of. ROS: 19:05 Constitutional: Positive for poor PO intake, Negative for body aches, chills, fever. cp 19:05 Eyes: Negative for injury, pain, redness, and discharge. cp 19:05 ENT: Negative for ear pain, sore throat, difficulty swallowing, difficulty handling secretions. 19:05 Cardiovascular: Negative for chest pain, palpitations. 19:05 Respiratory: Negative for cough, shortness of breath, wheezing. 19:05 Abdomen/GI: Positive for abdominal pain, nausea and vomiting, Negative for diarrhea, constipation, hematemesis, black/tarry stool, rectal bleeding. 19:05 : Negative for urinary symptoms. 19:05 Neuro: Negative for altered mental status, headache, weakness. 19:05 All other systems are negative. Exam: 19:10 Constitutional: The patient appears in no acute distress, alert, awake, non-toxic, well cp developed, well nourished, uncomfortable. 19:10 Head/Face: Normocephalic, atraumatic. cp 19:10 Eyes: Periorbital structures: appear normal, Conjunctiva: normal, no exudate, no injection, Sclera: no appreciated abnormality, Lids and lashes: appear normal, bilaterally. 19:10 ENT: External ear(s): are unremarkable, Nose: is normal, Mouth: Lips: moist, Oral mucosa: moist, Posterior pharynx: Airway: no evidence of obstruction, patent. 19:10 Chest/axilla: Inspection: normal. 19:10 Cardiovascular: Rate: normal, Rhythm: regular. 19:10 Respiratory: the patient does not display signs of respiratory distress, Respirations: normal, no use of accessory muscles, no retractions, labored breathing, is not present, Breath sounds: are clear throughout, no decreased breath sounds, no stridor, no wheezing. 19:10 Abdomen/GI: Inspection: abdomen appears normal, Bowel sounds: active, all quadrants, Palpation: soft, in all quadrants, severe abdominal tenderness, rebound tenderness, is not appreciated, voluntary guarding, is not appreciated, involuntary guarding, is not appreciated. 19:10 Back: pain, is absent, ROM is normal. Vital Signs: 16:26 BP 144 / 81; Pulse 83; Resp 15; Temp 98.2; Pulse Ox 98% on R/A; Weight 68.04 kg (R); ca1 Height 5 ft. 8 in. (172.72 cm) (R); Pain 10/10; 23:58 BP 127 / 86 Sitting (auto/reg); Pulse 57; Resp 16; Temp 98.9; Pulse Ox 100% on R/A; bs2 Pain 0/10; 16:26 Body Mass Index 22.81 (68.04 kg, 172.72 cm) ca1 MDM: 18:59 Patient medically screened. cp 23:20 Data reviewed: vital signs, nurses notes, lab test result(s), radiologic studies, CT cp scan, and as a result, I will discharge patient. 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 06/08 18:58 Order name: Basic Metabolic Panel; Complete Time: 20:13 cp 06/08 20:13 Interpretation: Normal except: K 3.3. cp 06/08 18:58 Order name: CBC with Diff; Complete Time: 20:31 cp 06/08 20:31 Interpretation: Normal except: RBC 3.74; HGB 11.1; HCT 31.1; MCV 83.1; GIDEON% 80.4; LYM% cp 14.1. 06/08 18:58 Order name: Hepatic Function; Complete Time: 20:13 cp 06/08 20:13 Interpretation: Normal except: AST 12. cp 06/08 18:58 Order name: Lipase; Complete Time: 20:13 cp 06/08 18:58 Order name: Magnesium; Complete Time: 20:13 cp 06/08 21:47 Interpretation: Within normal limits: MG 2.1. cp 06/08 19:25 Order name: Phosphorus; Complete Time: 20:13 cp 06/08 21:48 Interpretation: Within normal limits: PHOS 3.3. cp 06/08 19:25 Order name: UDS; Complete Time: 21:47 cp 06/08 21:47 Interpretation: Normal except: THC POSITIVE; OPI POSITIVE; CRYSTAL POSITIVE. cp 06/08 19:25 Order name: CT Abd/Pelvis - IV Contrast Only; Complete Time: 13:09 cp 06/08 21:04 Order name: Urine Dipstick-Ancillary; Complete Time: 21:47 EDMS 06/08 21:47 Interpretation: Normal except: UKET 3+; UBLD 2+; UPROT 1+. cp 06/08 21:05 Order name: Urine --Ancillary (enter results); Complete Time: 21:47 mw2 06/08 18:58 Order name: IV Saline Lock; Complete Time: 19:46 cp 06/08 18:58 Order name: Labs collected and sent; Complete Time: 19:45 cp 06/08 18:58 Order name: Urine Dipstick-Ancillary (obtain specimen); Complete Time: 21:05 cp 06/08 18:58 Order name: Urine Test (obtain specimen); Complete Time: 21:05 cp 06/08 22:47 Order name: PO challenge; Complete Time: 23:10 cp Administered Medications: 19:40 Drug: morphine 4 mg Route: IVP; Site: left antecubital; bs2 22:03 Follow up: Response: No adverse reaction bs2 19:40 Drug: ProTONIX (pantoprazole) 40 mg Route: IVP; Site: left antecubital; bs2 22:03 Follow up: Response: No adverse reaction bs2 19:40 Drug: NS 0.9% 1000 ml Route: IV; Rate: 1 bolus; Site: left antecubital; bs2 06/09 00:10 Follow up: IV Status: Completed infusion; IV Intake: 1000ml bs2 06/08 19:43 Drug: Reglan (metoCLOPramide) 10 mg Route: IVP; Site: left antecubital; bs2 22:03 Follow up: Response: No adverse reaction bs2 22:00 Drug: Phenergan (promethazine) 25 mg Route: IVP; Site: right antecubital; bs2 22:43 Follow up: Response: No adverse reaction bs2 22:00 Drug: Benadryl (diphenhydrAMINE) 25 mg Route: IVP; Site: right antecubital; bs2 22:43 Follow up: Response: No adverse reaction bs2 22:00 Drug: morphine 2 mg Route: IVP; Site: right antecubital; bs2 22:43 Follow up: Response: No adverse reaction bs2 22:30 Drug: NS 0.9% 1000 ml Route: IV; Rate: 1 bolus; Site: right antecubital; bs2 23:45 Follow up: IV Status: Completed infusion; IV Intake: 1000ml bs2 22:30 Drug: GI Cocktail without - (Maalox Suspension 30 ml, Lidocaine Liquid 2 % 15 bs2 ml) Route: PO; 23:10 Follow up: Response: No adverse reaction; Pain is decreased bs2 Disposition: 06/09 06:46 Co-signature as Attending Physician, César Villarreal MD. rn Disposition Summary: 06/08/21 23:21 Discharge Ordered Location: Home cp Problem: new cp Symptoms: have improved cp Condition: Stable cp Diagnosis - Nausea with vomiting, unspecified cp - Abdominal pain, unspecified cp Followup: cp - With: Private Physician - When: 1 - 2 days - Reason: Recheck today's complaints Discharge Instructions: - Discharge Summary Sheet cp - Abdominal Pain, Adult cp - Gastritis, Adult cp - Nausea and Vomiting, Adult cp Forms: - Medication Reconciliation Form cp - Thank You Letter cp - Antibiotic Education cp - Prescription Opioid Use cp Prescriptions: - promethazine 25 mg Oral Tablet - take 1 tablet by ORAL route every 6 hours As needed; 20 tablet; Refills: 0, cp Product Selection Permitted Signatures: Dispatcher [employer] EDAmada Atwood, GREGOR-C CONVERTING TECHNICIAN-Ckb César Villarreal MD MD rn Fito Rodrigues PA PA cp Allison Meléndez RN RN ca1 Rani Buckley RN RN bs2 Corrections: (The following items were deleted from the chart) 06/08 16:29 16:28 Allergies: Demerol; ca1 ca1
--- NOTE | 2021-06-08 23:22 | ER ---
Nurse's Notes [facility] Name: Shyanne Pardo Age: 35 yrs Sex: Female : 1985 Arrival Date: 06/08/2021 Time: 15:56 Bed 16 Private MD: Diagnosis: Nausea with vomiting, unspecified;Abdominal pain, unspecified Presentation: 06/08 16:26 Chief complaint: Patient states: I was at my GI yesterday, gave me meds. But today, I ca1 can't keep them down. I have been vomiting since and my abdomen hurts so bad. I have endoscopy scheduled on the . Pt crying in triage. Uncomfortable. Coronavirus screen: Client denies travel out of the [place] in the last 14 days. nausea, vomiting. Client presents with at least one sign or symptom that may indicate coronavirus-19. Standard/surgical mask placed on the client. Provider contacted for isolation considerations. Ebola Screen: Patient negative for fever greater than or equal to 101.5 degrees Fahrenheit, and additional compatible Ebola Virus Disease symptoms Patient denies exposure to infectious person. Patient denies travel to an Ebola-affected area in the 21 days before illness onset. No symptoms or risks identified at this time. Initial Sepsis Screen: Does the patient meet any 2 criteria? No. Patient's initial sepsis screen is negative. Does the patient have a suspected source of infection? No. Patient's initial sepsis screen is negative. Risk Assessment: Do you want to hurt yourself or someone else? Patient reports no desire to harm self or others. Onset of symptoms was June 08, 2021. 16:26 Method Of Arrival: Ambulatory ca1 16:26 Acuity: [place] [address] SWEEPER: 16:29 LMP N/A - control method ca1 Historical: - Allergies: 16:28 Azithromycin; ca1 16:28 CEPHALOSPORINS; ca1 16:28 Erythromycin; ca1 16:28 PENICILLINS; ca1 16:28 Sulfa (Sulfonamide Antibiotics); ca1 - PMHx: 16:28 Colitis; gastritis; sliding heria; Ulcers; ca1 - Immunization history:: Client reports having NOT received the Covid vaccine. - Social history:: Smoking status: Patient denies any tobacco usage or history of. Screenin:24 Abuse screen: Denies threats or abuse. Denies injuries from another. Nutritional bs2 screening: No deficits noted. Tuberculosis screening: No symptoms or risk factors identified. Fall Risk None identified. Assessment: 19:24 General: Appears uncomfortable, slender, well groomed, well developed, well nourished, bs2 Behavior is cooperative, appropriate for age, crying. Pain: Complains of pain in epigastric area, umbilical area, right lower quadrant and left lower quadrant Pain currently is 10 out of 10 on a pain scale. Pain began 2-3 days ago. GI: Abdomen is flat, non-distended, Pt is actively vomiting bile, Last BM Bowel sounds present X 4 quads. Abd is soft X 4 quads Abdomen is tender to palpation in epigastric area, umbilical area, suprapubic area, right lower quadrant and left lower quadrant Reports lower abdominal pain, diarrhea, intolerance of fluids, intolerance of food, nausea, vomiting. 22:00 Reassessment: Pain and nausea returned . bs2 Vital Signs: 16:26 BP 144 / 81; Pulse 83; Resp 15; Temp 98.2; Pulse Ox 98% on R/A; Weight 68.04 kg (R); ca1 Height 5 ft. 8 in. (172.72 cm) (R); Pain 10/10; 23:58 BP 127 / 86 Sitting (auto/reg); Pulse 57; Resp 16; Temp 98.9; Pulse Ox 100% on R/A; bs2 Pain 0/10; 16:26 Body Mass Index 22.81 (68.04 kg, 172.72 cm) ca1 ED Course: 15:56 Patient arrived in ED. mr 16:28 Triage completed. ca1 16:28 Arm band placed on right wrist. ca1 18:53 Fito Rodrigues PA is PHCP. cp 18:53 Luis M Mendoza MD is Attending Physician. cp 18:59 César Villarreal MD is Attending Physician. cp 19:24 Rani Buckley, RN is Primary Nurse. bs2 19:24 Patient has correct armband on for positive identification. Bed in low position. Call bs2 light in reach. Side rails up X 1. Pulse ox on. NIBP on. Warm blanket given. 19:24 Inserted saline lock: 20 gauge in right antecubital area, using aseptic technique. bs2 19:45 Hepatic Function Sent. bs2 19:45 CBC with Diff Sent. bs2 19:45 Basic Metabolic Panel Sent. bs2 19:46 Magnesium Sent. bs2 19:46 Phosphorus Sent. bs2 22:10 CT Abd/Pelvis - IV Contrast Only In Process Unspecified. EDMS 06/09 00:08 No provider procedures requiring assistance completed. IV discontinued, intact, bs2 bleeding controlled, No redness/swelling at site. Administered Medications: 06/08 19:40 Drug: morphine 4 mg Route: IVP; Site: left antecubital; bs2 22:03 Follow up: Response: No adverse reaction bs2 19:40 Drug: ProTONIX (pantoprazole) 40 mg Route: IVP; Site: left antecubital; bs2 22:03 Follow up: Response: No adverse reaction bs2 19:40 Drug: NS 0.9% 1000 ml Route: IV; Rate: 1 bolus; Site: left antecubital; bs2 06/09 00:10 Follow up: IV Status: Completed infusion; IV Intake: 1000ml bs2 06/08 19:43 Drug: Reglan (metoCLOPramide) 10 mg Route: IVP; Site: left antecubital; bs2 22:03 Follow up: Response: No adverse reaction bs2 22:00 Drug: Phenergan (promethazine) 25 mg Route: IVP; Site: right antecubital; bs2 22:43 Follow up: Response: No adverse reaction bs2 22:00 Drug: Benadryl (diphenhydrAMINE) 25 mg Route: IVP; Site: right antecubital; bs2 22:43 Follow up: Response: No adverse reaction bs2 22:00 Drug: morphine 2 mg Route: IVP; Site: right antecubital; bs2 22:43 Follow up: Response: No adverse reaction bs2 22:30 Drug: NS 0.9% 1000 ml Route: IV; Rate: 1 bolus; Site: right antecubital; bs2 23:45 Follow up: IV Status: Completed infusion; IV Intake: 1000ml bs2 22:30 Drug: GI Cocktail without - (Maalox Suspension 30 ml, Lidocaine Liquid 2 % 15 bs2 ml) Route: PO; 23:10 Follow up: Response: No adverse reaction; Pain is decreased bs2 Intake: 23:45 IV: 1000ml; Total: 1000ml. bs2 06/09 00:10 IV: 1000ml; Total: 2000ml. bs2 Outcome: 06/08 23:21 Discharge ordered by . sukhwinder 06/09 00:09 Discharged to home ambulatory, with family. bs2 Condition: improved Discharge instructions given to patient, Instructed on discharge instructions, follow up and referral plans. medication usage, Demonstrated understanding of instructions, follow-up care, medications, Prescriptions given X 1. 00:09 Patient left the ED. bs2 Signatures: Dispatcher [employer] EDVT Eliel Johanna mr Fito Rodrigues, Allison Herzog cp, RN RN ca1 Rani Buckley RN RN bs2 Corrections: (The following items were deleted from the chart) 06/08 16:29 16:28 Allergies: Demerol; ca1 ca1
[2021-06-09 00:41] VITALS: BP 127/86; TEMP 98.9; O2SAT 100
--- NOTE | 2021-06-09 11:37 | RAD REPORT ---
EXAM DESCRIPTION: CT - Abdomen Pelvis W Contrast - 06/09/2021 6:47 am CLINICAL HISTORY: The patient is 35 years old and is Female; ABD PAIN TECHNIQUE: Axial computed tomography images of the abdomen and pelvis with intravenous contrast. S agittal and coronal reformatted images were created and reviewed. This CT exam was performed using one or more of the following dose reduction techniques: automated exposure control, adjustment of t he mA and/or kV according to patient size, and/or use of iterative reconstruction technique. DLP: 929 mGy*cm COMPARISON: CT abdomen and pelvis dated 12/07/2020. FINDINGS: LUNG BASES: Lung bases are clear. HEART: Visualized heart is normal. ABDOMEN: LIVER: Unremarkable. No mass. GALLBLADDER AND BILE DUCTS: Prior cholecystectomy with ductal dilatation. PANCREAS: Unremarkable. No mass. No ductal dilation. SPLEEN: Unremarkable. No splenomegaly. ADRENALS: Unremarkable. No mass. KIDNEYS AND URETERS: Unremarkable. No solid mass. No hydronephrosis. STOMACH AND BOWEL: Unremarkable. No obstruction. No mucosal thickening. PELVIS: APPENDIX: No findings to suggest acute appendicitis. BLADDER: Bladder is decompressed. REPRODUCTIVE: Unremarkable as visualized. ABDOMEN and PELVIS: INTRAPERITONEAL SPACE: See below. BONES/JOINTS: No acute fracture. No dislocation. SOFT TISSUES: Unremarkable. VASCULATURE: Unremarkable. No abdominal aortic aneurysm. LYMPH NODES: Unremarkable. No enlarged lymph nodes. TUBES, LINES AND DEVICES: Intravaginal contraceptive device. Small amount of free pelvic fluid. IMPRESSION: No acute abdominal or pelvic abnormality. Electronically signed by: Joey Santos DO 06/08/2021 10:28 PM CDT Due to temporary technical issues with the PACS/Fluency reporting system, reports are being signed by the in house radiologists without review as a courtesy to insure prompt reporting. The interpreting radiologist is fully responsible for the content of the report.
== END 2021-06-09 00:09 | disposition home or self-care (01) ==
LOC: ER 15:52
DX: R10.9 Unspecified abdominal pain (principal); Z88.0 Allergy status to penicillin; Z88.1 Allergy status to other antibiotic agents; Z88.2 Allergy status to sulfonamides; Z88.3 Allergy status to other anti-infective agents
CPT/HCPCS: 96361; 85025; 80048; 36415; 83735; 81025; 84100; 80076; 81003; 83690; 80307; 74177; 96375; 96374; 99284; Q9967; J2765; J2550; J1200; C9113; J2270; J7030 ×2

== ENCOUNTER 2021-06-09 10:44 | Emergency (ER) | payer OTHER ==
--- OUTSIDE RECORDS SUMMARY | 2021-06-09 10:48 | XMS REPORT | Continuity of Care Document ---
:1985 Author Organization [facility] t Address [facility] [place] [address] Care Team Providers Name Role Phone NONSTAFF Primary Care Physician Unavailable Vikash BUNDY Attending Clinician Sunita Cates MD Attending Clinician Moustapha Myers MD Attending Clinician SINGH Attending Clinician Unavailable SINGH Admitting Clinician Unavailable Payers Payer Name Policy Type Policy Number Effective Date Expiration Date Shelby goodman [employer] [id number] [facility] Problems Condition Condition Condition [...] da (clinical) (Clinical) 00:00: Ep iscop 00 ma [facility] Outre[facility] Program Chronic Chronic Problem Active [facility] abdominal [facility] - [facility] Gastritis Gastritis Problem Active [facility] Intractabl Intractabl Problem Active [facility] e vomiting e vomiting Carol Ann kes - Patient [facility] Allergies, Adverse Reactions, Alerts Allergy Allergy Status Severity Reaction(s) Onset Inactive Treating Comm ents Source Name Type Date Date Clinician Penic[place] DA Active [facility] ins 2-05 Clear 00:00: Quinteros 00 [facility] Cephalos DA Active [facility] porins 2-05 Clear 00:00: Quinteros 00 [facility] Sulfa DA Active [facility] (Sulfona 2-05 Clear mide 00:00: Quinteros Antibiot 00 [facility] erythrom DA Active [facility] ycin 2-05 Clear base 00:00: Quinteros 00 [facility] Penicill Allergy Active Severe [facility] - Substanc 00:00: Patient e 00 [facility] Erythrom Allergy Active [facility] y[facility] to 2-18 [facility] - base Substanc 00:00: Patient e 00 [facility] Erythrom Allergy Active [place] ycin to da [facility]stanc [facility] PENICILL Allergy Active [place] INS to da substanc [facility] SULFA Allergy Active Hives [place] (SULFONA to da MIDE substanc [facility] ANTIBIOT e al ICS) [facility] Outreac h Program Social History Smoking Status Start Date Stop Date Source Former Smoker [facility] Medications Ordered Filled [...] disintegrat disintegra [facility] ing tablet ing tablet [facility] [address] 1 tablet Health [...] Source BP Diastolic 2021-06-07 00:00:00 100 mm[Hg] [facility] Height 2021-06-07 00:00:00 67 [in_i] [facility] BP Systolic 2021-06-07 00:00:00 148 mm[Hg] [facility] BP Diastolic 2021-05-25 00:00:00 82 mm[Hg] [facility] Height 2021-05-25 00:00:00 67 [in_i] [facility] BMI (Body Mass 2021-05-25 00:00:00 22.1 kg/m2 [facility] Zoroastrian Index) Health Outreach Program BP Systolic 2021-05-25 00:00:00 120 mm[Hg] [facility] Body Weight 2021-05-25 00:00:00 141 [lb_av] [facility] Procedures Procedure Date / Time Performing Source Performed Clinician US transvaginal 2021-05-25 [place] 00:00:00 [facility] Laparoscopic cholecystectomy 2019-01-10 YURIY MYERS [facility] - 00:00:00 [facility] Magnetic resonance 2019-01-08 SARY SINGH [facility] - cholangiopancreatography (MRCP) 00:00:00 [facility] without contrast Center Colonoscopy with biopsy 2019-01-07 INDER NANCY [facility] - 00:00:00 [facility] EGD with biopsy 2019-01-07 DWAIN LOVING [facility] - 00:00:00 [facility] Tubal Ligation 2010-11-19 [place] 00:00:00 [facility] Adenoid Surgery [place] [facility] Tonsillectomy [place] [facility] Cholecystectomy [place] [facility] Plan of Care Planned Activity Planned Date Details Comments Source Diagnostic Test 2021-06-07 C-reactive protein, [place] Pending 00:00:00 quantitative [code = [facility] C-reactive protein, Outreach Program quantitative] Diagnostic Test 2021-06-07 erythrocyte [place] Pending 00:00:00 sedimentation rate by [facility] westergren method Outreach P rogram [code = erythrocyte sedimentation rate by westergren method] Encounters Start End Encounter Admission Attending Care Care Encounter Source Date/Time Date/Time Type Type Clinicians Facility Department ID 2021-06-07 2021-06-07 [place] - [id number] [place] 00:00:00 00:00:00 Jn Tinoco MD: [id number] 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 2020-08-19 2020-08-19 Telephone Jarethmorgan, [facility] [id number] 00:00:00 00:00:00 Kenyetta Sunita Coon [id number] Counselor [id number] Professio [id number] [address] 2020-08-18 2020-08-18 Telephone Michelle Myers [facility] [id number] 00:00:00 00:00:00 Moustapha Coon [id number] Counselor [id number] Professio [phone] [address] 2019-01-08 2019-01-12 Discharged 1 SARY SINGH [facility] A00 [id number] [facility] 08:41:00 13:44:00 Inpatient 54 [facility] Results Test Description Test Time Test Comments Results Result Comments Source Bacterial vaginosis and vaginitis DNA panel - Vaginal fluid by 2021-05-28 00:00:00 Probe with signal amplification Test Item Value Reference Range Interpretation Comme nts Chlamydia trachomatis rRNA [Presence] in Unspecified not detected specimen by SOREN with probe detection (test code = 56956-5) Neisseria gonorrhoeae rRNA [Presence] in Unspecified not detected specimen by SOREN with probe detection (test code = 31808-9) Lactobacillus sp DNA [Log #/volume] in Vaginal fluid by SOREN not det ected with probe detection (test code = 29579-5) Atopobium vaginae DNA [Log #/volume] in Vaginal fluid by SOREN 6.7 log (cells/mL) with probe detection (test code = 26917-6) Megasphaera sp DNA [Log #/volume] in Vaginal fluid by SOREN 6.5 log ( cells/mL) with probe detection (test code = 66913-1) Gardnerella vaginalis DNA [Log #/volume] in Vaginal fluid by 7.3 log (cells/mL) SOREN with probe detection (test code = 66961-6) Bacterial vaginosis score in Vaginal fluid Qualitative by supportiv e A SOREN with probe detection (test code = 88383-1) Trichomonas vaginalis rRNA [Presence] in Unspecified not detected specimen by SOREN with probe detection (test code = 22719-3) Lucrecia sp DNA [Presence] in Vaginal fluid by SOREN with probe not de tected detection (test code = 35317-1) Lucrecia glabrata DNA [Presence] in Vaginal fluid by SOREN with not de tected probe detection (test code = 99920-4) Lucrecia tropicalis DNA [Presence] in Vaginal fluid by SOREN not detec kyree with probe detection (test code = 68452-7) Lucrecia parapsilosis DNA [Presence] in Vaginal fluid by SOREN not det ected with probe detection (test code = 48259-3) [place] [facility] Auto Differential panel - Blood 2021-05-28 [...] = 776-5) Neutrophils [#/volume] in 4752 cells/uL 0074-6971 Blood by Automated count (test code = [...] by Automated count (test code = 706-2) [facility] ProgramInsulin [Units/volume] in Serum or [id number] 00:00:00 Test Item Value Reference Range Interpretation Comments Insulin [Units/volume] in Serum 10.1 uIU/mL or Plasma (test code = 62692-7) [facility] [Units/volume] in Serum or [id number] 00:00:00 Test Item Value Reference Range Interpretation Comments Thyrotropin [Units/volume] in 0.98 mIU/L Serum or Plasma (test code = 3016-3) [facility] ProgramTestosterone [Mass/volume] in Serum or [id number] 00:00:00 Test Item Value Reference Range Interpretation Comments Testosterone [Mass/volume] in Serum 12 NG/dL 2-45 or Plasma (test code = 2986-8) [facility]initis DNA panel - Vaginal fluid by Probe with signal [id number] 00:00:00 Test Item Value Reference Range Interpretation Comments Chlamydia trachomatis rRNA not detected [Presence] in Unspecified specimen by SOREN with probe detection (test code = 24150-9) Neisseria gonorrhoeae rRNA not detected [Presence] in Unspecified specimen by SOREN with probe detection (test code = 82453-7) Lactobacillus sp DNA [Log not detected #/volume] in Vaginal fluid by SOREN with probe detection (test code = 96905-4) Atopobium vaginae DNA [Log 6.7 log (cells/mL) #/volume] in Vaginal fluid by SOREN with probe detection (test code = 96139-3) Megasphaera sp DNA [Log 6.5 log (cells/mL) #/volume] in Vaginal fluid by SOREN with probe detection (test code = 22566-8) Gardnerella vaginalis DNA 7.3 log (cells/mL) [Log #/volume] in Vaginal fluid by SOREN with probe detection (test code = 47976-8) Bacterial vaginosis score supportive A in Vaginal fluid Qualitative by SOREN with probe detection (test code = 58930-1) Trichomonas vaginalis rRNA not detected [Presence] in Unspecified specimen by SOREN with probe detection (test code = 25416-3) Lucrecia sp DNA [Presence] not detected in Vaginal fluid by SOREN with probe detection (test code = 01918-6) Lucrecia glabrata DNA not detected [Presence] in Vaginal fluid by SOREN with probe detection (test code = 16169-6) Lucrecia tropicalis DNA not detected [Presence] in Vaginal fluid by SOREN with probe detection (test code = 48476-0) Lucrecia parapsilosis DNA not detected [Presence] in Vaginal fluid by SOREN with probe detection (test code = 55562-1) [facility]CBC W Auto Differential panel - Blood 2021-05-28 [...] = 776-5) Neutrophils [#/volume] in 4752 cells/uL 5946-9481 Blood by Automated count (test code = [...] by Automated count (test code = 706-2) [facility] CenterInsulin [Units/volume] in Serum or [id number] 00:00:00 Test Item Value Reference Range Interpretation Comments Insulin [Units/volume] in Serum 10.1 uIU/mL or Plasma (test code = 17479-1) [facility] CenterThyrotropin [Units/volume] in Serum or [id number] 00:00:00 Test Item Value Reference Range Interpretation Comments Thyrotropin [Units/volume] in 0.98 mIU/L Serum or Plasma (test code = 3016-3) [facility] CenterTestosterone [Mass/volume] in Serum or Shbeys6863-59-59 00:00:00 Test Item Value Reference Range Interpretation Comments Testosterone [Mass/volume] in Serum 12 NG/dL 2-45 or Plasma (test code = 2986-8) [facility] CenterBASIC METABOLIC [id number] 05:55:00 Test Item Value Reference Range Interpretation [...] code = CA) 8.7 MG/DL 8.5-10.1 N [id number] 05:55:00 Test Item Value Reference Range Interpretation Comments PHOSPHOROUS (test code = PHOS) 3.7 MG/DL 2.5-4.9 N [id number] 05:55:00 Test Item Value Reference Range Interpretation Comments MAGNESIUM (test code = MAG) 2.0 MG/DL 1.8-2.4 N CBC W/AUTO [id number] 05:41:00 Test Item Value Reference Range Interpretation [...] = MDIFF) - CT ABD PELVIS W/O [id number] 05:23:00 [facility] 1985 Sex: F Name: JAMES GRIFFIN [facility] : 1985 Age/S: 35 / F [id number] [address] Unit #: [id number] Loc: [place] [address] Phys: [id number] Dis Date: Status: ADM IN PHONE #:[phone] Exam Date: 12/25/2020 0314 FAX #: Reason: abdominal pain, nausea and vomitting EXAMS: CPT: [id number] CT ABD PELVIS W/O CONT 97144 EXAM:- CT ABD PELVIS W/O CONT LOCATION: [...] 1 Signed Report (CONTINUED) Name: JAMES GRIFFIN [place] : 1985 Age/S: 35 / F [address] [facility] [address] Unit #: [id number] Loc: [place] [address] Phys: Sam Nesbitt MD Acct: [id number] Dis Date: Status: ADM IN PHONE #: [phone] Exam Date: 12/25/2020 0314 FAX #: Reason: abdominal pain, nausea and vomitting EXAMS: CPT: [id number] CT ABD PELVIS W/O CONT 58431 <Continued> quadrant. GENITOURINARY ORGANS:Unremarkable uterus and adnexa. [...] (R)(CT) CTDI: DLP: Trnscb Date/Time: 12/25/2020 (05) [id number] Print D/T: S: 12/25/2020 (7035) PAGE 2 Signed [id number] 21:57:00 Test Item Value Reference Range Interpretation [...] Completed by Nursing: NODRUGS OF ABUSE SCREEN [id number] 17:18:00 Test Item Value Reference Range Interpretation [...] code = NEGATIVE SCcutoff <300 NG/ML [place]) [id number] 17:11:00 Test Item Value Reference Range Interpretation [...] massimo yby method. Completed by Nursing: NOSodium Umkod9110-71-71 06:14:00 Test Item Value Reference Range Interpretation Comments Sodium Level (test code = 2951-2) 140 136-145 [facility] CenterPotassium [id number] 06:14:00 Test Item Value Reference Range Interpretation Comments Potassium Level (test code = 2823-3) 3.2 3.5-5.[address] [facility] CenterChloride [id number] 06:14:00 Test Item Value Reference Range Interpretation Comments Chloride Level (test code = 2075-0) 104 98-107 [facility] CenterCarbon Dioxide [id number] 06:14:00 Test Item Value Reference Range Interpretation Comments Carbon Dioxide Level (test code = 28 22-29 8-9) [facility] CenterAnion [id number] 06:14:00 Test Item Value Reference Range Interpretation Comments Anion Gap (test code = 32061-7) 11.2 8-16 [facility] CenterBlood Urea [id number] 06:14:00 Test Item Value Reference Range Interpretation Comments Blood Urea Nitrogen (test code = < 5 7-26 L 3094-0) [facility] CenterCreatinine2019-02-24 06:14:00 Test Item Value Reference Range Interpretation Comments Creatinine (test code = 2160-0) 0.67 0.57-1.11 [facility] CenterBUN/Creatinine [id number] 06:14:00 Test Item Value Reference Range Interpretation Comments BUN/Creatinine Ratio (test code = 7 6-25 3097-3) [facility] CenterEstimat Glomerular Filtration Rate 2019-01-12 06:14:00 Test Item Value Reference Range Interpretation Comments Estimat Glomerular Filtration Rate > 60 >60 (test code = 948770834) Ranges were taken from the National Kidney Disease Education Program and the National Kidney Foundation literature.Reference ranges:60 or greater: Yisjvn37- 59 (for 3 consecutive months): Chronic kidneydisease 15 or less: Kidney failure [facility] CenterGlucose [id number] 06:14:00 Test Item Value Reference Range Interpretation Comments Glucose Level (test code = LEG4055) 129 74-[address] [facility] CenterCalcium [id number] 06:14:00 Test Item Value Reference Range Interpretation Comments Calcium Level (test code = 66910-1) 8.8 8.4-10.2 [facility] CenterWhite Blood [id number] 05:42:00 Test Item Value Reference Range Interpretation Comments White Blood Count (test code = 6690-2) 5.63 4.8-10.8 [facility] CenterRed Blood [id number] 05:42:00 Test Item Value Reference Range Interpretation Comments Red Blood Count (test code = 789-8) 3.73 3.6-5.1 [facility] CenterHemoglobin2019-02-24 05:42:00 Test Item Value Reference Range Interpretation Comments Hemoglobin (test code = 19308-0) 11.2 12.0-16.[address] [facility] CenterHematocrit2019-02-24 05:42:00 Test Item Value Reference Range Interpretation Comments Hematocrit (test code = 4544-3) 32.5 34.2-44.[address] [facility] CenterMean Corpuscular [id number] 05:42:00 Test Item Value Reference Range Interpretation Comments Mean Corpuscular Volume (test code = 87.1 81-99 787-2) [facility] CenterMean Corpuscular Vswcwpejax9703-25-07 05:42:00 Test Item Value Reference Range Interpretation Comments Mean Corpuscular Hemoglobin (test code 30.0 28-32 = 785-6) [facility] CenterMean Corpuscular Hemoglobin Concent 2019-01-12 05:42:00 Test Item Value Reference Range Interpretation Comments Mean Corpuscular Hemoglobin Concent 34.5 31-35 (test code = 786-4) [facility] CenterRed Cell Distribution [id number] 05:42:00 Test Item Value Reference Range Interpretation Comments Red Cell Distribution Width (test code 13.0 11.7-14.4 = 22079-1) [facility] CenterPlatelet [id number] 05:42:00 Test Item Value Reference Range Interpretation Comments Platelet Count (test code = 777-3) 233 140-360 [facility] CenterNeutrophils (%) (Auto)2019-01-12 05:42:00 Test Item Value Reference Range Interpretation Comments Neutrophils (%) (Auto) (test code = 39.7 38.7-80.0 78516-1) [facility] CenterLymphocytes (%) (Auto)2019-01-12 05:42:00 Test Item Value Reference Range Interpretation Comments Lymphocytes (%) (Auto) (test code = 50.3 18.0-39.1 H 736-9) [facility] CenterMonocytes (%) (Auto)2019-01-12 05:42:00 Test Item Value Reference Range Interpretation Comments Monocytes (%) (Auto) (test code = 9.1 4.4-11.3 5905-5) [facility] CenterEosinophils (%) (Auto)2019-01-12 05:42:00 Test Item Value Reference Range Interpretation Comments Eosinophils (%) (Auto) (test code = 0.2 0.0-6.0 713-8) [facility] CenterBasophils (%) (Auto)2019-01-12 05:42:00 Test Item Value Reference Range Interpretation Comments Basophils (%) (Auto) (test code = 0.5 0.0-1.0 706-2) [facility] CenterIM GRANULOCYTES %2019-01-12 05:42:00 Test Item Value Reference Range Interpretation Comments IM GRANULOCYTES % (test code = IM 0.2 0.0-1.0 GRANULOCYTES %) [facility] CenterNeutrophils # (Auto)2019-01-12 05:42:00 Test Item Value Reference Range Interpretation Comments Neutrophils # (Auto) (test code = 2.2 2.1-6.9 751-8) [facility] CenterLymphocytes # (Auto)2019-01-12 05:42:00 Test Item Value Reference Range Interpretation Comments Lymphocytes # (Auto) (test code = 2.8 1.0-3.2 16985-2) [facility] CenterMonocytes # (Auto)2019-01-12 05:42:00 Test Item Value Reference Range Interpretation Comments Monocytes # (Auto) (test code = 742-7) 0.5 0.2-0.8 [facility] CenterEosinophils # (Auto)2019-01-12 05:42:00 Test Item Value Reference Range Interpretation Comments Eosinophils # (Auto) (test code = 0.0 0.0-0.4 711-2) [facility] CenterBasophils # (Auto)2019-01-12 05:42:00 Test Item Value Reference Range Interpretation Comments Basophils # (Auto) (test code = 704-7) 0.0 0.0-0.1 [facility] CenterAbsolute Immature Granulocyte (auto 2019-01-12 05:42:00 Test Item Value Reference Range Interpretation Comments Absolute Immature Granulocyte (auto 0.01 0-0.1 (test code = Absolute Immature Granulocyte (auto) [facility] CenterBedside [id number] 19:46:00 Test Item Value Reference Range Interpretation Comments Bedside Glucose (test code = 59220-0) 117 70-120 Meter ID: [id number] [facility] CenterAnti-Nuclear Antibody [id number] 12:36:00 Test Item Value Reference Range Interpretation Comments Anti-Nuclear Antibody Screen (test Negative . code = 5048-4) Negative <1:80 Borderline 1:80 Positive >1:80Performed at: [facility] [place]NOTE 2] [address] [id number] Director: Oli Ghosh MD, Phone: [phone]. David's North Austin Medical CenterC-Reactive [id number] 11:57:00 Test Item Value Reference Range Interpretation Comments C-Reactive Protein (test code = 1988-5) 0.9 0.0-4.9 Performed at: - [address] [id number] Director: Oli Ghosh MD, Phone: [phone]. David's North [facility] Medical CenterPhosphorus [id number] 06:40:00 Test Item Value Reference Range Interpretation Comments Phosphorus Level (test code = BJR1446) 3.7 2.3-4.7 [facility] CenterMagnesium [id number] 06:40:00 Test Item Value Reference Range Interpretation Comments Magnesium Level (test code = 54689-5) 1.9 1.3-2.1 [facility] CenterUrine [id number] 19:42:00 Test Item Value Reference Range Interpretation Comments Urine WBC (test code = 5821-4) NONE 0-5 [facility] CenterUrine [id number] 19:42:00 Test Item Value Reference Range Interpretation Comments Urine RBC (test code = 32498-4) >50 0-5 H [facility] [id number] 19:42:00 Test Item Value Reference Range Interpretation Comments Urine Bacteria (test code = 07707-0) PRESENT NONE [facility] CenterUrine Epithelial [id number] 19:42:00 Test Item Value Reference Range Interpretation Comments Urine Epithelial Cells (test code = RARE NONE 50994-3) [facility] CenterUrine [id number] 19:32:00 Test Item Value Reference Range Interpretation Comments Urine Color (test code = 5778-6) STRAW YELLOW [facility] CenterUrine [id number] 19:32:00 Test Item Value Reference Range Interpretation Comments Urine Clarity (test code = 98470-9) SL CLOUDY CLEAR [facility] CenterUrine Specific [id number] 19:32:00 Test Item Value Reference Range Interpretation Comments Urine Specific [place] (test code = 1.015 1.010-1.025 5811-5) [facility] CenterUrine [id number] 19:32:00 Test Item Value Reference Range Interpretation Comments Urine pH (test code = 66166-7) 6 5-7 [facility] CenterUrine Leukocyte [id number] 19:32:00 Test Item Value Reference Range Interpretation Comments Urine Leukocyte Esterase (test code NEGATIVE NEGATIVE = 5799-2) [facility] CenterUrine [id number] 19:32:00 Test Item Value Reference Range Interpretation Comments Urine Nitrite (test code = 66634-1) NEGATIVE NEGATIVE [facility] CenterUrine [id number] 19:32:00 Test Item Value Reference Range Interpretation Comments Urine Protein (test code = 5804-0) NEGATIVE NEGATIVE [facility] CenterUrine Glucose (UA)2019-01-09 19:32:00 Test Item Value Reference Range Interpretation Comments Urine Glucose (UA) (test code = NEGATIVE NEGATIVE 2349-9) [facility] CenterUrine [id number] 19:32:00 Test Item Value Reference Range Interpretation Comments Urine Ketones (test code = 73814-7) 2+ NEGATIVE H [facility] CenterUrine [id number] 19:32:00 Test Item Value Reference Range Interpretation Comments Urine Urobilinogen (test code = 0.2 0.2-1 08236-1) [facility] CenterUrine [id number] 19:32:00 Test Item Value Reference Range Interpretation Comments Urine Bilirubin (test code = 1978-6) NEGATIVE NEGATIVE [facility] CenterUrine [id number] 19:32:00 Test Item Value Reference Range Interpretation Comments Urine Blood (test code = 74443-3) 4+ NEGATIVE H INFORMED THAT PT IS STARTED HER PERIODSt. [facility]'s [facility] Medical [facility] Vitamin B12 [id number] 18:39:00 Test Item Value Reference Range Interpretation Comments Vitamin B12 Level (test code = 33747-4) 808 213-816 [facility] CenterErythrocyte Sedimentation [id number] 18:07:00 Test Item Value Reference Range Interpretation Comments Erythrocyte Sedimentation Rate (test 4 0-20 code = 4537-7) [facility] CenterFerritin2019-02-21 18:06:00 Test Item Value Reference Range Interpretation Comments Ferritin (test code = 2276-4) 29.07 4.63-204.00 [facility] CenterIron [id number] 17:46:00 Test Item Value Reference Range Interpretation Comments Iron Level (test code = 2498-4) 40 50-[address] [facility] CenterTotal Iron Binding [id number] 17:46:00 Test Item Value Reference Range Interpretation Comments Total Iron Binding Capacity (test code 333 243-969 = 2500-7) [facility] CenterPercent Iron Hgbdxyljpt6993-14-00 17:46:00 Test Item Value Reference Range Interpretation Comments Percent Iron Saturation (test code = 12 15-50 L 2502-3) [facility] CenterTransferrin2019-02-21 17:46:00 Test Item Value Reference Range Interpretation Comments Transferrin (test code = 3034-6) 238 180-382 [facility] CenterPercent Reticulocyte [id number] 17:34:00 Test Item Value Reference Range Interpretation Comments Percent Reticulocyte Count (test code = 2.1 0.8-2.2 63020-1) [facility] CenterHEPTOBILIARY W [id number] 14:46:00 [place] [address] Patient Name: JAMES GRIFFIN MR #: [id number] : 1985 Age/Sex: 33/F Req #: [id number] Adm Physician: SARY SINGH MD Ordered by: DWAIN LOVING MD Report #: [id number] Location: [facility] Room/Bed: [facility] Procedure: [id number] NM/HEPTOBILIARY W PHARM Exam Date: 01/09/19 Exam [...] on 01/09/19 1447 COPY TO: DWAIN LOVING [facility] [id number] 16:52:00 [place] [address] Patient Name: JAMES GRIFFIN MR #: [id number] : 1985 Age/Sex: 33/F Req #: [id number] Adm Physician: SARY SINGH MD Ordered by: SARY SINGH MD Report #: [id number] Location: MED/SURG3 Room/Bed: [facility] Procedure: [id number] MRI/MRI MRCP WO Exam Date: 01/08/19 Exam Time: 1600 REPORT STATUS: Signed MRCP CPT code: 48626 History: Intractable nausea/vomiting, chronic epigastric pain Comparison: [...] 01/08/191700 COPY TO: SARY SINGH MD Urine [id number] 12:32:00 Test Item Value Reference Range Interpretation Comments Urine Test (test code = NEGATIVE NEGATIVE 2106-3) [facility] CenterFolate2019-02-20 06:55:00 Test Item Value Reference Range Interpretation Comments Folate (test code = 2284-8) 18.6 7.0-15.[address] [facility] CenterThyroid Stimulating Hormone (TSH) 2019-01-08 06:33:00 Test Item Value Reference Range Interpretation Comments Thyroid Stimulating Hormone (TSH) (test 0.964 0.350-4.940 code = 60146-2) [facility] Eyqyiicft9181-80-67 05:55:00 Test Item Value Reference Range Interpretation Comments Total Bilirubin (test code = 1975-2) 0.5 0.2-1.2 [facility] CenterAspartate Amino Transf (AST/SGOT) 2019-01-08 05:55:00 Test Item Value Reference Range Interpretation Comments Aspartate Amino Transf (AST/SGOT) (test 17 5-34 code = Aspartate Amino Transf (AST/SGOT)) [facility] CenterAlanine Aminotransferase (ALT/SGPT) 2019-01-08 05:55:00 Test Item Value Reference Range Interpretation Comments Alanine Aminotransferase (ALT/SGPT) 16 0-55 (test code = 1742-6) [facility] [id number] 05:55:00 Test Item Value Reference Range Interpretation Comments Total Protein (test code = 2885-2) 5.7 6.5-8.[address] [facility] CenterAlbumin2019-02-20 05:55:00 Test Item Value Reference Range Interpretation Comments Albumin (test code = 1751-7) 4.0 3.5-5.0 [facility] CenterGlobulin2019-02-20 05:55:00 Test Item Value Reference Range Interpretation Comments Globulin (test code = 01320-5) 1.7 2.3-3.[address] [facility] CenterAlbumin/Globulin [id number] 05:55:00 Test Item Value Reference Range Interpretation Comments Albumin/Globulin Ratio (test code = 2.4 0.8-2.0 H 1759-0) [facility] CenterAlkaline Lznrbzpbrfl2946-85-30 05:55:00 Test Item Value Reference Range Interpretation Comments Alkaline Phosphatase (test code = 39 40-150 L 6768-6) [facility] CenterAmylase [id number] 05:55:00 Test Item Value Reference Range Interpretation Comments Amylase Level (test code = 1798-8) 31 25-125 [facility] CenterLipase2019-02-20 05:55:00 Test Item Value Reference Range Interpretation Comments Lipase (test code = 3040-3) 22 8-78 [facility] CenterABDOMEN ACUTE SERIES W/PA [id number] 01:41:00 [facility] [address] [address] Patient Name: JAMES GRIFFIN MR #: [id number] : 1985 Age/Sex: 33/F Req #: [id number] Adm Physician: Ordered by: RACIEL CALVERT MD Report #: [id number] Location: ER Room/Bed: Procedure: [id number] DX/ABDOMEN ACUTE SERIES W/PA CXR Exam Date: 01/07/19 Exam Time: 47 REPORT STATUS: Signed EXAM: Abdomen 2 Views, chest 1 view INDICATION: abd pain [id number] 0048 Y COMPARISON: None FINDINGS: No focal [...] (test code = 8247-9) MANY RARE H [facility] CenterUrine Opiates [id number] 00:09:00 Test Item Value Reference Range Interpretation Comments Urine Opiates Screen (test code = POSITIVE NEGATIVE H 57445-4) ALL TESTS PERFORMED MANUALLY ON Itaro TOX/SEE TEST This test provides only a screen. Positive results should be repeated by a confirmatory test.[facility] CenterUrine Barbiturates [id number] 00:09:00 Test Item Value Reference Range Interpretation Comments Urine Barbiturates Screen (test code NEGATIVE NEGATIVE = 393835062) [facility] CenterUrine Phencyclidine [id number] 00:09:00 Test Item Value Reference Range Interpretation Comments Urine Phencyclidine Screen (test NEGATIVE NEGATIVE code = 80988-5) [facility] CenterUrine Amphetamines [id number] 00:09:00 Test Item Value Reference Range Interpretation Comments Urine Amphetamines Screen (test code NEGATIVE NEGATIVE = 50454-5) [facility] CenterUrine Methamphetamines [id number] 00:09:00 Test Item Value Reference Range Interpretation Comments Urine Methamphetamines Screen (test NEGATIVE NEGATIVE code = Urine Methamphetamines Screen) [facility] CenterUrine Benzodiazepines [id number] 00:09:00 Test Item Value Reference Range Interpretation Comments Urine Benzodiazepines Screen (test NEGATIVE NEGATIVE code = 60919-2) [facility] CenterUrine Cocaine [id number] 00:09:00 Test Item Value Reference Range Interpretation Comments Urine Cocaine Screen (test code = NEGATIVE NEGATIVE 3398-5) [facility] CenterUrine Cannabinoids [id number] 00:09:00 Test Item Value Reference Range Interpretation Comments Urine Cannabinoids Screen (test code POSITIVE NEGATIVE H = 66592-0) THESE RESULTS ARE FOR MEDICAL TREATMENT ONLYTHIS REPORT CONTAINS UNCONFIRMED SCREENING RESULTS*POSITIVE RESULTS WILL BE CONFIRMED BY REFERENCE LAB UPON REQUEST CUT-OFFDRUG CLASS CONCENTRATION ng/mLAmphetamines 1000Met hamphetamines 1000Cocaine 300Opiate 300Phencyclidine 25Cannabinoid 50Barbiturates 300Benzodiazepine 300Methadone 300 This test provides only a screen. Positive results should be repeated by a confirmatory test.[facility] CenterUrine Methadone [id number] 00:09:00 Test Item Value Reference Range Interpretation Comments Urine Methadone Screen (test code = NEGATIVE NEGATIVE 01297-0) THESE RESULTS ARE FOR MEDICAL TREATMENT ONLYTHIS REPORT CONTAINS UNCONFIRMED SCREENING RESULTS*POSITIVE RESULTS WILL BE CONFIRMED BY REFERENCE LAB UPON REQUEST CUT-OFFDRUG CLASS CONCENTRATION ng/mLAmphetamines 1000Met hamphetamines 1000Cocaine Metabolite 300Opiate 300Phencyclidine 25Cannabinoid 50Barbiturates 300Benzodiazepine 300Methadone 300[facility]
[2021-06-09] MEDS ORDERED: ONDANSETRON 4 MG (ODT) TAB ONE (11:38)
[2021-06-09 13:20] LABS: Urine Blood 1+ (Negative); Urine Glucose Negative (Negative); Urine Protein Negative (Negative); Urine Specific Gravity >=1.030 (1.005-1.030); Urine pH 6.5 (5.0-7.0)
[2021-06-09 13:46] LABS: Absolute Lymphocytes (CBC) 0.9 K/uL (0.7-4.9); Basophils % 0.3 % (0-1.3); Hematocrit 32.4 % (36.0-45.0); MPV 8.8 fL (7.6-11.3); RBC Red Blood Cell Count 3.84 M/uL (3.86-4.86)
[2021-06-09] MEDS ORDERED: ONDANSETRON 4 MG/2 ML VIAL ONE (13:52)
[2021-06-09] MEDS ORDERED: KETOROLAC 30 MG/ML INJ ONE (13:53)
[2021-06-09] MEDS ORDERED: NA CHLORIDE 0.9% 1,000 ML ONE ×2 (13:53→14:51)
[2021-06-09 14:03] LABS: Urine Specific Gravity/Preg >1.030 (1.005-1.030)
[2021-06-09] MEDS ORDERED: METOCLOPRAMIDE 10 MG/2mL INJ ONE (14:14)
[2021-06-09] MEDS ORDERED: MORPHINE 4 MG/ML SYR ONE (14:15)
--- NOTE | 2021-06-09 17:09 | EDPHYS ---
Physician Documentation [facility] Name: Shyanne Pardo Age: 35 yrs Sex: Female : 1985 Arrival Date: 06/09/2021 Time: 10:45 Bed 9 Private MD: ED Physician Fito Rabago HPI: 06/09 13:16 This 35 yrs old Female presents to ER via Ambulatory with complaints of kb Vomiting. 13:16 The patient presents to the emergency department with nausea, vomiting, diarrhea, kb abdominal pain. Onset: The symptoms/episode began/occurred 6 day(s) ago. Possible causes: unknown. The symptoms are aggravated by nothing. The symptoms are alleviated by nothing. Associated signs and symptoms: Pertinent positives: abdominal pain, diarrhea, nausea, vomiting, Pertinent negatives: fever. Severity of symptoms: At their worst the symptoms were moderate in the emergency department the symptoms are unchanged. The patient has experienced similar episodes in the past, multiple times. The patient has been recently seen at the [facility] Emergency Department, yesterday, for similar complaints labs were performed, CT scan was performed. Pt reports n/v/d and upper abdominal pain since Sunday. States she has had this several times in the past, has seen GI and has endoscopy scheduled for 06/14/21. States she was seen here yesterday, vomiting was under control when she left but when she woke up the symptoms had returned. . Historical: - Allergies: 11:17 Azithromycin; hb 11:17 CEPHALOSPORINS; hb 11:17 Erythromycin; hb 11:17 PENICILLINS; hb 11:17 Sulfa (Sulfonamide Antibiotics); hb - PMHx: 11:17 Colitis; gastritis; sliding heria; Ulcers; hb - Immunization history:: Adult Immunizations up to date. - Social history:: Smoking status: Patient denies any tobacco usage or history of. ROS: 13:18 Constitutional: Negative for fever, chills, and weight loss. kb 13:18 Abdomen/GI: Positive for abdominal pain, nausea, vomiting, and diarrhea. 13:18 All other systems are negative. Exam: 13:18 Constitutional: This is a well developed, well nourished patient who is awake, alert, kb and in no acute distress. Head/Face: Normocephalic, atraumatic. ENT: Moist Mucous membranes Cardiovascular: Regular rate and rhythm with a normal S1 and S2. No gallops, murmurs, or rubs. No pulse deficits. Respiratory: Respirations even and unlabored. No increased work of breathing, no retractions or nasal flaring. Back: No spinal tenderness. No costovertebral tenderness. Full range of motion. Skin: Warm, dry with normal turgor. Normal color. MS/ Extremity: Pulses equal, no cyanosis. Neurovascular intact. Full, normal range of motion. Neuro: Awake and alert, GCS 15, oriented to person, place, time, and situation. Moves all extremities. Normal gait. Psych: Awake, alert, with orientation to person, place and time. Behavior, mood, and affect are within normal limits. 13:18 Abdomen/GI: Inspection: abdomen appears normal, Bowel sounds: normal, Palpation: soft, in all quadrants, mild abdominal tenderness, in the right upper quadrant and left upper quadrant. Vital Signs: 11:14 BP 177 / 97; Pulse 86; Resp 18; Temp 97.4; Pulse Ox 100% on R/A; Pain 9/10; hb 13:00 BP 146 / 95; Pulse 76; Resp 18; Temp 98.9(TE); Pulse Ox 97% on R/A; mh5 14:00 BP 121 / 75; Pulse 73; Resp 18; Pulse Ox 100% on R/A; tr6 17:00 BP 122 / 75; Pulse 63; Resp 18; Pulse Ox 100% on R/A; tr6 MDM: 13:05 Patient medically screened. kb 13:19 Data reviewed: vital signs, nurses notes. Data interpreted: Pulse oximetry: on room air kb is 97 %. Interpretation: normal. 17:04 Counseling: I had a detailed discussion with the patient and/or guardian regarding: the kb historical points, exam findings, and any diagnostic results supporting the discharge/admit diagnosis, lab results, the need for outpatient follow up, a adhesive primer, to return to the emergency department if symptoms worsen or persist or if there are any questions or concerns that arise at home. 17:04 ED course: Pt tolerating PO intake. Pt requests she be discharged. States "I want to go kb home and do things while I'm feeling good." Pt aware that labs are still pending, but does not want to wait on them. 06/09 13:09 Order name: Basic Metabolic Panel kb 06/09 13:09 Order name: CBC with Diff; Complete Time: 13:51 kb 06/09 13:09 Order name: Hepatic Function kb 06/09 13:09 Order name: Lipase 06/09 13:20 Order name: Urine Dipstick-Ancillary; Complete Time: 13:29 EDMS 06/09 13:33 Order name: Urine --Ancillary (enter results); Complete Time: 14:08 em1 06/09 13:09 Order name: IV Saline Lock; Complete Time: 13:38 kb 06/09 13:09 Order name: Labs collected and sent; Complete Time: 13:38 kb Administered Medications: 13:37 Drug: NS 0.9% 1000 ml Route: IV; Rate: 1000 ml; Site: right antecubital; tr6 14:33 Follow up: IV Status: Completed infusion; IV Intake: 1000ml tr6 13:37 Drug: Zofran (Ondansetron) 4 mg Route: IVP; Site: right antecubital; tr6 14:33 Follow up: Response: No adverse reaction tr6 13:38 Drug: Ketorolac 15 mg Route: IVP; Site: right antecubital; tr6 14:33 Follow up: Response: No adverse reaction; Pain is unchanged, physician notified tr6 13:56 Drug: morphine 4 mg Route: IVP; Site: right antecubital; tr6 14:33 Follow up: Response: No adverse reaction; Pain is decreased tr6 13:56 Drug: Reglan (metoCLOPramide) 10 mg Route: IVP; Site: right antecubital; tr6 14:33 Follow up: Response: Nausea is decreased tr6 14:32 Drug: NS 0.9% 1000 ml Route: IV; Rate: 1000 ml; Site: right antecubital; tr6 17:35 Drug: ProTONIX (pantoprazole) 40 mg Route: IVP; Site: right antecubital; tr6 17:35 Drug: GI Cocktail without - (Maalox Suspension 30 ml, Lidocaine Liquid 2 % 15 tr6 ml) Route: PO; Disposition: 06/10 09:12 Co-signature as Attending Physician, Fito CUEVAS I agree with the assessment and keyonna plan of care. Disposition Summary: 06/09/21 17:08 Discharge Ordered Location: Home kb Condition: Stable kb Diagnosis - Nausea with vomiting, unspecified kb Followup: kb - With: Emergency Department - When: As needed - Reason: Trouble breathing, Worsening of condition Followup: kb - With: Private Physician - When: 2 - 3 days - Reason: Recheck today's complaints, Continuance of care, Re-evaluation by your physician Discharge Instructions: - Discharge Summary Sheet kb - Nausea and Vomiting, Adult, Jiao-zy-Phyo kb Forms: - Medication Reconciliation Form kb - Thank You Letter kb - Antibiotic Education kb - Prescription Opioid Use kb Prescriptions: - Reglan 10 mg Oral Tablet - take 1 tablet by ORAL route every 6 hours take 30 minutes before meals and at bedtime; 20 tablet; Refills: 0, Product Selection Permitted Signatures: Dispatcher [employer] EDAmada Atwood, SHAYE BUNDY-Fito Rdz MD MD cha Baxter, Heather, RN RN Gillian Beebe RN RN tr6
--- NOTE | 2021-06-09 17:09 | ER ---
Nurse's Notes [facility] Name: Shyanne Pardo Age: 35 yrs Sex: Female : 1985 Arrival Date: 06/09/2021 Time: 10:45 Bed 9 Private MD: Diagnosis: Nausea with vomiting, unspecified Presentation: 06/09 11:14 Chief complaint: Upper abdominal pain and N/V x 2-3 days. Seen in ED last night for hb same s/s, not tolerating fluids, vomiting in triage. Coronavirus screen: Client presents with at least one sign or symptom that may indicate coronavirus-19. Standard/surgical mask placed on the client. Provider contacted for isolation considerations. Ebola Screen: No symptoms or risks identified at this time. Risk Assessment: Do you want to hurt yourself or someone else? Patient reports no desire to harm self or others. Onset of symptoms was June 07, 2021. 11:14 Method Of Arrival: Ambulatory hb 11:14 Acuity: [place] 3 hb 13:41 Initial Sepsis Screen: Does the patient meet any 2 criteria? No. Patient's initial tr6 sepsis screen is negative. Does the patient have a suspected source of infection? No. Patient's initial sepsis screen is negative. Triage Assessment: 13:41 GI: Reports upper abdominal pain, nausea, vomiting. tr6 Historical: - Allergies: 11:17 Azithromycin; hb 11:17 CEPHALOSPORINS; hb 11:17 Erythromycin; hb 11:17 PENICILLINS; hb 11:17 Sulfa (Sulfonamide Antibiotics); hb - PMHx: 11:17 Colitis; gastritis; sliding heria; Ulcers; hb - Immunization history:: Adult Immunizations up to date. - Social history:: Smoking status: Patient denies any tobacco usage or history of. Screenin:40 Abuse screen: Denies threats or abuse. Denies injuries from another. Nutritional tr6 screening: No deficits noted. Tuberculosis screening: No symptoms or risk factors identified. Fall Risk None identified. Assessment: 13:41 General: Appears distressed, uncomfortable, Behavior is crying. Pain: Complains of pain tr6 in upper abdomen. Neuro: No deficits noted. Cardiovascular: No deficits noted. Respiratory: No deficits noted. GI: Abdomen is flat, non-distended. : No deficits noted. EENT: No deficits noted. Derm: No deficits noted. Musculoskeletal: No deficits noted. 14:32 Reassessment: Patient and/or family updated on plan of care and expected duration. Pain tr6 level reassessed. Patient is alert, oriented x 3, equal unlabored respirations, skin warm/dry/pink. pt sleeping. 15:04 Reassessment: Patient and/or family updated on plan of care and expected duration. Pain tr6 level reassessed. Vital Signs: 11:14 BP 177 / 97; Pulse 86; Resp 18; Temp 97.4; Pulse Ox 100% on R/A; Pain 9/10; hb 13:00 BP 146 / 95; Pulse 76; Resp 18; Temp 98.9(TE); Pulse Ox 97% on R/A; mh5 14:00 BP 121 / 75; Pulse 73; Resp 18; Pulse Ox 100% on R/A; tr6 17:00 BP 122 / 75; Pulse 63; Resp 18; Pulse Ox 100% on R/A; tr6 ED Course: 10:45 Patient arrived in ED. rg4 11:17 Triage completed. hb 11:17 Arm band placed on. hb 12:47 Gillian Beebe, RN is Primary Nurse. tr6 12:53 Patient has correct armband on for positive identification. Bed in low position. Call mh5 light in reach. Side rails up X 1. Warm blanket given. Pulse ox on. NIBP on. 13:05 Amada Sauceda FNP-C is [facility]. kb 13:05 Fito Rabaog MD is Attending Physician. kb 13:36 Inserted saline lock: 20 gauge in right antecubital area, using aseptic technique. dh4 Blood collected. Missed attempt(s): 20 gauge in right antecubital area. 13:40 Appears restless. Awaiting lab results. tr6 13:40 No provider procedures requiring assistance completed. tr6 17:06 IV discontinued, intact, bleeding controlled, No redness/swelling at site. Pressure tr6 dressing applied. Administered Medications: 13:37 Drug: NS 0.9% 1000 ml Route: IV; Rate: 1000 ml; Site: right antecubital; tr6 14:33 Follow up: IV Status: Completed infusion; IV Intake: 1000ml tr6 13:37 Drug: Zofran (Ondansetron) 4 mg Route: IVP; Site: right antecubital; tr6 14:33 Follow up: Response: No adverse reaction tr6 13:38 Drug: Ketorolac 15 mg Route: IVP; Site: right antecubital; tr6 14:33 Follow up: Response: No adverse reaction; Pain is unchanged, physician notified tr6 13:56 Drug: morphine 4 mg Route: IVP; Site: right antecubital; tr6 14:33 Follow up: Response: No adverse reaction; Pain is decreased tr6 13:56 Drug: Reglan (metoCLOPramide) 10 mg Route: IVP; Site: right antecubital; tr6 14:33 Follow up: Response: Nausea is decreased tr6 14:32 Drug: NS 0.9% 1000 ml Route: IV; Rate: 1000 ml; Site: right antecubital; tr6 17:35 Drug: ProTONIX (pantoprazole) 40 mg Route: IVP; Site: right antecubital; tr6 17:35 Drug: GI Cocktail without - (Maalox Suspension 30 ml, Lidocaine Liquid 2 % 15 tr6 ml) Route: PO; Intake: 14:33 IV: 1000ml; Total: 1000ml. tr6 Outcome: 17:06 Discharged to home ambulatory. tr6 17:06 Condition: improved 17:06 Discharge instructions given to patient, Instructed on discharge instructions, follow up and referral plans. Demonstrated understanding of instructions, follow-up care. 17:08 Discharge ordered by . kb 17:36 Patient left the ED. tr6 Signatures: Amada Sauceda FNP-C FNP-Aurea Burris, RN RN Rachel Stubbs Radha Arroyo Donald pending sale to [facility] Gillian Beebe RN RN tr6
[2021-06-09] MEDS ORDERED: PANTOPRAZOLE 40 MG INJ ONE (17:47)
[2021-06-09] MEDS ORDERED: MAGNES/ALUMIN/SIMET 30ML UCUP ONE (17:47)
[2021-06-09] MEDS ORDERED: LIDOCAINE VISCOUS 2% SOLN 15 ML UDC ONE (17:48)
[2021-06-09 18:01] VITALS: TEMP 98.9
[2021-06-09 18:02] VITALS: O2SAT 100
[2021-06-09 18:04] VITALS: BP 122/75
[2021-06-10 12:18] LABS: Potassium 3.3
[2021-06-10 12:20] LABS: Albumin 4.3; Protein, Total 7.1
[2021-06-10 12:21] LABS: Bilirubin Total 0.6
== END 2021-06-09 17:36 | disposition home or self-care (01) ==
LOC: ER 10:44
DX: R11.2 Nausea with vomiting, unspecified (principal); R10.10 Upper abdominal pain, unspecified; Z88.0 Allergy status to penicillin; Z88.1 Allergy status to other antibiotic agents; Z88.2 Allergy status to sulfonamides; Z88.3 Allergy status to other anti-infective agents
CPT/HCPCS: 96361; 85025; 80048; 36415; 81025; 80076; 81003; 83690; 96375; 96374; 99284; J2765; C9113; J7030 ×2; J2405